=== PATIENT | male | born 1960 | race Caucasian/White ===

== ENCOUNTER 2024-04-05 11:51 | Outpatient (REF) | payer MEDICAID, SELFPAY ==
--- NOTE | ~2024-04-05 | XR_ITS ---
EXAMINATION: XR CHEST CLINICAL INFORMATION: COPD with chronic hypoxemia COMPARISON: 2 view chest 12/19/2018 TECHNIQUE: 2 views of the chest were obtained. FINDINGS: No significant abnormality is noted involving the heart, lungs, mediastinum, bony thorax or soft tissues. XR/XR chest 2V IMPRESSION: Unremarkable examination.
== END 2024-04-05 11:52 | disposition home or self-care (01) ==
LOC: HO.HHCX 11:51
PROVIDERS: Visit Provider Internal Medicine Geriatric Medicine
DX: J96.11 Chronic respiratory failure with hypoxia (principal)
CPT/HCPCS: 36415; 71046; 80053; 81596; 85025; 85610; 85730; 86706; 86708; 86803; 87340; 87522

== ENCOUNTER 2024-04-05 12:15 | Outpatient (REF) | payer MEDICAID, SELFPAY ==
[2024-04-05 13:18] LABS: MANUAL DIFF FLAG NO
[2024-04-05 13:26] LABS: Basophils Absolute Auto 0.1 X10*3/uL (0.0-0.2); Basophils Percent Auto 0.8 % (0-2); Eosinophils Absolute Auto 0.1 X10*3/uL (0.0-0.4); Eosinophils Percent Auto 1.5 % (0-4); Hematocrit 41.7 % (42.0-52.0); Hemoglobin 13.3 g/dl (14.0-18.0); Imm Gran Abs Auto 0.03 X10*3/uL (0.00-0.03); Imm Gran Pct Auto 0.4 % (0.0-0.4); Lymphocytes Absolute Auto 2.7 X10*3/uL (1.2-4.9); Lymphocytes Percent Auto 37.3 % (20-40); Mean Corpuscular HGB Conc 31.9 g/dl (31.0-36.0); Mean Corpuscular Hemoglobin 30.4 pg (27.0-33.0); Mean Corpuscular Volume 95.2 fL (80.0-98.0); Mean Platelet Volume 10.8 fL (9.4-12.4); Monocytes Absolute Auto 0.7 X10*3/uL (0.1-1.2); Monocytes Percent Auto 9.2 % (2-11); Neutrophils Absolute Auto 3.7 x10*3/uL (2.0-8.3); Neutrophils Percent Auto 50.8 % (45-73); Platelet Count 206 X10*3/uL (160-400); Red Blood Count 4.38 X10*6/uL (4.60-5.80); Red Cell Distribution Width 18.3 % (11.0-16.0); White Blood Count 7.3 X10*3/uL (4.8-10.8)
[2024-04-05 13:39] LABS: Prothrombin Time 11.9 SEC (11.1-13.3)
[2024-04-05 13:41] LABS: Partial Thromboplastin Time 38.4 SEC (26.0-36.8)
[2024-04-05 13:50] LABS: Alanine Aminotransferase 13 U/L (0-40); Albumin Level 4.2 g/dL (3.5-5.0); Alkaline Phosphatase 98 U/L (39-117); Anion Gap 14 (12-20); Aspartate Amino Transferase 12 U/L (5-37); Bilirubin Total 0.5 mg/dL (0.0-1.0); Blood Urea Nitrogen 14 mg/dL (9-16); Calcium 9.3 mg/dL (8.4-10.2); Carbon Dioxide 24 mmol/L (22-29); Chloride 108 mmol/L (96-108); Estimated Glomerular Filt Rate > 60; Glucose Random 88 mg/dL (60-115); Potassium 4.5 mmol/L (3.3-5.1); Sodium 141 mmol/L (135-145)
[2024-04-06 08:57] LABS: Hepatitis A Antibody IgG Nonreactive (Nonreactive); ~Hepatitis A Antibody IgG 0.51 S/CO (0.00-0.99)
[2024-04-06 09:01] LABS: HBS Num1 0.71 mIU/mL (0-7.99); HBsAGNum1 0.31 S/CO (0.00-0.99); Hepatitis B Surface Antigen Negative (Negative); ~HepC Num1 14.01 S/CO (0.00-0.79); ~Hepatitis B Surface Antibody NONREACTIVE (Nonreactive); ~Hepatitis C Antibody Reactive (Nonreactive)
[2024-04-11 07:22] LABS: HCV Log PCR <1.18 NOT DETECTED Log IU/mL (NOT DETECTED); HepC Viral Load <15 NOT DETECTED IU/mL (NOT DETECTED)
[2024-04-14 17:38] LABS: FIB-ALT 12 U/L (9-46); FIB-Alpha-2-Macroglobulin 323 mg/dL (106-279); FIB-Apolipoprotein A1 129 mg/dL (94-176); FIB-GGT 11 U/L (3-70); FIB-Haptoglobin 241 mg/dL (43-212); FIB-Total Bilirubin 0.3 mg/dL (0.2-1.2); Liver Fibrosis Score 0.27; Liver Fibrosis Stage F1; Nec Inflam Act Grade A0; Nec Inflam Act Score 0.03
== END 2024-04-05 12:16 | disposition home or self-care (01) ==
LOC: HO.HHCL 12:15
PROVIDERS: Visit Provider Internal Medicine Geriatric Medicine
DX: Z86.19 Personal history of other infectious and parasitic diseases (principal)
CPT/HCPCS: 36415; 80053; 81596; 85025; 85610; 85730; 86706; 86708; 86803; 87340; 87522

== ENCOUNTER 2024-12-26 12:49 | Inpatient (IN) | payer MEDICAID, SELFPAY ==
[2024-12-26] VITALS (12 sets, daily range): BP systolic 80–142; BP diastolic 40–74; PULSE 58–96; RESP 16–26; TEMP 36.3–36.9; O2SAT 93–100; BMI 33.7
--- NOTE | ~2024-12-26 | XR_ITS ---
EXAMINATION: XR BILATERAL HIPS WITH AP PELVIS CLINICAL INFORMATION: pain s/p fall COMPARISON: Right hip radiographs 09/29/2017. TECHNIQUE: AP view of the pelvis and 2 views of each hip were obtained. FINDINGS: Severe, end-stage arthrosis bilateral hip joints, with severe joint space loss bilaterally, [id number] appearance, subchondral sclerosis and cystic changes, and flattening of the right greater than left femoral heads. No definite fracture seen although given the degree of arthritic change, subtle fracture could be easily be obscured. The pelvis appears grossly intact. The sacrum appears grossly intact. The SI joints demonstrate arthritic changes but are otherwise intact. No discrete soft tissue abnormalities. XR/XR hip BI w [id number] IMPRESSION: 1. End-stage arthrosis right greater than left hip joints with [id number] appearance, extensive subchondral cystic changes and sclerosis. Flattening/remodeling of the femoral heads right greater than left, with remodeling of the acetabula.. No definite fractures although given the degree of arthritic changes, a subtle fracture could easily be obscured. 2. The pelvis appears intact without definite fracture. Electronically signed by: George Parry MD 12/26/2024 02:03 PM EDT
--- NOTE | ~2024-12-26 | XR_ITS ---
EXAMINATION: XR CHEST CLINICAL INFORMATION: sob, wheezing COMPARISON: April 05, 2024. TECHNIQUE: Frontal view of the chest was obtained. FINDINGS: Mild prominence of the interstitial markings. No consolidation, pleural effusion or pneumothorax. Cardiomediastinal silhouette size is normal. The axial skeleton is not fully evaluated due to patient's body habitus. XR/XR chest 1V IMPRESSION: Mild interstitial lung edema in the correct clinical settings. Fat opacity at inferior right cardiomediastinal silhouette. Electronically signed by: Lamonte Lomax MD 12/26/2024 01:24 PM EDT
--- NOTE | ~2024-12-26 | CT_ITS ---
CLINICAL HISTORY: Abdominal pain CT abdomen and pelvis without contrast Comparison: None Findings: No consolidation or effusion. Cholelithiasis. Solid organs are within normal limits. No bowel obstruction, pneumoperitoneum, or pneumatosis. Small hiatal hernia. Pelvic contents unremarkable. Normal appendix. No acute fracture. Severe bilateral hip osteoarthritis with rtaxl-[id number]-[id number]-left femoral head deformity, possibly posttraumatic. IMPRESSION: 1. No acute process. 2. Cholelithiasis. 3. Hiatal hernia. 4. Bilateral hip osteoarthritis. This document has been electronically signed by: Juan Jose Cook MD on 12/30/2024 16:01:28
--- NOTE | 2024-12-26 12:53 | ED.SOB ---
HPI - SOB/Dyspnea General Chief Complaint: General Medical Stated Complaint: from for fall, no HS, no LOC, duo neb for SOB Time Seen by Provider: 12/26/24 12:51 Source: patient, EMS, RN notes reviewed and old records reviewed Mode of arrival: EMS Limitations: language barrier History of Present Illness ED Provider: Margarito Osorio PA-C HPI Narrative: 64 yo Gabonese speaking male with history of chronic hypoxic respiratory failure on 2L NC, COPD/asthma, morbid obesity, chronic right hip fracture x1 year, who presents to the ER from the walk in clinic for evaluation of SOB and a fall. He states he is usually on a motorized scooter and does not walk however since he scooter is broken he used a crutch to walk from the bus stop to the office. He did not bring his oxygen tank with him. He states he was going to the doctor because he ran out of [place] of his meds 1 month ago. He states he was recently admitted to [facility] for asthma exacerbation and was discharged with prednisone taper 3-4 days ago. When he was at the doctor today he was lightheaded, tripped on his crutch and fell onto his right side. It was witnessed by staff. He did not hit his head or lose consciousness. He injured his right lateral chest wall when his crutch jabbed into him as he fell over. He developed worsening SOB after walking without O2 and then falling. He was very wheezy and started on a duoneb. His SPo2 was 93% per EMS. He continued to be wheezy, was given another treatment and brought to the ER for evaluation. MD elicited complaint: shortness of breath Pertinent past history: COPD and asthma Onset (ago): hour(s) Context: occurred during exertion Timing: progressively worsening Exacerbating factors: exertion Relieving factors: oxygen, rest, bronchodilators and upright position Known history of: COPD and asthma Associated symptoms: cough, wheezing, chest congestion, dizziness and lightheadedness Treatment prior to arrival: oxygen and bronchodilator Related Data Home oxygen amount: 2 liters Allergies Allergy/AdvReac Type Severity Reaction Status Date / Time oxycodone [Percocet] Allergy Unknown Unknown Verified 12/26/24 13:07 acetaminophen AdvReac Mild LOWERS BP Verified 12/26/24 13:07 [From Tylenol-Codeine] From Tylenol-Codeine AdvReac Mild LOWERS BP Uncoded 12/26/24 13:07 Review of Systems Review of Systems: Yes all other systems are reviewed and are negative [facility] Social History Social History Use of substances other than those prescribed or required for medical reasons: No Advance Directives: No Advance Directives Information Provided: Yes Do you have a plan to hurt others: No Plan Physical Exam Vital Signs: Vital Signs: Last Vital Signs Temp 97.3 F 12/26/24 16:53 Pulse 69 12/26/24 16:53 Resp 17 12/26/24 16:53 BP 142/67 H 12/26/24 16:56 Pulse Ox 93 12/26/24 16:53 O2 Del Method BiPAP 12/26/24 16:53 O2 Flow Rate 22 12/26/24 16:53 Oxygen Flow Rate 2 12/26/24 13:02 BMI result Body Mass Index 33.7 Appearance: Alert. Oriented X3. acute distress with wheezing Head: normocephalic, atraumatic. Eyes: Pupils equal, round and reactive to light. Sclera injected bilaterally. cloudy cornea on the right with strabismus ENT: Pharynx normal. No tonsillar swelling or exudate. Neck: Normal inspection. Neck supple. CVS: Normal heart rate and rhythm. Pulses normal. Respiratory: Mild respiratory distress. RR low 20s Breath sounds with diffuse insp/expiratory wheezing in all lung esteban Abdomen: Rotund, softly distended and nontender. +BS x4 Skin: Skin warm and dry. Normal skin color. Normal skin turgor. No rashes. Extremities: right RLE externally rotated. 1+ pitting lower extremity edema to the lower legs. No joint swelling. Neuro/psych: Oriented X 3. unable to flex the bilateral hips or knees due to chronic pain. CN II-XII intact. Normal speech and cognition. Medications Administered Discontinued Medications Generic Name Dose Route Start Last Admin Trade Name Freq PRN Reason Stop Dose Admin Albuterol Sulfate 5 mg/ 0 mg 12/26/24 15:40 12/26/24 15:46 Albuterol/Ipratropium 3 ml INHALE 12/26/24 15:41 1 each ONCE ONE Administration Furosemide 20 mg 12/26/24 16:39 12/26/24 16:56 Furosemide 20 Mg/2 Ml Vial IVPUSH 12/26/24 16:40 20 mg ONCE ONE Administration Protocol Methylprednisolone Sodium Succinate 60 mg 12/26/24 15:32 12/26/24 16:23 Methylprednisolone Sod Succ 125 Mg/2 Ml Vial IVPUSH 12/26/24 15:33 60 mg ONCE ONE Administration Medical Decision Making Medical Decision Making [facility] Narrative: 64 yo male Gabonese speaking with history of COPD on 2L NC at baseline, recent admission to [facility] 12/17-12/19 for COPD exacerbation who presents to the ER for evaluation after a fall and SOB after walking into doctors office without O2. Usually nonambulatory due to severe hip pain, motorized scooter broken. Went without O2 tank today and was likely hypoxic prior to his fall. he did not hit his head, he is not on anticogaulation. he is awake and alert, c/o bilateral hip pain from the fall. left chest wall pain with associated tenderness on palpation of left lateral ribs. getting neb from EMS on arrival. CXR with increased vascular markings. BNP and trop negative. hemodynamically stable. presentation seems to be precipitated by him ambulating without O2. he states his breathing was not bothering him until he walked without O2 and then fell down. poor reserve. no infection suspected at this time. 15:30 - VBG with acute on chronic respiratory acidosis. plan to start rescue BiPAP. he denies being on NIV at home. [facility] and was never on NIV per documentation Dr. Gomez consulted - plan to repeat VBG in 1 hour and if no improvement will go to ICU 17:10 - VBG improved 7.34/58. remains awake and alert. tolerating bipap well. given rapid improvement in VBG will plan for admission to [facility]. would benefit from nocturnal NIV UOP 1500 cc after 20mg IV lasix. mentating well and breathing comfortably off of BIPAP Differential Diagnosis Differential Diagnoses: The differential diagnosis associated with the presentation includes COPD exacerbation, CHF exacerbation, asthma exacerbation, PTX, PNA, bronchitis, oxygen noncompliance Admission/Observation Consideration of admission/observation: Escalation of care including admission/observation considered Consult Healthcare Provider Management of the patient was discussed with: Hospitalist and Excavator Operator Dr. Gomez Lab Data MDM Lab Attestation statement: I reviewed the patient's lab results. anemia, acidosis w/ elevated bicarb 12/26/24 14:35 12/26/24 14:35 Labs: Lab Results 0412/26/24 12/26/24 Range/Units 14:35 14:40 16:53 WBC 8.1 (4.8-10.8) X10*3/uL RBC 4.04 L (4.60-5.80) X10*6/uL Hgb 12.7 L (14.0-18.0) g/dl Hct 41.2 L (42.0-52.0) % MCV 102.0 H (80.0-98.0) fL MCH 31.4 (27.0-33.0) pg MCHC 30.8 L (31.0-36.0) g/dl RDW 18.6 H (11.0-16.0) % Plt Count 189 (160-400) X10*3/uL MPV 10.5 (9.4-12.4) fL Immature Gran % (Auto) 1.1 H (0.0-0.4) % Neut % (Auto) 56.4 (45-73) % Lymph % (Auto) 29.4 (20-40) % [place] % (Auto) 12.0 H (2-11) % Eos % (Auto) 0.7 (0-4) % Baso % (Auto) 0.4 (0-2) % Lymph # (Auto) 2.4 (1.2-4.9) X10*3/uL [place] # (Auto) 1.0 (0.1-1.2) X10*3/uL Eos # (Auto) 0.1 (0.0-0.4) X10*3/uL Baso # (Auto) 0.0 (0.0-0.2) X10*3/uL Abs Immat Gran (auto) 0.09 H (0.00-0.03) X10*3/uL Absolute Neuts (auto) 4.5 (2.0-8.3) x10*3/uL Absolute Nucleated RBC 0.000 (0.0-0.012) X10*3/uL Nucleated RBC % (auto) 0.0 (0.0-0.2) /100WBC VBG pH 7.23 L 7.34 (7.32-7.43) VBG pCO2 80 58 mmHg VBG pO2 28 42 mmHg VBG HCO3 34 H 32 H (22-26) mmol/L VBG O2 Saturation < 30.0 65.0 % VBG Base Excess 4.3 4.9 mmol/L Sodium 145 (135-145) mmol/L Potassium 4.1 (3.3-5.1) mmol/L Chloride 106 (96-108) mmol/L Carbon Dioxide 31 H (22-29) mmol/L Anion Gap 12 (12-20) BUN 15 (9-16) mg/dL Creatinine 0.79 (0.5-1.4) mg/dL Estim Creat Clear Calc 125.6 Estimated GFR > 60 Random Glucose 96 (60-115) mg/dL Calcium 8.7 D (8.4-10.2) mg/dL Magnesium 2.3 (1.6-2.6) mg/dL Total Bilirubin 0.7 (0.0-1.0) mg/dL Direct Bilirubin 0.2 (0.0-0.5) mg/dL AST 16 (5-37) U/L ALT 24 (0-40) U/L Alkaline Phosphatase 76 (39-117) U/L Troponin I High Sens < 2.7 (<3.5-35.0) ng/L B-Natriuretic Peptide < 10 (<100) pg/mL Total Protein 6.6 (6.5-8.0) g/dL Albumin 4.1 (3.5-5.0) g/dL Procalcitonin 0.02 ng/mL Influenza Type A (PCR) NEGATIVE (Negative) Influenza Type B (PCR) NEGATIVE (Negative) RSV RNA Qual (PCR) NEGATIVE (Negative) SARS-CoV-2 RNA (RT-PCR) NEGATIVE (Negative) ABG Data ABG Results: Attestation ABG: I personally reviewed and interpreted this ABG as follows: Interpretation: acute on chronic respiratory acidosis Independent Interpretation I performed an independent interpretation of an: EKG and Plain X-Ray Interpretation: CXR with increased vascular markings EKG with normal sinus rhythm, HR 62 bpm, slightly peaked T waves in V2-V5, no significant change from prior 2009 Radiology Impression Discussion of test interpretation with radiology: I have reviewed the radiologist's reading. Independent Historian Clinical information obtained from an independent historian. History obtained from or confirmed by: EMS External Record Review External record reviewed: Inpatient record and Outpatient record Tests considered The following testing was considered but not selected: CT head and C-spine considered, no head strike, no headache or neck pain, <65 years old and not on anticoagulation - deferred Prescription Management I considered prescription management with: Pain Medication, Antibiotic and Other (steroids, bronchodilators) Chronic Conditions Patient?s care impacted by: Other (COPD, GELY) Social Determinants Patient?s care significantly limited by Social Determinants of Health including: Problems related to primary support group and Other Social Determinant of Health Critical Care Time Critical Care Time Critical Care Time: Yes Total Critical Care Time: 39 Attestation: I have personally provided critical care time exclusive of time spent on separately billable procedures. Time includes review of lab data, radiology results, discussion with consultants, and monitoring for potential decompensation. Intervention performed as documented. Discharge Plan Discharge Clinical Impression: Acute on chronic respiratory failure with hypoxia and hypercapnia, COPD exacerbation Patient Disposition: Admitted As Inpatient Print Language: Gabonese
--- NOTE | 2024-12-26 12:54 | ECG_ITS ---
Test Reason : SOB Blood Pressure : */* mmHG Vent. Rate : 62 BPM Atrial Rate : 62 BPM P-R Int : 150 ms QRS Dur : 88 ms QT Int : 396 ms P-R-T Axes : 64 53 55 degrees QTcB Int : 401 ms Normal sinus rhythm Increased R/S ratio in V1, consider early transition or posterior infarct Abnormal ECG When compared with ECG of 31-Jul-2010 06:23, MANUAL COMPARISON REQUIRED PREVIOUS ECG IS INCOMPATIBLE Referred By: Aminah Osorio Electronically Signed By: Ranjeet Gerardo
[2024-12-26 14:40] LABS: MANUAL DIFF FLAG NO
[2024-12-26 14:43] LABS: VBG Base Excess 4.3 mmol/L; VBG HCO3 34 mmol/L (22-26); VBG O2 % Saturation < 30.0 %; VBG pCO2 80 mmHg; VBG pH 7.23 (7.32-7.43); VBG pO2 28 mmHg
[2024-12-26 14:44] LABS: Venous Blood Gas Refer to POC result
[2024-12-26 14:49] LABS: Basophils Percent Auto 0.4 % (0-2); Eosinophils Absolute Auto 0.1 X10*3/uL (0.0-0.4); Eosinophils Percent Auto 0.7 % (0-4); Hematocrit 41.2 % (42.0-52.0); Hemoglobin 12.7 g/dl (14.0-18.0); Imm Gran Abs Auto 0.09 X10*3/uL (0.00-0.03); Imm Gran Pct Auto 1.1 % (0.0-0.4); Lymphocytes Absolute Auto 2.4 X10*3/uL (1.2-4.9); Lymphocytes Percent Auto 29.4 % (20-40); Mean Corpuscular HGB Conc 30.8 g/dl (31.0-36.0); Mean Corpuscular Hemoglobin 31.4 pg (27.0-33.0); Mean Platelet Volume 10.5 fL (9.4-12.4); Neutrophils Absolute Auto 4.5 x10*3/uL (2.0-8.3); Neutrophils Percent Auto 56.4 % (45-73); Platelet Count 189 X10*3/uL (160-400); Red Blood Count 4.04 X10*6/uL (4.60-5.80); Red Cell Distribution Width 18.6 % (11.0-16.0); White Blood Count 8.1 X10*3/uL (4.8-10.8)
[2024-12-26 15:01] LABS: Alanine Aminotransferase 24 U/L (0-40); Albumin Level 4.1 g/dL (3.5-5.0); Alkaline Phosphatase 76 U/L (39-117); Anion Gap 12 (12-20); Aspartate Amino Transferase 16 U/L (5-37); B Type Natriuretic Peptide < 10 pg/mL (<100); Bilirubin Direct 0.2 mg/dL (0.0-0.5); Bilirubin Total 0.7 mg/dL (0.0-1.0); Blood Urea Nitrogen 15 mg/dL (9-16); Calcium 8.7 mg/dL (8.4-10.2); Carbon Dioxide 31 mmol/L (22-29); Chloride 106 mmol/L (96-108); Creatinine Clr Calc Pharmacy 125.6; Estimated Glomerular Filt Rate > 60; Glucose Random 96 mg/dL (60-115); Magnesium 2.3 mg/dL (1.6-2.6); Potassium 4.1 mmol/L (3.3-5.1); Sodium 145 mmol/L (135-145); Total Protein 6.6 g/dL (6.5-8.0)
[2024-12-26 15:03] LABS: Troponin-I High Sensitivity < 2.7 ng/L (<3.5-35.0)
[2024-12-26 15:16] LABS: Procalcitonin 0.02 ng/mL
--- NOTE | 2024-12-26 15:30 | PC.NURSE ---
Report received from LYLE Storey. Taken over care at this time.
[2024-12-26 15:36] LABS: Influenza A PCR NEGATIVE (Negative); Influenza B PCR NEGATIVE (Negative); Resp Syncy Virus RNA Qual PCR NEGATIVE (Negative); SARS COV2 PCR INHOUSE NEGATIVE (Negative)
--- OUTSIDE RECORDS SUMMARY | 2024-12-26 15:41 | XMS_ITS | Encounter Summary ---
Author Organization [employer] Address [address] [place] [address] Care Team Providers Care Starch And Prosize Mixer Name Role Phone Name, Gomez HORN Primary Care Provider [phone] Reason for Visit * Reason Onset Date Comments Durable Medical Equipment 06/25/2024 Encounter Details Date Type Department Care Team ([facility] st Contact Info) Description 06/25/2024 Telephone [facility] [address], [place] [id number] Name, MD Gomez [address] [place] [address] Durable Medical Equipment Social History Tobacco Use Types Packs/Day Years Used Date Smoking Tobacco: Former Cigarettes Alcohol Use Standard Drinks/Week Comments Yes 0 (1 standard drink = 0.6 oz pur e alcohol) social Alcohol Answer Date Recorded Frequency of Alcohol Consumption Not on file 04/05/2024 Average Number of Drinks Not on file 024 Frequency of Binge Drinking Not on file 03/2024 Score 0 04/05/2024 Depression Answer Date Recorded Patient Health Questionnaire-9 Score 0 04/05/2024 Patient Health Questionnaire-9 Score 0 04/05/2024 Last PHQ-9: Questionnaire Data Not on file 0 04/05/2024 Housing Stability Answer Date Recorded What is your housing situation today? I have lian haynes 04/05/[address] you li ve. Do you have problems with any of the following? None of the above 04/05/2024 Food Insecurity Answer Date Recorded Within the past 12 months, y ou worried that your food would run out before you got money to buy more: Often true 04/05/2024 Within the past 12 months,th e food you bought just didn't last and you didn't have enough money to get more: Often true 03/2024 Transportation Answer Date Recorded In the past 12 months, has l ack of transportation kept you from medical appts, meetings, work or from getting things needed for daily living? No 04/05/2024 Utilities Answer Date Recorded In the past 12 months, has t he electric, gas, oil or water company threatened to shut off services in your home? No 04/05/2024 Depression Answer Date Recorded Patient Health Questionnaire-2 Score 0 04/05/2024 Internet Access Answer Date Recorded Internet Access Q1 No 04/27/2024 Internet Access Q2 I do not want or need it 03/31 Sex and Gender Information Value Date Recorded Sex Assigned at Male 06/28/2022 10:17 AM EDT Legal Sex Male 10:17 AM EDT Gender Identity Male 02/06/2024 1:51 PM EDT Sexual Orientation Straight 02/06/2024 1: 51 PM EDT documented as of this encounter Miscellaneous Notes * Telephone Encounter - Markos Zhou - 06/28/2024 10:10 AM EDT Tc from pt calling in regards to message prior. * Telephone Encounter - Renetta Sprague - 06/25/2024 2:59 PM EDT Tc from pt requesting a new electric wheel chair. Contact pt at [phone] (polish) documented in this encounter Plan of Treatment Not on file documented as of this encounter Visit Diagnoses Not on filedocumented in this encounter Additional Health Concerns Assessment Noted Time PHQ-9 Depression Total Score: 0 04/05/20 10:41 AM EDT documented as of this encounter Care Teams St[employer] And Pro[employer] Mixer Relationship Specialty Start Date End Date Name, MD Gomez [address] [place] [address] PCP - General Internal Medicine 04/05/24 documented as of this encounter
--- OUTSIDE RECORDS SUMMARY | 2024-12-26 15:41 | XMS_ITS | Clinical Summary ---
Author Organization [facility] Address [address] [place] [address] Care Team Providers Care Order Desk Caller Name Role Phone EliezerKanuKatrinkiran STANTON Primary Care Provider [phone] Source Comments PLEASE NOTE, if this patient is a minor, it may be UNLAWFUL to discuss sensitive information that is contained in these records (such as FAMILY PLANNING, MENTAL HEALTH or SUBSTANCE ABUSE) with the minor patient's parent or other person without the patient's specific authorization.[facility] Social History Tobacco Use Types Packs/Day Years Used Date Smoking Tobacco: Never Assessed Social Connections Answer Date Recorded Social Connections and Isolation 0 04/01/2020 Financial Resource Strain Answer Date R ecorded Financial Resource Strain 0 2019 Stress Answer Date Recorded Stress 0 04/01/2020 Physical Activity Answer Date Recorded Physical Activity 0 04/01/2020 Food Insecurity Answer Date Recorded Food 0 04/01/2020 Transportation Needs Answer Date Record ed Transportation 0 04/01/2020 Housing Stability Answer Date Recorded Housing 0 04/01/2020 Safety and Environment Answer Date Jaiden rded Safety 0 04/01/2020 Utilities Answer Date Recorded Utilities 0 04/01/2020 Employment Answer Date Recorded Employment 0 04/01/2020 Sex and Gender Information Value Date Recorded Sex Assigned at Not on file Legal Sex Male 12:14 PM PST Gender Identity Not on file Sexual Orientation Not on file Plan of Treatment Not on file Insurance [facility] Care Teams Order Desk Caller Relationship Specialty Start Date End Date Katrin Martins DMD [address] [place] [address] [facility] - General 11/07/20
--- OUTSIDE RECORDS SUMMARY | 2024-12-26 15:42 | XMS_ITS | Encounter Summary ---
Author Organization [employer] Address [address] [facility] 7[address] [place] [address] Care Team Providers Care Executive Personal Assistant Name Role Phone Name, Gomez HORN Primary Care Provider [phone] Reason for Visit * Reason Comments Med Change Request Encounter Details Date Type Department Care Team ([facility] st Contact Info) Description 11/16/2024 Refill [facility] [address] [place], [place] [phone] Name, MD Gomez [address] [place], [place] [phone] Severe persistent asthma, unspecified whether complicated Social History Tobacco Use Types Packs/Day Years [...] PM EDT documented as of this encounter Plan of Treatment Not on file documented as of this encounter Visit Diagnoses Diagnosis Severe persistent asthma, unspecified whether complicated documented in this encounter Additional Health Concerns Assessment Noted Time PHQ-9 Depression Total Score: 0 04/05/20 10:41 AM EDT documented as of this encounter Care Teams Executive Personal Assistant Relationship Specialty Start Date End Date Name, MD Gomez [address] [place] [address] PCP - General Internal Medicine 04/05/24 documented as of this encounter
--- OUTSIDE RECORDS SUMMARY | 2024-12-26 15:42 | XMS_ITS | Clinical Summary ---
Author Organization [employer] Address [address] [facility] 7t [place] [address] Care Team Providers Care Medical Billing Clerk Name Role Phone Name, Gomez HORN Primary Care Provider [phone] Allergies Active Allergy Reactions Criticality Noted Date Comments Acetaminophen 08/31/2010 Other Reaction(s): unspecified Codeine 04/08/2017 Other Reaction(s): Altered Heart Rate low blood pressure per patient. Oxycodone 08/31/2010 Other Reaction(s): unspecified Medications varenicline (Chantix) 1 MG tablet 024 Active tiotropium (Spiriva Respimat) 2.5 MCG/ACT inhalerIndicati ons:Chronic hypoxemic respiratory failure (CMS/HCC) Inhale 2 puffs Once per day. 60 Act 3 025 Active rosuvastatin (Crestor) 10 MG tablet Take 1 tablet (10 mg) by mouth Once per day. 30 tablet 1 025 Active pantoprazole (ProtoNix) 40 MG packet Take 1 packet (40 mg) by mouth Once per day. 30 each 1 025 Active albuterol (2.5 MG/3ML) 0.083% nebulizer solutionIndicat ions:Severe persistent asthma, unspecified whether complicated Take 3 mL (2.5 mg) by nebulization every 6 (six) hours if needed for wheezing or shortness of breath. 90 mL 2 025 Active albuterol (Ventolin HFA) 108 (90 Base) MCG/ACT inhalerIndicati ons:Chronic hypoxemic respiratory failure (CMS/HCC),COPD exacerbation (CMS/HCC) Inhale 2 puffs every 4 (four) hours if needed for wheezing. 18 g 2 025 2025 Active acetaminophen (Tylenol) 500 MG tablet Take 2 tablets (1,000 mg) by mouth every 6 (six) hours if needed for moderate pain or fever for up to 25 doses. 50 tablet Active gabapentin (Neurontin) 800 MG tablet Take 1 tablet (800 mg) by mouth if needed in the morning and at bedtime (hip pain). 60 tablet 2025 Active Spacer/Aero-Hol ding Chambers (OptiChamber Julianna) [facility] 1 each every 4 (four) hours if needed (asthma). 1 each Active rosuvastatin (Crestor) 10 MG tablet Take 10 mg by mouth Once per day. 023 2024 Discontinued(R eorder (will not trigger notification to Pharmacy)) pantoprazole (ProtoNix) 40 MG packet Take 1 tablet by mouth Once per day. 2024 Discontinued(R eorder (will not trigger notification to Pharmacy)) tiotropium (Spiriva Respimat) 2.5 MCG/ACT inhalerIndicati ons:Chronic hypoxemic respiratory failure (CMS/HCC) Inhale 2 puffs Once per day. 4 g 3 024 2024 Discontinued(R eorder (will not trigger notification to Pharmacy)) albuterol (Ventolin HFA) 108 (90 Base) MCG/ACT inhalerIndicati ons:COPD exacerbation (CMS/HCC),Chron ic hypoxemic respiratory failure (CMS/[facility]) Inhale 2 puffs every 4 (four) hours if needed for wheezing. 18 g 2 024 2024 Discontinued(R eorder (will not trigger notification to Pharmacy)) albuterol (2.5 MG/3ML) 0.083% nebulizer solutionIndicat ions:Severe persistent asthma, unspecified whether complicated Take 3 mL (2.5 mg) by nebulization every 6 (six) hours if needed for wheezing or shortness of breath. 90 mL 1 025 2024 Discontinued(R eorder (will not trigger notification to Pharmacy)) Hospital, Clinic, or Other Facility Administered Medication Ordered Dose Route Frequency Start Date End Date Status albuterol (2.5 MG/3ML) 0.083% nebulizer solution 2.5 mgIndications:Chroni c obstructive pulmonary disease, unspecified COPD type (CMS/HCC) 2.5 mg NEBULIZATION Once 12/26/2024 12/26/2024 Ended Active Problems Problem Noted Date Diagnosed Date Dry eye syndrome of right eye 06/05/2024 Vitamin D deficiency 06/05/2024 Visual impairment 06/05/2024 Skin irritation 06/05/2024 Absence of teeth, acquired 06/05/2024 Alcohol dependence in remission 06/05/2024 Arthritis of right wrist 06/05/2024 At risk for falls 06/05/2024 Atherosclerosis of aorta 06/05/2024 Backache 06/05/2024 Band-shaped keratopathy 06/05/2024 Cataract of right eye 06/05/2024 Chronic pain of right wrist 06/05/2024 Dyspnea 06/05/2024 Erectile disorder due to medical condition in ma le patient 06/05/2024 Asteatosis cutis 06/05/2024 History of hepatitis C 06/05/2024 History of seizure 06/05/2024 Hx of fracture of clavicle 06/05/2024 Impaired glucose tolerance 06/05/2024 Major depressive disorder, recurrent, in remissi on 06/05/2024 Marijuana dependence 06/05/2024 Mild tobacco abuse 06/05/2024 Misuse of drugs 06/05/2024 Multiple nodules of lung 06/05/2024 Noncompliance with medication regimen 06/05/2024 Osteoarthritis of knees, bilateral 06/05/2024 Right knee pain 06/05/2024 Severe persistent asthma 06/05/2024 Intravenous drug user 04/05/2024 Male hypogonadism 04/05/2024 Marijuana use 04/05/2024 Tobacco dependence syndrome 04/05/2024 Illiteracy 04/05/2024 Mixed hyperlipidemia 03/24/2023 Positive hepatitis C antibody test 03/24/2023 Peripheral vascular disease 07/20/2022 Impaired cognition 08/12/2021 Class 1 drug-induced obesity with serious comorbidity and body mass index (BMI) of 33.0 to 33.9 in adult 08/22/2019 Neoplasm of uncertain behavior 02/03/2018 Arthritis of hip 09/29/2016 Osteonecrosis of multiple sites 09/29/2016 Wheelchair dependent 09/29/2016 Chronic hepatitis C 01/08/2016 Chronic obstructive pulmonary disease 01/08/2016 Moderate heroin dependence in sustained remissio n 01/08/2016 Obstructive sleep apnea syndrome 01/08/2016 Osteoporosis 01/08/2016 Resolved Problems Problem Noted Date Diagnosed Date Resolved Date Acute asthma exacerbation 04/05/2024 Uncomplicated asthma 03/22/2023 024 Encounters Date Type Department Care Team Description 12/26/2024 10:20 AM EDT Office Visit [facility] [address] [place] [address] Duncan Chavez MD Chronic obstructive pulmonary disease, unspecified COPD type (CMS/HCC) (Primary Dx); Chronic right hip pain; Fall, initial encounter; Chronic hypoxemic respiratory failure (CMS/HCC); Severe persistent asthma, unspecified whether complicated; COPD exacerbation (CMS/HCC) 12/26/2024 Telephone [facility] [address] [place] [phone] Duncan Chavez MD 12/26/2024 Travel 12/24/2024 Population Health Risk Score [facility] () Department [address] [place] [phone] Provider, Population Health Generic 11/26/2024 Telephone [facility] [address] [place] [phone] Gomez Bean MD Appointment Request 11/23/2024 Telephone [facility] [address] [place] [phone] Gomez Bean MD No Show 11/19/2024 Telephone [facility] [address] [place] [phone] Nathaniel Canchola MA chartprep 11/16/2024 Refill [facility] [address] [place] [phone] Gomez Bean MD Severe persistent asthma, unspecified whether complicated 11/16/2024 Refill [facility] [address] [place] [phone] Gomez Bean MD Severe persistent asthma, unspecified whether complicated (Primary Dx) 11/16/2024 Patient Outreach [facility] [address] [place] [phone] Name, MD Gomez Transition Of Care (Tcm) (HDF scheduled) from Last 3 Months Immunizations Name Administration Dates Next Due INFLUENZA INJECTABLE QUADRIV ALANT CCIIV4 MDCK Multi-dose vial 07/25/2019 Influenza Injectable Quadriv alant Preservative Free IIV4 MDCK 10/03/2023 Influenza injectable quadriv alent IIV4 with preservative 10/05/2023,05/29/2021,07/13/2017,07/01 Influenza injectable quadriv alent preservative free 06/17/2022 Influenza, IIV3, injectable 06/03/2013, 6,09/13/2005 Influenza, seasonal, injecta ble, preservative free 06/15/2024 Novel [id number], all formulations 11/06/2009 Pfizer Covid-19 Vaccine 12+ 06/15/2024 Pneumococcal Conjugate PCV 20 10/03/2023 Pneumococcal Polysaccharide PPSV23 04/14,02/26/2011,05/15/2006,09/13 RSV Adjuvant 10/27/2023 Tdap 04/14/2018 Zoster, Recombinant 02/09/2021,12/08/2020 Social History Tobacco Use Types Packs/Day Years Used Date Smoking Tobacco: Former Cigarettes Tobacco Cessation:Counseling Given: Not Answered Alcohol Use Standard Drinks/Week Comments Yes 0 [...] is your housing situation today? I have lain haynes 04/05/[address] you [...] Orientation Straight 02/06/2024 1: 51 PM EDT Last Filed Vital Signs Vital Sign Reading Time Taken Comments Blood Pressure 144/84 12/26/2024 10:20 AM EDT Pulse 93 12/26/2024 10:20 AM EDT Temperature 36.7 ??C (98 ??F) 12/26/2024 10:20 AM EDT Respiratory Rate 20 12/26/2024 10:20 AM EDT Oxygen Saturation 97% 12/26/2024 10:20 AM EDT Inhaled Oxygen Concentration - - Weight - - Height - - Body Mass Index - - Plan of Treatment Health Maintenance Due Date Last Done Comments CT Colonography 1962 Colonoscopy 1962 Colorectal Cancer Screening 1962 FIT DNA/Cologuard 1962 FIT 1962 FOBT 1962 HIV Screening 1962 Lipid Panel 1962 Sigmoidoscopy 1962 Hepatitis A Vaccines (1 of 2 - Risk 2-dose series) 1981 Hepatitis B Vaccines (1 of 3 - Risk 3-dose series) 2022 Alcohol/Substance Use Screening 04/05/2025 04/05/2024 Depression Screening 04/05/2025 04/05/2024, 04/05/20 24 SDOH Screening 04/05/2025 04/05/2024 Tobacco Screening 12/26/2025 12/26/2024 DTaP/Tdap/Td Vaccines (3 - Td or Tdap) 05/29/2034 05/29/2024, 04/14/2018 Zoster Vaccines Completed 02/09/2021, 12/08/2020 Pneumococcal Vaccine: 50+ Years Completed 10/03/2023, 04/14/2018, 02/26/2011, Additional history exists RSV Patients and Patients Aged 60 years or older Completed 10/27/2023 COVID-19 Vaccine Completed 06/15/2024, 02/2024, 07/13/2022, Additional history exists Influenza Vaccine Completed 08/17/2024, , 10/05/2023, Additional history exists HIB Vaccines Aged Out No longer eligi ble based on patient's age to complete this topic HPV Vaccines Aged Out No longer eligi ble based on patient's age to complete this topic IPV Vaccines Aged Out No longer eligi ble based on patient's age to complete this topic Meningococcal Vaccine Aged Out No chiquita enoc eligible based on patient's age to complete this topic RSV under 20 months Aged Out No longe r eligible based on patient's age to complete this topic Rotavirus Vaccines Aged Out No longer eligible based on patient's age to complete this topic Procedures Procedure Name Priority Date/Time Associated Diagnosis Comments VENOUS BLOOD GAS Routine 12/26/2024 2:40 PM EDT PROCALCITONIN Routine 12/26/2024 2:35 PM EDT HIGH SENSITIVITY TROPONIN I Routine 12/26/2024 2:35 PM EDT MAGNESIUM Routine 12/26/2024 2:35 PM EDT BASIC METABOLIC PANEL Routine 12/26/2024 2:35 PM EDT HEPATIC FUNCTION PANEL Routine 2:35 PM EDT B TYPE NATRIURETIC PEPTIDE (BNP) Routine 12/26/2024 2:35 PM EDT CBC WITH AUTO DIFFERENTIAL Routine 12/26/2024 2:35 PM EDT SARS COV2/INFLUENZA A/B AND RSV RNA QL NAAT Routine 12/26/2024 2:35 PM EDT from Last 3 Months Results * (ABNORMAL) VENOUS BLOOD GAS (12/26/2024 2:40 PM EDT) [facility] VBG pH 7.23(L) 7.32 - 7.43 [facility] Comment:METER #: [id number] additional_comment: Cb diannadj VBG PCO2 80 mmHg [facility] Comment:METER #: [id number] additional_comment: Cb khalidagadj VBG PO2 28 mmHg [facility] Comment:METER #: [id number] additional_comment: Cb diannadj VBG Base Excess 4.3 mmol/L [facility] Comment:METER #: [id number] additional_comment: Cb diannadj VBG HCO3 34(H) 22 - 26 mmol/L [facility] Comment:METER #: [id number] additional_comment: Miguel hodges O2 Sat, Ed <30.0 % [facility] Comment:METER #: [id number] additional_comment: Miguel hodges 12/26/2024 2:40 PM EDT 12/26/2024 2:43 PM EDT us Generic External Data Provider LAB BLOOD ORDERAB LES Final Result [facility] [address] [place] [phone] * High Sensitivity Troponin I (12/26/2024 2:35 PM EDT) [facility] TROPONIN I HIGH SENSITIVITY <2.7 <3.5 - 35.0 ng/L [facility] Comment:The [employer] high sens itivity Troponin-I results should beused in conjunction with other diagnostic information suchas ECG, clinical observations and information, and patientsymptoms to aid in the diagnosis of LA. 12/26/2024 2:35 PM EDT 12/26/2024 2:38 PM EDT Generic External Data Provider LAB BLOOD ORDERAB LES Final Result Performing Organization Address [facility]/ZIP Co de Phone Number [facility] [address] [place] [phone] * SARS-CoV-2 RNA, Influenza A/B, and RSV RNA, Ql NAAT (12/26/2024 2:35 PM EDT) [facility] Influenza A PCR NEGATIVE Negative [facility] Influenza B PCR NEGATIVE Negative [facility] Resp Syncy Virus RNA Qual PCR NEGATIVE Negative [facility] SARS COV2 PCR NEGATIVE Negative [facility] Comment:All test results mus t be correlated with clinical findings.Negative results do not preclude SARS-CoV2, influenza Avirus, influenza B virus and/or RSV infectionand should not be used as the sole basis for treatment orother patient management decisions. Negative results must becombined with clinical observations, patient history, andepidemiological information.This test has not been evaluated for monitoring treatment ofinfection.This test has been authorized by the FDA under an EmergencyUse Authorization (EUA) for use by authorized laboratories.Testing performed on the [employer] GeneXpert utilizingreal-time RT-PCR.All SARS CoV2 and positive influenza A/B results arereported to [facility]. 12/26/2024 2:35 PM EDT 12/26/2024 2:38 PM EDT us Generic External Data Provider LAB MICROBIOLOGY - GENERAL ORDERABLES Final Result Performing Organization Address [facility]/ZIP Co de Phone Number [facility] [address] [place] [phone] * Procalcitonin (12/26/2024 2:35 PM EDT) Procalcitonin 0.02 ng/mL [facility] Comment: Procalcitonin (PCT) Reference Range:PCT greater than 2.0 ng/mL: ??A PCT level above 2.0 ng/mL onthe first day of ICU admission is associated with a highrisk for progression to severe sepsis and/or septic shock.PCT less than 0.5 ng/mL: ??A PCT level below 0.5 ng/mL on thefirst day of ICU admission is associated with a low risk forprogression to severe sepsis and/or septic shock.PCT levels below 0.5 ng/mL do not exclude an infection.Care must be taken in interpreting PCT results fromdifferent laboratories and methodologies.References:[employer]/Society of CriticalCare Medicine Consensus Conference Committee. ??Definitionsfor sepsis and organ failure and guidelines for the use ofinnovative therapies in sepsis. ??Crit Care Ppp4420;20(6):864-874.Hernan B, Dorian KL, Rhea H, et al. ??Calcitoninprecursors are reliable markers of sepsis in a medicalintensive care unit. ??Crit Care Med 2000;363:600-607.Devon S, Rizwana K, Kim C, et al. ??Diagnosticvalue of procalcitonin, interleukin-6 and interleukin-8 incritically ill patients admitted with suspected sepsis. ??AMJ Respir Crit Care Med 2001;164:396-402.US Food and Drug Administration. ??510(k) substantialequivalence determination decision summary for [facility] PCTLIA.http://[email or web address].fda.fov/[facility]_[email or web address]/[email or web address].pdf.Published August 2004. ??Accessed January 2017. 12/26/2024 2:35 PM EDT 12/26/2024 2:38 PM EDT us Generic External Data Provider LAB BLOOD ORDERAB LES Final Result [facility] [address] [place] [phone] * (ABNORMAL) CBC auto differential (12/26/2024 2:35 PM EDT) White Blood Count 8.1 4.8 - 10.8 X10*3/uL [facility] Red Blood Count 4.04(L) 4.60 - 5.80 X10*6/uL [facility] Hemoglobin 12.7(L) 14.0 - 18.0 g/dl [facility] Hematocrit 41.2(L) 42.0 - 52.0 % [facility] Mean Corpuscular Volume 102.0(H) 80.0 - 98.0 fL [facility] Mean Corpuscular Hemoglobin 31.4 27.0 - 33.0 pg [facility] Mean Corpuscular HGB Conc 30.8(L) 31.0 - 36.0 g/dl [facility] Red Cell Distribution Width 18.6(H) 11.0 - 16.0 % [facility] Platelet Count 189 160 - 400 X10*3/uL [facility] Mean Platelet Volume 10.5 9.4 - 12.4 fL [facility] Neutrophils Percent Auto 56.4 45 - 73 % [facility] Imm Gran Pct Auto 1.1(H) 0.0 - 0.4 % [facility] Lymphocytes Percent Auto 29.4 20 - 40 % [facility] Monocytes Percent Auto 12.0(H) 2 - 11 % [facility] Eosinophils Percent Auto 0.7 0 - 4 % [facility] Basophils Percent Auto 0.4 0 - 2 % [facility] NRBC Pct Auto 0.0 0.0 - 0.2 /100WBC [facility] Neutrophils Absolute Auto 4.5 2.0 - 8.3 x10*3/uL [facility] Imm Gran Abs Auto 0.09(H) 0.00 - 0.03 X10*3/uL [facility] Lymphocytes Absolute Auto 2.4 1.2 - 4.9 X10*3/uL [facility] Monocytes Absolute Auto 1.0 0.1 - 1.2 X10*3/uL [facility] Eosinophils Absolute Auto 0.1 0.0 - 0.4 X10*3/uL [facility] Basophils Absolute Auto 0.0 0.0 - 0.2 X10*3/uL [facility] NRBC Abs Auto 0.000 0.0 - 0.012 X10*3/uL [facility] 12/26/2024 2:35 PM EDT 12/26/2024 2:38 PM EDT us Generic External Data Provider LAB BLOOD ORDERAB LES Final Result Performing Organization Address [facility]/ZIP Co de Phone Number [facility] [address] [place] [phone] * B Type Natriuretic Peptide (BNP) (12/26/2024 2:35 PM EDT) B Type Natriuretic Peptide <10 <100 pg/mL [facility] 12/26/2024 2:35 PM EDT 12/26/2024 2:38 PM EDT Generic External Data Provider LAB BLOOD ORDERAB LES Final Result Performing Organization Address [facility] Co de Phone Number [facility] [address] [place] [address] [phone] * Magnesium (12/26/2024 2:35 PM EDT) Magnesium 2.3 1.6 - 2.6 mg/dL [facility] 12/26/2024 2:35 PM EDT 12/26/2024 2:38 PM EDT Generic External Data Provider LAB BLOOD ORDERAB LES Final Result Performing Organization Address [facility] Co de Phone Number [facility] [address] [place] [address] [phone] * Hepatic Function Panel (12/26/2024 2:35 PM EDT) Bilirubin, Total 0.7 0.0 - 1.0 mg/dL [facility] Bilirubin, Direct 0.2 0.0 - 0.5 mg/dL [facility] Aspartate Amino Transferase 16 5 - 37 U/L [facility] Alanine Aminotransferase 24 0 - 40 U/L [facility] Total Protein 6.6 6.5 - 8.0 g/dL [facility] Albumin Level 4.1 3.5 - 5.0 g/dL [facility] Alkaline Phosphatase 76 39 - 117 U/L [facility] 12/26/2024 2:35 PM EDT 12/26/2024 2:38 PM EDT us Generic External Data Provider LAB BLOOD ORDERAB LES Final Result [facility] [address] [place] [phone] * (ABNORMAL) Basic Metabolic Panel (12/26/2024 2:35 PM EDT) Pathologist [facility] Sodium 145 135 - 145 mmol/L [facility] Potassium 4.1 3.3 - 5.1 mmol/L [facility] Chloride 106 96 - 108 mmol/L [facility] Carbon Dioxide 31(H) 22 - 29 mmol/L [facility] Anion Gap 12 12 - 20 [facility] Urea Nitrogen (BUN) 15 9 - 16 mg/dL [facility] Creatinine, Serum 0.79 0.5 - 1.4 mg/dL [facility] Creatinine Clr Calc Pharmacy 125.6 [facility] Comment:eGFR (calculated fro m the MDRD study equation) and eCrCl(calculated from the Cockcroft-Gault equation) are based ondifferent parameters and may not yield comparable results.If eCrCl result is absurd, please check patient'sheight/weight. Estimated Glomerular Filt Rate >60 [facility] Comment:Chronic Kidney Disea se: Estimated GFR < 60 mL/min/1.27l2[place] Kidney Disease: Estimated GFR < 15 mL/min/1.73m2 Glucose 96 60 - 115 mg/dL [facility] Calcium 8.7 8.4 - 10.2 mg/dL [facility] 12/26/2024 2:35 PM EDT 12/26/2024 2:38 PM EDT us Generic External Data Provider LAB BLOOD ORDERAB LES Final Result [facility] [address] [place] [phone] from Last [address] [place] [address] [place] [address] STANDARD Care Teams Medical Billing Clerk Relationship Specialty Start Date End Date Name, MD Gomez [address] [place] [phone] PCP - General Internal Medicine 04/05/24
--- OUTSIDE RECORDS SUMMARY | 2024-12-26 15:42 | XMS_ITS | Encounter Summary ---
Author Organization [employer] Address [address] [facility] [address] [place] [address] Care Team Providers Care Derrickman Helper Name Role Phone Name, Gomez HORN Primary Care Provider [phone] Encounter Details Date Type Department Care Team (Late st Contact Info) Description 12/24/2024 Population Health Risk Score [facility] ([facility] Department [address] [facility] [address] [place] [address] Provider, Population Health Generic Social History Tobacco Use Types Packs/Day Years [...] documented as of this encounter Care Teams Derrickman Helper Relationship Specialty Start Date End Date Name, MD Gomez [address] [place] [phone] PCP - General Internal Medicine 04/05/24 documented as of this encounter
--- OUTSIDE RECORDS SUMMARY | 2024-12-26 15:42 | XMS_ITS | Encounter Summary ---
Author Organization [employer] Address [address] [place] [address] Care Team Providers Care Fuel Assembler Name Role Phone Name, Gomez HORN Primary Care Provider [phone] Reason for Visit * Reason Comments Foot Pain Encounter Details Date Type Department Care Team (Late st Contact Info) Description 12/26/2024 10:20 AM EDT Office Visit [facility] [address] [place], [place] [phone] Duncan Chavez MD [address] [place], [place] [phone] Chronic obstructive pulmonary disease, unspecified COPD type (CMS/HCC) (Primary Dx); Chronic right hip pain; Fall, initial encounter; Chronic hypoxemic respiratory failure (CMS/HCC); Severe persistent asthma, unspecified whether complicated; COPD exacerbation (CMS/HCC) Social History Tobacco Use Types Packs/Day Years [...] the past 12 months, has t he [employer], gas, oil or water company threatened to [...] PM EDT documented as of this encounter Last Filed Vital Signs Vital Sign Reading Time Taken Comments Blood Pressure 144/84 12/26/2024 10:20 AM EDT Pulse 93 12/26/2024 10:20 AM EDT Temperature 36.7 ??C (98 ??F) 12/26/2024 10:20 AM EDT Respiratory Rate 20 12/26/2024 10:20 AM EDT Oxygen Saturation 97% 12/26/2024 10:20 AM EDT Inhaled Oxygen Concentration - - Weight - - Height - - Body Mass Index - - documented in this encounter Progress Notes * Duncan Chavez MD - 12/26/2024 10:20 AM EDT Subjective Patient ID: Lexx Dang is a 64 y.o. male. Registered Nurse Fetal: Tan ECHAVARRIA Lexx came to [facility] today because he ran out of all meds several months ago except for albuterol solution, has several vials left. Also, 6 months ago electric scooter broke and he is requesting a replacement. Has chronic right hip pain since it broke 20 years ago. Taking gabapentin for pain that he buys on the street. Was admitted to [facility] 12/17 for COPD exacerbation, had OT consult for right hip pain/difficulty ambulating. Lives alone. Not employed. Former smoker. No longer drinks alcohol. No longer uses cocaine and heroin, stopped 2013. 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 ([facility]/HCC) Intravenous drug user Male hypogonadism Marijuana use Mixed hyperlipidemia Neoplasm of uncertain behavior Obstructive sleep apnea syndrome Osteoporosis Positive hepatitis C antibody test Tobacco dependence syndrome Wheelchair dependent Illiteracy Dry eye syndrome of right eye Vitamin D deficiency Visual impairment Skin irritation Absence of teeth, acquired Alcohol dependence in remission ([facility]/HCC) Arthritis of right wrist At risk for falls Atherosclerosis of aorta ([facility]/HCC) Backache Band-shaped keratopathy Cataract of right eye Chronic pain of right wrist Dyspnea 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 Asteatosis cutis History of hepatitis C History of seizure Hx of fracture of clavicle Impaired cognition Impaired glucose tolerance Major depressive disorder, recurrent, in remission ([facility]/HCC) Marijuana dependence ([facility]) Mild tobacco abuse Misuse of drugs Multiple nodules of lung Noncompliance with medication regimen Osteoarthritis of knees, bilateral Peripheral vascular disease ([facility]) Right knee pain Severe persistent asthma The following portions of the chart were reviewed this encounter and updated as appropriate: Tobacco Allergies Meds Problems Med Hx Surg Hx Fam Hx Review of Systems Constitutional: Negative for fever. Respiratory: Negative for shortness of breath. Cardiovascular: Negative for chest pain. Gastrointestinal: Negative for abdominal pain. Musculoskeletal: Positive for arthralgias. Skin: Negative for rash. Neurological: Negative for headaches. Objective Physical Exam Constitutional: Appearance: Normal appearance. HENT: Nose: Nose normal. Eyes: Conjunctiva/sclera: Conjunctivae normal. Pupils: Pupils are equal, round, and reactive to light. Comments: right pterygium. Right exotropia Cardiovascular: Rate and Rhythm: Normal rate and regular rhythm. Heart sounds: No murmur heard. Pulmonary: Effort: Pulmonary effort is normal. Breath sounds: Wheezing (mild bilat diffuse expiratory) present. Musculoskeletal: General: Normal range of motion. Cervical back: No tenderness. Comments: Pain in right hip with ROM. Antalgic gait, uses [place] crutch. Skin: Findings: No rash. Neurological: Mental Status: He is alert. Gait: Gait is intact. Psychiatric: Mood and Affect: Mood normal. Behavior: Behavior normal. Procedures Assessment/Plan Diagnoses and all orders for this visit: Chronic obstructive pulmonary disease, unspecified COPD type (CMS/HCC) Albuterol nebulizer treatment in walk-in clinic with some improvement on reexam. I refilled all his meds. We attempted to schedule a PCP visit, and he is on recall list. Return to clinic if not improving - albuterol (2.5 MG/3ML) 0.083% nebulizer solution 2.5 mg Chronic right hip pain I prescribed acetaminophen and gabapentin. He was advised never to buy street medication because of possible contamination with fentanyl etc. He has his nonfunctioning electric scooter at home. We were unable to determine where he purchased it in order to have it repaired, and will reach out to the blue team nurses for more information. Referred to orthopedic surgery. Fall, initial encounter In the exam room he was having difficulty sitting because of hip pain and was standing using his [place] crutch when he fell onto the floor. He was helped back up and states he initially had left shoulder pain from the fall but he feels back to baseline at this time. He is now extremely unsteady using his crutch and is not able to go from a sitting to a standing position and is having extreme difficulty ambulating. He is being transported to the ED via EMS. - tiotropium (Spiriva Respimat) 2.5 MCG/ACT inhaler; Inhale 2 puffs Once per day. - albuterol (Ventolin HFA) 108 (90 Base) MCG/ACT inhaler; Inhale 2 puffs every 4 (four) hours if needed for wheezing. - albuterol (2.5 MG/3ML) 0.083% nebulizer solution; Take 3 mL (2.5 mg) by nebulization every 6 (six) hours if needed for wheezing or shortness of breath. Comments: I refilled his albuterol. Short course of prednisone. Continue using his inhalers. Orders: - albuterol (Ventolin HFA) 108 (90 Base) MCG/ACT inhaler; Inhale 2 puffs every 4 (four) hours if needed for wheezing. Other orders - rosuvastatin (Crestor) 10 MG tablet; Take 1 tablet (10 mg) by mouth Once per day. - pantoprazole (ProtoNix) 40 MG packet; Take 1 packet (40 mg) by mouth Once per day. - acetaminophen (Tylenol) 500 MG tablet; Take 2 tablets (1,000 mg) by mouth every 6 (six) hours ifneeded for moderate pain or fever for up to 25 doses. - gabapentin (Neurontin) 800 MG tablet; Take 1 tablet (800 mg) by mouth if needed in the morning and at bedtime (hip pain). - Spacer/Aero-Holding Chambers (OptiChamber Julianna) misc; 1 each every 4 (four) hours if needed (asthma). * Amy Schneider RN - 12/26/2024 10:20 AM EDT TC placed to [facility] at [phone] regarding electric scooter(DME rx sent to [facility] per chart.) RN infomred by staff, ordered was not fulfilled there as they do not provide that equipment. [facility] provided RN to try [employer] at [phone]. TC placed to [employer] and was informed not DME provided for this pt. Pt not aware of where electric scooter was fulfilled. RN verbally informed Dr. Chavez. RN will send message to [employer] Nurses to attempt to assist with this matter. * Amy Schneider RN - 12/26/2024 10:20 AM EDT [employer] requested for pt transportation. While staff attempting to get pt up, pt declined wheelchair and unable to safely stand with three person assistance. Assistance called to room to safely assist pt back to seating position on examination table. Pt previously declined EMS services due to fall in e xamination room but now in agreement to go to hospital as unable to safely transition home. Pt reports he is also on oxygen at baseline but did not bring oxygen to visit as he could not carry equipment. Pt sating 94% RA. EMS called with pt in agreement. EMS arrived and given verbal report. [facility] Pt to F/U as needed. RN will forward to PCP as FYI. documented in this encounter Plan of Treatment Not on file documented as of this encounter Visit Diagnoses Diagnosis Chronic obstructive pulmonary disease, unspecified COPD type ([facility]/HCC)- Primary Chronic right hip pain Fall, initial encounter Chronic hypoxemic respiratory failure ([facility]) Chronic respiratory failure Severe persistent asthma, unspecified whether complicated COPD exacerbation ([facility]) Obstructive chronic bronchitis with exacerbation documented in this encounter Administered Medications Inactive Administered Medications - up to 3 most recent administrations Medication Order MAR Action Action Date Dose Rate Site albuterol (2.5 MG/3ML) 0.083% nebulizer solution 2.5 mg 2.5 mg, Nebulization, Once, On Tue12/26/24 at 1200, For 1 doseIndications:Chronic obstructive pulmonary disease, unspecified COPD type ([facility]/HCC) Given 12/26/2024 12:00 PM EDT 2.5 mg documented in this encounter Additional Health Concerns Assessment Noted Time PHQ-9 Depression Total Score: 0 04/05/20 24 10:41 AM EDT documented as of this encounter Care Teams Fuel Assembler Relationship Specialty Start Date End Date Name, MD Gomez [address] [place] [address] PCP - General Internal Medicine 04/05/24 documented as of this encounter
--- OUTSIDE RECORDS SUMMARY | 2024-12-26 15:42 | XMS_ITS | Encounter Summary ---
Author Organization [employer] Address [address] [place] [address] Care Team Providers Care Roller Coaster Designer Name Role Phone Name, Gomez HORN Primary Care Provider Encounter Details Date Type Department Care Team (Latest Contact Info) Description 12/26/2024 Travel Social History Tobacco Use Types Packs/Day Years [...] documented as of this encounter Care Teams Roller Coaster Designer Relationship Specialty Start Date End Date Name, MD Gomez [address] [place] [address] PCP - General Internal Medicine 04/05/24 documented as of this encounter
--- OUTSIDE RECORDS SUMMARY | 2024-12-26 15:42 | XMS_ITS | Encounter Summary ---
Author Organization [employer] Address [address] [place] [address] Care Team Providers Care Corduroy Cutting Supervisor Name Role Phone Name, Gomez HORN Primary Care Provider [phone] Encounter Details Date Type Department Care Team (Late st Contact Info) Description 12/26/2024 Telephone [facility] [address] [place], [place] [phone] Duncan Chavez MD [address] [place], [place] [phone] Social History Tobacco Use Types Packs/Day Years [...] encounter Miscellaneous Notes * Telephone Encounter - Amy Schneider RN - 12/26/2024 12:47 PM EDT TC placed to [facility] at [phone] regarding electric scooter(DME rx sent to [facility] per chart.) RN infomred by staff, ordered was not fulfilled there as they do not provide that equipment. [facility] provided RN to try [employer] at [phone]. TC placed to [employer] and was informed not DME provided for this pt. Pt not aware of where electric scooter was fulfilled. RN verbally informed Dr. Chavez. RN will send message to [place] Team Nurses to attempt to assist with this matter. * Telephone Encounter - Amy Schneider RN - 12/26/2024 12:46 PM EDT Duplicate to route to provider. [employer] requested for pt transportation. While staff [...] and given verbal report. [facility] Pt to F/U as needed. RN will forward to PCP as FYI. documented in this encounter Plan of Treatment Not on file documented as of this encounter Visit Diagnoses Not on filedocumented in this encounter Additional Health Concerns Assessment Noted Time PHQ-9 Depression Total Score: 0 04/05/20 10:41 AM EDT documented as of this encounter Care Teams Corduroy Cutting Supervisor Relationship Specialty Start Date End Date Name, MD Gomez [address] [place] [address] PCP - General Internal Medicine 04/05/24 documented as of this encounter
--- OUTSIDE RECORDS SUMMARY | 2024-12-26 15:42 | XMS_ITS | Clinical Summary ---
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 04/28/20 23 Active montelukast (SINGULAIR) 10 mg tablet Take 1 tablet (10 mg total) by mouth at bedtime. Active fluticasone-umec lidinium-vilante rol (Trelegy Ellipta) 200-62.5-25 mcg inhaler Inhale 1 puff (200 mcg total) by mouth 1 (one) time each day. Rinse mouth with water after use to reduce aftertaste and incidence of candidiasis. Do not swallow. Active fluticasone HFA (Flovent HFA) 110 mcg/actuation inhaler Inhale 2 puffs by mouth 2 (two) times a day. 12 g 3 07/31/20 24 Active albuterol HFA (PROAIR HFA ; PROVENTIL HFA ; VENTOLIN HFA) 90 mcg/actuation inhaler Inhale 2 puffs by mouth every 6 (six) hours if needed for wheezing or shortness of breath. 18 g 1 11/20/19 25 Active senna-docusate (PERICOLACE) 8.6-50 mg per tabletIndication s:Constipation, unspecified constipation type Take 2 tablets by mouth at bedtime as needed for constipation. 60 each 2 11/20/19 25 025 Active albuterol 2.5 mg /3 mL (0.083 %) nebulizer solutionIndicati ons:COPD with acute exacerbation [place] [place] [facility] V28) Take 3 mL by nebulization every 6 (six) hours if needed for wheezing or shortness of breath. 3 mL inhaled 3 to 4 times per day prn shortness of breath or wheezing 360 mL 1 11/20/19 25 Active predniSONE (DELTASONE) 10 mg tablet Take 5 tablets (50 mg total) by mouth 1 (one) time each day for 2 days, THEN 4 tablets (40 mg total) 1 (one) time each day for 2 days, THEN 3 tablets (30 mg total) 1 (one) time each day for 2 days, THEN 2 tablets (20 mg total) 1 (one) time each day for 2 days, THEN 1 tablet (10 mg total) 1 (one) time each day for 2 days. 30 tablet 12/20/19 25 025 Active predniSONE (DELTASONE) 20 mg tabletIndication s:COPD with acute exacerbation ([facility] V24, [facility] V28) Take 2 tablets (40 mg total) by mouth 1 (one) time each day for 6 doses. 12 each 11/21/19 25 025 guaiFENesin (ROBITUSSIN) 100 mg/5 mL liquidIndication s:COPD with acute exacerbation ([facility] V24, [facility] V28) Take 20 mL (400 mg total) by mouth every 6 (six) hours if needed for cough for up to 10 days. 120 mL 11/20/19 25 025 guaiFENesin (MUCINEX) 600 mg 12 hr tablet Take 1 tablet (600 mg total) by mouth every 12 (twelve) hours for 5 days. Do not crush, chew, or split. 10 each 12/20/19 25 025 Active Problems Problem Noted Date Diagnosed Date Moderate asthma with exacerb ation, unspecified whether persistent 12/17/2024 Bronchitis, acute 09/17/2024 Cannabis dependence [place] [place] [facility] V28) 0 09/17/2024 Chronic pain 09/17/2024 Overview (09/17/2024): chronic NSAID use Alcoholic cirrhosis ([facility] V24, [facility] V28) 0 09/17/2024 Overview (09/17/2024): Cirrhosis, Liver due to EtOH Cognitive impairment 09/17/2024 Illiteracy 09/17/2024 Asthma 09/17/2024 Oxygen dependent 09/17/2024 Chronic respiratory failure with hypoxia ([facility] V24, [facility] V28) 09/17/2024 Assessment & Plan (11/22/2024 1:22 PM EDT): O2 dependent; continues to use O2 supplementation 2 L/min. Vitamin D deficiency 09/17/2024 Edentulous 09/17/2024 Depression, unspecified 09/17/2024 Epilepsy ([facility] V24, [facility] V28) 09/17/2024 GERD (gastroesophageal reflux disease) Hypertension 09/17/2024 Avascular necrosis of bones of both hips ([facility] V24, [facility] V28) 09/17/2024 Overview (09/17/2024): Necrosis, Avascular, Hip Bilaterally Osteoarthritis of hips, bilateral 09/17/2024 Heroin use 09/17/2024 Cocaine use disorder in remission 09/17/2024 Blind right eye 09/17/2024 Cataract of left eye 09/17/2024 SOB (shortness of breath) 09/11/2024 COPD exacerbation ([facility] V24, [facility] V28) 12/2023 Overview (09/17/2024): COPD Assessment & Plan (11/22/2024 1:24 PM EDT): Recent exacerbation. Needs to complete medication. Did not answer me if he is taking medication as prescribed. Follow up with new PCP. Mixed hyperlipidemia 03/24/2023 Positive hepatitis C antibody test 03/24/2023 Osteoporosis 03/22/2023 Uncomplicated asthma 03/22/2023 Resolved Problems Problem Noted Date Diagnosed Date Resolved Date Shortness of breath 11/14/2024 11/16/19 25 Encounters Date Type Department Care Team Description 12/17/2024 8:09 PM EDT - 12/19/2024 6:00 PM EDT Hospital Encounter [facility] [address] [place] [phone] Tom Coker, Sandro Elliott MD Mohani, Priya, MD Surendran, Anupama, MD Moderate asthma with exacerbation, unspecified whether persistent (Primary Dx); Lower extremity edema Discharge Disposition: Home or Self Care 11/22/2024 1:00 PM EDT Office Visit [address] [phone] Veda Pham NP Chronic respiratory failure with hypoxia ([facility] V24, [facility] V28) (Primary Dx); COPD exacerbation ([facility] V24, [facility] V28) 11/21/2024 12:00 PM EDT Clinical Support [address] [phone] Amy Mac LPN 11/18/2024 2:06 AM EDT - 11/19/2024 3:00 PM EDT Hospital Encounter [facility] [address] [place] [phone] Maurilio Mosqueda MD COPD exacerbation ([facility] V24, [facility] V28) (Primary Dx); Pneumonia due to infectious organism, unspecified laterality, unspecified part of lung Discharge Disposition: [place] [facility] [place]18[place]24 [facility] Admissions [address] [phone] 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 RN Obstructive chronic bronchitis with exacerbation ([facility] V24, [facility] V28) (Primary Dx) 11/14/2024 P[facility] Admissions [address] [phone] 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 RN Chronic obstructive pulmonary disease with acute exacerbation ([facility] V24, [facility] V28) (Primary Dx); SOB (shortness of breath) 11/13/2024 7:23 PM EDT - 11/15/2024 3:50 PM EDT Hospital Encounter [facility] [address] [place] [phone] Lincoln Sampson MD Mohani, Priya, MD Kokosadze, Estate, MD Shortness of breath (Primary Dx); COPD exacerbation ([facility] V24, [facility] V28); SOB (shortness of breath) Discharge Disposition: [place] [facility] [place]03/2024 11:06 AM EST - 11/03/2024 9:13 PM EST Emergency [facility] [address] [place] [phone] COPD exacerbation ([facility] V24, [facility] V28) (Primary Dx) Discharge Disposition: Home or Self Care 11/03/2024 [facility] Admissions [facility] [address] [place] [phone] 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 obstructive pulmonary disease, unspecified COPD type ([facility] [place] [facility] V28) (Primary Dx) from Last 3 Months Immunizations Name Administration Dates Next Due Influenza, Unspecified 08/17/2024 Surgical History Surgery Date Site/Laterality Comments SHOULDER SURGERY Left PROCEDURE: HISTORICAL SHOULDER SURGERY Medical History Medical History Date Comments Osteoporosis 03/22/2023 DX:Osteoporosis Uncomplicated asthma 03/22/2023 DX:Uncompli cated asthma COPD (chronic obstructive pu lmonary disease) ([facility] V24, [facility] [place] DX:COPD (chronic o bstructive pulmonary disease) ([facility]) Illiteracy and low-level literacy History of fracture of clavicle H/O Displaced Fracture, Left Clavicle, Lateral Aspect with Nonunion Hypercholesteremia Hypertension Hepatitis C Liver cirrhosis ([facility] V24 , [facility] V28) Avascular necrosis of hip ([facility] V24, [facility] V28) Polysubstance abuse ([facility] V24, [facility] V28) Cocaine abuse ([facility] V24, [facility] V28) Anxiety and depression Seizure ([facility] [place] [facility] [place] Social History Tobacco Use Types Packs/Day Years Used Date Smoking Tobacco: Former Cigarettes S tarted: 08/29/1979 Smokeless Tobacco: Never Tobacco Cessation:Counseling Given: Not Answered Alcohol Use Standard Drinks/Week Comments Not Currently 0 (1 standard drink = 0.6 oz pur e alcohol) Housing Instability Answer Date Recorde d Are you worried that in the next 2 months you may not have stable housing? No 12/18/2024 Food Access & Nutrition Answer Date Rec orded Do you have access to a vari ety of food including fruits and vegetables? No 12/18/2024 Access to Healthcare Answer Date Record ed Within the last 3 months, ho w many times did you visit the emergency department for your medical care? 4 12/18/2024 Health Literacy Answer Date Recorded How often do you need to hav e someone help you when you read instructions, pamphlets, or other written material from your doctor or pharmacy? Often 12/18/2024 Caregiver: How often do you need to have someone help you when you read instructions, pamphlets, or other written material from your doctor or pharmacy? Not on file 12/18/2024 Financial Risk Answer Date Recorded How hard is it for you to pa y for the very basics like food, housing, medical care, and air conditioning / heating? Somewhat hard 12/18/2024 Transportation Answer Date Recorded Has the lack of transportati on kept you from meetings, work, or from getting things needed for daily living? No Has the lack of transportati on kept you from medical appointments or from getting medications? Yes 12/18/2024 Social Isolation Answer Date Recorded How often do you feel lonely or isolated from those around you? Sometimes 12/18/2024 Food Risk Answer Date Recorded Within the past 12 months we worried whether our food would run out before we got money to buy more. Sometimes true 025 Within the past 12 months th e food we bought just didn't last and we didn't have money to get more. Sometimes true 12/18/2024 Dependent Care Answer Date Recorded Do you need help finding or paying for care for your loved ones. For example, early childhood coordinator or elderly care for an older adult? No 12/18/2024 Education Answer Date Recorded Do you think completing more education or training, like finishing a GED, going to college, or learning a trade, would be helpful for you? No 12/18/2024 Employment and Income Answer Date Recor ded During the last four weeks, have you been actively looking for work? No 12/18/2024 Living Situation Answer Date Recorded What is your living situation? 0 12/18/2024 Interpersonal Safety Answer Date Record ed Physical Abuse 12/18/2024 Verbal Abuse 12/18/2024 Sex and Gender Information Value Date Recorded Sex Assigned at Male 09/10/2024 6:11 PM EST Legal Sex Male 1:54 PM EST Gender Identity Male 09/10/2024 6:11 PM EST Sexual Orientation Choose not to disclose 2024 6:11 PM EST Obstetrics History Last Filed Vital Signs Vital Sign Reading Time Taken Comments Blood Pressure 111/68 12/19/2024 2:41 PM EDT Pulse 104 12/19/2024 10:35 AM EDT Temperature 37 ??C (98.6 ??F) 12/19/2024 2:41 PM EDT Respiratory Rate 18 12/19/2024 7:59 AM EDT Oxygen Saturation 99% 12/19/2024 2:41 PM EDT Inhaled Oxygen Concentration - - Weight 117 kg (259 lb) 12/17/2024 8:15 PM EDT Height 175.3 cm (5' 9 ) 12/17/2024 8:15 PM EDT Body Mass Index 38.25 12/17/2024 8:15 PM EDT Plan of Treatment Upcoming Encounters Date Type Department Care Team (Late st Contact Info) Description 12/28/2024 9:00 AM EDT [facility] Attend[facility] [address] [place] [phone] 01/04/2025 9:00 AM EDT [facility] [address] [place] [phone] 01/11/2025 9:00 AM EDT [facility] [facility] [address] [phone] 01/18/2025 9:00 AM EDT [facility] Attendance[facility] [address] [place] [phone] 01/25/2025 9:00 AM EDT [facility] [place] [facility] [address] [place] [phone] 02/01/2025 9:00 AM EDT [facility] [place] [facility] [address] [place] [phone] 02/08/2025 9:00 AM EDT [facility] [place] [facility] [address] [place] [phone] 02/15/2025 9:00 AM EDT [facility] [place] [facility] [address] [place] [phone] 02/22/2025 9:00 AM EDT [facility] [place] [facility] [address] [place] [phone] 03/01/2025 9:00 AM EDT [facility] [place] [facility] [address] [place] [phone] 03/08/2025 9:00 AM EDT [facility] [place] [facility] [address] [place] [phone] 03/15/2025 9:00 AM EDT [facility] [place] [facility] [address] [place] [phone] 03/22/2025 9:00 AM EDT [facility] [place] [facility] [address] [place] [phone] 03/29/2025 9:00 AM EDT [facility] [place] [facility] [address] [place] [phone] 04/05/2025 9:00 AM EDT [facility] [place] [facility] [address] [place] [phone] 04/12/2025 9:00 AM EDT [facility] [place] [facility] [address] [place] [phone] 04/19/2025 9:00 AM EDT [facility] [place] [facility] [address] [place] [phone] 04/26/2025 9:00 AM EDT [facility] [place] [facility] [address] [place] [phone] 05/03/2025 9:00 AM EDT [facility] [place] [facility] [address] [place] [phone] 05/10/2025 9:00 AM EDT [facility] [place] [facility] [address] [place] [phone] 05/17/2025 9:00 AM EDT [facility] [place] [facility] [address] [place] [phone] 05/24/2025 9:00 AM EDT [facility] [place] [facility] [address] [place] [phone] 05/31/2025 9:00 AM EDT [facility] [place] [facility] [address] [place] [phone] 06/07/2025 9:00 AM EDT [facility] [place] [facility] [address] [place] [phone] 06/14/2025 9:00 AM EDT [facility] [place] [facility] [address] [place] [phone] 06/21/2025 9:00 AM EDT [facility] [place] [facility] [address] [place] [phone] 06/28/2025 9:00 AM EDT [facility] [place] [facility] [address] [place] [phone] 07/05/2025 9:00 AM EST [facility] [place] [facility] [address] [place] [phone] 07/12/2025 9:00 AM EST [facility] [place] [facility] [address] [place] [phone] 07/19/2025 9:00 AM EST [facility] [place] [facility] [address] [place] [phone] 07/26/2025 9:00 AM EST [facility] [place] [facility] [address] [place] [phone] 08/02/2025 9:00 AM EST [facility] [place] [facility] [address] [place] [phone] 08/09/2025 9:00 AM EST [facility] [place] [facility] [address] [place] [phone] 08/16/2025 9:00 AM EST [facility] [place] [facility] [address] [place] [phone] 08/23/2025 9:00 AM EST [facility] [place] [facility] [address] [place] [phone] 08/30/2025 9:00 AM EST [facility] [place] [facility] [address] [place] [phone] 09/06/2025 9:00 AM EST [facility] [place] [facility] [address] [place] [phone] 09/13/2025 9:00 AM EST [facility] [place] [facility] [address] [place] [phone] 09/20/2025 9:00 AM EST [facility] [place] [facility] [address] [place] [phone] 09/27/2025 9:00 AM EST [facility] [place] [facility] [address] [place] [phone] 10/04/2025 9:00 AM EST [facility] [place] [facility] [address] [place] [phone] 10/11/2025 9:00 AM EST [facility] [address] [place] [phone] 10/18/2025 9:00 AM EST [facility] [address] [place] [phone] 10/25/2025 9:00 AM EST [facility] [place] [facility] [address] [place] [phone] 11/01/2025 9:00 AM EST [facility] [address] [place] [phone] 11/08/2025 9:00 AM EDT [facility] [place] [facility] [address] [place] [phone] 11/15/2025 9:00 AM EDT [facility] [place] [facility] [address] [place] [phone] 11/22/2025 9:00 AM EDT [facility] [place] [facility] [address] [place] [phone] Health Maintenance Due Date Last Done Comments Hepatitis A Vaccines (1 of 2 - Risk 2-dose series) 1981 Hepatitis B Vaccines (1 of 3 - Risk 3-dose series) 2022 Colorectal Cancer Screening: Colonoscopy 09/27/2023 HIV Screening 09/27/2023 Hepatitis C Screening 09/27/2023 Medicare Annual Wellness Visit 09/27/2023 Depression Screening 04/05/2025 04/05/2024 Social Influencers of Health Screening 12/18/2025 12/18/2024 Hypertension/CHF/CAD Annual BMP Blood Test 12/19/2025 12/19/2024, 12/18/2024, 12/17/2024, Additional history exists Cholesterol Screening (Lipid Panel) 08/07/2029 08/07/2024, 10/03/2023 DTaP,Tdap,and Td Vaccines (3 - Td or Tdap) 05/29/2034 05/29/2024, 04/14/2018 Zoster Vaccines Completed 02/09/2021, 12/08/2020 Pneumococcal Vaccine: 50+ Years Completed 10/03/2023, 04/14/2018, 02/26/2011, Additional history exists Pneumococcal Vaccine: Pediatrics (0 to 5 Years) and At-Risk Patients (6 to 64 Years) Completed 10/03/2023, 04/14/2018, 02/26/2011, Additional history exists RSV Immunization Adult Patients Completed 10/27/2023 COVID-19 Vaccine Completed 06/15/2024, 02/2024, [...] on patient's age to complete this topic MMR Vaccines Aged Out No longer eligi ble based on patient's age to complete this topic Meningococcal ACWY Vaccine Aged Out N o longer eligible based on patient's age to complete this topic Meningococcal B Vaccine Aged Out No l onger eligible based on patient's age to complete this topic RSV Immunization Patients Under 20 months Aged Out No longer eligible based on patient's age to complete this topic Varicella Vaccines Aged Out No longer eligible based on patient's age to complete this topic Procedures Procedure Name Priority Date/Time Associated Diagnosis Comments ECG OUTSIDE 12/20/2024 ECG ANNOTATED 12/20/2024 CBC WITH AUTO DIFFERENTIAL Routine 12/19/2024 6:26 AM EDT MAGNESIUM Routine 12/19/2024 6:26 AM EDT CBC AND DIFFERENTIAL Routine 12/19/2024 6:26 AM EDT BASIC METABOLIC PANEL Routine 12/19/2024 6:[address] CHEST WO CONTRAST STAT 12/18/2024 10:56 AM EDT VAS US DUPLEX LOWER EXT VENOUS BILAT Routine 12/18/2024 7:28 AM EDT Lower extremity edema TROPONIN I HIGH SENSITIVITY Routine 12/18/2024 3:38 AM EDT MAGNESIUM Routine 12/18/2024 3:38 AM EDT BASIC METABOLIC PANEL Routine 12/18/2024 3:38 AM EDT COMPLETE BLOOD COUNT Routine 12/18/2024 3:38 AM EDT ECG 12-LEAD Routine 12/18/2024 2:45 AM EDT TROPONIN I HIGH SENSITIVITY STAT 12/17/2024 9:34 PM EDT RESPIRATORY VIRUS PANEL MOLECULAR STUDY STAT 12/17/2024 8:53 PM EDT XR CHEST 2 VIEWS STAT 12/17/2024 8:48 PM EDT B-TYPE NATRIURETIC PEPTIDE STAT 12/17/2024 8:31 PM EDT CBC WITH AUTO DIFFERENTIAL STAT 12/17/2024 8:31 PM EDT TROPONIN I HIGH SENSITIVITY STAT 12/17/2024 8:31 PM EDT COMPREHENSIVE METABOLIC PANEL STAT 12/17/2024 8:31 PM EDT CBC AND DIFFERENTIAL STAT 12/17/2024 8:31 PM EDT ECG 12-LEAD STAT 12/17/2024 8:19 PM EDT ECG ANNOTATED 11/20/2024 BASIC METABOLIC PANEL Routine 11/19/2024 5:24 AM EDT COMPLETE BLOOD COUNT Routine 11/19/2024 5:24 AM EDT ECG 12-LEAD STAT 11/18/2024 5:33 PM EDT OXYGEN THERAPY, ADULT Routine 11/18/2024 3:21 PM EDT OXYGEN THERAPY, ADULT Routine 11/18/2024 3:21 PM EDT OXYGEN THERAPY, ADULT Routine 11/18/2024 3:21 PM EDT RESPIRATORY VIRUS PANEL MOLECULAR STUDY STAT 11/18/2024 7:19 AM EDT GENERAL Routine 11/18/2024 4:55 AM EDT VENOUS BLOOD GAS STAT 11/18/2024 4:25 AM EDT TROPONIN I HIGH SENSITIVITY STAT 11/18/2024 3:33 AM EDT XR CHEST 2 VIEWS STAT 11/18/2024 2:41 AM EDT ECG 12-LEAD STAT 11/18/2024 2:24 AM EDT CBC WITH AUTO DIFFERENTIAL STAT 11/18/2024 1:47 AM EDT B-TYPE NATRIURETIC PEPTIDE STAT 11/18/2024 1:47 AM EDT MAGNESIUM STAT 11/18/2024 1:47 AM EDT LIPASE STAT 11/18/2024 1:47 AM EDT COMPREHENSIVE METABOLIC PANEL STAT 11/18/2024 1:47 AM EDT CBC AND DIFFERENTIAL STAT 11/18/2024 1:47 AM EDT TROPONIN I HIGH SENSITIVITY STAT 11/18/2024 1:47 AM EDT ECG ANNOTATED 11/16/2024 CBC WITH AUTO DIFFERENTIAL Routine 11/15/2024 7:32 AM EDT LACTATE Routine 11/15/2024 7:32 AM EDT CBC AND DIFFERENTIAL Routine 11/15/2024 7:32 AM EDT BASIC METABOLIC PANEL Routine 11/15/2024 7:32 AM EDT OXYGEN THERAPY, ADULT Routine 11/14/2024 8:02 AM EDT DRUG ABUSE SCREEN 8A PANEL, URINE Routine 11/14/2024 7:58 AM EDT OXYGEN THERAPY, ADULT Routine 11/14/2024 7:33 AM EDT OXYGEN THERAPY, ADULT Routine 11/14/2024 7:33 AM EDT OXYGEN THERAPY, ADULT Routine 11/14/2024 7:33 AM EDT PROCALCITONIN STAT Add-on 11/14/2024 5:19 AM EDT LAVENDER - EDTA Routine 11/14/2024 5:19 AM EDT EXTRA TUBES Routine 11/14/2024 5:19 AM EDT BASIC METABOLIC PANEL Routine 11/14/2024 5:19 AM EDT MAGNESIUM Routine 11/14/2024 5:19 AM EDT LACTATE Routine 11/14/2024 5:19 AM EDT LACTATE, WITH REFLEX STAT 11/14/2024 12:42 AM EDT CULTURE BLOOD STAT 11/14/2024 12:42 AM EDT CULTURE BLOOD STAT 11/14/2024 12:38 AM EDT VAS US DUPLEX LOWER EXT VENOUS LEFT STAT 11/13/2024 11:41 PM EDT Shortness of breath CBC WITH AUTO DIFFERENTIAL STAT 11/13/2024 9:09 PM EDT TROPONIN I HIGH SENSITIVITY STAT 11/13/2024 9:09 PM EDT BASIC METABOLIC PANEL STAT 11/13/2024 9:09 PM EDT CBC AND DIFFERENTIAL STAT 11/13/2024 9:09 PM EDT XR CHEST 2 VIEWS STAT 11/13/2024 8:11 PM EDT RESPIRATORY VIRUS PANEL MOLECULAR STUDY STAT 11/13/2024 7:55 PM EDT TROPONIN I HIGH SENSITIVITY STAT 11/13/2024 7:54 PM EDT B-TYPE NATRIURETIC PEPTIDE STAT 11/13/2024 7:54 PM EDT ECG 12-LEAD STAT 11/13/2024 7:50 PM EDT ECG ANNOTATED 11/05/2024 TROPONIN I HIGH SENSITIVITY STAT 11/03/2024 1:37 PM EST XR CHEST 2 VIEWS STAT 11/03/2024 12:1 6 PM EST [id number], RSV, FLU A AND B QUALITATIVE RT-PCR, INTERNAL LAB STAT 11/03/2024 11:33 AM EST ECG 12-LEAD STAT 11/03/2024 11:28 AM EST TROPONIN I HIGH SENSITIVITY STAT 11/03/2024 11:21 AM EST COMPREHENSIVE METABOLIC PANEL STAT 11/03/2024 11:21 AM EST CBC WITH AUTO DIFFERENTIAL STAT 11/03/2024 11:21 AM EST B-TYPE NATRIURETIC PEPTIDE STAT 11/03/2024 11:21 AM EST CBC AND DIFFERENTIAL STAT 11/03/2024 11:21 AM EST LIPID PANEL Routine 08/07/2024 from Last 3 Months or Most Recently Relevant to Health Maintenance Results * ECG-Outside (12/20/2024) Provider Onbase MD ECG ORDERABLES Final Result * ECG-Annotated (12/20/2024) Only the most recent of4 resultswithin the time period is included. us Provider Onbase MD ECG ORDERABLES Final Result * (ABNORMAL) CBC auto differential (12/19/2024 6:26 AM EDT) Only the most recent of6 resultswithin the time period is included. WBC 9.4 4.8 - 10.8 K/mcL LAB HEMETOLOGY METHOD 12/19/2024 7:20 AM EDT [facility] RBC 3.90(L) 4.50 - 5.50 M/mcL LAB HEMETOLOGY METHOD 12/19/2024 7:20 AM EDT [facility] Hemoglobin 12.2(L) 13.5 - 17.5 g/dL LAB HEMETOLOGY METHOD 12/19/2024 7:20 AM [facility] Hematocrit 39.1(L) 42.0 - 54.0 % LAB HEMETOLOGY METHOD 12/19/2024 7:20 AM [facility] MCV 101.3(H) 79.0 - 98.0 FL LAB HEMETOLOGY METHOD 12/19/2024 7:20 AM [facility] MCH 31.6 27.0 - 32.0 pcg LAB HEMETOLOGY METHOD 12/19/2024 7:20 AM [facility] MCHC 31.2(L) 32.0 - 37.0 g/dL LAB HEMETOLOGY METHOD 12/19/2024 7:20 AM [facility] RDW 19.3(H) 11.0 - 15.0 % LAB HEMETOLOGY METHOD 12/19/2024 7:20 AM [facility] Platelets 199 130 - 400 K/mcL LAB HEMETOLOGY METHOD 12/19/2024 7:20 AM [facility] MPV 10.6 7.0 - 11.0 FL LAB HEMETOLOGY METHOD 12/19/2024 7:20 AM [facility] NRBC 0.0 <1.0 % LAB HEMETOLOGY METHOD 12/19/2024 7:20 AM [facility] NRBC Absolute 0.00 <0.10 K/mcL LAB HEMETOLOGY METHOD 12/19/2024 7:20 AM [facility] Neutrophils Relative 61.4 % LAB HEMETOLOGY METHOD 12/19/2024 7:20 AM [facility] Lymphocytes Relative 28.7 % LAB HEMETOLOGY METHOD 12/19/2024 7:20 AM [facility] Monocytes Relative 8.6 % LAB HEMETOLOGY METHOD 12/19/2024 7:20 AM [facility] Eosinophils Relative 0.2 % LAB HEMETOLOGY METHOD 12/19/2024 7:20 AM [facility] Basophils Relative 0.3 % LAB HEMETOLOGY METHOD 12/19/2024 7:20 AM EDT [facility] Immature Granulocytes Relative 0.8 % LAB HEMETOLOGY METHOD 12/19/2024 7:20 AM EDT [facility] Neutrophils Absolute 5.78 1.50 - 7.00 K/mcL LAB HEMETOLOGY METHOD 12/19/2024 7:20 AM EDT [facility] Lymphocytes Absolute 2.70 1.00 - 5.00 K/mcL LAB HEMETOLOGY METHOD 12/19/2024 7:20 AM EDT [facility] Monocytes Absolute 0.81 0.20 - 1.00 K/mcL LAB HEMETOLOGY METHOD 12/19/2024 7:20 AM EDT [facility] Eosinophils Absolute 0.02 0.00 - 0.50 K/mcL LAB HEMETOLOGY METHOD 12/19/2024 7:20 AM EDT [facility] Basophils Absolute 0.03 0.00 - 0.20 K/mcL LAB HEMETOLOGY METHOD 12/19/2024 7:20 AM EDT [facility] Immature Granulocytes Absolute 0.08(H) 0.00 - 0.03 K/mcL LAB HEMETOLOGY METHOD 12/19/2024 7:20 AM EDT [facility] Blood Venous blood specimen / Unknown Venipuncture / Unknown 12/19/2024 6:26 AM EDT 12/19/2024 6:47 AM EDT us Althea Martinez MD LAB BLOOD ORDERABLES Final Resul t [facility] [address] [place] [address], * Magnesium (12/19/2024 6:26 AM EDT) Only the most recent of4 resultswithin the time period is included. Magnesium 2.6 1.9 - 2.6 mg/dL LAB CHEMISTRY METHOD 12/19/2024 7:40 AM [facility] Blood Venous blood specimen / Unknown Venipuncture / Unknown 12/19/2024 6:26 AM EDT 12/19/2024 6:46 AM EDT us Althea Martinez MD LAB BLOOD ORDERABLES Final Resul t [facility] [address] [place] [address], [place] [phone] * (ABNORMAL) Basic metabolic panel (12/19/2024 6:26 AM EDT) Only the most recent of6 resultswithin the time period is included. Sodium 142 133 - 145 mmol/L LAB CHEMISTRY METHOD 12/19/2024 7:40 AM [facility] Potassium 3.8 3.5 - 5.5 mmol/L LAB CHEMISTRY METHOD 12/19/2024 7:40 AM [facility] Chloride 109 96 - 110 mmol/L LAB CHEMISTRY METHOD 12/19/2024 7:40 AM [facility] CO2 29 21 - 32 mmol/L LAB CHEMISTRY METHOD 12/19/2024 7:40 AM [facility] Anion Gap 4 3 - 11 LAB CHEMISTRY METHOD 12/19/2024 7:40 AM [facility] Glucose 94 70 - 100 mg/dL LAB CHEMISTRY METHOD 12/19/2024 7:40 AM [facility] BUN 21 5 - 25 mg/dL LAB CHEMISTRY METHOD 12/19/2024 7:40 AM [facility] Creatinine 0.81 0.70 - 1.30 mg/dL LAB CHEMISTRY METHOD 12/19/2024 7:40 AM [facility] eGFR 100 >=60 mL/min/1. 73m2 LAB CHEMISTRY METHOD 12/19/2024 7:40 AM EDT [facility] Comment:Calculation based on the??Chronic Kidney Disease Epidemiology Collaboration (CKD-EPI) equation refit??without adjustment for race. BUN/Creatinine Ratio 25.9 LAB CHEMISTRY METHOD 12/19/2024 7:40 AM EDT [facility] Calcium 8.3(L) 8.5 - 10.5 mg/dL LAB CHEMISTRY METHOD 12/19/2024 7:40 AM EDT [facility] Blood Venous blood specimen / Unknown Venipuncture / Unknown 12/19/2024 6:26 AM EDT 12/19/2024 6:46 AM EDT us Althea Martinez MD LAB BLOOD ORDERABLES Final Resul t [facility] [address] [place] [address], [place] [phone] * CT Chest wo Contrast (12/18/2024 10:56 AM EDT) Anatomical Region Laterality Modality Body Computed Tomogra phy 12/18/2024 11:0 2 AM EDT Impressions 12/18/2024 11:13 AM EDT 1. ??Small airways bronchial wall thickening and diffuse air trapping demonstrated on the previous study has significantly improved in the interval. 2. ??There are a few new linear bands of scarring or atelectasis in both lungs. ??No evidence of pneumonia. -------- FINAL REPORT -------- Dictated By: Christiano Acevedo Dictated Date: 12/18/2024 11:02 ET Assigned Physician: Christiano Acevedo Reviewed and Electronically Signed By: Christiano Acevedo Signed Date: 12/18/2024 11:13 ET Workstation ID: [id number] Transcribed By: Self Edit Transcribed Date: 12/18/2024 11:02 ET Narrative 12/18/2024 11:13 AM EDT PROCEDURE: CT of the chest without intravenous contrast. TECHNIQUE: CT of the chest without intravenous contrast administration. ??Coronal and sagittal reformats and MIP reconstructions were created. Dose length product: ??1359 mGy-cm. HISTORY: Interstitial lung disease COPD exacerbation COMPARISON: 09/11/2024. ??CT abdomen and pelvis 09/10/2024. FINDINGS: LUNGS/PLEURA: Small right posterolateral tracheal diverticulum just below the level of the thoracic inlet. ??Normal caliber airways. ??The previous study demonstrated diffuse mosaic attenuation suggesting air trapping and small airways bronchial wall thickening; these findings are much less prominent today. ??There is a small focus of mucus plugging in one of the segmental bronchi in the right lower lobe. There are a few new linear markings in the inferior left lower lobe suggesting scarring and/or atelectasis. ??Stable bandlike opacity in the posteromedial left upper lobe. ??Bandlike opacities in the anteromedial left upper lobe have resolved and were presumably atelectasis. New bandlike opacities in the posterior inferior right lower lobe suggesting scarring and/or atelectasis. MEDIASTINUM/EUGENE: Small sliding hiatal hernia. ??Prominent adjacent fat in the lower mediastinum. ??Calcified node in the right anterior superior mediastinum. ??No mediastinal mass or lymphadenopathy. ??No appreciable hilar lymphadenopathy on limited noncontrast evaluation. VASCULATURE: Normal caliber pulmonary arteries. ??Mild atherosclerotic calcifications of the aorta and great vessels. 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 CARDIAC: Normal heart size. ??Mild coronary artery calcification. CHEST WALL: No axillary or supraclavicular lymphadenopathy. LIMITED ABDOMEN: Stable small low-attenuation lesion in the anterior left hepatic lobe, probably a cyst but too small for definitive characterization. ??Rim calcified gallstone. ??Atherosclerotic calcifications. BONES: Mild degenerative changes of the spine. ??Stable superior endplate deformity at L2. Procedure Note Christiano Acevedo MD - 12/18/2024 PROCEDURE: CT of the chest without intravenous contrast. TECHNIQUE: CT of the chest without intravenous contrast administration.Coronal and sagittal reformats and MIP reconstructions were created. Dose length product: 1359 mGy-cm. HISTORY: Interstitial lung disease COPD exacerbation COMPARISON: 09/11/2024. CT abdomen and pelvis 09/10/2024. FINDINGS: LUNGS/PLEURA: Small right posterolateral tracheal diverticulum just belowthe level of the thoracic inlet. Normal caliber airways. The previousstudy demonstrated diffuse mosaic attenuation suggesting air trapping andsmall airways bronchial wall thickening; these findings are much lessprominent today. There is a small focus of mucus plugging in one of thesegmental bronchi in the right lower lobe. There are a few new linear markings in the inferior left lower lobesuggesting scarring and/or atelectasis. Stable bandlike opacity in theposteromedial left upper lobe. Bandlike opacities in the anteromedialleft upper lobe have resolved and were presumably atelectasis. New bandlike opacities in the posterior inferior right lower lobesuggesting scarring and/or atelectasis. MEDIASTINUM/EUGENE: Small sliding hiatal hernia. Prominent adjacent fat inthe lower mediastinum. Calcified node in the right anterior superiormediastinum. No mediastinal mass or lymphadenopathy. No appreciablehilar lymphadenopathy on limited noncontrast evaluation. VASCULATURE: Normal caliber pulmonary arteries. Mild atheroscleroticcalcifications of the aorta and great vessels. 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 CARDIAC: Normal heart size. Mild coronary artery calcification. CHEST WALL: No axillary or supraclavicular lymphadenopathy. LIMITED ABDOMEN: Stable small low-attenuation lesion in the anterior lefthepatic lobe, probably a cyst but too small for definitivecharacterization. Rim calcified gallstone. Atheroscleroticcalcifications. BONES: Mild degenerative changes of the spine. Stable superior endplatedeformity at L2. IMPRESSION: 1. Small airways bronchial wall thickening and diffuse air trappingdemonstrated on the previous study has significantly improved in theinterval. 2. There are a few new linear bands of scarring or atelectasis in bothlungs. No evidence of pneumonia. -------- FINAL REPORT -------- Dictated By: Christiano Acevedo Dictated Date: 12/18/2024 11:02 ET Assigned Physician: Christiano Acevedo Reviewed and Electronically Signed By: Christiano Acevedo Signed Date: 12/18/2024 11:13 ET Workstation ID: [id number] Transcribed By: Self Edit Transcribed Date: 12/18/2024 11:02 ET us Althea Martinez MD IMG CT PROCEDURES Final Result * Vascular US duplex lower extremity venous bilateral (12/18/2024 7:28 AM EDT) Anatomical Region Laterality Modality Vascular, Abdomen Ultrasound 12/18/2024 8:15 AM EDT Impressions 12/18/2024 8:15 AM EDT No deep venous thrombosis of either lower extremity. -------- FINAL REPORT -------- Dictated By: Christiano Acevedo Dictated Date: 12/18/2024 08:15 ET Assigned Physician: Christiano Acevedo Reviewed and Electronically Signed By: Christiano Acevedo Signed Date: 12/18/2024 08:15 ET Workstation ID: [id number] Transcribed By: Self Edit Transcribed Date: 12/18/2024 08:15 ET Narrative 12/18/2024 8:15 AM EDT PROCEDURE: Bilateral lower extremity venous duplex ultrasound. HISTORY: edema. COMPARISON: None. TECHNIQUE: Grayscale, color Doppler, and spectral Doppler ultrasound evaluation of the deep venous structures of the lower extremities. ??Augmentation and compression maneuvers were performed. FINDINGS: The deep venous structures of the lower extremities demonstrate normal compressibility with normal color and spectral Doppler flow and a normal response to augmentation maneuvers. Procedure Note Christiano Acevedo MD - 12/18/2024 PROCEDURE: Bilateral lower extremity venous duplex ultrasound. HISTORY: edema. COMPARISON: None. TECHNIQUE: Grayscale, color Doppler, and spectral Doppler ultrasoundevaluation of the deep venous structures of the lower extremities.Augmentation and compression maneuvers were performed. FINDINGS: The deep venous structures of the lower extremities demonstrate normalcompressibility with normal color and spectral Doppler flow and a normalresponse to augmentation maneuvers. IMPRESSION: No deep venous thrombosis of either lower extremity. -------- FINAL REPORT -------- Dictated By: Christiano Acevedo Dictated Date: 12/18/2024 08:15 ET Assigned Physician: Christiano Acevedo Reviewed and Electronically Signed By: Christiano Acevedo Signed Date: 12/18/2024 08:15 ET Workstation ID: [id number] Transcribed By: Self Edit Transcribed Date: 12/18/2024 08:15 ET us Socorro EVANS CV VASCULAR PROCEDURES Final Result * Troponin I high sensitivity (12/18/2024 3:38 AM EDT) Only the most recent of9 resultswithin the time period is included. [facility] High Sensitivity Troponin I 6 <=79 ng/L LAB CHEMISTRY METHOD 12/18/2024 4:19 AM EDT [facility] Blood Venous blood specimen / Unknown Venipuncture / Unknown 12/18/2024 3:38 AM EDT 12/18/2024 3:54 AM EDT Narrative [facility] - 12/18/2024 4:19 AM EDT High levels of biotin in samples may falsely decrease hsTroponin values. ??Use caution when interpreting hsTroponin results in patients taking biotin who exhibit renal impairment (eGFR <60) or in patients taking more than 20 mg/day of biotin. us Socorro EVANS LAB BLOOD ORDERABLES Final R esult [facility] [address] [place] [address], [place] [phone] * (ABNORMAL) Complete blood count (12/18/2024 3:38 AM EDT) Only the most recent of2 resultswithin the time period is included. [facility] WBC 8.9 4.8 - 10.8 K/mcL LAB HEMETOLOGY METHOD 12/18/2024 4:11 AM EDT [facility] RBC 3.80(L) 4.50 - 5.50 M/mcL LAB HEMETOLOGY METHOD 12/18/2024 4:11 AM EDT [facility] Hemoglobin 12.2(L) 13.5 - 17.5 g/dL LAB HEMETOLOGY METHOD 12/18/2024 4:11 AM EDT [facility] Hematocrit 39.5(L) 42.0 - 54.0 % LAB HEMETOLOGY METHOD 12/18/2024 4:11 AM [facility] MCV 102.9(H) 79.0 - 98.0 FL LAB HEMETOLOGY METHOD 12/18/2024 4:11 AM EDT [facility] MCH 31.8 27.0 - 32.0 pcg LAB HEMETOLOGY METHOD 12/18/2024 4:11 AM EDT [facility] MCHC 30.9(L) 32.0 - 37.0 g/dL LAB HEMETOLOGY METHOD 12/18/2024 4:11 AM [facility] RDW 19.2(H) 11.0 - 15.0 % LAB HEMETOLOGY METHOD 12/18/2024 4:11 AM [facility] Platelets 113(L) 130 - 400 K/mcL LAB HEMETOLOGY METHOD 12/18/2024 4:11 AM EDT [facility] MPV 11.9(H) 7.0 - 11.0 FL LAB [facility]EMETOLOGY [facility] NRBC 0.0 <1.0 % LAB HEMETOLOGY METHOD 12/18/2024 4:11 AM EDT [facility] NRBC Absolute 0.00 <0.10 K/mcL LAB HEMETOLOGY METHOD 12/18/2024 4:11 AM [facility] Blood Venous blood specimen / Unknown Venipuncture / Unknown 12/18/2024 3:38 AM EDT 12/18/2024 3:54 AM EDT us Socorro EVANS LAB BLOOD ORDERABLES Final R esult [facility] [address] [place] [address], * ECG 12 lead (12/18/2024 2:45 AM EDT) Only the most recent of6 resultswithin the time period is included. Pathologist [facility] Ventricular Rate ECG 103 BPM GEMUSE Atrial Rate 103 BPM GEMUSE P-R Interval 150 ms GEMUSE QRS Duration 94 ms GEMUSE Q-T Interval 354 ms GEMUSE QTc 463 ms GEMUSE P Wave [place] 74 degrees GEMUSE R [place] 68 degrees GEMUSE T [place] 57 degrees GEMUSE ECG Interpretation Sinus tachycardia Otherwise normal ECG When compared with ECG of 17-DEC-2024 20:19, (unconfirmed) No significant change was found Confirmed by Rich OLIVAS YUFENG ([id number]) on 12/18/2024 7:57:32 AM GEMUSE 12/18/2024 2:45 AM EDT 12/18/2024 7:57 AM EDT us Althea Martinez MD ECG ORDERABLES Final Result GEMUSE * Respiratory virus panel molecular study (12/17/2024 8:53 PM EDT) Only the most recent of3 resultswithin the time period is included. [facility] Adenovirus Detection by PCR Not Detected Not Detected LAB MICROBIOLOGY METHOD 12/17/2024 10:12 PM EDT [facility] Influenza A PCR Not Detected Not Detected LAB MICROBIOLOGY METHOD 12/17/2024 10:12 PM EDT [facility] Influenza B PCR Not Detected Not Detected LAB MICROBIOLOGY METHOD 12/17/2024 10:12 PM EDT [facility] Coronavirus 229E Not Detected Not Detected LAB MICROBIOLOGY METHOD 12/17/2024 10:12 PM EDT [facility] Coronavirus HKU1 Not Detected Not Detected LAB MICROBIOLOGY METHOD 12/17/2024 10:12 PM EDT [facility] Coronavirus OC43 Not Detected Not Detected LAB MICROBIOLOGY METHOD 12/17/2024 10:12 PM EDT [facility] Coronavirus NL63 Not Detected Not Detected LAB MICROBIOLOGY METHOD 12/17/2024 10:12 PM EDT [facility] Parainfluenza Virus 1 Not Detected Not Detected LAB MICROBIOLOGY METHOD 12/17/2024 10:12 PM EDT [facility] Parainfluenza Virus 2 Not Detected Not Detected LAB MICROBIOLOGY METHOD 12/17/2024 10:12 PM EDT [facility] Parainfluenza Virus 3 Not Detected Not Detected LAB MICROBIOLOGY METHOD 12/17/2024 10:12 PM EDT [facility] Parainfluenza Virus 4 Not Detected Not Detected LAB MICROBIOLOGY METHOD 12/17/2024 10:12 PM EDT [facility] RSV PCR Not Detected Not Detected LAB MICROBIOLOGY METHOD 12/17/2024 10:12 PM EDT [facility] Human Metapneumovirus A and B Not Detected Not Detected LAB MICROBIOLOGY METHOD 12/17/2024 10:12 PM EDT [facility] Rhinovirus/Entero virus Not Detected Not Detected LAB MICROBIOLOGY METHOD 12/17/2024 10:12 PM EDT [facility] Bordetella pertussis Not Detected Not Detected LAB MICROBIOLOGY METHOD 12/17/2024 10:12 PM EDT [facility] Bordetella parapertussis Not Detected Not Detected LAB MICROBIOLOGY METHOD 12/17/2024 10:12 PM EDT [facility] Mycoplasma pneumo by PCR Not Detected Not Detected LAB MICROBIOLOGY METHOD 12/17/2024 10:12 PM EDT [facility] Chlamydia pneumoniae Not Detected Not Detected LAB MICROBIOLOGY METHOD 12/17/2024 10:12 PM EDT [facility] SARS COV-2 Not Detected Not Detected LAB MICROBIOLOGY METHOD 12/17/2024 10:12 PM EDT [facility] Swab Both anterior nares / Unknown Non-blood Collection / Unknown 12/17/2024 8:53 PM EDT 12/17/2024 9:13 PM EDT Narrative [facility] ([facility]) [facility] - 12/17/2024 10:12 PM EDT Testing was performed using the BIO[employer] Respiratory Pathogen PCR Assay. All results must be correlated with the clinical findings. Results should not be used as the sole basis for diagnosis. False Negative results may occur from the presence of sequence variants in the region targeted by the assay or the presence of inhibitors. Results may be affected by concurrent antiviral/antimicrobial therapy or levels of organisms that are below the limit of detection. us Tom Coker DO LAB MICROBIOLOGY - GENERAL ORD ERABLES Final Result [facility] ([facility]) [facility] [address] [place] [address], [place] [phone] * XR Chest 2 Views (12/17/2024 8:48 PM EDT) Only the most recent of4 resultswithin the time period is included. Anatomical Region Laterality Modality Body Radiographic Marylin ging 12/18/2024 8:43 AM EDT Impressions 12/18/2024 8:44 AM EDT Question mild pulmonary vascular congestion. -------- FINAL REPORT -------- Dictated By: Christiano Acevedo Dictated Date: 12/18/2024 08:43 ET Assigned Physician: Christiano Acevedo Reviewed and Electronically Signed By: Christiano Acevedo Signed Date: 12/18/2024 08:44 ET Workstation ID: [id number] Transcribed By: Self Edit Transcribed Date: 12/18/2024 08:43 ET Narrative 12/18/2024 8:44 AM EDT PROCEDURE: PA and lateral radiographs of the chest. HISTORY: dyspnea. COMPARISON: 11/18/2024. FINDINGS: Mildly hypoventilatory exam. ??Question mild pulmonary vascular congestion. ??Lungs and pleural spaces otherwise unremarkable. ??Atherosclerotic calcifications of the aorta. ??Normal heart size. Procedure Note Christiano Acevedo MD - 12/18/2024 PROCEDURE: PA and lateral radiographs of the chest. HISTORY: dyspnea. COMPARISON: 11/18/2024. FINDINGS: Mildly hypoventilatory exam. Question mild pulmonary vascular congestion.Lungs and pleural spaces otherwise unremarkable. Atheroscleroticcalcifications of the aorta. Normal heart size. IMPRESSION: Question mild pulmonary vascular congestion. -------- FINAL REPORT -------- Dictated By: Christiano Acevedo Dictated Date: 12/18/2024 08:43 ET Assigned Physician: Christiano Acevedo Reviewed and Electronically Signed By: Christiano Acevedo Signed Date: 12/18/2024 08:44 ET Workstation ID: [id number] Transcribed By: Self Edit Transcribed Date: 12/18/2024 08:43 ET us Tom Coker DO IMG XR PROCEDURES Final Result * B-type natriuretic peptide (12/17/2024 8:31 PM EDT) Only the most recent of4 resultswithin the time period is included. [facility] BNP 10 <=100 pcg/mL LAB CHEMISTRY METHOD 12/17/2024 9:50 PM EDT [facility] Blood Venous blood specimen / Unknown Venipuncture / Unknown 12/17/2024 8:31 PM EDT 12/17/2024 9:12 PM EDT us Tom Coker DO LAB BLOOD ORDERABLES Final Res ult [facility] [address] [place] [address], [place] [phone] * (ABNORMAL) Comprehensive metabolic panel (12/17/2024 8:31 PM EDT) Only the most recent of3 resultswithin the time period is included. [facility] Sodium 141 133 - 145 mmol/L LAB CHEMISTRY METHOD 12/17/2024 9:54 PM EDT [facility] Potassium 4.4 3.5 - 5.5 mmol/L LAB CHEMISTRY METHOD 12/17/2024 9:54 PM [facility] Comment:Hemolysis present Chloride 109 96 - 110 mmol/L LAB CHEMISTRY METHOD 12/17/2024 9:54 PM [facility] CO2 28 21 - 32 mmol/L LAB CHEMISTRY METHOD 12/17/2024 9:54 PM [facility] Anion Gap 4 3 - 11 LAB CHEMISTRY METHOD 12/17/2024 9:54 PM [facility] Glucose 75 70 - 100 mg/dL LAB CHEMISTRY METHOD 12/17/2024 9:54 PM [facility] BUN 18 5 - 25 mg/dL LAB CHEMISTRY METHOD 12/17/2024 9:54 PM [facility] Creatinine 0.86 0.70 - 1.30 mg/dL LAB CHEMISTRY METHOD 12/17/2024 9:54 PM [facility] eGFR 98 >=60 mL/min/1. 73m2 LAB CHEMISTRY METHOD 12/17/2024 9:54 PM [facility] Comment:Calculation based on the??Chronic Kidney Disease Epidemiology Collaboration (CKD-EPI) equation refit??without adjustment for race. BUN/Creatinine Ratio 20.9 LAB CHEMISTRY METHOD 12/17/2024 9:54 PM [facility] Calcium 8.3(L) 8.5 - 10.5 mg/dL LAB CHEMISTRY METHOD 12/17/2024 9:54 PM [facility] AST (SGOT) 27 10 - 42 unit/L LAB CHEMISTRY METHOD 12/17/2024 9:54 PM [facility] Comment:Hemolysis present ALT (SGPT) 31 10 - 60 unit/L LAB CHEMISTRY METHOD 12/17/2024 9:54 PM [facility] Alkaline Phosphatase 86 42 - 121 unit/L LAB CHEMISTRY METHOD 12/17/2024 9:54 PM [facility] Total Protein 6.7 6.0 - 8.0 g/dL LAB CHEMISTRY METHOD 12/17/2024 9:54 PM EDT [facility] Albumin 3.4 3.2 - 5.0 g/dL LAB CHEMISTRY METHOD 12/17/2024 9:54 PM EDT [facility] Total Bilirubin 0.5 0.0 - 1.4 mg/dL LAB CHEMISTRY METHOD 12/17/2024 9:54 PM EDT [facility] Blood Venous blood specimen / Unknown Venipuncture / Unknown 12/17/2024 8:31 PM EDT 12/17/2024 9:12 PM EDT us Tom Coker DO LAB BLOOD ORDERABLES Final Res ult [facility] [address] [place] [address], [place] [phone] * General (11/18/2024 4:55 AM EDT) Narrative Rosamaria Henderson MD - 11/18/2024 4:55 AM EDT CRISTINA Rojas ? 11/18/2024 ??7:30 AM General Date/Time: 11/18/2024 4:55 AM Performed by: CRISTINA Rojas Authorized by: Rosamaria Henderson MD ?? Procedure specific details: ?? Emergency Ultrasound Guidance for Peripheral IV All images have been recorded and permanently stored. Encounter: 64-year-old male with hypoxic respiratory distress, COPD requiring IV access, unsuccessful prior attempts. Pre-Procedure Check Performed on Patient, Procedure, Side, Site: Yes Indication: IV Fluids / IV antibiotics / RN unable to obtain Catheter length:2.5in Catheter gauge: 20 gauge Location: L Antecubital Fossa / Upper Arm Results / Confirmation: Adequate blood return / Flushes well / Secured us Rosamaria Henderson MD IN CLINIC/BEDSIDE ORDERA BLES Final Result * (ABNORMAL) Venous blood gas (11/18/2024 4:25 AM EDT) pH, Ed 7.32 7.32 - 7.42 pH 11/18/2024 4:35 AM EDT [facility] pCO2, Ed 58(H) 41 - 51 mmHg 11/18/2024 4:35 AM EDT [facility] pO2, Ed 42(H) 25 - 40 mmHg 11/18/2024 4:35 AM EDT [facility] HCO3, Venous 26.4(H) 22.0 - 26.0 mmol/L 11/18/2024 4:35 AM EDT [facility] O2 Sat, Ed 78.3 % 11/18/2024 4:35 AM EDT [facility] Base Excess, Ed 2.6(H) -2.0 - 2.0 mmol/L 11/18/2024 4:35 AM EDT [facility] Blood Venous blood specimen / Unknown Venipuncture / Unknown 11/18/2024 4:25 AM EDT 11/18/2024 4:31 AM EDT Chanell EVANS LAB BLOOD ORDERABLES Final Resul t Performing Organization Address [facility] Co de Phone Number [facility] [address] [place] [address], * Lipase (11/18/2024 1:47 AM EDT) Pathologist [facility] Lipase 17 13 - 75 unit/L LAB CHEMISTRY METHOD 11/18/2024 3:08 AM EDT [facility] Blood Venous blood specimen / Unknown Venipuncture / Unknown 11/18/2024 1:47 AM EDT 11/18/2024 2:24 AM EDT Maurilio Mosqueda MD LAB BLOOD ORDERABLES F inal Result [facility] [address] [place] [address], [place] [phone] * Lactate (11/15/2024 7:32 AM EDT) Only the most recent of2 resultswithin the time period is included. Pathologist [facility] Lactate 1.7 0.4 - 2.0 mmol/L LAB CHEMISTRY METHOD 11/15/2024 8:26 AM EDT [facility] Blood Venous blood specimen / Unknown Venipuncture / Unknown 11/15/2024 7:32 AM EDT 11/15/2024 7:39 AM EDT Althea Martinez MD LAB BLOOD ORDERABLES Final Resul t [facility] [address] [place] [address], [place] [phone] * (ABNORMAL) Drug abuse screen 8a panel, urine (11/14/2024 7:58 AM EDT) [facility] Amphetamine Screen, Ur Negative Negative LAB CHEMISTRY METHOD 5 8:47 AM EDT [facility] Comment:Certain OTC medicati ons containing ephedrine, phenylephrine, pseudoephedrine and phenylpropanolamine can cause false positive results. Barbiturate Screen, Ur Negative Negative LAB CHEMISTRY METHOD 5 8:47 AM EDT [facility] Benzodiazepine Screen, Ur Negative Negative LAB CHEMISTRY METHOD 5 8:47 AM EDT [facility] Cocaine Screen, Ur Negative Negative LAB CHEMISTRY METHOD 5 8:47 AM EDT [facility] Opiate Screen, Ur Negative Negative LAB CHEMISTRY METHOD 5 8:47 AM EDT [facility] Cannabinoid (THC) Screen, Ur Positive(A ) Negative LAB CHEMISTRY METHOD 5 8:47 AM EDT [facility] Comment:Specimens from patie nts taking pantoprazole sodium (Protonix) have been shown to produce false positive results. Oxycodone Screen, Ur Negative Negative LAB CHEMISTRY METHOD 8:47 AM EDT [facility] Fentanyl, Ur Negative Negative LAB CHEMISTRY METHOD 8:47 AM EDT [facility] Urine Urine specimen obtained by clean catch procedure / Unknown Non-blood Collection / Unknown 11/14/2024 7:58 AM EDT 11/14/2024 8:15 AM EDT Narrative [facility] - 11/14/2024 8:47 AM EDT Assay cutoffs: Amphetamines ? 1000 ng/mL Barbiturates ?200 ng/mL Benzodiazepines ?? 200 ng/mL Cocaine ? 300 ng/mL Fentanyl ?1 ng/mL Opiates ? 300 ng/mL Oxycodone ? 100 ng/mL THC ?50 ng/mL Semi-quantitative assay for screening purposes only. Unconfirmed screening result should not be used for non-medical purposes. *ALTERNATE METHOD CONFIRMATION DONE UPON REQUEST ONLY* Lincoln Sampson MD LAB URINE ORDERABLES Final Res ult [facility] [address] [place] [address], * Procalcitonin (11/14/2024 5:19 AM EDT) Procalcitonin <0.02 <=0.16 ng/mL LAB CHEMISTRY METHOD 11/14/2024 10:48 AM EDT [facility] Blood Venous blood specimen / Unknown Venipuncture / Unknown 11/14/2024 5:19 AM EDT 11/14/2024 5:50 AM EDT Narrative [facility] - 11/14/2024 10:48 AM EDT Procalcitonin > 2.00 ng/ml: Procalcitonin Levels above 2.00 ng/ml, on the first day of ICU admission represent a high risk for progression to severe sepsis and/or septic shock. Procalcitonin < 0.50 ng/ml: Procalcitonin levels below 0.50 ng/ml on the first day of ICU admission represent a low risk for progression to severe sepsis and/or septic shock. Concentrations <0.5 ng/mL do not exclude an infection, on account of local ized infections (without systemic signs) which can be associated with such low concentrations, or a systemic infection in its initial stages (<6 hours). Furthermore, increased procalcitonin can occur without infection. PCT concentrations between 0.5 and 2.0 ng/mL should be interpreted taking into account the patient's history. It is recommended to retest PCT within 6-24 hours if any concentrations <2.0 ng/mL are obtained. us Althea Martinez MD LAB BLOOD ORDERABLES Final Resul t Performing Organization Address City/[facility]/ZIP Co de Phone Number [facility] [address] [place] [address], [place] [phone] * Lavender tube (11/14/2024 5:19 AM EDT) Extra Tube Hold for add-ons. 11/14/2024 7:01 AM EDT [facility] Comment:Auto resulted. Blood Venous blood specimen / Unknown Venipuncture / Unknown 11/14/2024 5:19 AM EDT 11/14/2024 5:53 AM EDT us Althea Martinez MD LAB BLOOD ORDERABLES Final Resul t Performing Organization Address City/[facility]/ZIP Co de Phone Number [facility] [address] [place] [address], [place] [phone] * (ABNORMAL) Lactate, with reflex (11/14/2024 12:42 AM EDT) LACTIC ACID 3.9(HH) 0.4 - 2.0 mmol/L LAB CHEMISTRY METHOD 11/14/2024 1:21 AM EDT [facility] Blood Venous blood specimen / Unknown Venipuncture / Unknown 11/14/2024 12:42 AM EDT 11/14/2024 12:52 AM EDT Chato EVANS LAB BLOOD ORDERABLES Rena l Result Performing Organization Address [facility] Co de Phone Number [facility] [address] [place] [address], [place] [phone] * Blood Culture, Peripheral Draw #1 (11/14/2024 12:42 AM EDT) Only the most recent of2 resultswithin the time period is included. Pathologist [facility] Culture, Blood No growth at 5 days 11/19/2024 6:01 AM EDT [facility] Blood Venous blood specimen / Unknown Venipuncture / Unknown 11/14/2024 12:42 AM EDT 11/14/2024 12:57 AM EDT Chato EVANS LAB MICROBIOLOGY - GENERA L ORDERABLES Final Result Performing Organization Address [facility] Co de Phone Number [facility] [address] [place] [address], [place] [phone] * Vascular US Duplex Lower Extremity Venous Left (11/13/2024 11:41 PM EDT) Anatomical Region Laterality Modality Vascular, Abdomen Ultrasound 11/14/2024 6:48 AM EDT Impressions 11/14/2024 6:49 AM EDT The peroneal veins in the left calf were not visualized and are therefore evaluable. No deep venous thrombosis demonstrated. -------- FINAL REPORT -------- Dictated By: Darrian Cloud Dictated Date: 11/14/2024 06:48 ET Assigned Physician: Darrian Cloud Reviewed and Electronically Signed By: Darrian Cloud Signed Date: 11/14/2024 06:49 ET Workstation ID: [id number] Transcribed By: Self Edit Transcribed Date: 11/14/2024 06:48 ET Narrative 11/14/2024 6:49 AM EDT EXAM: DUPLEX ULTRASOUND LOWER, UNILATERAL LEFT HISTORY: ??Calf tenderness. Left lower extremity pain. Clinical concern for deep venous thrombosis. TECHNIQUE: ??Real-time ultrasonography of the venous system from the groin to the proximal calf is performed. ??Compression and augmentation were used as needed. Color mapping was performed. Doppler spectral analysis was performed. FINDINGS: The region of the peroneal veins in the left calf were unable to be visualized. The remainder of the venous system from the groin into the proximal calf was visualized and compressible. The caliber appears within normal limits. The visualized venous system is compressible. There is appropriate color saturation of the lumen. Appropriate spectral waveforms were obtained during augmentation and compression. No other significant findings. Procedure Note Darrian Cloud MD - 11/14/2024 EXAM: DUPLEX ULTRASOUND LOWER, UNILATERAL LEFT HISTORY: Calf tenderness. Left lower extremity pain. Clinical concern fordeep venous thrombosis. TECHNIQUE: Real-time ultrasonography of the venous system from the grointo the proximal calf is performed. Compression and augmentation were usedas needed. Color mapping was performed. Doppler spectral analysis wasperformed. FINDINGS: The region of the peroneal veins in the left calf were unable uri visualized. The remainder of the venous system from the groin into the proximal calfwas visualized and compressible. The caliber appears within normallimits. The visualized venous system is compressible. There is appropriate colorsaturation of the lumen. Appropriate spectral waveforms were obtained during augmentation andcompression. No other significant findings. IMPRESSION: The peroneal veins in the left calf were not visualized and are thereforeevaluable. No deep venous thrombosis demonstrated. -------- FINAL REPORT -------- Dictated By: Darrian Cloud Dictated Date: 11/14/2024 06:48 ET Assigned Physician: Darrian Cloud Reviewed and Electronically Signed By: Darrian Cloud Signed Date: 11/14/2024 06:49 ET Workstation ID: [id number] Transcribed By: Self Edit Transcribed Date: 11/14/2024 06:48 ET Chato EVANS CV VASCULAR PROCEDURES Fi nal Result * [id number], RSV, Influenza A and B qualitative RT-PCR (11/03/2024 11:33 AM EST) Influenza A PCR Not Detected Not Detected LAB MICROBIOLOGY METHOD 11/03/2024 12:22 PM EST [facility] Influenza B PCR Not Detected Not Detected LAB MICROBIOLOGY METHOD 11/03/2024 12:22 PM EST [facility] RSV PCR Not Detected Not Detected LAB MICROBIOLOGY METHOD 11/03/2024 12:22 PM [facility] SARS COV-2 Not Detected Not Detected LAB MICROBIOLOGY METHOD 11/03/2024 12:22 PM [facility] Swab Both anterior nares / Unknown Non-blood Collection / Unknown 11/03/2024 11:33 AM EST 11/03/2024 11:41 AM EST [facility] - 11/03/2024 12:22 PM EST Disclaimer: ??Testing was performed using the [employer] GeneXpert Xpress SARS-CoV-2 _Flu_RSV PLUS PCR assay. ??The manner in which this information is used to guide patient care is the responsibility of the healthcare provider. ??Results should be correlated with the clinical history, epidemiological data, and other data available to the clinician evaluating the patient. ??Negative results do not preclude infection. ??This test has been authorized by the FDA under an Emergency Use Authorization (EUA). ??This test is only authorized for the duration of time the declaration that circumstances exist justifying the authorization of the emergency use of in vitro diagnostic tests for detection of SARS-CoV-2 virus and/or diagnosis of COVID-19 infection under section 564 (b) (1) of the Act, 21 U.S.C 360bbb-3 (b) (1), unless the authorization is terminated or revoked sooner. ?? Reference Range: Not Detected Fact sheet for Healthcare providers can be found at https://www.fda.gov/media/259277/download. ?? Fact sheet for Healthcare patients can be found at https://www.fda.gov/media/495911/download. Gudelia EVANS LAB MICROBIOLOGY - GENERAL ORD ERABLES Final Result [facility] ([facility]) [facility] [address] [place] [address], * (ABNORMAL) Lipid panel (08/07/2024) LDL/HDL Ratio 4 <=5 Triglycerides 238(A) <=150 mg/dL Cholesterol 181 <=200 mg/dL HDL 42 >=40 mg/dL LDL Cholesterol 103(A) <=100 mg/dL Blood Venous blood specimen / Unknown Historical Provider LAB BLOOD ORDERABLES Rena l Result from Last 3 Months or Most Recently Relevant to Health Maintenance Insurance MEDICA[place] - [place] * Guarantor: YAJAIRA Account Type Relation to Patient Date of Phone Billing Address YAJAIRA [place] [address] [place] [address] [employer] Advance Directives Documents on File Type Date Recorded 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 Advance Directives and Living Will 09/17/2024 9:37 AM ADV DIR-MOLST 11. Health Care Decision (hx) 06/11/2018 ADVANCE DIRECTIVE Health Care Decision (hx) 06/11/2018 ADVANCE DIRECTIVE Health Care Decision (hx) 06/11/2018 ADVANCE DIRECTIVE Health Care Decision (hx) 06/11/2018 ADVANCE DIRECTIVE Health Care Decision (hx) 06/11/2018 ADVANCE DIRECTIVE Health Care Decision (hx) 06/11/2018 ADVANCE DIRECTIVE Health Care Decision (hx) 10/07/2015 ADVANCE DIRECTIVE Health Care Decision (hx) 10/07/2015 ADVANCE DIRECTIVE Health Care Decision (hx) 10/07/2015 ADVANCE DIRECTIVE Health Care Decision (hx) 10/07/2015 ADVANCE DIRECTIVE Health Care Decision (hx) 10/07/2015 ADVANCE DIRECTIVE Health Care Decision (hx) 10/07/2015 ADVANCE DIRECTIVE Health Care Decision (hx) 10/07/2015 ADVANCE DIRECTIVE Health Care Decision (hx) 10/07/2015 ADVANCE DIRECTIVE Health Care Decision (hx) 10/07/2015 ADVANCE DIRECTIVE Health Care Decision (hx) 10/02/2015 ADVANCE DIRECTIVE Health Care Decision (hx) 10/02/2015 ADVANCE DIRECTIVE Health Care Decision (hx) 10/02/2015 ADVANCE DIRECTIVE Health Care Decision (hx) 10/02/2015 ADVANCE DIRECTIVE Health Care Decision (hx) 10/02/2015 ADVANCE DIRECTIVE Health Care Decision (hx) 10/02/2015 ADVANCE DIRECTIVE Health Care Decision (hx) 10/02/2015 ADVANCE DIRECTIVE Health Care Decision (hx) 10/02/2015 ADVANCE DIRECTIVE Health Care Decision (hx) 10/02/2015 ADVANCE DIRECTIVE * Full Code - Confirmed (Latest Code Status on File) Date Activated Date Inactivated Comments 12/18/2024 2:32 AM 12/19/2024 8:[address] atus was ascertained in the following way: Code status discussion: discussion with patient To update the patient's code status, place a code status order. Do not modify or discontinue any currently active code status orders. * Full Code - Default Date Activated Date Inactivated Comments 12/17/2024 11:13 PM 12/18/2024 2:32 AM This is ord er is used when code status has not been discussed with the patient, or code status is otherwise unknown/unconfirmed To update the patient's code status, place a code status order. Do not modify or discontinue any currently active code status orders. * Full Code - Confirmed Date Activated Date Inactivated Comments 11/18/2024 3:21 PM 11/19/2024 5:[address] atus was ascertained in the following way: Code status discussion: discussion with patient To update the patient's code status, place a code status order. Do not modify or discontinue any currently active code status orders. * Full Code - Default Date Activated Date Inactivated Comments 11/18/2024 9:17 AM 11/18/2024 3:21 PM This is orde r is used when code status has not been discussed with the patient, or code status is otherwise unknown/unconfirmed To update the patient's code status, place a code status order. Do not modify or discontinue any currently active code status orders. * Full Code - Confirmed Date Activated Date Inactivated Comments 11/03/2024 3:11 PM 11/03/2024 11:18 PM This code sta tus was ascertained in the following way: Code status discussion: discussion with patient To update the patient's code status, place a code status order. Do not modify or discontinue any currently active code status orders.
--- OUTSIDE RECORDS SUMMARY | 2024-12-26 15:43 | XMS_ITS | Continuity of Care Document ---
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 in [facility], lying in clinic stretcher, pupils not fixed [...] a repair clinic appt at and then technician telecommunication systems has been sent out to his home, but did not answer the door. Rehab will continue to work on this with Mr. Dang. Office Visit Mr. Dang report s for sick visit today. VIOLET Glover serving as olive picker. He is a fair to poor historian [...] this when discussed during the visit. 10/09/2019 [facility] ED - ER notes were also recently [...] days. First dose of prednisone given at today. -START zpak. 500 mg azithromycin given at today. Remaining doses of 250 mg to [...] ED visit today. VIOLET Glover present for Ecuadorean interpretation. Last seen in the clinic on 09/21/19. Newly enrolled at on 08/29/2019. He is a fair historian, low educational level.He did not present for his usual SE days earlier this week and reported that he was in the ED. [facility] had told EMS that he wanted to go to [facility], but they brought him to [facility]. was not notified of his ED visit by [facility]. Mr. Dang does not have paperwork from [...] he give the clinic the information for SE so that we can coordinate care as needed. PLAN:- will be seen by home care next week for change of environment - Lexx will let care team know if he is able to get into the vivitrol clinic- ED visit notes to be requested from [facility]- Reminded to purchase marijuana from dispensary, not from the street due to potential additives. f/u upper respirator y symptoms Mr. Dang is here today for f/u on his cough/respiratory issues. Was seen in the clinic on 09/19/2019. VIOLET Glover present for Ecuadorean interpretation. He is a fair historian and offers vague responses to ROS. Wellness call placed yesterday and he was feeling better. He was ordered to have a CXR, which he had completed this morning at [facility]. CXR was negative for acute issues. States [...] Exam:Sitting up in his power wheelchair in NAD, does not appear acutely ill, watching TV and playing games on his phone RRR, LS - better air movement today but still diminished. not SOBCardiac- HR regular, no murmurs VSS, afebrile PLAN:- continue with his nebulizer and inhalers at home; can get PRN duoneb at [facility]- Reports small tires in the back of his power chair are making a noise - will notify PT to look at his chair when he is in next; may be due to salt buildup? - Again reinforced cutting back on smoking marijuana due to his recent respiratory issues - will continue to be followed by [facility] care team and will be notified of concerns FUV Mr. Dang is agueda riddle seen today for sick visit - respiratory symptoms and follow up for review of labs. He is a new enrollee to the program and was last seen in the clinic on 09/05/2019. He is Ecuadorean speaking only, VIOLET Glover present for interpretation. He cancelled his SE day on 09/17/2019 stating asthma symptoms and that he would be in on 09/18/2019. Was encouraged to come in to be evaluated but declined to do so. He then cancelled his SE day on 09/18/2019. Wellness call was placed and he reported that he continued to have respiratory symptoms. hollow ware maker notified this clinician of symptoms and ppt [...] Exam:Sitting up in his power wheelchair in NAD, does not appear acutely ill, watching TV and playing games on his phone RRR, LS - tight wheezing throughout, nebulizer given in clinic with mild effect. Does not appear SOBCardiac- HR regular, no murmurs VSS, afebrile PLAN:- Mucinex and tessalon ordered for symptom management, encouraged to cut down on smoking- CXR ordered - will have done at [facility] - Will follow up in clinic again during the week -Due for PPD #2 today- Hepatitis B immunization series to be ordered- Records to be requested from [facility] for potential Hepatitis C treatment verification- Reminded [...] sustained after having a seizure at homeless [facility] and falling onto hot water spigot in a sink); thickly callused bilateral feet, areas of healed skin on front of RLE - able to stand on his feet and ambulate slowly to exam stretcher, antalgic gait PEE Patient is a 59- year-old Ecuadorean speaking male who presents with olive picker for Post Enrollment Exam. He is a fair historian and appears to have some degree of cognitive impairment. He can be somewhat distractible at times. Medications attempted to be reviewed. Home care nurse to visit home later this week for medication reconciliation. Reports that gets his medications from from [facility] pharmacy in medication cards/bubble packs (start on ). Reports he is able to manage his medications. Medication list reviewed and he indicates has not taken Fosamax in years" since he had to stay sitting up after taking the medication, which was difficult for him. He reports that his prescriber is no longer prescribing nerve pills. States needs sertraline refill, which was done by [...] his food even though he is edentulous Behavioral Health - [facility], goes Q3 weeks, next appt 09/06/19 [...] PPD planted today Tobacco use - currently ? PPD, started at age 16 Sleep - [...] To be added to podiatry list at [facility] - Dr. Muhammad- Attempt to obtain previous records regarding sleep study, did he qualify for device?- Orthopedics referral - [facility] - and psychiatry referral for [facility]; SW to investigate further for continuity of care for Mr. Dang since he states that his psychiatrist was going to discharge him from the practice due to change in insurance. - 30 day supply sertraline ordered to bridge until clarified with psychiatry - Step 1 PPD placed today- lungs wheezy today - will have PRN nebulizer at [facility] and will follow up on next day. Reports this is usual for him. Reminded of importance of smoking cessation.- not able to have discussion regarding advanced directives/MOLST, will review in follow up Chronic Conditions *See Chronic Conditions HPI intake Patient is a 59- year-old Ecuadorean speaking male who presents with olive picker for intake. 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 PPD since age 16), hx ETOH use (stopped age 32, started age 16, reports ETOH was a problem for him), edentulous, hx eye injury (?legally blind R eye), reports hx seizures from drug use; cannot read/writeSOCIAL - He currently lives in an elevator-accessed apartment (but not fully handicapped modified) in [place] with his small dog. He uses a power chair to get around. He formerly was living in the homeless intermediate and has been in his current apartment for about the last 4 years. He would like to get out of his current living situation and move to an apartment where there is a better neighborhood. Went to school up to the 2nd grade. States has not seen his family in [place] in about 20 years but talks to them on the phone.HCP - friend Paras; HCP filled out todayHe reports that he last went to the hospital/ED about 3 months ago for hip pain and foot pain. Medications - obtains from [facility] pharmacy in medication cards/bubble packs; reports he is able to manage his medicationsPC[facility], goes Q3 weeks, next appt 09/06/19 at [...] PPD due to previous residence in homeless intermediate; reports no knowledge of hx positive PPDDiet [...] a good supplier )Tobacco use - currently ? PPD, [place] at age 16 [place] - [...] have shower assistance while he is at [facility]. Lexx would benefit from coordinated services, medication management and maintenance of functional abilities, socialization. Will be brought to IDT in the morning for acceptance into the PACE program. Instructions Date Instruction Additional Infor emi Pulmonary notes past pulmonary nodules and recommended CT chest with IV contrast. This was ordered in July however patient updated. Seed Buyer who saw him in November again reiterated [...] to execute it. He got himself to [place], got a dog and return despite his [...] t reated, unclear precisely when, seemingly at [facility]. Ultrasound of the liver in March 2022 [...] has obesity. Food accesshistorically been problematic.-Repeat hemoglobin D0m-Prvlwtjwpjl of him checking sugars and/or taking any [...] left lesser toe The patient is edent ulous. Previously seen by dental and referred to [...] immunizations appear adequate-He has not engaged in Melfa guard. We can certainly reordered although I [...] recent years. It was not done at [facility] and must of been done prior to [...] medicine, pulmonary and perhaps other specialties at [facility]-He uses NSAIDS,Which is not particularly advantageous but [...] care. He apparently never followed through with xpci-Fxhmszjbkxp-D am not clear that there is significant [...] to Alcohol dependence, in remission Patient smokes georgina tran daily. I have been very clear with [...] back pain as well. Also reports saw technical inspector today and they prescribed a med and [...] worsening disease-Will see if I can get technical inspector records to see what they prescribed and [...] lumbar spine while he is over at [facility] having his CT chest Related to Lumbar pain on palpation Patient has a multip licity of challenges including a low literacy, lack of social network, cognitive impairment and limited ability to manage his funds. 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 All that being said, he did manage to fly to [place] recently and make some poor financial choices [...] that he come back in Tuesday for cqdiqo-ym-Gc knows that should he worsen in the [...] to wear socks but this seems unlikely. Retail Sales Associate tells me that she believes she has [...] hand be involved-he will be leaving to [place] for several weeks, this will be illustrative [...] (based on review of old notes at [facility]).-Supportive care-Lack of social support/network is definitely problematic [...] excited about the prospect of going to [place] for dog. Unless he is receiving medications [...] excited about the prospect of going to [place] for dog. 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 He endorses treatment at [facility]. There is ambiguity as to whether there was cirrhosis in the past.-Repeat hep C viral load-Right upper quadrant ultrasound to screen for hepatoma, secondarily will look for ascites Related to History of hepatitis C Long overdue for oph thalmology follow-up.-We will try to book for him upon his return from [place] however, should he know show it will [...] adult, unspecified obesity type Lipid panel on 01/29 s hows LDL of 111, HDL of [...] histo ry of carpal SNAC. Seen by [facility] in the past. Is a bit [...] his health Related to Other chronic pain Patient with a histo ry of carpal SNAC. Seen by [facility] in the past. Is a bit [...] Related to Chronic pain of right wrist Blood pressure is ch ronically somewhat low. [...] (genotype 1A). He apparently endorsed treatment at [facility] years ago. I suspect this is correct. It is somewhat unclear to me if he ever had cirrhosis. There appears to be ambiguity as to why he is on Aldactone/Lasix. His last echocardiogram in the base consistent with in 2005. EF at the time was preserved. I am not certain if there were interval studies at [facility].-Given his blood pressure/absence of a clear history of ascites/edema/clear history of volume overload I am inclined to try him off the Lasix and Aldactone. The major challenge as he is planning to go to [place] in about 3 weeks and I am not anxious to change medications prior to his going. 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 [...] seems far less likely.-Hand surgery consult at [facility] Related to Unspecified fracture of navicular [...] common arthropod borne illness such as Lyme-Complete ijfdjjixuqk-Rsdsgx-gb next week Related to Insect bite of [...] - unspecified, has t herapist appt with [facility] Q3-4 weeks, mostly on the phone- psychiatry prescribing and adjusting his psychiatric medications- he enjoys spending time with his dog, has new girlfriend and they have been going [place] a [place] to [place] over the summer, happy that [...] for Hepatitis C in the past at [facility] - states took all the pills - [...] above 30 Related to Vitamin D deficiency Dec-20-2021 - seen by optho 03/17 21 for [...] medical treatment - see also SOB ; [facility] at this time if SOB is COPD exacerbation, allergies, or COVID19. 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 Related to COPD with asthma MoCA completed 08/07 with score of 11/30 with deficits in visuospatial and executive functioning, identification, attention, language, abstraction, delayed recall. Less deficit in orientation. Related to Impaired cognition - unclear on his rep orts of [...] for Narcan Related to History of seizure 05/12/21 Spine xrays (T&L): no acute abnormalities. [...] distal clavicle- MRI L shoulder without contrast 1/23/19 - partial tear supraspinatus tendinosis, small insertional [...] unspecified part of left clavicle, sequela - [facility] note from 01/28 indicating that [...] to Osteonecrosis of multiple sites - per ortho note 01/28 - xray [...] of both knees, unspecified osteoarthritis type - uses marijuana paris ly - smoking; stating using 7-8x/day - discussed that this is making his respiratory status worse but he does not want to stop-encouraged use of cannabis edibles vs. inhalation from dispensary. Related to Marijuana dependence - see also SOB ; [facility] at this time if SOB is COPD exacerbation, allergies, or COVID19. 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, chronic tobacco and smoked marijuana use, although [...] spine xray-CBC, BMP r/o dehydration or electrolyte mclbzbfw-Nyzfkr-Qvtzi drug screen as he had seizure like [...] spine xray-CBC, BMP r/o dehydration or electrolyte euhdgedy-Oezouc-Oeqgz drug screen as he had seizure like activity when using cocaine in the past (EEG was negative in 2011)-ibuprofen for pain-Education on safety using the wheelchair rather than ambulating Related to Risk for falls - see also SOB ; [facility] at this time if SOB is COPD exacerbation, allergies, or COVID19 with results pending 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 [...] pathological fracture presence - per ortho note 6/2 020 - xray bilateral knees showing moderate [...] - unspecified, has t herapist appt with [facility] Q3-4 weeks, mostly on the phone- reports [...] for Hepatitis C in the past at [facility] - states took all the pills - [...] will monitor over weekend. Told to call rewards consultant over weekend if turns into full body rash, itching, pain. He will call next week to let us know how he feels and we will follow up as necessary Related to [place] - power chair depend ent for distances [...] Nicotine dependence, cigarettes, with other nicotine-induced disorders non compliant with b reathing treatments, inhalers. [...] other nicotine-induced disorders advised to go to [facility], status worse today. provided with all of [...] adventitious lung sounds Related to Marijuana dependence reporting pain of 10 /10 of right knee. Will refer to therapy for management of potential contracture. Tramadol 50mg BID provided short term. Related to Other chronic pain - power chair depend ent for distances - able to stand and pivot and can ambulate short distances in his [place]fall 11/17, no injury Related to Risk for falls reporting pain of 10 /10 of right knee. Will refer to therapy for management of potential contracture. Tramadol 50mg BID provided short term. Related to Chronic pain of right knee PPT continues to smo ke marijuana daily. [...] of drugs - unspecified, sees therapist at [facility] Q3-4 weeks; reports it has been on the phone due to COVID- PHQ-9 today 14 - moderate depression, thinks about being but no plan for suicide, SW also into see him- while he was here at [facility], he received phone call from his [...] for Hepatitis C in the past at [facility] - states took all the pills - [...] removal before dentures. Was referred to [facility]. Would need general anesthesia. - He would like to hold off on consultation for tooth extraction at this time since would prefer to get his hip surgery first. Reports is able to eat well currently in his state of edentulousness. Related to Absence of teeth, acquired - Vitamin D level 24 in 08/2019- was started on Vitamin D supplementation- 06/2020 - 30 - does not weight bear often - [...] back. Now reportedly his recent testing at [facility] indicated fentanyl presence. 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; chronic tobacco and marijuana use- PFTs 12/27/18 - mod degree restrictive pulm disorder, severe obstructive airway disorder, significant improvement after bronchodilator therapy consistent with bronchial asthma; FEV1, vital capacity, MVV, [id number] all markedly decreased, total lung capacity moderately reduced, diffusion capacity normal- pulm also obtained updated labs, noted that recent CBC did not show eosinophilia, added on IgE level and RAST panel to phenotype his asthma- he will f/u with pulmoedit Related to Persistent asthma without complication, unspecified asthma severity - unclear on his rep orts of [...] regulated dispensary- reports received injections at [facility] last week, do not yet have note [...] 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; chronic tobacco and marijuana use- not on O2- PFTs 12/27/18 - mod degree restrictive pulm disorder, severe obstructive airway disorder, significant improvement after bronchodilator therapy consistent with bronchial asthma; FEV1, vital capacity, MVV, [id number] all markedly decreased, total lung capacity moderately [...] note from PCP office:10/28/15 CRISTINA Lewis at [facility] - bilateral hip pain, difficulty with all weightbearing activities - xray views of bilateral hips from 09/13/15 showing advanced arthritis R hip with femoral head collapse, OA, subchondral sclerosis and cyst formation, degen changes L hip, more findings consistent with possible AVN; impression - arthritis bilateral hips, postraumatic vs AVN; Plan - recommended hip replacement, follow up with Dr. Chinchilla for surgical [id number] - CT abd pelvis with contrast - [...] to Osteonecrosis of multiple sites - reports runs in hi s family- [...] Related to Cocaine dependence, in remission - unspecified, sees therapist at [facility] Q3 weeks but unclear what the recent schedule has been due to COVID19 pandemic; reports he has not spoken with behavioral health recently- psychiatry was prescribing sertraline - have been unable to complete PHQ9 during visits due to his easy distractiblity, difficulty with comprehension of language even with Ecuadorean speaker- he enjoys spending time with his dog, has new girlfriend, happy that his wheelchair will be repaired shortly since feels like that limits him from being out in the community Related to Recurrent major depressive disorder, remission status unspecified - hx IVDU including heroin, not currently using- was going to see suboxone clinic but did not follow through- HIV negative, Hepatitis B negative, Hepatitis C positive - hx exposure; reports 'took all the pills' that he was prescribed Related to 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 Rehab to continue to work on [employer]. 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- chronic tobacco use- not on O2- has nebulizer, breo, proair, singulair, spiriva- per PCP notes, COPD exacerbation in 06/2019 - treated with prednisone taper and epiric azithromycin x 5 days- PFTs 12/27/18 - mod degree restrictive pulm disorder, severe obstructive airway disorder, significant improvement after bronchodilator therapy consistent with bronchial asthma; FEV1, vital capacity, MVV, [id number] all markedly decreased, total lung capacity moderately [...] deficiency - since age 16, curr ently 1/ PPD- will consider cutting back further, can continue to address in follow up Related to Cigarette nicotine dependence without complication - unspecified type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 refused to do, language, # words, not [...] to propel manual wheelchair due to R ham passer pain and poor R wrist flex/extension PROM [...] intervention Related to Other chronic pain - CXRs show chronic displaced obliquely oriented [...] Related to Cocaine dependence, in remission - has PRN viagra but reports has [...] note from PCP office:10/28/15 CRISTINA Lewis at [facility] - bilateral hip pain, difficulty with all weightbearing activities - xray views of bilateral hips from 1/16/16 showing advanced arthritis R hip with femoral head collapse, OA, subchondral sclerosis and cyst formation, degen changes L hip, more findings consistent with possible AVN; impression - arthritis bilateral hips, postraumatic vs AVN; Plan - recommended hip replacement, follow up with Dr. 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.]
[2024-12-26] MEDS: Albuterol Sulfate 5 MG, Albuterol/Iprat 2.5/0.5MG 3 ML 3 ML INHALE (15:46)
[2024-12-26] MEDS: methylPREDNISolone Sod Succ 125 MG/2 ML VIAL 60 MG IVPUSH ×2 (16:23→23:33)
[2024-12-26 16:56] LABS: VBG Base Excess 4.9 mmol/L; VBG HCO3 32 mmol/L (22-26); VBG pCO2 58 mmHg; VBG pH 7.34 (7.32-7.43); VBG pO2 42 mmHg
[2024-12-26 16:56] LABS: Venous Blood Gas Refer to POC result
[2024-12-26] MEDS: Furosemide 20 MG/2 ML VIAL IVPUSH (16:56)
[2024-12-26 17:56] LABS: Appearance Urine Clear; Color Urine Yellow; Glucose Urine UA Negative (Negative); Leukocyte Esterase Urine Negative (Negative); Nitrite Urine Negative (Negative); Urine Blood Negative (Negative); Urine Ketones Negative (Negative); Urine Protein Negative (Neg-Trace)
--- NOTE | 2024-12-26 18:24 | P.HPHOSP_ITS ---
History of Present Illness Date of Service: 12/26/24 Chief Complaint: Shortness of breath 64 yo Anguillan speaking male with history of chronic hypoxic respiratory failure on 2L NC, COPD/asthma, morbid obesity, chronic right hip fracture x1 year, who presents to the ER from the walk in clinic for evaluation of SOB and a fall. He states he is usually on a motorized scooter and does not walk however since he scooter is broken he used a crutch to walk from the bus stop to the office. He did not bring his oxygen tank with him. He states he was going to the doctor because he ran out of [place] of his meds 1 month ago. He states he was recently admitted to [facility] for asthma exacerbation and was discharged with prednisone taper 3-4 days ago. When he was at the doctor today he was lightheaded, tripped on his crutch and fell onto his right side. It was witnessed by staff. He did not hit his head or lose consciousness. He injured his right lateral chest wall when his crutch jabbed into him as he fell over. He developed worsening SOB after walking without O2 and then falling. He was very wheezy and started on a duoneb. His SPo2 was 93% per EMS. He continued to be wheezy, was given another treatment and brought to the ER for evaluation. VBG done in ER demonstrated hypercapnic respiratory failure for which BiPAP was initiated. Repeat VBG is markedly improved. Patient was able to be titrated off BiPAP to nasal cannula. Admission requested Review of Systems 2 Review of Systems: Denies chest pain Admits to shortness of breath that was worse today with sputum production Denies nausea vomiting diarrhea Denies fever chills PMFSH Social History Use of substances other than those prescribed or required for medical reasons: No Advance Directives: No Advance Directives Information Provided: Yes Do you have a plan to hurt others: No Plan Meds Allergies Allergy/AdvReac Type Severity Reaction Status Date / Time oxycodone [Percocet] Allergy Unknown Unknown Verified 12/26/24 13:07 acetaminophen AdvReac Mild LOWERS BP Verified 12/26/24 13:07 [From Tylenol-Codeine] From Tylenol-Codeine AdvReac Mild LOWERS BP Uncoded 12/26/24 13:07 Active Medications: Current Medications Acetaminophen (Acetaminophen 325 Mg Tablet) 650 mg PO Q6H PRN PRN Reason: Pain, Mild 1-3,fever,headache Calcium Carbonate (Calcium Carbonate 750 Mg Tab.Chew) 750 mg PO Q4H PRN PRN Reason: Heartburn Enoxaparin Sodium (Enoxaparin Sodium 40 Mg/0.4 Ml Syringe) 40 mg SUBCUT Q24H [facility] Magnesium Hydroxide (Milk Of Magnesia 30 Ml Oral.Susp) 30 ml PO DAILY PRN PRN Reason: Constipation Melatonin (Melatonin 3 Mg Tablet) 6 mg PO BEDTIME PRN PRN Reason: Insomnia Ondansetron HCl (Ondansetron Hcl 4 Mg/2 Ml Vial) 4 mg IVPUSH Q8H PRN PRN Reason: Nausea and Vomiting Oxycodone HCl (Oxycodone Hcl Immed Release 5 Mg Tablet) 5 mg PO Q6H PRN PRN Reason: Pain, Severe (Pain Scale 7-10) Sodium Chloride (0.9 % Sodium Chloride Flush 3 Ml Syringe) 3 ml IVFLUSH QSHIFT [facility] Home Medications ?Medication ?Instructions ?Recorded ?Confirmed ?Last Taken ?Type albuterol sulfate 2.5 mg/3 mL 2.5 mg inhalation Q6H PRN 12/26/24 12/26/24 1 Month Ago History (0.083 %) solution for nebulization Shortness Of Breath Or Wheezing ~11/25/24 albuterol sulfate 90 mcg/actuation 2 puff inhalation Q6H PRN 12/26/24 12/26/24 1 Month Ago History aerosol inhaler Shortness Of Breath Or Wheezing ~11/25/24 fluticasone fur. 200 mcg-umeclid 1 inh inhalation DAILY 12/26/24 12/26/24 1 Month Ago History 62.5 mcg-vilant 25 mcg ~11/25/24 inhalat.powder (Trelegy Ellipta) fluticasone propionate 110 2 puff inhalation BID 12/26/24 12/26/24 1 Month Ago History mcg/actuation HFA aerosol inhaler ~11/25/24 guaifenesin 600 mg tablet, 600 mg PO Q12H 12/26/24 12/26/24 1 Month Ago History extended release 12 hr ~11/25/24 montelukast 10 mg tablet 10 mg PO BEDTIME 12/26/24 12/26/24 1 Month Ago History ~11/25/24 nicotine 21 mg/24 hr daily 1 patch transdermal DAILY 12/26/24 12/26/24 1 Month Ago History transdermal patch ~11/25/24 prednisone 10 mg tablet See Taper PO DIRECTED 12/26/24 12/26/24 12/25/24 History sennosides 8.6 mg-docusate sodium 2 tab-cap PO BEDTIME PRN 12/26/24 12/26/24 1 Month Ago History 50 mg tablet (Senna with Docusate Constipation ~11/25/24 Sodium) Physical Exam 2 Vital Signs and Narrative: Vital Signs: Last Vital Signs Temp 97.3 F 12/26/24 16:53 Pulse 69 12/26/24 16:53 Resp 17 12/26/24 16:53 BP 142/67 H 12/26/24 16:56 Pulse Ox 93 12/26/24 16:53 O2 Del Method BiPAP 12/26/24 16:53 O2 Flow Rate 22 12/26/24 16:53 Oxygen Flow Rate 2 12/26/24 13:02 BMI result Body Mass Index 33.7 Const: Other: All information gleaned via production control manager Awake alert responding appropriately. Able to speak in short sentences Resp: Other: Diminished at bases with diffuse expiratory wheezes all esteban. Coarse rhonchi that clear with cough Cardio: Other: No S4; positive S1-S2; no S3 murmurs rubs or gallops GI: Other: Obese soft nontender normoactive bowel sounds Extrem: Other: No edema bilaterally Results Labs 12/26/24 14:35 12/26/24 14:35 Labs: Laboratory Results - last 24 hr 12/26/24 12/26/24 12/26/24 14:35 14:40 16:53 MCV 102.0 H MCH 31.4 MCHC 30.8 L RDW 18.6 H Plt Count 189 MPV 10.5 Immature Gran % (Auto) 1.1 H Neut % (Auto) 56.4 Lymph % (Auto) 29.4 [place] % (Auto) 12.0 H Eos % (Auto) 0.7 Baso % (Auto) 0.4 Lymph # (Auto) 2.4 [place] # (Auto) 1.0 Eos # (Auto) 0.1 Baso # (Auto) 0.0 Abs Immat Gran (auto) 0.09 H Absolute Neuts (auto) 4.5 Absolute Nucleated RBC 0.000 Nucleated RBC % (auto) 0.0 VBG pH 7.23 L 7.34 VBG pCO2 80 58 VBG pO2 28 42 VBG HCO3 34 H 32 H VBG O2 Saturation < 30.0 65.0 VBG Base Excess 4.3 4.9 Anion Gap 12 Estim Creat Clear Calc 125.6 Estimated GFR > 60 Random Glucose 96 Calcium 8.7 D Magnesium 2.3 Total Bilirubin 0.7 Direct Bilirubin 0.2 AST 16 ALT 24 Alkaline Phosphatase 76 B-Natriuretic Peptide < 10 Total Protein 6.6 Albumin 4.1 Procalcitonin 0.02 Urine Color Urine Appearance Urine pH Ur Specific [place] Urine Protein Urine Glucose (UA) Urine Ketones Urine Blood Urine Nitrite Ur Leukocyte Esterase Influenza Type A (PCR) NEGATIVE Influenza Type B (PCR) NEGATIVE RSV RNA Qual (PCR) NEGATIVE SARS-CoV-2 RNA (RT-PCR) NEGATIVE 12/26/24 17:43 MCV MCH MCHC RDW Plt Count MPV Immature Gran % (Auto) Neut % (Auto) Lymph % (Auto) [place] % (Auto) Eos % (Auto) Baso % (Auto) Lymph # (Auto) [place] # (Auto) Eos # (Auto) Baso # (Auto) Abs Immat Gran (auto) Absolute Neuts (auto) Absolute Nucleated RBC Nucleated RBC % (auto) VBG pH VBG pCO2 VBG pO2 VBG HCO3 VBG O2 Saturation VBG Base Excess Anion Gap Estim Creat Clear Calc Estimated GFR Random Glucose Calcium Magnesium Total Bilirubin Direct Bilirubin AST ALT Alkaline Phosphatase B-Natriuretic Peptide Total Protein Albumin Procalcitonin Urine Color Yellow Urine Appearance Clear Urine pH 6.0 Ur Specific [place] 1.010 Urine Protein Negative Urine Glucose (UA) Negative Urine Ketones Negative Urine Blood Negative Urine Nitrite Negative Ur Leukocyte Esterase Negative Influenza Type A (PCR) Influenza Type B (PCR) RSV RNA Qual (PCR) SARS-CoV-2 RNA (RT-PCR) Imaging Radiologist's Impressions: Impressions Chest X-Ray 12/26/24 12:54 IMPRESSION: Mild interstitial lung edema in the correct clinical settings. Fat opacity at inferior right cardiomediastinal silhouette. Electronically signed by: Lamonte Lomax MD 12/26/2024 01:24 PM EDT Hip/Pelvis X-Ray 12/26/24 13:52 IMPRESSION: 1. End-stage arthrosis right greater than left hip joints with [id number] appearance, extensive subchondral cystic changes and sclerosis. Flattening/remodeling of the femoral heads right greater than left, with remodeling of the acetabula.. No definite fractures although given the degree of arthritic changes, a subtle fracture could easily be obscured. 2. The pelvis appears intact without definite fracture. Electronically signed by: George Parry MD 12/26/2024 02:03 PM EDT Assessment and Plan (1) COPD exacerbation: Status: Acute (2) Acute on chronic respiratory failure with hypoxia and hypercapnia: Status: Acute Plan 64-year-old Anguillan-speaking male with a history of chronic hypoxic respiratory failure on 2 L of oxygen at home in the backdrop of COPD and asthma presented from the walk-in clinic for evaluation of shortness of breath and fall. He states he has a motor scooter but it is currently not functioning. He took the bus and tried to use a cane but when he got to the office he fell and he tripped over his cane. He was noted to be extremely short of breath and wheezy and transported to the ER by EMS. 1. COPD exacerbation -ceftriaxone/azithromycin (1). . . Given sputum production -titrate O2 to home levels of 2 L/min -Solu-Medrol 60 mg IV q.6 -DuoNebs q.4 hours while awake -BiPAP at HS 2. Bilateral chronic hip pain (question after fall) -we will ask ortho to comment in a.m. Lovenox Full Code Patient will require 2 midnights going forward of inpatient stay to treat COPD exacerbation with IV antibiotics and IV steroids. This can not be achieved a lesser acute setting Quality Stroke Does the patient have a stroke diagnosis?: No VTE Prior VTE?: No VTE Risk Level:: Medical - moderate - high VTE Device Contraindication: Treatment Not Indicated VTE Drug Contraindication: N/A - Med Ordered
--- NOTE | 2024-12-26 18:28 | PHA.MEDREC ---
Addendum entered by Flakito Barakat [facility] 12/26/24 18:51: med rec checked by [facility] Original Note: Pharmacy Consult ? Medication Reconciliation Pharmacy has completed the medication reconciliation. Spoke with patient utilizing smalltalk developer (Justin). Patient confirmed he started taking the Prednisone 10mg taper regimen 2 days ago confirming he took 5 tabs (50mg) those 2 days and was suppose to start taking the 4 tabs (40mg) for 2 days today but never got to take them. He stated he ran out of all his other medications about 1 month ago and has been trying to find a new doctor to refill them but has not been able to.
[2024-12-26] MEDS: Enoxaparin Sodium 40 MG/0.4 ML SYRINGE SUBCUT (18:56)
[2024-12-26] MEDS: cefTRIAXone sodium 1 GM VIAL IVPUSH (18:56)
[2024-12-26] MEDS: Azithromycin 500 MG in 0.9 % Sodium Chloride 250 ML 125 MG IV (19:01)
--- NOTE | 2024-12-26 20:00 | PC.NURSE ---
Pt. given snacks, sandwich, cheese sticks, and gingerale.
--- NOTE | 2024-12-26 21:00 | PC.NURSE ---
Home medication taken to pharmacy, informed pharmacist that pt. has 3 unknown medications in 3 bottles under a different name. Pt states medication bottles were given to me by a friend, but the pills are mine.
--- NOTE | 2024-12-26 22:45 | PC.NURSE ---
Pt. continuing to get out of bed and taking off all monitor leads. Pt. educated and informed by staff and by medical staffing recruiter that he should not be getting up without assistance d/t being a fall risk, having unsteady gait, and being on oxygen. Pt. not listening and redirected back to bed. Pt. continuing to stand up. Pt. previously fed from 3 different staff members.
[2024-12-26] MEDS: 0.9 % Sodium Chloride Flush 3 ML SYRINGE IVFLUSH (23:26)
--- NOTE | 2024-12-26 23:37 | PC.NURSE ---
This radio news writer assumed care of this Pt at 2300. Pt A&Ox3, reports bilateral leg cramping, provider Jignesh made aware. SpO2 94% on 2L via NC. Lung sounds wheezy.
[2024-12-27] VITALS (8 sets, daily range): BP systolic 95–123; BP diastolic 48–78; PULSE 81–102; RESP 16–22; TEMP 36.2–36.9; O2SAT 92–97; BMI 32.4
[2024-12-27] MEDS: Albuterol/Iprat 2.5/0.5MG 3 ML AMPUL.NEB INHALE ×2 (00:06→14:21)
--- NOTE | 2024-12-27 00:13 | PC.NURSE ---
RT at bedside given breathing treatment.
[2024-12-27] MEDS: Cyclobenzaprine HCl 10 MG TABLET PO (00:22)
[2024-12-27 05:18] LABS: Alanine Aminotransferase 22 U/L (0-40); Alkaline Phosphatase 73 U/L (39-117); Anion Gap 16 (12-20); Aspartate Amino Transferase 14 U/L (5-37); Bilirubin Total 0.4 mg/dL (0.0-1.0); Blood Urea Nitrogen 16 mg/dL (9-16); Calcium 8.9 mg/dL (8.4-10.2); Carbon Dioxide 26 mmol/L (22-29); Chloride 106 mmol/L (96-108); Creatinine Clr Calc Pharmacy 137.8; Estimated Glomerular Filt Rate > 60; Glucose Random 188 mg/dL (60-115); Potassium 4.1 mmol/L (3.3-5.1); Sodium 144 mmol/L (135-145); Total Protein 6.7 g/dL (6.5-8.0)
[2024-12-27] MEDS: methylPREDNISolone Sod Succ 125 MG/2 ML VIAL 60 MG IVPUSH ×4 (06:43→23:51)
--- NOTE | 2024-12-27 08:21 | PC.NURSE ---
Assumed care of pt at 0700. Pt resting in bed quietly, a/ox3, respirations even and unlabored, no increased wob/sob noted, appears in no distress, maintaining O2 sat >92% on 2L NC. Denies CP/SOB at this time, NSR on shelter monitor. Vitals updated in worklist. Pt repositioned to upright in bed, eating breakfast independently. Call lewis within reach, all needs met at this time.
[2024-12-27] MEDS: 0.9 % Sodium Chloride Flush 3 ML SYRINGE IVFLUSH ×3 (08:38→20:41)
--- NOTE | 2024-12-27 12:17 | MHC.CM.PN ---
CM met with Patient at bedside, with the assist of a [facility] [employer] Operator. Patient lives alone in an apartment and has no family in the area (just a Friend/Paras @ [phone]).Patient's primary mode of transportation, his motorized scooter, is broken, as are the crutches he was using in replacement for the scooter. Patient is s/p fall and may benefit from a PT Eval to assist with disposition. CM has initiated and will follow for dc planning. Patient just saw his PCP @ [facility] yesterday, for the first time and he cannot recall the name of the Provider. Patient will need assist with transport, at time of dc.
--- NOTE | 2024-12-27 12:39 | MHC.CM.PN ---
CM has asked [facility] to meet with Patient and Father to address financial type questions that Father has. CM will follow.
--- NOTE | 2024-12-27 14:57 | P.PNIM_ITS ---
Subjective Subjective Date of Service: 12/27/24 Interval History: Little change overnight. No acute issues Review of Systems Denies chest pain Admits to shortness of breath that was worse today with sputum production Denies nausea vomiting diarrhea Denies fever chills Physical Exam 2 Vital Signs: Vital Signs: Last Vital Signs Temp 97.7 F 12/27/24 11:17 Pulse 88 12/27/24 14:25 Resp 18 12/27/24 14:25 BP 118/75 12/27/24 11:17 Pulse Ox 97 12/27/24 11:17 O2 Del Method Nasal Cannula 12/27/24 11:17 O2 Flow Rate 1.5 12/27/24 11:17 Oxygen Flow Rate 2 12/26/24 13:02 BMI result Body Mass Index 32.4 Const: Other: All information gleaned via wrapper rewinder Awake alert responding appropriately. Able to speak in short sentences Resp: Other: Diminished at bases with diffuse expiratory wheezes all esteban. Coarse rhonchi that clear with cough Cardio: Other: No S4; positive S1-S2; no S3 murmurs rubs or gallops GI: Other: Obese soft nontender normoactive bowel sounds Extrem: Other: No edema bilaterally Objective Data Active Medications Acetaminophen (Acetaminophen 325 Mg Tablet) 650 mg PO Q6H PRN PRN Reason: Pain, Mild 1-3,fever,headache Albuterol/Ipratropium (Albuterol/Iprat 2.5/0.5mg 3 Ml Ampul.Neb) 3 ml INHALE Q4H PRN PRN Reason: Wheezing Last Admin: 12/27/24 14:21 Dose: 3 ml Documented By: TRISH Calcium Carbonate (Calcium Carbonate 750 Mg Tab.Chew) 750 mg PO Q4H PRN PRN Reason: Heartburn Ceftriaxone Sodium (Ceftriaxone Sodium 1 Gm Vial) 1 gm IVPUSH Q24H [facility] Last Admin: 12/26/24 18:56 Dose: 1 gm Documented By: ELENA Enoxaparin Sodium (Enoxaparin Sodium 40 Mg/0.4 Ml Syringe) 40 mg SUBCUT Q24H [facility] Last Admin: 12/26/24 18:56 Dose: 40 mg Documented By: ELENA Azithromycin 500 mg/ Sodium (Chloride) 250 mls @ 125 mls/hr IV Q24H [facility] Last Infusion: 12/26/24 21:01 Dose: Infused Documented By: ELENA Magnesium Hydroxide (Milk Of Magnesia 30 Ml Oral.Susp) 30 ml PO DAILY PRN PRN Reason: Constipation Melatonin (Melatonin 3 Mg Tablet) 6 mg PO BEDTIME PRN PRN Reason: Insomnia Methylprednisolone Sodium Succinate (Methylprednisolone Sod Succ 125 Mg/2 Ml Vial) 60 mg IVPUSH Q6H [facility] Last Admin: 12/27/24 06:43 Dose: 60 mg Documented By: KAREN Ondansetron HCl (Ondansetron Hcl 4 Mg/2 Ml Vial) 4 mg IVPUSH Q8H PRN PRN Reason: Nausea and Vomiting Oxycodone HCl (Oxycodone Hcl Immed Release 5 Mg Tablet) 5 mg PO Q6H PRN PRN Reason: Pain, Severe (Pain Scale 7-10) Sodium Chloride (0.9 % Sodium Chloride Flush 3 Ml Syringe) 3 ml IVFLUSH QSHIFT [facility] Last Admin: 12/27/24 08:38 Dose: 3 ml Documented By: HIREN Labs 12/26/24 14:35 12/27/24 04:44 Labs: Laboratory Results - last 24 hr 12/26/24 12/26/24 12/26/24 14:35 16:53 17:43 VBG pH 7.34 VBG pCO2 58 VBG pO2 42 VBG HCO3 32 H VBG O2 Saturation 65.0 VBG Base Excess 4.9 Anion Gap 12 Estim Creat Clear Calc 125.6 Estimated GFR > 60 Random Glucose 96 Calcium 8.7 D Magnesium 2.3 Total Bilirubin 0.7 Direct Bilirubin 0.2 AST 16 ALT 24 Alkaline Phosphatase 76 B-Natriuretic Peptide < 10 Total Protein 6.6 Albumin 4.1 Procalcitonin 0.02 Urine Color Yellow Urine Appearance Clear Urine pH 6.0 Ur Specific [place] 1.010 Urine Protein Negative Urine Glucose (UA) Negative Urine Ketones Negative Urine Blood Negative Urine Nitrite Negative Ur Leukocyte Esterase Negative Influenza Type A (PCR) NEGATIVE Influenza Type B (PCR) NEGATIVE RSV RNA Qual (PCR) NEGATIVE SARS-CoV-2 RNA (RT-PCR) NEGATIVE 12/27/24 04:44 VBG pH VBG pCO2 VBG pO2 VBG HCO3 VBG O2 Saturation VBG Base Excess Anion Gap 16 Estim Creat Clear Calc 137.8 Estimated GFR > 60 Random Glucose 188 H Calcium 8.9 Magnesium Total Bilirubin 0.4 Direct Bilirubin AST 14 ALT 22 Alkaline Phosphatase 73 B-Natriuretic Peptide Total Protein 6.7 Albumin 4.0 Procalcitonin Urine Color Urine Appearance Urine pH Ur Specific [place] Urine Protein Urine Glucose (UA) Urine Ketones Urine Blood Urine Nitrite Ur Leukocyte Esterase Influenza Type A (PCR) Influenza Type B (PCR) RSV RNA Qual (PCR) SARS-CoV-2 RNA (RT-PCR) Assessment and Plan (1) COPD exacerbation: Status: Acute (2) Acute on chronic respiratory failure with hypoxia and hypercapnia: Status: Acute Plan 64-year-old Chadian-speaking male with a history of chronic hypoxic respiratory failure on 2 L of oxygen at home in the backdrop of COPD and asthma presented from the walk-in clinic for evaluation of shortness of breath and fall. He states he has a motor scooter but it is currently not functioning. He took the bus and tried to use a cane but when he got to the office he fell and he tripped over his cane. He was noted to be extremely short of breath and wheezy and transported to the ER by EMS. 1. COPD exacerbation -ceftriaxone/azithromycin (2). . . Given sputum production -titrate O2 to home levels of 2 L/min -Solu-Medrol 60 mg IV q.6 -DuoNebs q.4 hours while awake -BiPAP at HS 2. Bilateral chronic hip pain (question after fall) -discussed with ortho -wheelchair-bound times 20 years -nothing to offer Lovenox Full Code Require ongoing hospitalization for IV antibiotics to treat COPD exacerbation Quality Stroke Does the patient have a stroke diagnosis?: No VTE Prior VTE?: No VTE Risk Level:: Medical - moderate - high VTE Device Contraindication: Treatment Not Indicated VTE Drug Contraindication: N/A - Med Ordered
[2024-12-27] MEDS: Calcium Carbonate 750 MG TAB.CHEW PO (20:32)
[2024-12-27] MEDS: Enoxaparin Sodium 40 MG/0.4 ML SYRINGE SUBCUT (20:33)
[2024-12-27] MEDS: cefTRIAXone sodium 1 GM VIAL IVPUSH (20:34)
[2024-12-27] MEDS: Azithromycin 500 MG in 0.9 % Sodium Chloride 250 ML 125 MG IV (20:34)
[2024-12-28] VITALS (7 sets, daily range): BP systolic 103–118; BP diastolic 63–71; PULSE 77–101; RESP 16–20; TEMP 36.4–37.5; O2SAT 92–96
[2024-12-28] MEDS: Acetaminophen 325 MG TABLET 650 MG PO (01:22)
[2024-12-28] MEDS: methylPREDNISolone Sod Succ 125 MG/2 ML VIAL 60 MG IVPUSH ×3 (06:24→20:00)
[2024-12-28] MEDS: Albuterol/Iprat 2.5/0.5MG 3 ML AMPUL.NEB INHALE (11:26)
[2024-12-28] MEDS: 0.9 % Sodium Chloride Flush 3 ML SYRINGE IVFLUSH ×3 (13:21→23:26)
--- NOTE | 2024-12-28 14:50 | HO.PM.IMPN ---
Subjective Subjective Date of Service: 12/28/24 Interval History: Minimal improvement overnight. No acute events Review of Systems Denies chest pain Admits to shortness of breath that was worse today with sputum production Denies nausea vomiting diarrhea Denies fever chills Physical Exam Vital Signs: Vital Signs: Last Vital Signs Temp 99.5 F 12/28/24 11:18 Pulse 96 12/28/24 11:29 Resp 18 12/28/24 11:29 BP 111/71 12/28/24 11:18 Pulse Ox 93 12/28/24 11:18 O2 Del Method Nasal Cannula 12/28/24 11:18 O2 Flow Rate 2 12/28/24 11:18 Oxygen Flow Rate 2 12/26/24 13:02 BMI result Body Mass Index 32.4 Const: Other: All information gleaned via american sign language interpreter Awake alert responding appropriately. Able to speak in short sentences Resp: Other: Diminished at bases with diffuse expiratory wheezes all esteban. Coarse rhonchi that clear with cough Cardio: Other: No S4; positive S1-S2; no S3 murmurs rubs or gallops GI: Other: Obese soft nontender normoactive bowel sounds Extrem: Other: No edema bilaterally Objective Data Active Medications Acetaminophen (Acetaminophen 325 Mg Tablet) 650 mg PO Q6H PRN PRN Reason: Pain, Mild 1-3,fever,headache Last Admin: 12/28/24 01:22 Dose: 650 mg Documented By: DORCAS Albuterol/Ipratropium (Albuterol/Iprat 2.5/0.5mg 3 Ml Ampul.Neb) 3 ml INHALE Q4H PRN PRN Reason: Wheezing Last Admin: 12/28/24 11:26 Dose: 3 ml Documented By: TRISH Calcium Carbonate (Calcium Carbonate 750 Mg Tab.Chew) 750 mg PO Q4H PRN PRN Reason: Heartburn Last Admin: 12/27/24 20:32 Dose: 750 mg Documented By: DORCAS Ceftriaxone Sodium (Ceftriaxone Sodium 1 Gm Vial) 1 gm IVPUSH Q24H [facility] Last Admin: 12/27/24 20:34 Dose: 1 gm Documented By: DORCAS Enoxaparin Sodium (Enoxaparin Sodium 40 Mg/0.4 Ml Syringe) 40 mg SUBCUT Q24H [facility] Last Admin: 12/27/24 20:33 Dose: 40 mg Documented By: DORCAS Azithromycin 500 mg/ Sodium (Chloride) 250 mls @ 125 mls/hr IV Q24H [facility] Last Infusion: 12/27/24 22:36 Dose: Infused Documented By: DORCAS Magnesium Hydroxide (Milk Of Magnesia 30 Ml Oral.Susp) 30 ml PO DAILY PRN PRN Reason: Constipation Melatonin (Melatonin 3 Mg Tablet) 6 mg PO BEDTIME PRN PRN Reason: Insomnia Methylprednisolone Sodium Succinate (Methylprednisolone Sod Succ 125 Mg/2 Ml Vial) 60 mg IVPUSH Q6H [facility] Last Admin: 12/28/24 13:21 Dose: 60 mg Documented By: LIANA Ondansetron HCl (Ondansetron Hcl 4 Mg/2 Ml Vial) 4 mg IVPUSH Q8H PRN PRN Reason: Nausea and Vomiting Oxycodone HCl (Oxycodone Hcl Immed Release 5 Mg Tablet) 5 mg PO Q6H PRN PRN Reason: Pain, Severe (Pain Scale 7-10) Sodium Chloride (0.9 % Sodium Chloride Flush 3 Ml Syringe) 3 ml IVFLUSH QSHIFT [facility] Last Admin: 12/28/24 13:21 Dose: 3 ml Documented By: LIANA Labs 12/26/24 14:35 12/27/24 04:44 Assessment and Plan (1) COPD exacerbation: Status: Acute (2) Acute on chronic respiratory failure with hypoxia and hypercapnia: Status: Acute Plan 64-year-old [place]ymra[place]-speaking male with a history of chronic hypoxic respiratory failure on 2 L of oxygen at home in the backdrop of COPD and asthma presented from the walk-in clinic for evaluation of shortness of breath and fall. He states he has a motor scooter but it is currently not functioning. He took the bus and tried to use a cane but when he got to the office he fell and he tripped over his cane. He was noted to be extremely short of breath and wheezy and transported to the ER by EMS. 1. COPD exacerbation -ceftriaxone/azithromycin (3). . . Given sputum production -titrate O2 to home levels of 2 L/min -Solu-Medrol 60 mg IV q.6 -DuoNebs q.4 hours while awake -BiPAP at 2. Bilateral chronic hip pain (question after fall) -discussed with ortho -wheelchair-bound times 20 years -nothing to offer Lovenox Full Code Require ongoing hospitalization for IV antibiotics to treat COPD exacerbation Quality Stroke Does the patient have a stroke diagnosis?: No VTE Prior VTE?: No VTE Risk Level:: Medical - moderate - high VTE Device Contraindication: Treatment Not Indicated VTE Drug Contraindication: N/A - Med Ordered
[2024-12-28] MEDS: Calcium Carbonate 750 MG TAB.CHEW PO (15:21)
--- NOTE | 2024-12-28 15:22 | MHC.CM.PN ---
EMR reviewed and per MD rounds, pt is not medically cleared for discharge due to management of COPD exacerbation.
[2024-12-28] MEDS: cefTRIAXone sodium 1 GM VIAL IVPUSH (19:55)
[2024-12-28] MEDS: Enoxaparin Sodium 40 MG/0.4 ML SYRINGE SUBCUT (19:58)
[2024-12-28] MEDS: Azithromycin 500 MG in 0.9 % Sodium Chloride 250 ML 125 MG IV (19:59)
[2024-12-28] MEDS: oxyCODONE HCl Immed Release 5 MG TABLET PO (22:19)
[2024-12-28] MEDS: Melatonin 3 MG TABLET 6 MG PO (22:21)
[2024-12-28] MEDS: bisacodyL 5 MG TABLET.DR PO (22:48)
[2024-12-28] MEDS: ondansetron HCL 4 MG/2 ML VIAL IVPUSH (23:26)
[2024-12-29] VITALS (9 sets, daily range): BP systolic 103–120; BP diastolic 49–76; PULSE 73–98; RESP 16–20; TEMP 36.2–36.9; O2SAT 92–95
[2024-12-29] MEDS: methylPREDNISolone Sod Succ 125 MG/2 ML VIAL 60 MG IVPUSH ×3 (02:43→14:19)
[2024-12-29] MEDS: 0.9 % Sodium Chloride Flush 3 ML SYRINGE IVFLUSH ×3 (09:15→21:33)
[2024-12-29] MEDS: Albuterol/Iprat 2.5/0.5MG 3 ML AMPUL.NEB INHALE ×2 (11:49→21:53)
--- NOTE | 2024-12-29 13:56 | HO.PM.IMPN ---
Subjective Subjective Date of Service: 12/29/24 Interval History: Notes breathing improved with therapies. Still short of breath with minimal exertion Review of Systems Denies chest pain Admits to shortness of breath that was worse today with sputum production Denies nausea vomiting diarrhea Denies fever chills Physical Exam Vital Signs: Vital Signs: Last Vital Signs Temp 98.2 F 12/29/24 11:22 Pulse 84 12/29/24 11:49 Resp 18 12/29/24 11:49 BP 116/76 12/29/24 11:22 Pulse Ox 92 12/29/24 11:22 O2 Del Method Nasal Cannula 12/29/24 11:22 O2 Flow Rate 1 12/29/24 11:22 Oxygen Flow Rate 2 12/26/24 13:02 BMI result Body Mass Index 32.4 Const: Other: All information gleaned via automotive parts interpreter Awake alert responding appropriately. Able to speak in short sentences Resp: Other: Diminished at bases with diffuse expiratory wheezes all esteban. Coarse rhonchi that clear with cough Cardio: Other: No S4; positive S1-S2; no S3 murmurs rubs or gallops GI: Other: Obese soft nontender normoactive bowel sounds Extrem: Other: No edema bilaterally Objective Data Active Medications Acetaminophen (Acetaminophen 325 Mg Tablet) 650 mg PO Q6H PRN PRN Reason: Pain, Mild 1-3,fever,headache Last Admin: 12/28/24 01:22 Dose: 650 mg Documented By: DORCAS Albuterol/Ipratropium (Albuterol/Iprat 2.5/0.5mg 3 Ml Ampul.Neb) 3 ml INHALE Q4H PRN PRN Reason: Wheezing Last Admin: 12/29/24 11:49 Dose: 3 ml Documented By: BRIONNA Calcium Carbonate (Calcium Carbonate 750 Mg Tab.Chew) 750 mg PO Q4H PRN PRN Reason: Heartburn Last Admin: 12/28/24 15:21 Dose: 750 mg Documented By: LIANA Ceftriaxone Sodium (Ceftriaxone Sodium 1 Gm Vial) 1 gm IVPUSH Q24H [facility] Last Admin: 12/28/24 19:55 Dose: 1 gm Documented By: RAZA Enoxaparin Sodium (Enoxaparin Sodium 40 Mg/0.4 Ml Syringe) 40 mg SUBCUT Q24H [facility] Last Admin: 12/28/24 19:58 Dose: 40 mg Documented By: RAZA Azithromycin 500 mg/ Sodium (Chloride) 250 mls @ 125 mls/hr IV Q24H [facility] Last Infusion: 12/28/24 22:10 Dose: Infused Documented By: RAZA Magnesium Hydroxide (Milk Of Magnesia 30 Ml Oral.Susp) 30 ml PO DAILY PRN PRN Reason: Constipation Melatonin (Melatonin 3 Mg Tablet) 6 mg PO BEDTIME PRN PRN Reason: Insomnia Last Admin: 12/28/24 22:21 Dose: 6 mg Documented By: RAZA Methylprednisolone Sodium Succinate (Methylprednisolone Sod Succ 125 Mg/2 Ml Vial) 60 mg IVPUSH Q6H [facility] Last Admin: 12/29/24 09:15 Dose: 60 mg Documented By: ITZ Ondansetron HCl (Ondansetron Hcl 4 Mg/2 Ml Vial) 4 mg IVPUSH Q8H PRN PRN Reason: Nausea and Vomiting Last Admin: 12/28/24 23:26 Dose: 4 mg Documented By: RAZA Oxycodone HCl (Oxycodone Hcl Immed Release 5 Mg Tablet) 5 mg PO Q6H PRN PRN Reason: Pain, Severe (Pain Scale 7-10) Last Admin: 12/28/24 22:19 Dose: 5 mg Documented By: RAZA Sodium Chloride (0.9 % Sodium Chloride Flush 3 Ml Syringe) 3 ml IVFLUSH QSHIFT [facility] Last Admin: 12/29/24 09:15 Dose: 3 ml Documented By: ITZ Labs 12/26/24 14:35 12/27/24 04:44 Assessment and Plan (1) COPD exacerbation: Status: Acute Plan 64-year-old [place]ese-speaking male with a history of chronic hypoxic respiratory failure on 2 L of oxygen at home in the backdrop of COPD and asthma presented from the walk-in clinic for evaluation of shortness of breath and fall. He states he has a motor scooter but it is currently not functioning. He took the bus and tried to use a cane but when he got to the office he fell and he tripped over his cane. He was noted to be extremely short of breath and wheezy and transported to the ER by EMS. 1. COPD exacerbation -ceftriaxone/azithromycin (4). . . Given sputum production -titrate O2 to home levels of 2 L/min -Solu-Medrol 60 mg IV q.6 -DuoNebs q.4 hours while awake -BiPAP at HS 2. Bilateral chronic hip pain (question after fall) -discussed with ortho -wheelchair-bound times 20 years -nothing to offer Lovenox Full Code Require ongoing hospitalization for IV antibiotics to treat COPD exacerbation Quality Stroke Does the patient have a stroke diagnosis?: No VTE Prior VTE?: No VTE Risk Level:: Medical - moderate - high VTE Device Contraindication: Treatment Not Indicated VTE Drug Contraindication: N/A - Med Ordered
[2024-12-29] MEDS: oxyCODONE HCl Immed Release 5 MG TABLET PO ×2 (14:18→21:32)
[2024-12-29] MEDS: Enoxaparin Sodium 40 MG/0.4 ML SYRINGE SUBCUT (18:12)
[2024-12-29] MEDS: Azithromycin 500 MG in 0.9 % Sodium Chloride 250 ML 125 MG IV (18:13)
[2024-12-29] MEDS: cefTRIAXone sodium 1 GM VIAL IVPUSH (18:13)
[2024-12-29] MEDS: methylPREDNISolone Sod Succ 40 MG/ML VIAL 60 MG IVPUSH (21:32)
[2024-12-29] MEDS: Milk of Magnesia 30 ML ORAL.SUSP PO (21:40)
[2024-12-30] VITALS (8 sets, daily range): BP systolic 113–137; BP diastolic 66–77; PULSE 62–96; RESP 14–20; TEMP 36.4–37; O2SAT 92–95
[2024-12-30] MEDS: methylPREDNISolone Sod Succ 40 MG/ML VIAL 60 MG IVPUSH ×4 (04:38→21:45)
[2024-12-30] MEDS: 0.9 % Sodium Chloride Flush 3 ML SYRINGE IVFLUSH ×3 (09:54→21:45)
[2024-12-30] MEDS: oxyCODONE HCl Immed Release 5 MG TABLET PO ×2 (09:56→17:09)
--- NOTE | 2024-12-30 12:08 | P.PNIM_ITS ---
Subjective Subjective Date of Service: 12/30/24 Interval History: Breathing is better c/o abd pain for 2 weeks Review of Systems Denies chest pain Admits to shortness of breath that was worse today with sputum production Denies nausea vomiting diarrhea Denies fever chills Physical Exam 2 Vital Signs: Vital Signs: Last Vital Signs Temp 98.1 F 12/30/24 07:23 Pulse 86 12/30/24 07:23 Resp 14 12/30/24 07:23 BP 119/75 12/30/24 07:23 Pulse Ox 93 12/30/24 07:23 O2 Del Method Nasal Cannula 12/30/24 07:23 O2 Flow Rate 3 12/30/24 07:23 Oxygen Flow Rate 2 12/26/24 13:02 BMI result Body Mass Index 32.4 Objective Data Active Medications Acetaminophen (Acetaminophen 325 Mg Tablet) 650 mg PO Q6H PRN PRN Reason: Pain, Mild 1-3,fever,headache Last Admin: 12/28/24 01:22 Dose: 650 mg Documented By: DORCAS Albuterol/Ipratropium (Albuterol/Iprat 2.5/0.5mg 3 Ml Ampul.Neb) 3 ml INHALE Q4H PRN PRN Reason: Wheezing Last Admin: 12/29/24 21:53 Dose: 3 ml Documented By: EVANGELINA Calcium Carbonate (Calcium Carbonate 750 Mg Tab.Chew) 750 mg PO Q4H PRN PRN Reason: Heartburn Last Admin: 12/28/24 15:21 Dose: 750 mg Documented By: LIANA Ceftriaxone Sodium (Ceftriaxone Sodium 1 Gm Vial) 1 gm IVPUSH Q24H [facility] Last Admin: 12/29/24 18:13 Dose: 1 gm Documented By: MIKI Enoxaparin Sodium (Enoxaparin Sodium 40 Mg/0.4 Ml Syringe) 40 mg SUBCUT Q24H [facility] Last Admin: 12/29/24 18:12 Dose: 40 mg Documented By: MIKI Azithromycin 500 mg/ Sodium (Chloride) 250 mls @ 125 mls/hr IV Q24H [facility] Last Infusion: 12/29/24 20:13 Dose: Infused Documented By: SKYLA Magnesium Hydroxide (Milk Of Magnesia 30 Ml Oral.Susp) 30 ml PO DAILY PRN PRN Reason: Constipation Last Admin: 12/29/24 21:40 Dose: 30 ml Documented By: SKYLA Melatonin (Melatonin 3 Mg Tablet) 6 mg PO BEDTIME PRN PRN Reason: Insomnia Last Admin: 12/28/24 22:21 Dose: 6 mg Documented By: RAZA Methylprednisolone Sodium Succinate (Methylprednisolone Sod Succ 40 Mg/Ml Vial) 60 mg IVPUSH Q6H [facility] Last Admin: 12/30/24 09:55 Dose: 60 mg Documented By: VARSHA Ondansetron HCl (Ondansetron Hcl 4 Mg/2 Ml Vial) 4 mg IVPUSH Q8H PRN PRN Reason: Nausea and Vomiting Last Admin: 12/28/24 23:26 Dose: 4 mg Documented By: RAZA Oxycodone HCl (Oxycodone Hcl Immed Release 5 Mg Tablet) 5 mg PO Q6H PRN PRN Reason: Pain, Severe (Pain Scale 7-10) Last Admin: 12/30/24 09:56 Dose: 5 mg Documented By: VARSHA Sodium Chloride (0.9 % Sodium Chloride Flush 3 Ml [facility]) [facility] Last Admin: 12/30/24 09:54 Dose: 3 ml Documented By: VARSHA Labs 12/26/24 14:35 12/27/24 04:44 Assessment and Plan (1) COPD exacerbation: Status: Acute Plan 64-year-old American-speaking male with a history of chronic hypoxic respiratory failure on 2 L of oxygen at home in the backdrop of COPD and asthma presented from the walk-in clinic for evaluation of shortness of breath and fall. He states he has a motor scooter but it is currently not functioning. He took the bus and tried to use a cane but when he got to the office he fell and he tripped over his cane. He was noted to be extremely short of breath and wheezy and transported to the ER by EMS. 1. COPD exacerbation -ceftriaxone/azithromycin (5). . . Given sputum production -titrate O2 to home levels of 2 L/min -Solu-Medrol to PO prednisone starting tomorrow -DuoNebs q.4 hours while awake -BiPAP at HS 2. Bilateral chronic hip pain (question after fall) -discussed with ortho -wheelchair-bound times 20 years -nothing to offer Lovenox 3 abdominal pain, ct Full Code Require ongoing hospitalization for IV antibiotics to treat COPD exacerbation Quality Stroke Does the patient have a stroke diagnosis?: No VTE Prior VTE?: No VTE Risk Level:: Medical - moderate - high VTE Device Contraindication: Treatment Not Indicated VTE Drug Contraindication: N/A - Med Ordered
[2024-12-30] MEDS: Enoxaparin Sodium 40 MG/0.4 ML SYRINGE SUBCUT (18:10)
[2024-12-30] MEDS: Azithromycin 500 MG in 0.9 % Sodium Chloride 250 ML 125 MG IV (18:11)
[2024-12-30] MEDS: cefTRIAXone sodium 1 GM VIAL IVPUSH (18:11)
[2024-12-30] MEDS: Calcium Carbonate 750 MG TAB.CHEW PO (18:12)
[2024-12-30] MEDS: ondansetron HCL 4 MG/2 ML VIAL IVPUSH (18:17)
[2024-12-31] MEDS: oxyCODONE HCl Immed Release 5 MG TABLET PO ×3 (01:15→16:13)
[2024-12-31 03:32] VITALS: BP 146/77; PULSE 91; RESP 18; TEMP 36.8; O2SAT 95
[2024-12-31] MEDS: methylPREDNISolone Sod Succ 40 MG/ML VIAL 60 MG IVPUSH ×2 (03:48→09:49)
[2024-12-31 07:41] VITALS: BP 125/78; PULSE 82; RESP 18; TEMP 36.7; O2SAT 94
[2024-12-31] MEDS: 0.9 % Sodium Chloride Flush 3 ML SYRINGE IVFLUSH (09:50)
--- NOTE | 2024-12-31 11:14 | PM.DS ---
DS: Providers Provider Date of Service: 12/31/24 Date of admission: 12/26/24 18:12 Date of discharge: 12/31/24 Primary care physician: Gomez Bean MD DS: Diagnosis Discharge Diagnosis (1) COPD exacerbation: Status: Acute DS: Summary Hospital Course Hospital Course: admission hpi Chief Complaint: Shortness of breath 64 yo Indonesian speaking male with history of chronic hypoxic respiratory failure on 2L NC, COPD/asthma, morbid obesity, chronic right hip fracture x1 year, who presents to the ER from the walk in clinic for evaluation of SOB and a fall. He states he is usually on a motorized scooter and does not walk however since he scooter is broken he used a crutch to walk from the bus stop to the office. He did not bring his oxygen tank with him. He states he was going to the doctor because he ran out of [place] of his meds 1 month ago. He states he was recently admitted to [facility] for asthma exacerbation and was discharged with prednisone taper 3-4 days ago. When he was at the doctor today he was lightheaded, tripped on his crutch and fell onto his right side. It was witnessed by staff. He did not hit his head or lose consciousness. He injured his right lateral chest wall when his crutch jabbed into him as he fell over. He developed worsening SOB after walking without O2 and then falling. He was very wheezy and started on a duoneb. His SPo2 was 93% per EMS. He continued to be wheezy, was given another treatment and brought to the ER for evaluation. VBG done in ER demonstrated hypercapnic respiratory failure for which BiPAP was initiated. Repeat VBG is markedly improved. Patient was able to be titrated off BiPAP to nasal cannula. Admission requested hospital course: Patient presented with sortness of breath and admitted for COPD exacerbation, treated with IV steroid, bronchodilators by Neb and Abx (Azithro and ceftriaxone) and had completed 5 days. Will discharge with steroid brandon. Though CXr mentioned ? edema in clinical setting, he has no features of chf and bnp is within normal Hip pain: 1. 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 Flattening/remodeling of the femoral heads right greater than left, with remodeling of the acetabula.. No definite fractures although given the degree of arthritic changes, a subtle fracture could easily be obscured. 2. The pelvis appears intact without definite fracture. Dr. plummer discussed with ashia villagran for 20 yrs, not candidate for surgery. Time Attestation Discharge Coordination Time (in mins): 45 Quality: Safe Use of Opioids Does Pt have an Active Cancer Diagnosis on the Problem List?: No Quality: Stroke Does the patient have a stroke diagnosis?: No Physical Exam Vital Signs: Vital Signs: Selected Entries 12/31/24 07:41 Pulse Rate 82 Respiratory Rate 18 Blood Pressure 125/78 Pulse Oximetry 94 Oxygen Delivery Me thod Nasal Cannula Oxygen Flow Rate 2 Discharge Plan Discharge Anticipated Discharge Date/Time: 12/31/24 11:12 Patient Disposition: Home Health Service Discharge Diagnosis: copd exacerbation Referrals: Name,MD Gomez [Primary Care Provider] - 1 Week Discharge Medications: New prednisone 10 mg tablet See Taper PO DAILY Qty: 20 0RF Taper: Prednisone 40 mg daily for 1 Day and 0 Hour 30 mg daily for 2 Days and 0 Hour 20 mg daily for 2 Days and 0 Hour 10 mg daily for 2 Days and 0 Hour Continued albuterol sulfate 2.5 mg /3 mL (0.083 %) Solution For Nebulization 2.5 mg INHALATION Q6H PRN (Reason: Shortness Of Breath Or Wheezing) sennosides-docusate sodium [Senna with Docusate Sodium] 8.6-50 mg Tablet 2 tab-cap PO BEDTIME PRN (Reason: Constipation) nicotine 21 mg/24 hr Patch 24 Hour 1 patch TRANSDERMAL DAILY montelukast 10 mg Tablet 10 mg PO BEDTIME albuterol sulfate 90 mcg/actuation Hfa Aerosol Inhaler 2 puff INHALATION Q6H PRN (Reason: Shortness Of Breath Or Wheezing) fluticasone propionate 110 mcg/actuation Hfa Aerosol Inhaler 2 puff INHALATION BID guaifenesin 600 mg Tablet Extended Release 12hr 600 mg PO Q12H Trelegy Ellipta 200-62.5-25 mcg Blister With Device 1 inh INHALATION DAILY Discontinued prednisone 10 mg tablet See Taper PO DIRECTED Taper: Prednisone 40 mg daily for 2 Days and 0 Hour 30 mg daily for 2 Days and 0 Hour 20 mg daily for 2 Days and 0 Hour 10 mg daily for 2 Days and 0 Hour Patient Comments: already took 2 doses of 50mg Discharge Orders: Discharge Order (Routine); Ordered 12/31/24 Ordered By: Jerry Machado Diet: Advance to usual diet Activity on Discharge: As tolerated Stand Alone Forms: Patient Portal Discharge page Print Language: Indonesian Care Plan Goals: recovery from copd exacerbation Health Concerns: copd exacerbation Plan of Treatment: take prednisone as recommended continue taking inhalers as before Use oxygen as directed call your doctor for follow up appointment gilmer a week to 10 days Assessment: see above
[2024-12-31 11:47] VITALS: BP 116/77; PULSE 87; RESP 16; TEMP 36.9; O2SAT 94
--- NOTE | 2024-12-31 14:17 | MHC.CM.PN ---
Pt is medically cleared for discharge home, he will transport via [facility].
[2024-12-31 15:32] VITALS: BP 133/77; PULSE 92; RESP 16; TEMP 36.9; O2SAT 93
--- NOTE | 2024-12-31 15:48 | MHC.CM.PN ---
Pt is medically cleared for discharge home with services, awaiting [facility] agency acceptance. Pt will transport home via [facility].
== END 2024-12-31 16:00 | disposition home health service (06) | DRG 140 ==
LOC: HO.ED 15:32 → HO.EDOVER 18:30 → HO.IMC 12-27 07:45
PROVIDERS: Physician Assistant; Admitting Provider Hospitalist; Emergency Provider Emergency Medicine; PCP Internal Medicine Geriatric Medicine; Visit Provider Internal Medicine
DX: J44.1 Chronic obstructive pulmonary disease with (acute) exacerbation (principal); J96.21 Acute and chronic respiratory failure with hypoxia; Z99.81 Dependence on supplemental oxygen; J96.22 Acute and chronic respiratory failure with hypercapnia; M16.0 Bilateral primary osteoarthritis of hip; G89.29 Other chronic pain; Z99.3 Dependence on wheelchair; Z20.822 Contact with and (suspected) exposure to COVID-19; Z79.899 Other long term (current) drug therapy
CPT/HCPCS: 0241U; 36415; 71045; 73521; 74176; 80048; 80053; 80076; 81003; 82803; 83735; 83880; 84145; 84484; 85025; 93005; 94640; 94660; 99285; J0456; J0696; J1650; J1938; J2405; J2919

== ENCOUNTER → 2024-12-26 12:54 | Outpatient (BNV) | payer MEDICAID, SELFPAY | PROVIDERS: Emergency Provider Emergency Medicine; Visit Provider Radiology Diagnostic Radiology | DX: M16.12 Unilateral primary osteoarthritis, left hip (principal); R91.8 Other nonspecific abnormal finding of lung field | CPT/HCPCS: 71045; 73521 ==

== ENCOUNTER → 2024-12-26 12:54 | Outpatient (BNV) | payer MEDICAID, SELFPAY | PROVIDERS: Admitting Provider Hospitalist; Emergency Provider Emergency Medicine; Visit Provider Internal Medicine Cardiovascular Disease | DX: R94.31 Abnormal electrocardiogram [ECG] [EKG] (principal); R06.02 Shortness of breath | CPT/HCPCS: 93010 ==

== ENCOUNTER 2024-12-26 18:12 | Outpatient (BNV) | payer MEDICAID, SELFPAY | END 2024-12-30 14:34 | PROVIDERS: Admitting Provider Hospitalist; Emergency Provider Emergency Medicine; PCP Internal Medicine Geriatric Medicine; Visit Provider Radiology Diagnostic Radiology | DX: K80.20 Calculus of gallbladder without cholecystitis without obstruction (principal); K44.9 Diaphragmatic hernia without obstruction or gangrene; M16.0 Bilateral primary osteoarthritis of hip | CPT/HCPCS: 74176 ==

== ENCOUNTER → 2024-12-26 18:12 | Outpatient (BNV) | payer MEDICAID, SELFPAY | PROVIDERS: Admitting Provider Hospitalist; Emergency Provider Emergency Medicine; Visit Provider Hospitalist | DX: J44.1 Chronic obstructive pulmonary disease with (acute) exacerbation (principal) | CPT/HCPCS: 99223; 99232; 99239 ==

== ENCOUNTER 2025-03-21 16:25 | Outpatient (REF) | payer MEDICAID, SELFPAY ==
--- OUTSIDE RECORDS SUMMARY | 2023-11-01 11:39 | XMS_ITS | Continuity of Care Document ---
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 historian [...] this when discussed during the visit. 10/09/2019 [facility] ED - ER notes were also recently [...] ED visit today. VIOLET Glover present for Kenyan interpretation. Last seen in the clinic on 09/21/19. Newly enrolled at on 08/29/2019. He is a fair historian, low educational level.He did not present for his usual SE days earlier this week and reported that he was in the ED. [facility] had told EMS that he wanted to go to [facility], but they brought him to [facility]. was not notified of his ED visit by [facility]. Mr. Dang does not have paperwork from his ED visit, but is still wearing his hospital ID bracelet. Reports went on 10/09/2019 for GI issues. States ate some leftovers and was having significant vomiting, so went to ED. Reported diarrhea also. States was given medication for diarrhea and vomiting. [...] ED visit notes to be requested from [facility]- Reminded to purchase marijuana from dispensary, not from the street due to potential additives. f/u upper respirator y symptoms Mr. Dang is here today for f/u on his cough/respiratory issues. Was seen in the clinic on 09/19/2019. VIOLET Glover present for Kenyan interpretation. He is a fair historian and offers vague responses to ROS. Wellness call placed yesterday and he was feeling better. He was ordered to have a CXR, which he had completed this morning at [facility]. CXR was negative for acute issues. States [...] Exam:Sitting up in his power wheelchair in [facility], does not appear acutely ill, watching TV and playing games on his phone RRR, LS - better air movement today but still diminished. not SOBCardiac- HR regular, no murmurs VSS, afebrile PLAN:- continue with his nebulizer and inhalers at home; can get PRN duoneb at [facility]- Reports small tires in the back of his power chair are making a noise - will notify PT to look at his chair when he is in next; may be due to salt buildup? - Again reinforced cutting back on smoking marijuana due to his recent respiratory issues - will continue to be followed by [facility] care team and will be notified of concerns FUV Mr. Dang is agueda riddle seen today for sick visit - respiratory symptoms and follow up for review of labs. He is a new enrollee to the program and was last seen in the clinic on 09/05/2019. He is Kenyan speaking only, VIOLET Glover present for interpretation. He cancelled his SE day on 09/17/2019 stating asthma symptoms and that he would be in on 09/18/2019. Was encouraged to come in to be evaluated but declined to do so. He then cancelled his SE day on 09/18/2019. Wellness call was placed and he reported that he continued to have respiratory symptoms. studio designer notified this clinician of symptoms and ppt [...] chronic pain in bilateral knees and hips. States has been taking a lot of ibuprofen [...] Exam:Sitting up in his power wheelchair in [facility], does not appear acutely ill, watching TV and playing games on his phone RRR, LS - tight wheezing throughout, nebulizer given in clinic with mild effect. Does not appear SOBCardiac- HR regular, no murmurs VSS, afebrile PLAN:- Mucinex and tessalon ordered for symptom management, encouraged to cut down on smoking- CXR ordered - will have done at [facility] - Will follow up in clinic again during the week -Due for PPD #2 today- Hepatitis B immunization series to be ordered- Records to be requested from [facility] for potential Hepatitis C treatment verification- Reminded [...] sustained after having a seizure at [facility] and falling onto hot water spigot in a sink); thickly callused bilateral feet, areas of healed skin on front of RLE - able to stand on his feet and ambulate slowly to exam stretcher, antalgic gait PEE Patient is a 59- year-old Kenyan speaking male who presents with aquatics director for Post Enrollment Exam. He is a fair historian and appears to have some degree of cognitive impairment. He can be somewhat distractible at times. Medications attempted to be reviewed. Home care nurse to visit home later this week for medication reconciliation. Reports that gets his medications from from [facility] in medication cards/bubble packs (start on [...] the recent change in insurance. DIET - states is able to cook his own food; often eats chicken/rice/beans; states doesn't use salt, uses adobo instead; drinks juice, Coca Cola; coffee; DENIES ETOH use; states weight about the same; good appetite; reports able to chew his food even though he is edentulous [facility], goes Q3 weeks, next appt 09/06/19 at [...] from a good supplier )MOCA - 09/03/2019 14/30 (points off for identification of animals, serial [...] To be added to podiatry list at [facility] - Dr. Muhammad- Attempt to obtain previous records regarding sleep study, did he qualify for device?- Orthopedics referral - [facility] - and psychiatry referral for [facility]; SW to investigate further for continuity of care for Mr. Dang since he states that his psychiatrist was going to discharge him from the practice due to change in insurance. - 30 day supply sertraline ordered to bridge until clarified with psychiatry - Step 1 PPD placed today- lungs wheezy today - will have PRN nebulizer at [facility] and will follow up on next day. Reports this is usual for him. Reminded of importance of smoking cessation.- not able to have discussion regarding advanced directives/MOLST, will review in follow up Chronic Conditions *See Chronic Conditions HPI intake Patient is a 59- year-old Kenyan speaking male who presents with aquatics director for intake. 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 He uses a power chair to get around. He formerly was living [facility] the homeless [facility] and has been in his current apartment for about the last 4 years. He would like to get out of his current living situation and move to an apartment where there is a better neighborhood. Went to school up to the 2nd grade. States has not seen his family in [place] in about 20 years but talks to them on the phone.HCP - friend Paras; HCP filled out todayHe reports that he last went to the hospital/ED about 3 months ago for hip pain and foot pain. Medications - obtains from [facility] pharmacy in medication cards/bubble packs; reports he is able to manage his medicationsPC[facility] next appt 09/06/19 at [...] PPD due to previous residence in homeless [facility]; reports no knowledge of hx positive PPDDiet [...] have shower assistance while he is at [facility]. Lexx would benefit from coordinated services, medication management and maintenance of functional abilities, socialization. Will be brought to IDT in the morning for acceptance into the P[facility] program. Instructions Date Instruction Ashleigh middleton Pulmonary notes past pulmonary nodules and recommended CT chest with IV contrast. This was ordered in July however patient updated. President And Chief Operating Officer who saw him in November again reiterated [...] to execute it. He got himself to [place], got a dog and return despite his [...] t reated, unclear precisely when, seemingly at [facility]. Ultrasound of the liver in March 2022 [...] has obesity. Food accesshistorically been problematic.-Repeat hemoglobin D7b-Qqehluemgya of him checking sugars and/or taking any [...] of left lesser toe The patient is neha dawn. Previously seen by dental and referred to [...] immunizations appear adequate-He has not engaged in [place] guard. We can certainly reordered although I [...] recent years. It was not done at [facility] and must of been done prior to [...] CPAP would be largely futile Related to GLEY (obstructive sleep apnea) As previously noted, his [...] medicine, pulmonary and perhaps other specialties at [facility]-He uses NSAIDS,Which is not particularly advantageous but [...] care. He apparently never followed through with jmfr-Fqksndobwcd-L am not clear that there is significant [...] back pain as well. Also reports saw carpenter and joiner today and they prescribed a med and [...] worsening disease-Will see if I can get carpenter and joiner records to see what they prescribed and [...] lumbar spine while he is over at [facility] having his CT chest Related to Lumbar pain on palpation Patient has a multip licity of challenges including a low literacy, lack of social network, cognitive impairment and limited ability to manage his funds. It is my understanding he has a capital campaign fundraiser. All that being said, he did manage to fly to [place] recently and make some poor financial choices [...] that he come back in Tuesday for lgpwni-dl-Uw knows that should he worsen in the [...] to wear socks but this seems unlikely. Automatic Lehr Operator tells me that she believes she has [...] hand be involved-he will be leaving to [place] for several weeks, this will be illustrative [...] (based on review of old notes at [facility]).-Supportive care-Lack of social support/network is definitely problematic [...] excited about the prospect of going to [place] for dog. Unless he is receiving medications [...] excited about the prospect of going to [place] for dog. Unless he is receiving medications [...] testing in 2019 showed no detectable hep CARDIAC RN. He endorses treatment at [facility]. There is ambiguity as to whether there was cirrhosis in the past.-Repeat hep C viral load-Right upper quadrant ultrasound to screen for hepatoma, secondarily will look for ascites Related to History of hepatitis C Long overdue for oph thalmology follow-up.-We will try to book for him upon his return from [place] however, should he know show it will [...] histo ry of carpal SNAC. Seen by [facility] in the past. Is a bit unclear to me whether his current presentation relates to it although I suspect it does. His overall poor adherence/inability consistently make appointments makes obtaining specialty care for him rather challenging-Referral back to hand surgery pending from late November, will await this. He finds the ibuprofen [...] histo ry of carpal SNAC. Seen by [facility] in the past. Is a bit [...] 2004 and 2010. More recent testing in 2020 shows no detectable hep C RNA (genotype 1A). He apparently endorsed treatment at [facility] years ago. I suspect this is correct. It is somewhat unclear to me if he ever had cirrhosis. There appears to be ambiguity as to why he is on Aldactone/Lasix. [place] echocardi[place] consistent with in 2005. EF at the time was preserved. I am not certain if there were interval studies at [facility].-Given his blood pressure/absence of a clear history of ascites/edema/clear history of volume overload I am inclined to try him off the Lasix and Aldactone. 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 Q3-4 weeks, mostly on the phone- psychiatry [...] for Hepatitis C in the past at [facility] - states took all the pills - [...] 15. Related to History of hepatitis C No anemia on today's labs. Relat ed to Anemia, unspecified type - will do Cologard s [place] has not had his colonoscopy yet. Issues with tenuous lung function and ability to undergo anesthesia.-Patient has not completed cologard at time of this appointment, encourage to do so. Related to Encounter for screening for malignant neoplasm of colon - Vitamin D level de ficient on today's labs at 24.- continues on Vitamin D supplementation- 06/2020 - 30, 01/2021 - 29- does not weight bear often - uses his power chair; risk for falls - continue on Vitamin D supplementation, goal level above 30 Related to Vitamin D deficiency - seen by optho 03/17 21 for [...] to Vision loss of right eye - elevated BMI, gain ed 3 lbs [...] ambulating Related to Risk for falls - is able to ambulat e short distances within a room; has baseline gait disturbance s/p injuries in the past and current orthopedic issues- cannot flex hips 90 degrees per previous PT note- has new power chair and is doing well and able to maintain level of independence in community Related to Wheelchair dependent - often does not adh ere to [...] Related to Non-adherence to medical treatment - see also SOB ; [facility] at this time if SOB is COPD exacerbation, allergies, or COVID19. 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, chronic tobacco and smoked marijuana use, although [...] spine xray-CBC, BMP r/o dehydration or electrolyte pvsrdluv-Njlwbw-Ktdmq drug screen as he had seizure like [...] spine xray-CBC, BMP r/o dehydration or electrolyte grarlqop-Odzxoj-Rhdih drug screen as he had seizure like [...] 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 [...] unspecified, has t herapist appt with [facility] Q3-4 weeks, mostly on the phone- reports [...] for Hepatitis C in the past at [facility] - states took all the pills - [...] Related to History of hepatitis C - Vitamin D level 24 in 08/2019- was started on Vitamin D supplementation- 06/2020 - 30, 01/2021 - 29- does not weight bear often - uses his power chair; risk for falls - continue on Vitamin D supplementation, goal level above 30 - has now been spending more time outside now that the weather is warmer Related to Vitamin D deficiency - decreased vision R eye from reported workplace injury (something in his eye)-optho appt was ordered but not yet completed; appts have been pushed back due to COVID pandemic- reports no new vision issues- will try to get him in with optho now that COVID restrictions are lifting Related to Vision loss of right eye - has been gaining w eight, BMI [...] will monitor over weekend. Told to call national recruiter over weekend if turns into full body [...] other nicotine-induced disorders advised to go to [facility], status worse today. provided with all of [...] adventitious lung sounds Related to Marijuana dependence - power chair depend ent for distances [...] this- reports received BLE injections at ortho appt that have helped; also received in R [...] osteoporosis type, unspecified pathological fracture presence - saw [facility] in 01/2020 xrays showing [...] of both knees, unspecified osteoarthritis type - sustained after a fall on 07/07/2020, [...] drugs - unspecified, sees therapist at [facility] Q3-4 weeks; reports it has been on the phone due to COVID- PHQ-9 today 14 - moderate depression, thinks about being but no plan for suicide, SW also into see him- while he was here at [facility], he received phone call from his psychiatrist [...] for Hepatitis C in the past at [facility] - states took all the pills - [...] removal before dentures. Was referred to Jermaine sappers. Would need general anesthesia. - He would like to hold off on consultation for tooth extraction at this time since would prefer to get his hip surgery first. Reports is able to eat well currently in his state of edentulousness. Related to Absence of teeth, acquired - Vitamin D level 24 in 08/2019- [...] back. Now reportedly his recent testing at [facility] indicated fentanyl presence. 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, chronic tobacco and smoked marijuana use- continue [...] agents ruled out - reports SOB at nig httime, has been a longtime smoker - said [...] for Hepatitis C in the past at [facility] - states took all the pills - [...] - he has been referr ed to [facility] since dental saw and indicated that he [...] multiple sites - per previous PCP r dorotheas, also dx hypogonadism- mainly wheelchair bound and [...] Other osteoporosis without current pathological fracture - states unable to r ead/write- R [...] to Unable to read or write - is able to ambulat e short [...] dependence, cigarettes, with other nicotine-induced disorders - unclear on his rep orts of [...] regulated dispensary- reports received injections at ortho appt last week, do not yet have note for review - states that the injetions helped - has used lidocaine patches in the past; unable to take some opiates - ? 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; chronic tobacco and marijuana use- PFTs 12/27/18 - mod degree restrictive pulm disorder, severe obstructive airway disorder, significant improvement after bronchodilator therapy consistent with bronchial asthma; FEV1, vital capacity, MVV, [id number] all markedly decreased, total lung capacity moderately reduced, diffusion capacity normal- pulm also obtained updated labs, noted that recent CBC did not show eosinophilia, added on IgE level and RAST panel to phenotype his asthma- he will f/u with pulmoedit Related to Persistent asthma without complication, unspecified asthma severity - unspecified type- per PCP notes, COPD exacerbation in 06/2019 - treated with prednisone taper and epiric azithromycin x 5 days; 09/2019 - treated again for presumed COPD exacerbation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; chronic tobacco and marijuana use- not on O2- PFTs 12/27/18 - mod degree restrictive pulm disorder, severe obstructive airway disorder, significant improvement after bronchodilator therapy consistent with bronchial asthma; FEV1, vital capacity, MVV, [id number] all markedly decreased, total lung capacity moderately [...] Related to Pulmonary emphysema, unspecified emphysema type per previous PCP not es- 2017 PT note from PCP office:10/28/15 CRISTINA Lewis at [facility] - bilateral hip pain, difficulty with all weightbearing activities - xray views of bilateral hips from 09/13/15 showing advanced arthritis R hip with femoral head collapse, OA, subchondral sclerosis and cyst formation, degen changes L hip, more findings consistent with possible AVN; impression - arthritis bilateral hips, postraumatic vs AVN; Plan - recommended hip replacement, follow up with Dr. Chinchilla for surgical [id number]/16 - CT abd pelvis with contrast - [...] to Bilateral hip joint arthritis - per PCP notes, has seen ortho but was lost to follow up, R hip worse than L and surgery was recommended previously- he was re-referred to [facility] and reports did go to the appt, note not yet received Related to Osteonecrosis of multiple sites - reports has not us ed recently [...] sequela - unspecified, sees therapist at 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 - decreased vision R eye from reported [...] consultations Related to Anemia, unspecified type - recent labs showin g previous exposure but no current infection- when reviewing labs in the clinic with him, he then indicated that he was treated for Hepatits C in the past at [facility] - states took all the pills - do not have copy of records to verify this Related to History of hepatitis C - elevated BMI; now at 34- mainly [...] 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- chronic tobacco use- not on O2- has nebulizer, breo, proair, singulair, spiriva- PFTs 12/27/18 - mod degree restrictive pulm disorder, severe obstructive airway disorder, significant improvement after bronchodilator therapy consistent with bronchial asthma; FEV1, vital capacity, MVV, [id number] all markedly decreased, total lung capacity moderately [...] 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- chronic tobacco use- not on O2- has nebulizer, breo, proair, singulair, spiriva- per PCP notes, COPD exacerbation in 06/2019 - treated with prednisone taper and epiric azithromycin x 5 days- PFTs 12/27/18 - mod degree restrictive pulm disorder, severe obstructive airway disorder, significant improvement after bronchodilator therapy consistent with bronchial asthma; FEV1, vital capacity, MVV, [id number] all markedly decreased, total lung capacity moderately [...] 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- chronic tobacco use- not on O2- has nebulizer, breo, proair, singulair, spiriva- per PCP notes, COPD exacerbation in 06/2019 - treated with prednisone taper and epiric azithromycin x 5 days- PFTs 12/27/18 - mod degree restrictive pulm disorder, severe obstructive airway disorder, significant improvement after bronchodilator therapy consistent with bronchial asthma; FEV1, vital capacity, MVV, [id number] all markedly decreased, total lung capacity moderately [...] to propel manual wheelchair due to R pipeliner pain and poor R wrist flex/extension PROM [...] his apartment Related to Risk for falls - has power chair, a ble to stand and pivot- per PT notes from PCP office cannot flex hips even close to 90 degrees- was given power chair by PCP office due to being unable to propel manual wheelchair due to R pipeliner pain and poor R wrist flex/extension PROM s/p fx, PT also indicated that with his extremely poor hip motion making him sit in a reclined postion would not be able to manually use the wheelchair effectively while reclined and would likely injure his shoulders Related to Dependence on wheelchair per PCP notes- 2016 PT note from PCP office:10/28/15 CRISTINA Lewis at [facility] - bilateral hip pain, difficulty with all weightbearing activities - xray views of bilateral hips from 09/13/15 showing advanced arthritis R hip with femoral head collapse, OA, subchondral sclerosis and cyst formation, degen changes L hip, more findings consistent with possible AVN; impression - arthritis bilateral hips, postraumatic vs AVN; Plan - recommended hip replacement, follow up with Dr. 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 Q3 weeks- also just saw new psychiatrist and will see regularly Related to Other specified depressive episodes - per PCP notes, has seen ortho, potential for surgery, R hip worse than L Related to Osteonecrosis, unspecified - reports runs in hi s family- ETOH use was a problem for him- started at age 16 and stopped at age 32, no further urge to drink Related to Alcohol dependence, in remission - per PCP records- m ainly wheelchair bound and unable to bear much weight; DEXA scan not available for review- on fosamax Related to Other osteoporosis without current pathological fracture Assessments Type Assessment Date No Information Goals [...]
--- OUTSIDE RECORDS SUMMARY | 2025-03-21 16:28 | XMS_ITS | Clinical Summary ---
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 04/28/20 23 Active montelukast (SINGULAIR) 10 mg tablet Take 1 tablet (10 mg total) by mouth at bedtime. Active fluticasone-umecli dinium-vilanterol (Trelegy Ellipta) 200-62.5-25 mcg inhaler Inhale 1 [...] breath. 18 g 1 11/20/19 25 Active albuterol 2.5 mg /3 mL (0.083 %) nebulizer solutionIndication s:COPD with acute exacerbation (CMS/[facility] V24, CMS/[facility] V28) Take 3 mL by nebulization every 6 (six) hours if needed for wheezing or shortness of breath. 3 mL inhaled 3 to 4 times per day prn shortness of breath or wheezing 360 mL 1 11/20/19 25 Active gabapentin (NEURONTIN) 800 mg tablet Take 1 tablet (800 mg total) by mouth 2 (two) times a day. 02/13/20 25 Active furosemide (LASIX) 40 mg tablet Take 1 tablet (40 mg total) by mouth 1 (one) time each day. 30 each 02/16/20 25 026 Active furosemide (LASIX) 40 mg tablet Take 1 tablet (40 mg total) by mouth 1 (one) time each day. 30 each 02/16/20 25 026 Active ondansetron ODT (ZOFRAN-ODT) 4 mg disintegrating tablet Dissolve 1 tablet (4 mg total) on top of the tongue every 8 (eight) hours if needed for nausea or vomiting. Let 1 tablet dissolve under the tongue three times daily as needed for nausea or vomiting. 10 tablet 03/13/20 25 Active omeprazole (PriLOSEC) [address] capsule Take 1 capsule (20 mg total) by mouth 1 (one) time each day for 14 days. Do not crush or chew. 14 each 02/16/20 25 025 predniSONE (DELTASONE) 10 mg tablet Take 6 tablets (60 mg total) by mouth 1 (one) time each day for 2 days, THEN 5 tablets (50 mg total) 1 (one) time each day [...] (one) time each day for 2 days. 42 tablet 06/21 025 Active Problems Problem Noted Date Diagnosed Date Dyspnea on exertion 02/12/2025 Assessment & Plan (02/13/2025 3:10 AM EDT): - New level of dyspnea compared to baseline due to COPD - Clinical exam supports COPD exacerbation for which this hospitalization is required and advised - Continue to discourage tobacco smoking Moderate asthma with exacerb ation, unspecified whether persistent 12/17/2024 Bronchitis, acute 09/17/2024 Cannabis dependence ([facility] V24, [facility] V28) 0 09/17/2024 Chronic pain 09/17/2024 Overview (09/17/2024): chronic NSAID use Alcoholic cirrhosis ([facility] V24, [facility] V28) 0 09/17/2024 Overview (09/17/2024): Cirrhosis, Liver due to EtOH Cognitive impairment 09/17/2024 Illiteracy 09/17/2024 Asthma 09/17/2024 Oxygen dependent 09/17/2024 Assessment & Plan (02/13/2025 3:08 AM EDT): - O2 dependent at baseline with clinical course significant for new COPD exacerbation - Continue supplemental oxygen based on renewed and updated O2 requirement and optimized functionality using best level of supplemental residual requirement Chronic respiratory failure with hypoxia ([facility] V24, [facility] V28) 09/17/2024 Assessment & Plan (02/13/2025 3:09 AM EDT): - Continue supplemental oxygen requirement optimized to accommodate current exacerbation of COPD - Optimized bronchodilator regimen for best benefit to patient - Involve pulmonology and respiratory therapist Assessment & Plan (11/22/2024 1:22 PM EDT): O2 dependent; continues to use O2 supplementation 2 L/min. Vitamin D deficiency 09/17/2024 Edentulous 09/17/2024 Depression, unspecified 09/17/2024 Epilepsy ([facility] V24, [facility] V28) 09/17/2024 GERD (gastroesophageal reflux disease) Assessment & Plan (02/13/2025 3:08 AM EDT): - Continue outpatient PPI unchanged Hypertension 09/17/2024 Avascular necrosis of bones of both hips ([facility] V24, [facility] V28) 09/17/2024 Overview (09/17/2024): Necrosis, Avascular, Hip Bilaterally Osteoarthritis of hips, bilateral 09/17/2024 Heroin use 09/17/2024 Cocaine use disorder in remission 09/17/2024 Blind right eye 09/17/2024 Cataract of left eye 09/17/2024 SOB (shortness of breath) 09/11/2024 COPD exacerbation ([facility] V24, [facility] V28) 12/2023 Overview (09/17/2024): COPD Assessment & Plan (02/13/2025 3:23 AM EDT): - Being hospitalized for renewed COPD exacerbation characterized by worsening shortness of breath, productive cough and leg edema - 64-year-old Slovak only speaking man with tobacco smoking significant for COPD complicated by chronic hypoxemic respiratory failure supported with supplemental oxygen at; hypertension; GERD; polysubstance abuse; cognitive impairment; alcohol cirrhosis; and cannabis dependence is being hospitalized - Brought to the ED with worsening shortness of breath, leg edema and some degree of productive cough particularly over the course of 3 days; was recently evaluated in the ED for similar symptoms about a week ago, but discharged to outpatient follow-up with Lasix prescription, which helped him, but had to return to the ED with symptoms returned after finishing the prescribed Lasix; has required BiPAP in the ED which improved symptoms but could not be safely discharged to outpatient follow-up due to continued work of breathing on the stressful side, albeit with O2 sat in the safe range; - In the ED, initial vital signs largely unremarkable; twelve-lead EKG showed normal sinus rhythm; screening blood test significant for hypercarbia to 62 on VBG; mild anemia to H/H 11.6 and 37.3 on CBC; mild hyperglycemia 208 and chemistry with BUN/creatinine 26/8.6; BNP is normal at 11 and high-sensitivity cardiac troponin is also normal at 7 Assessment & Plan (11/22/2024 1:24 PM EDT): Recent exacerbation. Needs to complete medication. Did not answer me if he is taking medication as prescribed. Follow up with new PCP. Mixed hyperlipidemia 03/24/2023 Positive hepatitis C antibody test 03/24/2023 Osteoporosis 03/22/2023 Uncomplicated asthma 03/22/2023 Resolved Problems Problem Noted Date Diagnosed Date Resolved Date Shortness of breath 11/14/2024 11/16/19 Encounters Date Type Department Care Team Description 03/18/2025 6:39 PM EDT - 03/19/2025 4:13 AM EDT Emergency [facility] Emergency [address] [place] [phone] Julianne Miguel MD Biliary colic (Primary Dx); Calculus of gallbladder without cholecystitis without obstruction Discharge Disposition: Home or Self Care 03/17/2025 9:42 AM EDT - 03/17/2025 3:45 PM EDT Emergency [facility] Emergency [address] [place] [phone] Dave Jaramillo MD Epigastric pain (Primary Dx) Discharge Disposition: Home or Self Care 03/13/2025 1:49 AM EDT - 03/13/2025 12:10 PM EDT Emergency [facility] Emergency [address] [place] [phone] Derek Carney MD Acute pancreatitis, unspecified complication status, unspecified pancreatitis type (Primary Dx) Discharge Disposition: Home or Self Care 02/12/2025 4:47 PM EDT - 02/15/2025 1:05 PM EDT Hospital Encounter [facility] [address] [place] [phone] Juan Conte MD Maduakor, Emmanuel C, MD Zipagan, James T, MD Kenton, Mark A, MD COPD exacerbation (CMS/HCC V24, CMS/HCC V28) (Primary Dx); Dyspnea on exertion Discharge Disposition: Home-Health Care Svc 02/01/2025 1:17 PM EDT - 02/01/2025 7:05 PM EDT [facility] Emergency [address] [place] [phone] Graciela Eduardo DO Chambers, Patrick, MD Generalized edema (Primary Dx) Discharge Disposition: Home or Self Care 01/23/2025 7:26 PM EDT - 01/24/2025 2:47 AM EDT [facility] Emergency [address] [place] [phone] Graciela Eduardo DO Garvin, Meredith Kate, MD Gastritis without bleeding, unspecified chronicity, unspecified gastritis type (Primary Dx); COPD exacerbation (CMS/HCC V24, CMS/HCC V28) Discharge Disposition: Home or Self Care 01/21/2025 11:02 PM EDT - 01/22/2025 4:37 AM EDT [facility] Emergency [address] [place] [phone] Rubens Short MD Contusion of left shoulder, initial encounter (Primary Dx); Contusion of left hip, initial encounter; Fall, initial encounter; Rib contusion, left, initial encounter Discharge Disposition: Home or Self Care 01/20/2025 9:35 PM EDT - 01/21/2025 7:34 AM EDT [facility] Emergency [address] [place] [phone] Rubens Short MD Generalized abdominal pain (Primary Dx) Discharge Disposition: Home or Self Care 01/14/2025 2:08 PM EDT - 01/14/2025 7:24 PM EDT [facility] Emergency [address] [place] [phone] COPD exacerbation (CMS/HCC V24, CMS/HCC V28) (Primary Dx) Discharge Disposition: Home or Self Care 01/08/2025 9:05 PM EDT - 01/09/2025 5:59 AM EDT [facility] Emergency [address] [place] [phone] Exacerbation of asthma, unspecified asthma severity, unspecified whether persistent (Primary Dx) Discharge Disposition: Home or Self Care from Last 3 Months Immunizations Name Administration Dates Next Due Influenza, Unspecified 08/17/2024 Surgical History Surgery Date Site/Laterality Comments SHOULDER SURGERY Left PROCEDURE: HISTORICAL SHOULDER SURGERY Medical History Medical History Date Comments Osteoporosis 03/22/2023 DX:Osteoporosis Uncomplicated asthma 03/22/2023 DX:Uncompli cated asthma COPD (chronic obstructive pu lmonary disease) ([facility] V24, [facility] V28) DX:COPD (chronic o bstructive pulmonary disease) ([facility]) Illiteracy and low-level literacy History of fracture of clavicle H/O Displaced Fracture, Left Clavicle, Lateral Aspect with Nonunion Hypercholesteremia Hypertension Hepatitis C Liver cirrhosis ([facility] V24 , [facility] V28) Avascular necrosis of hip ([facility]24, [facility] V28) Polysubstance abuse ([facility] V24, [facility] V28) Cocaine abuse ([facility] V24, [facility] V28) Anxiety and depression Seizure ([facility] V24, [facility] V28) Social History Tobacco Use Types Packs/Day [...] Record ed Within the last 3 months, luis finley many times did you visit the emergency [...] care for your loved ones. For example, children's tutor or elderly care for an older adult? [...] Safety Answer Date Record ed Physical Abuse 02/13/2025 Verbal Abuse 02/13/2025 Sex and Gender Information Value Date Recorded Sex Assigned at Male 09/10/2024 6:11 PM EST Legal Sex Male 1:54 PM EST Gender Identity Male 09/10/2024 6:11 PM EST Sexual Orientation Choose not to disclose 2024 6:11 PM EST Obstetrics History Last Filed Vital Signs Vital Sign Reading Time Taken Comments Blood Pressure 99/56 03/19/2025 4:02 AM EDT Pulse 69 03/19/2025 4:02 AM EDT Temperature 37.2 C (98.9 F) 03/18/2025 6:44 PM EDT Respiratory Rate 18 03/19/2025 4:02 AM EDT Oxygen Saturation 98% 03/19/2025 4:02 AM EDT Inhaled Oxygen Concentration - - Weight 118 kg (260 lb) 03/18/2025 7:10 PM EDT Height 175.3 cm (5' 9 ) 03/18/2025 7:10 PM EDT Body Mass Index 38.4 03/18/2025 7:10 PM EDT Plan of Treatment Upcoming Encounters Date Type Department Care Team (Late st Contact Info) Description 03/22/2025 9:00 AM EDT [facility] [place] [facility] [address] [place] [phone] 03/29/2025 9:00 AM EDT [facility] [place] [facility] [address] [place] [phone] 04/05/2025 9:00 AM EDT [facility] [place] [facility] [address] [place] [phone] 04/12/2025 9:00 AM EDT [facility] [place] [facility] [address] [place] [phone] 04/19/2025 9:00 AM EDT [facility] [place] [facility] [address] [place] [phone] 04/26/2025 9:00 AM EDT [facility] [place] [facility] [address] [place] [phone] 05/03/2025 9:00 AM EDT [facility] [address] [place] [phone] 05/10/2025 9:00 AM EDT [facility] [address] [place] [phone] 05/17/2025 9:00 AM EDT [facility] [address] [place] [phone] 05/24/2025 9:00 AM EDT [facility] [address] [place] [phone] 05/31/2025 9:00 AM EDT [facility] [place] [facility] [address] [place] [phone] 06/07/2025 9:00 AM EDT [facility] [place] [facility] [address] [place] [phone] 06/14/2025 9:00 AM EDT [facility] [place] [facility] [address] [place] [phone] 06/21/2025 9:00 AM EDT [facility] [place] [facility] [address] [place] [phone] 06/28/2025 9:00 AM EDT [facility] [place] [facility] [address] [place] [phone] 07/05/2025 9:00 AM EST [facility] [place] [facility] [address] [place] [phone] 07/12/2025 9:00 AM EST [facility] [place] [facility] [address] [place] [phone] 07/19/2025 9:00 AM EST [facility] [place] [facility] [address] [place] [phone] 07/26/2025 9:00 AM EST [facility] [place] [facility] [address] [place] [phone] 08/02/2025 9:00 AM EST [facility] [place] [facility] [address] [place] [phone] 08/09/2025 9:00 AM EST [facility] [place] [facility] [address] [place] [phone] 08/16/2025 9:00 AM EST [facility] [place] [facility] [address] [place] [phone] 08/23/2025 9:00 AM EST [facility] [place] [facility] [address] [place] [phone] 08/30/2025 9:00 AM EST [facility] [place] [facility] [address] [place] [phone] 09/06/2025 9:00 AM EST [facility] Attend[facility] [place] [facility] [address] [place] [phone] 09/13/2025 9:00 AM EST P[facility] Attend[facility] [place] [facility] [address] [place] [phone] 09/20/2025 9:00 AM EST [facility] [place] [facility] [address] [place] [phone] 09/27/2025 9:00 AM EST [facility] Attend[facility] [place] [facility] [address] [place] [phone] 10/04/2025 9:00 AM EST [facility] Attend[facility] [place] [facility] [address] [place] [phone] 10/11/2025 9:00 AM EST [facility] [place] [facility] [address] [place] [address] 10/18/2025 9:00 AM EST [facility] [place] [facility] [address] [place] [address] 10/25/2025 9:00 AM EST [facility] [place] [facility] [address] [place] [phone] 11/01/2025 9:00 AM EST [facility] [place] [facility] [address] [place] [phone] 11/08/2025 9:00 AM EDT [facility] Att[facility] [address] [place] [phone] 11/15/2025 9:00 AM EDT [facility] [address] [place] [phone] 11/22/2025 9:00 AM EDT [facility] [address] [place] [phone] Health Maintenance Due Date Last Done Comments Hepatitis A Vaccines (1 of 2 - Risk 2-dose series) 1981 Hepatitis B Vaccines (1 of 3 - Risk 3-dose series) 2022 Colorectal Cancer Screening: Colonoscopy 09/27/2023 HIV Screening 09/27/2023 Hepatitis C Screening 09/27/2023 Depression Screening 08/29/2024 Influenza Vaccine (#1) 2025 , 06/15/2024, 10/05/2023, Additional history exists Social Influencers of Health Screening 12/18/2025 12/18/2024 Hypertension/CHF/CAD Annual BMP Blood Test 03/18/2026 03/18/2025, 03/17/2025, 03/13/2025, Additional history exists Cholesterol Screening (Lipid Panel) 08/07/2029 08/07/2024, 10/03/2023 DTaP,Tdap,and Td Vaccines (3 - Td or Tdap) 05/29/2034 05/29/2024, 04/14/2018 Zoster Vaccines Completed 02/09/2021, 12/08/2020 Pneumococcal Vaccine: 50+ Years Completed 10/03/2023, 04/14/2018, 02/26/2011, Additional history exists RSV Immunization Adult Patients Completed 10/27/2023 COVID-19 Vaccine Completed 06/15/2024, 02/2024, 07/13/2022, Additional history exists HIB Vaccines Aged Out [...] Name Priority Date/Time Associated Diagnosis Comments ECG ANNOTATED 03/20/2025 TROPONIN I HIGH SENSITIVITY Timed 03/18/2025 9:57 PM EDT CBC WITH AUTO DIFFERENTIAL STAT 03/18/2025 8:59 PM EDT B-TYPE NATRIURETIC PEPTIDE STAT 03/18/2025 8:59 PM EDT MAGNESIUM STAT 03/18/2025 8:59 PM EDT LIPASE STAT 03/18/2025 8:59 PM EDT COMPREHENSIVE METABOLIC PANEL STAT 03/18/2025 8:59 PM EDT CBC AND DIFFERENTIAL STAT 03/18/2025 8:59 PM EDT TROPONIN I HIGH SENSITIVITY Timed 03/18/2025 8:59 PM EDT ECG 12-LEAD STAT 03/18/2025 8:21 PM EDT US ABDOMEN LIMITED STAT 03/18/2025 7: [address] ABDOMEN PELVIS W CONTRAST STAT 03/17/2025 12:06 PM EDT US ABDOMEN LIMITED STAT 03/17/2025 11 :12 AM EDT CBC WITH AUTO DIFFERENTIAL STAT 03/17/2025 10:20 AM EDT LIPASE STAT 03/17/2025 10:20 AM EDT COMPREHENSIVE METABOLIC PANEL STAT 03/17/2025 10:20 AM EDT CBC AND DIFFERENTIAL STAT 03/17/2025 10:20 AM EDT ECG ANNOTATED 03/15/2025 URINALYSIS WITH REFLEX MICROSCOPIC STAT 03/13/2025 5:54 AM EDT URINALYSIS WITH REFLEX MICROSCOPIC STAT 03/13/2025 5:[address] ABDOMEN PELVIS W CONTRAST STAT 03/13/2025 4:04 AM EDT ETHANOL STAT 03/13/2025 2:42 AM EDT LACTATE, WITH REFLEX STAT 03/13/2025 2:42 AM EDT MAGNESIUM STAT 03/13/2025 2:42 AM EDT LIPASE STAT 03/13/2025 2:42 AM EDT CBC WITH AUTO DIFFERENTIAL STAT 03/13/2025 2:42 AM EDT COMPREHENSIVE METABOLIC PANEL STAT 03/13/2025 2:42 AM EDT CBC AND DIFFERENTIAL STAT 03/13/2025 2:42 AM EDT ECG 12-LEAD STAT 03/13/2025 2:05 AM EDT ECG ANNOTATED 02/16/2025 POCT GLUCOSE BLOOD Routine 02/15/2025 11 :15 AM EDT POCT GLUCOSE BLOOD Routine 02/15/2025 8: 05 AM EDT RESPIRATORY VIRUS PANEL MOLECULAR STUDY Routine 02/13/2025 9:01 AM EDT BASIC METABOLIC PANEL Routine 02/13/2025 5:53 AM EDT COMPLETE BLOOD COUNT Routine 02/13/2025 5:53 AM EDT ECG 12-LEAD STAT 02/12/2025 10:31 PM EDT B-TYPE NATRIURETIC PEPTIDE STAT 02/12/2025 10:19 PM EDT TROPONIN I HIGH SENSITIVITY STAT 02/12/2025 10:18 PM EDT CBC WITH AUTO DIFFERENTIAL STAT 02/12/2025 10:18 PM EDT BASIC METABOLIC PANEL STAT 02/12/2025 10:18 PM EDT CBC AND DIFFERENTIAL STAT 02/12/2025 10:18 PM EDT VENOUS BLOOD GAS STAT 02/12/2025 10:0 9 PM EDT XR CHEST 1 VIEW STAT 02/12/2025 8:23 PM EDT VAS US DUPLEX LOWER EXT VENOUS BILAT STAT 02/01/2025 4:13 PM EDT Generalized edema CBC WITH AUTO DIFFERENTIAL STAT 01/23/2025 8:01 PM EDT LIPASE STAT 01/23/2025 8:01 PM EDT COMPREHENSIVE METABOLIC PANEL STAT 01/23/2025 8:01 PM EDT CBC AND DIFFERENTIAL STAT 01/23/2025 8:01 PM EDT XR RIBS W CHEST 3+ VIEWS LEFT STAT 01/22/2025 12:24 AM EDT XR SHOULDER 2+ VIEWS LEFT STAT 01/22/2025 12:24 AM EDT XR HIP 2-3 VIEWS LEFT STAT 01/22/2025 12:24 AM EDT US ABDOMEN LIMITED STAT 01/21/2025 5: [address] ABDOMEN PELVIS W CONTRAST STAT 01/21/2025 2:09 AM EDT CHAVEZ URINE CULTURE TUBE STAT 01/21/2025 1:39 AM EDT URINALYSIS WITH REFLEX MICROSCOPIC AND CULTURE STAT 01/21/2025 1:39 AM EDT URINALYSIS WITH REFLEX MICROSCOPIC AND CULTURE STAT 01/21/2025 1:39 AM EDT CBC WITH AUTO DIFFERENTIAL STAT 01/20/2025 10:01 PM EDT LIPASE STAT 01/20/2025 10:01 PM EDT COMPREHENSIVE METABOLIC PANEL STAT 01/20/2025 10:01 PM EDT CBC AND DIFFERENTIAL STAT 01/20/2025 10:01 PM EDT ECG ANNOTATED 01/15/2025 TROPONIN I HIGH SENSITIVITY STAT 01/14/2025 5:17 PM EDT US BEDSIDE VASCULAR ACCESS Routine 01/14/2025 4:34 PM EDT CBC WITH AUTO DIFFERENTIAL STAT 01/14/2025 3:36 PM EDT TROPONIN I HIGH SENSITIVITY STAT 01/14/2025 3:36 PM EDT B-TYPE NATRIURETIC PEPTIDE STAT 01/14/2025 3:36 PM EDT BASIC METABOLIC PANEL STAT 01/14/2025 3:36 PM EDT CBC AND DIFFERENTIAL STAT 01/14/2025 3:36 PM EDT XR CHEST 2 VIEWS STAT 01/14/2025 2:45 PM EDT ECG 12-LEAD STAT 01/14/2025 2:24 PM EDT B-TYPE NATRIURETIC PEPTIDE STAT 01/09/2025 1:08 AM EDT CBC WITH AUTO DIFFERENTIAL STAT 01/08/2025 10:36 PM EDT CBC AND DIFFERENTIAL STAT 01/08/2025 10:36 PM EDT XR CHEST 2 VIEWS STAT 01/08/2025 10:1 7 PM EDT HEPATIC FUNCTION PANEL STAT Add-on 01/08/2025 9:57 PM EDT BASIC METABOLIC PANEL STAT 01/08/2025 9:57 PM EDT ECG 12-LEAD STAT 01/08/2025 9:42 PM EDT ECG OUTSIDE 12/20/2024 ECG ANNOTATED 12/20/2024 LIPID PANEL Routine 08/07/2024 from Last 3 Months or Most Recently Relevant to Health Maintenance Results * ECG-Annotated (03/20/2025) Only the most recent of5 resultswithin the time period is included. us Provider Onbase MD ECG ORDERABLES Final Result * Troponin I high sensitivity (03/18/2025 9:57 PM EDT) Only the most recent of5 resultswithin the time period is included. [facility] High Sensitivity Troponin I 6 <=79 ng/L LAB CHEMISTRY METHOD 03/18/2025 10:41 PM EDT [facility] Blood Venous blood specimen / Unknown Venipuncture / Unknown 03/18/2025 9:57 PM EDT 03/18/2025 10:10 PM EDT Narrative [facility] - 03/18/2025 10:41 PM EDT High levels of biotin in samples may falsely decrease hsTroponin values. Use caution when interpreting hsTroponin results in patients taking biotin who exhibit renal impairment (eGFR <60) or in patients taking more than 20 mg/day of biotin. us Dave Jaramillo MD LAB BLOOD ORDERABLES Final Resu lt [facility] [address] [place] [address], * (ABNORMAL) CBC auto differential (03/18/2025 8:59 PM EDT) Only the most recent of8 resultswithin the time period is included. WBC 6.2 4.8 - 10.8 K/mcL LAB HEMETOLOGY METHOD 03/18/2025 10:23 PM EDT [facility] RBC 3.70(L) 4.50 - 5.50 M/mcL LAB HEMETOLOGY METHOD 03/18/2025 10:23 PM EDT [facility] Hemoglobin 11.5(L) 13.5 - 17.5 g/dL LAB HEMETOLOGY METHOD 03/18/2025 10:23 PM EDT [facility] Hematocrit 37.0(L) 42.0 - 54.0 % LAB HEMETOLOGY METHOD 03/18/2025 10:23 PM EDT [facility] MCV 101.1(H) 79.0 - 98.0 FL LAB H[facility]ETOLOGY [facility] MCH 31.4 27.0 - 32.0 pcg LAB HEMETOLOGY METHOD [facility]/18[facility]25 [facility] MCHC 31.1(L) 32.0 - 37.0 g/dL LAB HEMETOLOGY METHOD 03/18/2025 10:23 PM [facility] RDW 17.3(H) 11.0 - 15.0 % LAB HEMETOLOGY METHOD 03/18/2025 10:23 PM [facility] Platelets 214 130 - 400 K/mcL LAB HEMETOLOGY METHOD 03/18/2025 10:23 PM [facility] MPV 11.0 7.0 - 11.0 FL LAB HEMETOLOGY METHOD 03/18/2025 10:23 PM [facility] NRBC 0.0 <1.0 % LAB HEMETOLOGY METHOD 03/18/2025 10:23 PM [facility] NRBC Absolute 0.00 <0.10 K/mcL LAB HEMETOLOGY METHOD 03/18/2025 10:23 PM [facility] Neutrophils Relative 52.6 % LAB HEMETOLOGY METHOD 03/18/2025 10:23 PM [facility] Lymphocytes Relative 31.4 % LAB HEMETOLOGY METHOD 03/18/2025 10:23 PM [facility] Monocytes Relative 13.5 % LAB HEMETOLOGY METHOD 03/18/2025 10:23 PM [facility] Eosinophils Relative 1.6 % LAB HEMETOLOGY METHOD 03/18/2025 10:23 PM [facility] Basophils Relative 0.6 % LAB HEMETOLOGY METHOD 03/18/2025 10:23 PM [facility] Immature Granulocytes Relative 0.3 % LAB HEMETOLOGY METHOD 03/18/2025 10:23 PM [facility] Neutrophils Absolute 3.26 1.50 - 7.00 K/mcL LAB HEMETOLOGY METHOD 03/18/2025 10:23 PM [facility] Lymphocytes Absolute 1.95 1.00 - 5.00 K/mcL LAB HEMETOLOGY METHOD 03/18/2025 10:23 PM EDT [facility] Monocytes Absolute 0.84 0.20 - 1.00 K/mcL LAB HEMETOLOGY METHOD 03/18/2025 10:23 PM EDT [facility] Eosinophils Absolute 0.10 0.00 - 0.50 K/[facility] LAB HEMETOLOGY METHOD 03/18/2025 10:23 PM EDT [facility] Basophils Absolute 0.04 0.00 - 0.20 K/[facility] LAB HEMETOLOGY METHOD 03/18/2025 10:23 PM EDT [facility] Immature Granulocytes Absolute 0.02 0.00 - 0.03 K/[facility] LAB HEMETOLOGY METHOD 03/18/2025 10:23 PM EDT [facility] Blood Venous blood specimen / Unknown Venipuncture / Unknown 03/18/2025 8:59 PM EDT 03/18/2025 10:10 PM EDT Dave Jaramillo MD LAB BLOOD ORDERABLES Final Resu lt [facility] [address] [place] [address], [place] [phone] * B-type natriuretic peptide (03/18/2025 8:59 PM EDT) Only the most recent of4 resultswithin the time period is included. BNP 7 <=100 pcg/mL LAB CHEMISTRY METHOD 03/18/2025 10:56 PM EDT [facility] Blood Venous blood specimen / Unknown Venipuncture / Unknown 03/18/2025 8:59 PM EDT 03/18/2025 10:10 PM EDT Dave Jaramillo MD LAB BLOOD ORDERABLES Final Resu lt [facility] [address] [place] [address], [place] [phone] * Magnesium (03/18/2025 8:59 PM EDT) Only the most recent of2 resultswithin the time period is included. Pathologist [facility] Magnesium 2.1 1.9 - 2.6 mg/dL LAB CHEMISTRY METHOD 03/18/2025 10:49 PM EDT [facility] Blood Venous blood specimen / Unknown Venipuncture / Unknown 03/18/2025 8:59 PM EDT 03/18/2025 10:10 PM EDT us Dave Jaramillo MD LAB BLOOD ORDERABLES Final Resu lt Performing Organization Address [facility]/ZIP Co de Phone Number [facility] [address] [place] [address], [place] [phone] * (ABNORMAL) Lipase (03/18/2025 8:59 PM EDT) Only the most recent of5 resultswithin the time period is included. [facility] Lipase 124(H) 13 - 75 unit/L LAB CHEMISTRY METHOD 03/18/2025 10:51 PM EDT [facility] Blood Venous blood specimen / Unknown Venipuncture / Unknown 03/18/2025 8:59 PM EDT 03/18/2025 10:10 PM EDT us Dave Jaramillo MD LAB BLOOD ORDERABLES Final Resu lt Performing Organization Address City/[facility]/ZIP Co de Phone Number [facility] [address] [place] [address], [place] [phone] * (ABNORMAL) Comprehensive metabolic panel (03/18/2025 8:59 PM EDT) Only the most recent of5 resultswithin the time period is included. Sodium 141 133 - 145 mmol/L LAB CHEMISTRY METHOD 03/18/2025 10:51 PM [facility] Potassium 3.8 3.5 - 5.5 mmol/L LAB CHEMISTRY METHOD 03/18/2025 10:51 PM [facility] Chloride 107 96 - 110 mmol/L LAB CHEMISTRY METHOD 03/18/2025 10:51 PM [facility] CO2 29 21 - 32 mmol/L LAB CHEMISTRY METHOD 03/18/2025 10:51 PM [facility] Anion Gap 5 3 - 11 LAB CHEMISTRY METHOD 03/18/2025 10:51 PM [facility] Glucose 88 70 - 100 mg/dL LAB CHEMISTRY METHOD 03/18/2025 10:51 PM [facility] BUN 13 5 - 25 mg/dL LAB CHEMISTRY METHOD 03/18/2025 10:51 PM [facility] Creatinine 0.64(L) 0.70 - 1.30 mg/dL LAB CHEMISTRY METHOD 03/18/2025 10:51 PM [facility] eGFR 107 >=60 mL/min/1. 73m2 LAB CHEMISTRY METHOD 03/18/2025 10:51 PM [facility] Comment:Calculation based on the Chronic Kidney Disease Epidemiology Collaboration (CKD-EPI) equation refit without adjustment for race. BUN/Creatinine Ratio 20.3 LAB CHEMISTRY METHOD 03/18/2025 10:51 PM [facility] Calcium 8.3(L) 8.5 - 10.5 mg/dL LAB CHEMISTRY METHOD 03/18/2025 10:51 PM [facility] AST (SGOT) 16 10 - 42 unit/L LAB CHEMISTRY METHOD 03/18/2025 10:51 PM [facility] ALT (SGPT) 22 10 - 60 unit/L LAB CHEMISTRY METHOD 03/18/2025 10:51 PM [facility] Alkaline Phosphatase 77 42 - 121 unit/L LAB CHEMISTRY METHOD 03/18/2025 10:51 PM EDT [facility] Total Protein 6.2 6.0 - 8.0 g/dL LAB CHEMISTRY METHOD 03/18/2025 10:51 PM EDT [facility] Albumin 3.6 3.2 - 5.0 g/dL LAB CHEMISTRY METHOD 03/18/2025 10:51 PM EDT [facility] Total Bilirubin 0.6 0.0 - 1.4 mg/dL LAB CHEMISTRY METHOD 03/18/2025 10:51 PM EDT [facility] Blood Venous blood specimen / Unknown Venipuncture / Unknown 03/18/2025 8:59 PM EDT 03/18/2025 10:10 PM EDT Dave Jaramillo MD LAB BLOOD ORDERABLES Final Resu lt [facility] [address] [place] [address], [place] [phone] * ECG 12 lead (03/18/2025 8:21 PM EDT) Only the most recent of5 resultswithin the time period is included. Ventricular Rate ECG 83 BPM GEMUSE Atrial Rate 83 BPM GEMUSE P-R Interval 150 ms GEMUSE QRS Duration 86 ms GEMUSE Q-T Interval 360 ms GEMUSE QTc 423 ms GEMUSE P Wave Empire 69 degrees GEMUSE R Empire 59 degrees GEMUSE T Empire 57 degrees GEMUSE ECG Interpretation Sinus rhythm with Premature atrial complexes Increased R/S ratio in V1, consider early transition or posterior infarct Abnormal ECG When compared with ECG of 13-MAR-2025 02:05, Premature atrial complexes are now Present Confirmed by USMAN ÁLVAREZ ([id number]) on 03/20/2025 3:18:45 PM GEMUSE 03/18/2025 8:21 PM EDT 03/20/2025 3:18 PM EDT Dave Jaramillo MD ECG ORDERABLES Final Result GEMUSE * US Abdomen Limited (03/18/2025 7:51 PM EDT) Only the most recent of3 resultswithin the time period is included. Anatomical Region Laterality Modality Body Ultrasound 03/18/2025 8:22 PM EDT Impressions 03/18/2025 8:22 PM EDT Impression: Cholelithiasis without acute cholecystitis. Gallbladder adenomyomatosis could be considered. Hepatic steatosis. This document has been electronically signed by: Merced French MD on 03/18/2025 20:22:02 Narrative 03/18/2025 8:22 PM EDT INDICATION: Abd pain, unspecified Limited abdominal ultrasound Comparison: CT - CT ABD PEL W CONTRAST - 03/13/25 03:51 EDT US - US ABD LIMITED - 01/21/25 04:39 EDT Findings: The liver is normal in size, measuring 16.9 cm in length. Increased echogenicity without focal lesions. Normal hepatopetal flow is seen within the portal vein. The common bile duct is normal in diameter, measuring 0.5 cm. Cholelithiasis; there is a stone measuring 1.8 cm. There is comet tail artifact. No wall thickening or pericholecystic fluid. Negative sonographic Javier sign. The right kidney is normal in echogenicity and size, measuring 9.2 cm in length. Unremarkable limited evaluation of the pancreas. Procedure Note Merced Guthrie MD - 03/18/2025 INDICATION: Abd pain, unspecified Limited abdominal ultrasound Comparison: CT - CT ABD PEL W CONTRAST - 03/13/25 03:51 EDT US - US ABD LIMITED - 01/21/25 04:39 EDT Findings: The liver is normal in size, measuring 16.9 cm in length. Increased echogenicity without focal lesions. Normal hepatopetal flow is seenwithin the portal vein. The common bile duct is normal in diameter, measuring 0.5 cm. Cholelithiasis; there is a stone measuring 1.8 cm. There is comet tail artifact. No wall thickening or pericholecystic fluid. Negative sonographic Javier sign. The right kidney is normal in echogenicity and size, measuring 9.2 cm in length. Unremarkable limited evaluation of the pancreas. IMPRESSION: Impression: Cholelithiasis without acute cholecystitis. Gallbladder adenomyomatosis could be considered. Hepatic steatosis. This document has been electronically signed by: Merced French MD on 03/18/2025 20:22:02 us Ivy Raymundo [facility] IMG US PROCEDURES Final Result * CT Abdomen Pelvis w Contrast (03/17/2025 12:06 PM EDT) Only the most recent of3 resultswithin the time period is included. Anatomical Region Laterality Modality Body Computed Tomogra phy 03/17/2025 12:4 3 PM EDT Impressions 03/17/2025 12:51 PM EDT There are no CT findings of complications from pancreatitis. There is no biliary dilation. Distended small bowel could be reactive. Cholelithiasis without biliary dilation -------- FINAL REPORT -------- Dictated By: Darrian Cloud Dictated Date: 03/17/2025 12:43 ET Assigned Physician: Darrian Cloud Reviewed and Electronically Signed By: Darrian Cloud Signed Date: 03/17/2025 12:51 ET Workstation ID: [id number] Transcribed By: Self Edit Transcribed Date: 03/17/2025 12:43 ET Narrative 03/17/2025 12:51 PM EDT EXAMINATION: CT ABDOMEN/PELVIS WITH IV CONTRAST CLINICAL INFORMATION: Epigastric pain. History of gallstones, pancreatitis. Nausea and vomiting COMPARISON: Portions of previous 03/13/25 TECHNIQUE: Multidetector CT. Helical examination of the abdomen and pelvis. Imaging performed after the IV administration of contrast. Reformatting in the coronal and sagittal planes. DLP: 1178 mGy-cm Dose optimization was performed including the use of low-dose iterative reconstruction technique with automatic exposure control based on patient size. Type of contrast: ISOVUE 370 Volume of IV contrast: 90 mL Volume of contrast discarded: 0 mL FINDINGS: Digital frame stripper demonstrates gas-filled distended loops of small bowel in the central abdomen. Severe abnormality in region of right hip. LIVER: The right lobe of the liver measures 17.4 cm. Subtle perfusion abnormality or focal fat along the right side of the falciform ligament. Unchanged tiny circumscribed low attenuating lesion in hepatic segment IVb peripherally may represent a cyst. No suspicious focal liver lesion. BILIARY TRACT: There is a rim calcified 1.7 cm gallstone near the neck of the gallbladder. No gallbladder wall thickening mucosal hyperenhancement or pericholecystic fluid. There is no biliary dilation. There is no opaque duct calculus. SPLEEN: Spleen measures 10.5 cm. No focal abnormality. PANCREAS: The pancreas is not enlarged. There is no mass. There is no pancreatic ductal dilation. There is no peripancreatic stranding. There is no peripancreatic collection. ADRENAL GLANDS: Minimal nodularity of the lateral limb of the right adrenal gland possibly a small adenoma. KIDNEYS: No dilation of the intrarenal collecting system. The nephrograms are symmetric. No suspicious renal mass. No opaque renal calculus. URINARY BLADDER: The bladder is distended. No focal abnormality. PELVIC VISCERA: The prostate is not well demonstrated or relatively small. GASTROINTESTINAL TRACT: There is mural stratification of the rectum. The colon is not well distended. There is low attenuation of the submucosa. There is some submucosal low attenuation of the terminal ileum. No definite abscess sinus tract or fistula. There are some fluid and gas-filled mildly distended small bowel loops in the central abdomen. There is a small hiatal hernia. A large amount of fat protrudes through the esophageal hiatus. ABDOMINAL WALL: No significant hernia is appreciated. LYMPHOVASCULAR STRUCTURES AND FLUID: There is no abdominal aortic aneurysm. There is arterial calcification. The portal vein enhances. No definite recanalization of the umbilical vein. No enlarged lymph nodes. No free intraperitoneal fluid. There is no evidence of pneumoperitoneum. VISUALIZED LOWER CHEST: There are a few tiny tree-in-bud opacities in the posteromedial right lower lobe. As described a large amount of fat protrudes through the esophageal hiatus. MUSCULOSKELETAL: No acute or suspicious osseous abnormality. There are severe abnormalities involving both hips. The femoral heads are deformed. There is obliteration of the joint spaces. There is remodeling with coxa magna on the right and severe deformity of the acetabulum both sides. This could reflect secondary degenerative change. There is generalized osteopenia. There is some volume loss of L3. Procedure Note Darrian Cloud MD - 03/17/2025 EXAMINATION: CT ABDOMEN/PELVIS WITH IV CONTRAST CLINICAL INFORMATION: Epigastric pain. History of gallstones, pancreatitis. Nausea andvomiting COMPARISON: Portions of previous 03/13/25 TECHNIQUE: Multidetector CT. Helical examination of the abdomen and pelvis. Imaging performed after the IV administration of contrast. Reformatting in the coronal and sagittal planes. DLP: 1178 mGy-cm Dose optimization was performed including the use of low-dose iterativereconstruction technique with automatic exposure control based on patientsize. Type of contrast: ISOVUE 370 Volume of IV contrast: 90 mL Volume of contrast discarded: 0 mL FINDINGS: Digital frame stripper demonstrates gas-filled distended loops of smallbowel in the central abdomen. Severe abnormality in region of right hip. LIVER: The right lobe of the liver measures 17.4 cm. Subtle perfusionabnormality or focal fat along the right side of the falciform ligament.Unchanged tiny circumscribed low attenuating lesion in hepatic segment IVbperipherally may represent a cyst. No suspicious focal liver lesion. BILIARY TRACT: There is a rim calcified 1.7 cm gallstone near the neck ofthe gallbladder. No gallbladder wall thickening mucosal hyperenhancementor pericholecystic fluid. There is no biliary dilation. There is no opaqueduct calculus. SPLEEN: Spleen measures 10.5 cm. No focal abnormality. PANCREAS: The pancreas is not enlarged. There is no mass. There is nopancreatic ductal dilation. There is no peripancreatic stranding. There isno peripancreatic collection. ADRENAL GLANDS: Minimal nodularity of the lateral limb of the rightadrenal gland possibly a small adenoma. KIDNEYS: No dilation of the intrarenal collecting system. The nephrogramsare symmetric. No suspicious renal mass. No opaque renal calculus. URINARY BLADDER: The bladder is distended. No focal abnormality. PELVIC VISCERA: The prostate is not well demonstrated or relativelysmall. GASTROINTESTINAL TRACT: There is mural stratification of the rectum.The colon is not well distended. There is low attenuation of thesubmucosa. There is some submucosal low attenuation of the terminal ileum.No definite abscess sinus tract or fistula. There are some fluid and gas-filled mildly distended small bowel loops inthe central abdomen. There is a small hiatal hernia. A large amount of fat protrudes throughthe esophageal hiatus. ABDOMINAL WALL: No significant hernia is appreciated. LYMPHOVASCULAR STRUCTURES AND FLUID: There is no abdominal aorticaneurysm. There is arterial calcification. The portal vein enhances. Nodefinite recanalization of the umbilical vein. No enlarged lymph nodes. No free intraperitoneal fluid. There is noevidence of pneumoperitoneum. VISUALIZED LOWER CHEST: There are a few tiny tree-in-bud opacities in theposteromedial right lower lobe. As described a large amount of fatprotrudes through the esophageal hiatus. MUSCULOSKELETAL: No acute or suspicious osseous abnormality. There aresevere abnormalities involving both hips. The femoral heads are deformed.There is obliteration of the joint spaces. There is remodeling with coxamagna on the right and severe deformity of the acetabulum both sides. Thiscould reflect secondary degenerative change. There is generalized osteopenia. There is some volume loss of L3. IMPRESSION: There are no CT findings of complications from pancreatitis. There is nobiliary dilation. Distended small bowel could be reactive. Cholelithiasis without biliary dilation -------- FINAL REPORT -------- Dictated By: Darrian Cloud Dictated Date: 03/17/2025 12:43 ET Assigned Physician: Darrian Cloud Reviewed and Electronically Signed By: Darrian Cloud Signed Date: 03/17/2025 12:51 ET Workstation ID: [id number] Transcribed By: Self Edit Transcribed Date: 03/17/2025 12:43 ET Dave Jaramillo MD [facility] CT PROCEDURES Final Result * (ABNORMAL) Urinalysis with reflex microscopic (03/13/2025 5:54 AM EDT) Specific [place] Urine >1.045(H) 1.003 - 1.030 LAB URINALYSIS - AUTOMATED METHOD 03/13/2025 6:16 AM EDT [facility] pH, Urine 5.5 5.0 - 8.0 pH LAB URINALYSIS - AUTOMATED METHOD 03/13/2025 6:16 AM [facility] Leukocytes, Urine Negative Negative LAB URINALYSIS - AUTOMATED METHOD 03/13/2025 6:16 AM [facility] Nitrite, Urine Negative Negative LAB URINALYSIS - AUTOMATED METHOD 03/13/2025 6:16 AM T [facility] Protein, Urine Trace <=Trace mg/dL LAB URINALYSIS - AUTOMATED METHOD 03/13/2025 6:16 AM [facility] Glucose, Urine Negative Negative mg/dL LAB URINALYSIS - AUTOMATED METHOD 03/13/2025 6:16 AM [facility] Ketones, Urine Trace(A) Negative mg/dL LAB URINALYSIS - AUTOMATED METHOD 03/13/2025 6:16 AM [facility] Urobilinogen , Urine 1.0 0.2 - 1.0 mg/dL LAB URINALYSIS - AUTOMATED METHOD 03/13/2025 6:16 AM [facility] Bilirubin, Urine Negative Negative LAB URINALYSIS - AUTOMATED METHOD 03/13/2025 6:16 AM [facility] Blood, Urine Negative Negative LAB URINALYSIS - AUTOMATED METHOD 03/13/2025 6:16 AM [facility] Urine Urine specimen obtained by clean catch procedure / Unknown Non-blood Collection / Unknown 03/13/2025 5:54 AM EDT 03/13/2025 6:12 AM EDT us Derek Carney MD LAB URINE ORDERABLES Final R esult [facility] [address] [place] [address], [place] [phone] * Lactate, with Reflex (03/13/2025 2:42 AM EDT) LACTIC ACID 1.1 0.4 - 2.0 mmol/L LAB CHEMISTRY METHOD 03/13/2025 3:18 AM T [facility] Blood Venous blood specimen / Unknown Venipuncture / Unknown 03/13/2025 2:42 AM EDT 03/13/2025 2:47 AM EDT Derek Carney MD LAB BLOOD ORDERABLES Final R esult Performing Organization Address City/[facility]/ZIP Co de Phone Number [facility] [address] [place] [address], [place] [phone] * Ethanol (03/13/2025 2:42 AM EDT) [facility] Ethanol Level <3 0 - 10 mg/dL LAB CHEMISTRY METHOD 03/13/2025 3:15 AM EDT [facility] Blood Venous blood specimen / Unknown Venipuncture / Unknown 03/13/2025 2:42 AM EDT 03/13/2025 2:47 AM EDT Derek Carney MD LAB BLOOD ORDERABLES Final R esult Performing Organization Address [facility] Co de Phone Number [facility] [address] [place] [address], [place] [phone] * (ABNORMAL) POCT Glucose, blood (02/15/2025 11:15 AM EDT) Only the most recent of2 resultswithin the time period is included. [facility] Glucose POCT 223(H) 70 - 100 mg/dL 02/15/2025 11:16 AM EDT [facility] Blood Capillary blood specimen / Unknown 02/15/2025 11:15 AM EDT 02/15/2025 11:17 AM EDT Sergo Adams MD LAB POINT OF CARE TE ST DOCKED DEVICE UNSOLICITED RESULTS Final Result Performing Organization Address [facility]/ZIP Co de Phone Number [facility] [address] [place] [address], [place] [phone] * Respiratory virus panel molecular study (02/13/2025 9:01 AM EDT) [facility] Adenovirus Detection by PCR Not Detected Not Detected LAB MICROBIOLOGY METHOD 02/13/2025 10:57 AM EDT [facility] Influenza A PCR Not Detected Not Detected LAB MICROBIOLOGY METHOD 02/13/2025 10:57 AM EDT [facility] Influenza B PCR Not Detected Not Detected LAB MICROBIOLOGY METHOD 02/13/2025 10:57 AM EDT [facility] Coronavirus 229E Not Detected Not Detected LAB MICROBIOLOGY METHOD 02/13/2025 10:57 AM EDT [facility] Coronavirus HKU1 Not Detected Not Detected LAB MICROBIOLOGY METHOD 02/13/2025 10:57 AM EDT [facility] Coronavirus OC43 Not Detected Not Detected LAB MICROBIOLOGY METHOD 02/13/2025 10:57 AM EDT [facility] Coronavirus NL63 Not Detected Not Detected LAB MICROBIOLOGY METHOD 02/13/2025 10:57 AM EDT [facility] Parainfluenza Virus 1 Not Detected Not Detected LAB MICROBIOLOGY METHOD 02/13/2025 10:57 AM EDT [facility] Parainfluenza Virus 2 Not Detected Not Detected LAB MICROBIOLOGY METHOD 02/13/2025 10:57 AM EDT [facility] Parainfluenza Virus 3 Not Detected Not Detected LAB MICROBIOLOGY METHOD 02/13/2025 10:57 AM EDT [facility] Parainfluenza Virus 4 Not Detected Not Detected LAB MICROBIOLOGY METHOD 02/13/2025 10:57 AM EDT [facility] RSV PCR Not Detected Not Detected LAB MICROBIOLOGY METHOD 02/13/2025 10:57 AM EDT [facility] Human Metapneumovirus A and B Not Detected Not Detected LAB MICROBIOLOGY METHOD 02/13/2025 10:57 AM EDT [facility] Rhinovirus/Entero virus Not Detected Not Detected LAB MICROBIOLOGY METHOD 02/13/2025 10:57 AM EDT [facility] Bordetella pertussis Not Detected Not Detected LAB MICROBIOLOGY METHOD 02/13/2025 10:57 AM EDT [facility] Bordetella parapertussis Not Detected Not Detected LAB MICROBIOLOGY METHOD 02/13/2025 10:57 AM EDT [facility] Mycoplasma pneumo by PCR Not Detected Not Detected LAB MICROBIOLOGY METHOD 02/13/2025 10:57 AM EDT [facility] Chlamydia pneumoniae Not Detected Not Detected LAB MICROBIOLOGY METHOD 02/13/2025 10:57 AM EDT [facility] SARS COV-2 Not Detected Not Detected LAB MICROBIOLOGY METHOD 02/13/2025 10:57 AM EDT [facility] Swab Nasopharyngeal structure / Unknown Non-blood Collection / Unknown 02/13/2025 9:01 AM EDT 02/13/2025 9:50 AM EDT [facility] - 02/13/2025 10:57 AM EDT Testing was performed using the [employer] Respiratory Pathogen PCR Assay. All results must [...] that are below the limit of detection. Sergo Adams MD LAB MICROBIOLOGY - GENERAL OR DERABLES Final Result [facility] [address] [place] [address], * (ABNORMAL) Complete blood count (02/13/2025 5:53 AM EDT) WBC 6.6 4.8 - 10.8 K/mcL LAB HEMETOLOGY METHOD 02/13/2025 6:28 AM EDT [facility] RBC 3.80(L) 4.50 - 5.50 M/mcL LAB HEMETOLOGY METHOD 02/13/2025 6:28 AM [facility] Hemoglobin 11.5(L) 13.5 - 17.5 g/dL LAB HEMETOLOGY METHOD 02/13/2025 6:28 AM [facility] Hematocrit 37.6(L) 42.0 - 54.0 % LAB HEMETOLOGY METHOD 02/13/2025 6:28 AM [facility] MCV 99.7(H) 79.0 - 98.0 FL LAB HEMETOLOGY METHOD 02/13/2025 6:28 AM [facility] MCH 30.5 27.0 - 32.0 pcg LAB HEMETOLOGY METHOD 02/13/2025 6:28 AM [facility] MCHC 30.6(L) 32.0 - 37.0 g/dL LAB HEMETOLOGY METHOD 02/13/2025 6:28 AM [facility] RDW 18.6(H) 11.0 - 15.0 % LAB HEMETOLOGY METHOD 02/13/2025 6:28 AM [facility] Platelets 204 130 - 400 K/mcL LAB HEMETOLOGY METHOD 02/13/2025 6:28 AM [facility] MPV 10.5 7.0 - 11.0 FL LAB HEMETOLOGY METHOD 02/13/2025 6:28 AM [facility] NRBC 0.0 <1.0 % LAB HEMETOLOGY METHOD 02/13/2025 6:28 AM [facility] NRBC Absolute 0.00 <0.10 K/mcL LAB HEMETOLOGY METHOD 02/13/2025 6:28 AM [facility] Blood Venous blood specimen / Unknown Venipuncture / Unknown 02/13/2025 5:53 AM EDT 02/13/2025 6:06 AM EDT Sandro Vee MD LAB BLOOD ORDERABLES Rena dejesus Result [facility] [address] [place] [address], * (ABNORMAL) Basic metabolic panel (02/13/2025 5:53 AM EDT) Only the most recent of4 resultswithin the time period is included. Sodium 140 133 - 145 mmol/L LAB CHEMISTRY METHOD 02/13/2025 7:10 AM [facility] Potassium 4.2 3.5 - 5.5 mmol/L LAB CHEMISTRY METHOD 02/13/2025 7:10 AM [facility] Chloride 106 96 - 110 mmol/L LAB CHEMISTRY METHOD 02/13/2025 7:10 AM [facility] CO2 29 21 - 32 mmol/L LAB CHEMISTRY METHOD 02/13/2025 7:10 AM [facility] Anion Gap 5 3 - 11 LAB CHEMISTRY METHOD 02/13/2025 7:10 AM [facility] Glucose 169(H) 70 - 100 mg/dL LAB CHEMISTRY METHOD 02/13/2025 7:10 AM [facility] BUN 16 5 - 25 mg/dL LAB CHEMISTRY METHOD 02/13/2025 7:10 AM [facility] Creatinine 0.68(L) 0.70 - 1.30 mg/dL LAB CHEMISTRY METHOD 02/13/2025 7:10 AM [facility] eGFR 105 >=60 mL/min/1. 73m2 LAB CHEMISTRY METHOD 02/13/2025 7:10 AM [facility] Comment:Calculation based on the Chronic Kidney Disease Epidemiology Collaboration (CKD-EPI) equation refit without adjustment for race. BUN/Creatinine Ratio 23.5 LAB CHEMISTRY METHOD 02/13/2025 7:10 AM [facility] Calcium 8.9 8.5 - 10.5 mg/dL LAB CHEMISTRY METHOD 02/13/2025 7:10 AM EDT [facility] Blood Venous blood specimen / Unknown Venipuncture / Unknown 02/13/2025 5:53 AM EDT 02/13/2025 6:06 AM EDT us Sandro Vee MD LAB BLOOD ORDERABLES Rena l Result Performing Organization Address [facility]/ZIP Co de Phone Number [facility] [address] [place] [address], * (ABNORMAL) Venous blood gas (02/12/2025 10:09 PM EDT) pH, Ed 7.34 7.32 - 7.42 pH 02/12/2025 10:29 PM EDT [facility] pCO2, Ed 62(HH) 41 - 51 mmHg 02/12/2025 10:29 PM EDT [facility] pO2, Ed 29 25 - 40 mmHg 02/12/2025 10:29 PM EDT [facility] HCO3, Venous 28.0(H) 22.0 - 26.0 mmol/L 02/12/2025 10:29 PM EDT [facility] O2 Sat, Ed 37.6 % 02/12/2025 10:29 PM EDT [facility] Base Excess, Ed 5.8(H) -2.0 - 2.0 mmol/L 02/12/2025 10:29 PM EDT [facility] Blood Venous blood specimen / Unknown Venipuncture / Unknown 02/12/2025 10:09 PM EDT 02/12/2025 10:19 PM EDT us Juan Conte MD LAB BLOOD ORDERABLES Final Resu lt Performing Organization Address City/[facility]/ZIP Co de Phone Number [facility] [address] [place] [address], [place] [phone] * XR Chest 1 View (02/12/2025 8:23 PM EDT) Anatomical Region Laterality Modality Body Radiographic Marylin ging 02/13/2025 8:56 AM EDT Impressions 02/13/2025 8:58 AM EDT Impression: Stable radiographic appearance of the chest. No active pulmonary process identified. Telerad CRISTINA ([id number]) -------- FINAL REPORT -------- Dictated By: Mariah Jeffries Dictated Date: 02/13/2025 08:56 ET Assigned Physician: Mariah Jeffries Reviewed and Electronically Signed By: Mariah Jeffries Signed Date: 02/13/2025 08:58 ET Workstation ID: [id number] Transcribed By: Self Edit Transcribed Date: 02/13/2025 08:56 ET Narrative 02/13/2025 8:58 AM EDT History: Chest pain and cough. Comparison: 01/22/25, 03/19/24, thoracic CT 12/18/24 Findings: Portable AP upright chest at 8:20 PM. The cardiac silhouette remains normal in size. Hilar and mediastinal contours are stable. The pulmonary vascularity is within normal limits. A prominent epicardial fat pad is again seen on the right. The lungs are grossly clear. The costophrenic angles are sharp. Procedure Note Mariah Jeffries MD - 02/13/2025 History: Chest pain and cough. Comparison: 01/22/25, 03/19/24, thoracic CT 12/18/24 Findings: Portable AP upright chest at 8:20 PM. The cardiac silhouette remainsnormal in size. Hilar and mediastinal contours are stable. The pulmonaryvascularity is within normal limits. A prominent epicardial fat pad isagain seen on the right. The lungs are grossly clear. The costophrenicangles are sharp. IMPRESSION: Impression: Stable radiographic appearance of the chest. No active pulmonary processidentified. Telerad CRISTINA ([id number]) -------- FINAL REPORT -------- Dictated By: Mariah Jeffries Dictated Date: 02/13/2025 08:56 ET Assigned Physician: Mariah Jeffries Reviewed and Electronically Signed By: Mariah Jeffries Signed Date: 02/13/2025 08:58 ET Workstation ID: [id number] Transcribed By: Self Edit Transcribed Date: 02/13/2025 08:56 ET us Juanelio Conte MD IMG XR PROCEDURES Final Result * Vascular US Duplex Lower Extremity Venous Bilateral (02/01/2025 4:13 PM EDT) Anatomical Region Laterality Modality Vascular, Abdomen Ultrasound 02/01/2025 3:59 PM EDT Impressions 02/01/2025 4:00 PM EDT NO RIGHT OR LEFT LOWER EXTREMITY DEEP VENOUS THROMBOSIS. -------- FINAL REPORT -------- Dictated By: Kb Dsouza Dictated Date: 02/01/2025 15:59 ET Assigned Physician: Kb Dsouza Reviewed and Electronically Signed By: Kb Dsouza Signed Date: 02/01/2025 16:00 ET Workstation ID: [id number] Transcribed By: Self Edit Transcribed Date: 02/01/2025 15:59 ET Narrative 02/01/2025 4:00 PM EDT PROCEDURE: VAS US DUPLEX LOWER EXT VENOUS BILAT INDICATION: pain in extremities TECHNIQUE: 2-D and color Doppler imaging of the lower extremity venous vasculature with compression and augmentation maneuvers. COMPARISON: No priors available. FINDINGS: RIGHT: There is normal flow, compression, and augmentation from the common femoral through the popliteal vein. Visualized calf veins unremarkable. LEFT: There is normal flow, compression, and augmentation from the common femoral through the popliteal vein. Visualized calf veins unremarkable. Procedure Note Kb Dsouza MD - 02/01/2025 PROCEDURE: VAS US DUPLEX LOWER EXT VENOUS BILAT INDICATION: pain in extremities TECHNIQUE: 2-D and color Doppler imaging of the lower extremity venousvasculature with compression and augmentation maneuvers. COMPARISON: No priors available. FINDINGS: RIGHT: There is normal flow, compression, and augmentation from the commonfemoral through the popliteal vein. Visualized calf veins unremarkable. LEFT: There is normal flow, compression, and augmentation from the commonfemoral through the popliteal vein. Visualized calf veins unremarkable. IMPRESSION: NO RIGHT OR LEFT LOWER EXTREMITY DEEP VENOUS THROMBOSIS. -------- FINAL REPORT -------- Dictated By: Kb Dsouza Dictated Date: 02/01/2025 15:59 ET Assigned Physician: Kb Dsouza Reviewed and Electronically Signed By: Kb Dsouza Signed Date: 02/01/2025 16:00 ET Workstation ID: [id number] Transcribed By: Self Edit Transcribed Date: 02/01/2025 15:59 ET us Graciela Eduardo DO CV VASCULAR PROCEDURES Fi nal Result * XR Hip 2-3 Views Left (01/22/2025 12:24 AM EDT) Anatomical Region Laterality Modality Lower Extremities, Hip Left Radiograp hic Imaging 01/22/2025 2:03 AM EDT Impressions 01/22/2025 2:04 AM EDT FINDINGS/IMPRESSION: Severe osteoarthritis of both hips with chronic remodeling of the humeral heads and [id number]-[id number] articulation. Prominent osteophytes. There is no dislocation or displaced fracture evident. -------- FINAL REPORT -------- Dictated By: Kb Dsouza Dictated Date: 01/22/2025 02:03 ET Assigned Physician: Kb Dsouza Reviewed and Electronically Signed By: Kb Dsouza Signed Date: 01/22/2025 02:04 ET Workstation ID: [id number] Transcribed By: Self Edit Transcribed Date: 01/22/2025 02:03 ET Narrative 01/22/2025 2:04 AM EDT XR HIP 2-3 VIEWS LEFT INDICATION: pain slip and fall TECHNIQUE: XR HIP 2-3 VIEWS LEFT COMPARISON: No priors available. Procedure Note Kb Dsouza MD - 01/22/2025 XR HIP 2-3 VIEWS LEFT INDICATION: pain slip and fall TECHNIQUE: XR HIP 2-3 VIEWS LEFT COMPARISON: No priors available. IMPRESSION: FINDINGS/IMPRESSION: Severe osteoarthritis of both hips with chronicremodeling of the humeral heads and [id number]-[id number]-[id number] articulation. Prominentosteophytes. There is no dislocation or displaced fracture evident. -------- FINAL REPORT -------- Dictated By: Kb Dsouza Dictated Date: 01/22/2025 02:03 ET Assigned Physician: Kb Dsouza Reviewed and Electronically Signed By: Kb Dsouza Signed Date: 01/22/2025 02:04 ET Workstation ID: [id number] Transcribed By: Self Edit Transcribed Date: 01/22/2025 02:03 ET us Rubens Short MD IMJeanine XR PROCEDURES Final Result * XR Shoulder 2+ Views Left (01/22/2025 12:24 AM EDT) Anatomical Region Laterality Modality Upper Extremities, Shoulder Left Radi ographic Imaging 01/22/2025 2:05 AM EDT Impressions 01/22/2025 2:05 AM EDT FINDINGS/IMPRESSION: Chronically displaced distal clavicle fracture. No acute fracture or shoulder dislocation. -------- FINAL REPORT -------- Dictated By: Kb Dsouza Dictated Date: 01/22/2025 02:05 ET Assigned Physician: Kb Dsouza Reviewed and Electronically Signed By: Kb Dsouza Signed Date: 01/22/2025 02:05 ET Workstation ID: [id number] Transcribed By: Self Edit Transcribed Date: 01/22/2025 02:05 ET Narrative 01/22/2025 2:05 AM EDT XR SHOULDER 2+ VIEWS LEFT INDICATION: pain slip and fall TECHNIQUE: XR SHOULDER 2+ VIEWS LEFT COMPARISON: No priors available. Procedure Note Kb Dsouza MD - 01/22/2025 XR SHOULDER 2+ VIEWS LEFT INDICATION: pain slip and fall TECHNIQUE: XR SHOULDER 2+ VIEWS LEFT COMPARISON: No priors available. IMPRESSION: FINDINGS/IMPRESSION: Chronically displaced distal clavicle fracture. Noacute fracture or shoulder dislocation. -------- FINAL REPORT -------- Dictated By: Kb Dsouza Dictated Date: 01/22/2025 02:05 ET Assigned Physician: Kb Dsouza Reviewed and Electronically Signed By: Kb Dsouza Signed Date: 01/22/2025 02:05 ET Workstation ID: [id number] Transcribed By: Self Edit Transcribed Date: 01/22/2025 02:05 ET Rubens BANERJEE XR PROCEDURES Final Result * XR Ribs w Chest 3+ Views Left (01/22/2025 12:24 AM EDT) Anatomical Region Laterality Modality Body Left Radiographic Marylin ging 01/22/2025 2:06 AM EDT Impressions 01/22/2025 2:07 AM EDT FINDINGS/IMPRESSION: No displaced rib fractures. Lungs are clear. -------- FINAL REPORT -------- Dictated By: Kb Dsouza Dictated Date: 01/22/2025 02:06 ET Assigned Physician: Kb Dsouza Reviewed and Electronically Signed By: Kb Dsouza Signed Date: 01/22/2025 02:07 ET Workstation ID: [id number] Transcribed By: Self Edit Transcribed Date: 01/22/2025 02:06 ET Narrative 01/22/2025 2:07 AM EDT XR RIBS W CHEST 3+ VIEWS LEFT INDICATION: pain slip and fall TECHNIQUE: XR RIBS W CHEST 3+ VIEWS LEFT COMPARISON: No priors available. Procedure Note Kb Dsouza MD - 01/22/2025 XR RIBS W CHEST 3+ VIEWS LEFT INDICATION: pain slip and fall TECHNIQUE: XR RIBS W CHEST 3+ VIEWS LEFT COMPARISON: No priors available. IMPRESSION: FINDINGS/IMPRESSION: No displaced rib fractures. Lungs are clear. -------- FINAL REPORT -------- Dictated By: Kb Dsouza Dictated Date: 01/22/2025 02:06 ET Assigned Physician: Kb Dsouza Reviewed and Electronically Signed By: Kb Dsouza Signed Date: 01/22/2025 02:07 ET Workstation ID: [id number] Transcribed By: Self Edit Transcribed Date: 01/22/2025 02:06 ET Rubens BANERJEE XR PROCEDURES Final Result * Urinalysis with reflex microscopic and culture (01/21/2025 1:39 AM EDT) Specific [place] Urine 1.022 1.003 - 1.030 LAB URINALYSIS - AUTOMATED METHOD 01/21/2025 2:11 AM [facility] pH, Urine 5.5 5.0 - 8.0 pH LAB URINALYSIS - AUTOMATED METHOD 01/21/2025 2:11 AM [facility] Leukocytes, Urine Negative Negative LAB URINALYSIS - AUTOMATED METHOD 01/21/2025 2:11 AM [facility] Nitrite, Urine Negative Negative LAB URINALYSIS - AUTOMATED METHOD 01/21/2025 2:11 AM [facility] Protein, Urine Negative <=Trace mg/dL LAB URINALYSIS - AUTOMATED METHOD 01/21/2025 2:11 AM [facility] Glucose, Urine Negative Negative mg/dL LAB URINALYSIS - AUTOMATED METHOD 01/21/2025 2:11 AM [facility] Ketones, Urine Negative Negative mg/dL LAB URINALYSIS - AUTOMATED METHOD 01/21/2025 2:11 AM [facility] Urobilinogen, Urine 1.0 0.2 - 1.0 mg/dL LAB URINALYSIS - AUTOMATED METHOD 01/21/2025 2:11 AM [facility] Bilirubin, Urine Negative Negative LAB URINALYSIS - AUTOMATED METHOD 01/21/2025 2:11 AM [facility] Blood, Urine Negative Negative LAB URINALYSIS - AUTOMATED METHOD 01/21/2025 2:11 AM [facility] Urine Urine specimen obtained by clean catch procedure / Unknown Non-blood Collection / Unknown 01/21/2025 1:39 AM EDT 01/21/2025 2:07 AM EDT us George EVANS LAB URINE ORDERABLES Final Resul t [facility] [address] [place] [address], * Chavez urine culture tube (01/21/2025 1:39 AM EDT) Extra Tube Hold for add-ons. 01/21/2025 4:01 AM EDT [facility] Comment:Auto resulted. Urine Urine specimen obtained by clean catch procedure / Unknown Non-blood Collection / Unknown 01/21/2025 1:39 AM EDT 01/21/2025 2:07 AM EDT George EVANS LAB URINE ORDERABLES Final Resul t [facility] [address] [place] [address], [place] [phone] * US ED Bedside Vascular Access (01/14/2025 4:34 PM EDT) Anatomical Region Laterality Modality Ultrasound Narrative 01/14/2025 4:34 PM EDT CRISTINA Preciado 01/15/2025 12:38 PM US ED Bedside Vascular Access Date/Time: 01/14/2025 4:34 PM Performed by: CRISTINA Preciado Authorized by: CRISTINA Preciado Consent: Consent obtained: Verbal Consent given by: Patient Risks discussed: Bleeding, infection and pain Procedure specific details: Emergency Ultrasound Guidance for Peripheral IV All images have been recorded and permanently stored. Encounter: 4:15 PM Pre-Procedure Check Performed on Patient, Procedure, Side, Site: Yes Indication: IV Fluids / RN unable to obtain Catheter length: 1.75in Catheter gauge: 18 gauge Location: Upper Arm Specific Vein if applicable: Left basilic Results / Confirmation: Adequate blood return / Flushes well / Secured Comments: LYLE Hernandez present. us Sergo EVANS US BEDSIDE PROCEDURES Final Result * XR Chest 2 Views (01/14/2025 2:45 PM EDT) Only the most recent of2 resultswithin the time period is included. Anatomical Region Laterality Modality Body Radiographic Marylin ging 01/14/2025 3:00 PM EDT Impressions 01/14/2025 3:01 PM EDT FINDINGS/IMPRESSION: Two views of the chest demonstrating no consolidation or effusion. Stable cardiomediastinal contours. Stable appearance of the bones including a chronically displaced left clavicle fracture. -------- FINAL REPORT -------- Dictated By: Kb Dsouza Dictated Date: 01/14/2025 15:00 ET Assigned Physician: Kb Dsouza Reviewed and Electronically Signed By: Kb Dsouza Signed Date: 01/14/2025 15:01 ET Workstation ID: [id number] Transcribed By: Self Edit Transcribed Date: 01/14/2025 15:00 ET Narrative 01/14/2025 3:01 PM EDT XR CHEST 2 VIEWS INDICATION: dyspnea TECHNIQUE: XR CHEST 2 VIEWS COMPARISON: No priors available. Procedure Note Kb Dsouza MD - 01/14/2025 XR CHEST 2 VIEWS INDICATION: dyspnea TECHNIQUE: XR CHEST 2 VIEWS COMPARISON: No priors available. IMPRESSION: FINDINGS/IMPRESSION: Two views of the chest demonstrating no consolidationor effusion. Stable cardiomediastinal contours. Stable appearance of thebones including a chronically displaced left clavicle fracture. -------- FINAL REPORT -------- Dictated By: Kb Dsouza Dictated Date: 01/14/2025 15:00 ET Assigned Physician: Kb Dsouza Reviewed and Electronically Signed By: Kb Dsouza Signed Date: 01/14/2025 15:01 ET Workstation ID: [id number] Transcribed By: Self Edit Transcribed Date: 01/14/2025 15:00 ET us Sergo EVANS IMG XR PROCEDURES Final Resu lt * (ABNORMAL) Hepatic Function Panel (01/08/2025 9:57 PM EDT) Total Protein 5.9(L) 6.0 - 8.0 g/dL LAB CHEMISTRY METHOD 01/09/2025 1:32 AM EDT [facility] Albumin 3.2 3.2 - 5.0 g/dL LAB CHEMISTRY METHOD 01/09/2025 1:32 AM EDT [facility] Total Bilirubin 0.3 0.0 - 1.4 mg/dL LAB CHEMISTRY METHOD 01/09/2025 1:32 AM EDT [facility] Bilirubin, Direct 0.1 0.0 - 0.3 mg/dL LAB CHEMISTRY METHOD 01/09/2025 1:32 AM EDT [facility] Bilirubin, Indirect 0.2 0.0 - 1.1 mg/dL LAB CHEMISTRY METHOD 01/09/2025 1:32 AM EDT [facility] ALT (SGPT) 32 10 - 60 unit/L LAB CHEMISTRY METHOD 01/09/2025 1:32 AM EDT [facility] AST (SGOT) 11 10 - 42 unit/L LAB CHEMISTRY METHOD 01/09/2025 1:32 AM EDT [facility] Alkaline Phosphatase 90 42 - 121 unit/L LAB CHEMISTRY METHOD 01/09/2025 1:32 AM EDT [facility] Blood Venous blood specimen / Unknown Venipuncture / Unknown 01/08/2025 9:57 PM EDT 01/08/2025 10:03 PM EDT George EVANS LAB BLOOD ORDERABLES Final Resul t [facility] [address] [place] [address], * ECG-Outside (12/20/2024) Provider Onbase ECG ORDERABLES Final Result * (ABNORMAL) Lipid panel (08/07/2024) LDL/HDL Ratio 4 <=5 Triglycerides 238(A) <=150 mg/dL Cholesterol 181 <=200 mg/dL HDL 42 >=40 mg/dL LDL Cholesterol 103(A) <=100 mg/dL Blood Venous blood specimen / Unknown Historical Provider LAB BLOOD ORDERABLES Rena l Result from Last 3 Months or Most Recently Relevant to Health Maintenance Insurance MEDICA[place] - [place] * Guarantor: [facility] Account Type Relation to Patient Date of Phone Billing Address [facility] [address] [place] [address] Advance Directives Documents on File Type Date Recorded Patient President Celebrity Acquistion Expl anation Advance Directives and Living Will 02/14/2025 2:04 PM PROXY Advance Directives and Living Will 02/13/2025 5:28 PM Paras RestoHector Colon Health Care Pro xy Advance Directives and Living Will 09/17/2024 9:37 AM ADV DIR-Healthcare Proxy 11.20.24 Advance Directives and Living Will 09/17/2024 9:37 AM ADV DIR-MOLST 11.20.24 Health Care Decision (hx) 06/11/2018 ADVANCE DIRECTIVE [...] 10/02/2015 ADVANCE DIRECTIVE * Full Code - Default (Latest Code Status on File) Date Activated Date Inactivated Comments 02/13/2025 12:03 AM 02/15/2025 3:05 PM This is ord er is used when code status has not been discussed with the patient, or code status is otherwise unknown/unconfirmed To update the patient's code status, place a code status order. Do not modify or discontinue any currently active code status orders. * Full Code - Confirmed Date Activated Date Inactivated Comments 12/18/2024 2:32 [...] discontinue any currently active code status orders. Healthcare Agents on File Name Relationship Healthcare Agent [facility] p Communication Justin Stubbs First Alternate Health Care Agent Paras Olaf Friend Second Alternate Health Care Agent Care Teams Artificial Limb Fitter Relationship Specialty Start Date End Date Physician, Pcp Unknown PCP - General 03/17/25
--- OUTSIDE RECORDS SUMMARY | 2025-03-21 16:28 | XMS_ITS | Encounter Summary ---
Author Organization [facility] Address [address] [place] [address] Care Team Providers Care Emissions Repair Technician Name Role Phone Name, Gomez HORN Primary Care Provider [phone] Donta Glover RN Unavailable [phone] Anna Ignacio Unavailable Encounter Details Date Type Department Care Team (Latest Contact Info) Description 03/21/2025 Travel Social History Tobacco Use Types Packs/Day Years Used Date Smoking Tobacco: Former Cigarettes Passive Smoke Exposure: Past Alcohol Use Standard Drinks/Week Comments Yes 0 (1 standard drink = 0.6 oz pur e alcohol) social Alcohol Answer Date Recorded Frequency of Alcohol Consumption Not on file 04/05/2024 Average Number of Drinks Not on file 024 Frequency of Binge Drinking Not on file 03/2024 Score 0 04/05/2024 Depression Answer Date Recorded Patient Health Questionnaire-9 Score 15 03/18/2025 Patient Health Questionnaire-9 Score 15 03/18/2025 Last PHQ-9: Questionnaire Data Not on file 0 03/18/2025 Housing Stability Answer Date Recorded What is your housing situation today? I have lian haynes 04/05/[address] you li ve. Do you have problems with any of the following? None of the above 04/05/2024 Food Insecurity Answer Date Recorded Within the past 12 months, y ou worried that your food would run out before you got money to buy more: Sometimes True 2024 Within the past 12 months,th e food you bought just didn't last and you didn't have enough money to get more: Sometimes True 01/02/2025 Transportation Answer Date Recorded In the past 12 months, has l ack of transportation kept you from medical appts, meetings, work or from getting things needed for daily living? Yes, it has kept me from medical appointments or getting medications. 01/02/2025 Utilities Answer Date Recorded In the past 12 months, has t he electric, gas, oil or water company threatened to shut off services in your home? No 04/05/2024 Depression Answer Date Recorded Patient Health Questionnaire-2 Score 3 03/18/2025 Internet Access Answer Date Recorded Internet Access Q1 Yes 01/02/2025 Internet Access Q2 I do not want or need it 02/2025 Sex and Gender Information Value Date Recorded Sex Assigned at Male 06/28/2022 10:17 AM EDT Legal Sex Male 10:17 AM EDT Gender Identity Male 02/06/2024 1:51 PM EDT Sexual Orientation Straight 02/06/2024 1: 51 PM EDT documented as of this encounter Plan of Treatment Upcoming Encounters Date Type Department Care Team (Late st Contact Info) Description 05/01/2025 10:00 AM EDT Office Visit [facility] [address] [place] [address] Name, MD Gomez [address] [place] [address] documented as of this encounter Visit Diagnoses Not on filedocumented in this encounter Additional Health Concerns Assessment Noted Time PHQ-9 Depression Total Score: 15 025 9:56 AM EDT documented as of this encounter Care Teams Emissions Repair Technician Relationship Specialty Start Date End Date NameGomez MD [address] [place] [address] PCP - General Internal Medicine 04/05/24 Donta Glover, LYLE [address] [place] [address] Registered Nurse Family Medicine 01/09/25 Anna Ignacio 01/09/25 Luis E HERRONA 01/05/25 documented as of this encounter
--- OUTSIDE RECORDS SUMMARY | 2025-03-21 16:28 | XMS_ITS | Clinical Summary ---
Author Organization [facility] Address [address] [place] [address] Care Team Providers Care Durability Engineer Name Role Phone EliezerKanuKatrinkiran STANTON Primary Care Provider [phone] Source Comments PLEASE NOTE, if this patient [...] Plan of Treatment Not on file Insurance [employer] Care Teams Durability Engineer Relationship Specialty Start Date End Date Katrin Martins DMD [address] [place] [id number] [facility] - General 11/07/20
[2025-03-21 17:49] LABS: Appearance Urine Clear; Glucose Urine UA Negative (Negative); PH 5.5 (5.0-9.0); Specific Gravity - Urine 1.025 (1.005-1.025)
== END 2025-03-21 16:26 | disposition home or self-care (01) ==
LOC: HO.CHCLNP 16:25
PROVIDERS: Visit Provider Emergency Medicine
DX: K80.20 Calculus of gallbladder without cholecystitis without obstruction (principal)
CPT/HCPCS: 81001

== ENCOUNTER 2025-07-05 11:59 | Outpatient (REF) | payer MEDICAID, SELFPAY ==
--- OUTSIDE RECORDS SUMMARY | 2023-11-01 10:39 | XMS_ITS | Continuity of Care Document ---
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 Cruller Maker Name Role Phone Linda HORN, Ujjwala Unavailable Unavaila ble Allergies, Adverse Reactions, Alerts Substance Reaction Status Criticality OXYCODONE HCL Active No Information acetaminophen Active No Information OXYCODONE HCL Active No Information codeine Tachycardia Active No Information acetaminophen Active No Information Medications Medication Instructions Dosage Effective Dates (start - stop) Status Comments Pepcid 20 mg tablet take 1 tablet by oral route every day 20 MG - Active Will try off PPI Trelegy Ellipta 200 mcg-62.5 mcg-25 mcg powder for inhalation inhale 1 puff by inhalation route every day at the same time each day 1.00 puff - Active Increase from 100 to 200 POLYETH GLYC POW 3350 NF TAKE 1 PACKET BY ORAL ROUTE EVERY DAY MIXED WITH 8 OZ. FLUID - Active Singulair 10 mg tablet take 1 tablet by oral route every day in the evening 10 MG - Active Vitamin D3 25 mcg (1,000 unit) capsule TAKE 1 CAPSULE BY MOUTH EVERY DAY - Active ALBUTEROL INH 8.5GM INHALE 2 PUFFS BY MOUTH INTO THE LUNGS EVERY 4 - 6 HOURS NEEDED - Active CARBOXYMETHY VANESSA 0.5% APPLY 1-2 DROPS TO AFFECTED EYES UP TO 4X PER DAY - Active NICOTINE TD DIS 14MG/24H APPLY 1 PATCH TO SKIN DAILY. REMOVE PATCH AT BEDTIME. - Active ROSUVASTATIN 10MG TAKE 1 TABLET BY ORAL ROUTE EVERY DAY AT BEDTIME - Active Space Chamber with Medium Mask Use with MDI daily - Active albuterol sulfate 2.5 mg/3 mL (0.083 %) solution for nebulization inhale 3 milliliter by nebulization route Q4-6 hours PRN SOB/wheezing as needed - Active 25 vials per order thanks ipratropium 0.5 mg-albuterol 3 mg (2.5 mg base)/3 mL nebulization soln inhale 3 milliliter by nebulization route as needed for dyspnea when at SE - Active Please send t o [facility] Nebulizer Plus Sidestream for home use with nebulizer solutions - Active Advance Directives Directive Yes / No Effective Date File Name No Information Encounters Encounter Description Practice Location Reason(s) For Visit Diagnoses Date Provider [facility] [address], [id number], tel:[phone] [facility] No Information 4 Bhagavatula Ujjwala. [address] [place] [address], [id number], . tel:[phone] [facility] [employer], [id number], [place] tel:[phone] [place] No Information 3 Lionel Parada. [address] [place] [address], [id number], [place]. tel:[phone] [facility], [address] [employer] [address] [place] [address], [id number], tel:[phone] [place] Semi-Annual (chief complaint)BM C Data (chief complaint) Major depressive disorder, recurrent, in remissionNon-adherenc e to medical treatmentMarijuana dependenceAlcohol dependence in remission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Idiopathic hypotensionAortic atherosclerosisPeriph eral vascular diseaseMixed hyperlipidemiaIGT (impaired glucose tolerance)Other osteoporosis without current pathological fractureBody mass index [BMI] 33.0-33.9, adultClass 1 obesity with body mass index (BMI) of 33.0 to 33.9 in adult, unspecified obesity type, unspecified whether serious comorbidity presentTraumatic cataract of right eye, unspecified traumatic cataract typeHistory of hepatitis COsteonecrosis of multiple sitesDyspepsia and disorder of function of stomachEpigastric painPrimary osteoarthritis of both kneesImpaired cognitionSevere persistent asthma, unspecified whether complicatedOSA (obstructive sleep apnea)Encounter for general adult medical examination w/o abnormal findingsPulmonary nodules Jan- 3 Lionel Tal. [address] [place], [place], [id number], [place]. tel:[phone] [facility] [place] [facility] [address] [place] [address], [id number], [place] tel:[phone] [place] OV (chief complaint) Tinea pedis of both feetCallus 3 Lionel Tal. [address] [place] [address], [id number], [place]. tel:[phone] [facility], [address] [place] [address], [id number], [place] tel:[phone] [place] No Information 3 Lionel Tal. [address], [place], [id number], [place]. tel:[phone] [facility] [place] [facility] [address] [place] [address], [id number], [place] tel:[phone] [place] No Information 3 Lionel Tal. [address] [place], [place], [id number], [place]. tel:[phone] [facility] [address] [place] [address], [id number], [place] tel:[phone] [place] No Information 3 Lionel Tal. [address] [place] [address], [id number], [place]. tel:[phone] [facility], [address] [place] [address], [id number], [place] tel:[phone] [place] No Information 3 Lionel Tal. [address] [place], [place], [id number], [place]. tel:[phone] [facility], [address], [place], [place], [id number], [place] tel:[phone] [place] No Information 3 Lionel Tal. [address], [place], [id number], [place]. tel:[phone] [facility] [place] [facility], [place], [place], [id number], [place] tel:[phone] [place] No Information 3 Lionel Tal. [address], [place], [id number], [place]. tel:[phone] [facility] [address] [facility], [place], [place], [id number], [place] tel:[phone] [place] OV (chief complaint) ChillsSevere persistent asthma with acute exacerbationMild tobacco abuse Oct- 3 Lionel Tal. [address] [place], [place], [id number], [place]. tel:[phone] [facility] [address] [facility] [place] [address], [id number], [place] tel:[phone] [place] Absence of teeth, acquiredForeign body in skin of left lesser toeArthritis of right wristPrimary osteoarthritis of both kneesSevere persistent asthma, unspecified whether complicated Oct- 3 Lionel Tal. [address] [place], [place], [id number], [place]. tel:[phone] [facility] [place] [facility] [address] [place] [address], [id number], [place] tel:[phone] [place] Severe persistent asthma, unspecified whether complicated Feb-0 3 Lionel Tal. [address] [place], [place], [id number], [place]. tel:[phone] [facility], [address] [facility], [place], [place], [id number], [place] tel:[phone] [place] OV (chief complaint) Severe persistent asthma with acute exacerbationFood insecurity 3 Lionel Tal. [address] [place], [place], [id number], [place]. tel:[phone] [facility] [address] [facility] [address] [facility], [place], [place], [id number], [place] tel:[phone] [place] No Information 3 Lionel Tal. [address], [place], [id number], [place]. tel:[phone] [facility] [address] [facility] [address], [place], [place], [id number], [place] tel:[phone] [place] Encounter for rehabilitation evaluation 3 Douglas Sahni. [address], [place], [id number], [place]. tel:[phone] [facility] [address] [facility] [address] [facility], [place], [place], [id number], [place] tel:[phone] [place] Encounter for rehabilitation evaluation 2 Douglas Sanhi. [address], [place], [id number], [place]. tel:[phone] [facility], [facility] [place] [facility] [address] [address], [place], [place], [id number], [place] tel:[phone] [place] Encounter for rehabilitation evaluation 2 Chico Marin. [address], [place], [id number], [place]. tel:[phone] [facility], [facility] [place] [facility] [address] [address], [place], [place], [id number], [place] tel:[phone] [place] MIRNA (chief complaint) Marijuana dependenceAlcohol dependence, in remissionOpioid abuse, in remissionAortic atherosclerosisMixed hyperlipidemiaHypogon adism in maleOsteoporosis without current pathological fracture, unspecified osteoporosis typeBody mass index [BMI] 33.0-33.9, adultClass 1 obesity without serious comorbidity with body mass index (BMI) of 33.0 to 33.9 in adult, unspecified obesity typeDry eye syndrome of right eyeCataract of right eye, unspecified cataract typeArthritis of right wristOsteonecrosis of multiple sitesImpaired cognitionSevere persistent asthma, unspecified whether complicatedOSA (obstructive sleep apnea)Non-adherence to medical treatmentMild tobacco abuse in early remissionEncounter for general adult medical examination w/o abnormal findingsXerosis cutis 2 Lionel Tal. [address] [place], [place], [id number], [place]. tel:[phone] [facility], [address], [id number], [place] tel:[phone] [place] Pulmonary nodulesCOP D with asthma 2 Lionel Tal. [address] [place], [place], [id number], [place]. tel:[phone] [facility] [place], [place], [id number], [place] tel:[phone] [place] OV (chief complaint)f/ u with cough and SOB (chief complaint) Marijuana dependenceCOPD with asthmaSOB (shortness of breath)Tobacco abuseNon-adherence to medical treatment 2 Mikel Ramos. [address], [place], [id number], [place]. tel:[phone] [facility], [facility] [address], [id number], [place] tel:[phone] [place] OV (chief complaint) COPD with asthmaTobacco abuse 2 Lionel Tal. [address] [place], [place], [id number], [place]. tel:[phone] [facility], [address], [place], [place], [id number], [place] tel:[phone] [place] Alteration in performance of activities of daily living 0 2 Chico Tania. [address], [place], [id number], [place]. tel:[phone] [facility], [facility] [place] [facility] [address], [place], [place], [id number], [place] tel:[phone] [place] OV (chief complaint) URI, acute May-2 0 2 Lionel Tal. [address] [place], [place], [id number], [place]. tel:[phone] [facility] [address] [facility], [place], [place], [id number], [place] tel:[phone] [place] No Information 2 Ilonel Tal. [address] [place], [place], [id number], [place]. tel:[phone] [facility], [facility] [place] [facility], [place], [place], [id number], [place] tel:[phone] [place] Muscle weakness (generalized) May-0 7 2 Chico Tania. [address], [place], [id number], [place]. tel:[phone] [facility], [facility] [place] [facility], [place], [place], [id number], [place] tel:[phone] [place] Muscle weakness (generalized) May-0 4 2 Chico Tania. [address], [place], [id number], [place]. tel:[phone] [facility], [facility] [place] [facility], [place], [place], [id number], [place] tel:[phone] [place] No Information 2 Lionel Tal. [address] [place], [place], [id number], [place]. tel:[phone] [facility], [address] [facility] [address] [facility], [place], [place], [id number], [place] tel:[phone] [place] Encounter for rehabilitation evaluation 2 Chico Marin. [address], [place], [id number], [place]. tel:[phone] [facility] [address] [facility] [address] [facility], [place], [place], [id number], [place] tel:[phone] [place] OV (chief complaint) Arthritis of right wristCOPD with asthmaPrimary osteoarthritis of both kneesEdema, unspecified type 2 Lionel Tal. [address] [place], [place], [id number], [place]. tel:[phone] [facility], [address] [facility] [address] [facility], [place], [place], [id number], [place] tel:[phone] [place] OV (chief complaint) Lumbar pain on palpationFall from standing, initial encounterDermatitis 2 Lionel Tal. [address] [place], [place], [id number], [place]. tel:[phone] [facility] [address] [facility] [address] [facility], [place], [place], [id number], [place] tel:[phone] [place] No Information 2 Lionel Tal. [address] [place], [place], [id number], [place]. tel:[phone] [facility], [address] [facility] [address] [facility], [place], [place], [id number], [place] tel:[phone] [place] OV (chief complaint) Tobacco abuseMarijuana dependenceIdiopathic hypotensionCOPD with asthmaFood insecurity 2 Lionel Tal. [address] [place], [place], [id number], [place]. tel:[phone] [facility], [facility] [place] [facility], [place], [place], [id number], [place] tel:[phone] [place] FUV (chief complaint) COPD with asthma 2 Lionellalo Raon. [address] [place], [place], [id number], [place]. tel:[phone] [facility], [address], [place], [place], [id number], [place] tel:[phone] [place] Encounter for rehabilitation evaluation 2 Romulo Oneill. [address] [place], [address]. tel:[phone] [facility], [address] [facility], [place], [place], [id number], [place] tel:[phone] [place] Follow Up of AECOPD (chief complaint) COPD with asthma 2 Lionel Tal. [address] [place], [place], [id number], [place]. tel:[phone] [facility] [address] [facility] [address] [facility], [place], [place], [id number], [place] tel:[phone] [place] OV (chief complaint) Acute exacerbation of chronic obstructive pulmonary disease (COPD) 2 Lionel Tal. [address] [place], [place], [id number], [place]. tel:[phone] [facility], [address] [facility] [address] [facility], [place], [place], [id number], [place] tel:[phone] [place] OV (chief complaint) Tinea pedis of both feetEdema, unspecified type 2 Lionel Tal. [address] [place], [place], [id number], [place]. tel:[phone] [facility], [facility] [place] [facility] [address] [address], [place], [place], [id number], [place] tel:[phone] [place] Encounter for nutritional assessmentAbnormal weight gainClass 2 obesity with body mass index (BMI) of 36.0 to 36.9 in adult, unspecified obesity type, unspecified whether serious comorbidity presentBody mass index [BMI] 36.0-36.9, adult 2 Normile Fiona. [address] [place] [address], [id number], [place]. tel:[phone] [facility], [address] [facility] [address] [place] [address], [id number], [place] tel:[phone] [place] MIRNA (chief complaint)ad ditional data (chief complaint) Aortic atherosclerosisMixed hyperlipidemiaClass 2 severe obesity with serious comorbidity and body mass index (BMI) of 36.0 to 36.9 in adult, unspecified obesity typeObesity, Class II, BMI 35-39.9Cataract of right eye, unspecified cataract typeHistory of hepatitis CRecurrent major depressive disorder, in partial remissionMisuse of drugsMarijuana dependenceAlcohol dependence, in remission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Cocaine dependence, in remissionScaphoid non-union advanced collapse of right wristUnspecified fracture of navicular [scaphoid] bone of right wrist, sequelaOsteoporosis without current pathological fracture, unspecified osteoporosis typeOsteonecrosis of multiple sitesImpaired cognitionHistory of vertebral compression fractureOther chronic painCOPD with asthmaExanthemStopped smoking between 1 and 3 months agoEncounter for general adult medical examination w/o abnormal findings 2 Lionel Parada. [address] [place] [address], [id number], [place]. tel:[phone] [facility], [address] [facility] [address] [place] [address], [id number], [place] tel:[phone] [place] OV (chief complaint) History of hepatitis CIdiopathic hypotensionChronic pain of right wristOther chronic painNicotine dependence, cigarettes, with other nicotine-induced disorders 2 Lionel Tal. [address] [place], [place], [id number], [place]. tel:[phone] [facility], [address] [facility] [address] [place] [address], [id number], [place] tel:[phone] [place] Bites (chief complaint) Insect bite of abdominal wall, initial encounterBitten or stung by nonvenomous insect and other nonvenomous arthropods, initial encounterScaphoid non-union advanced collapse of right wristUnspecified fracture of navicular [scaphoid] bone of right wrist, sequela Apr-2 2 Lionel Parada. [address] [place], [place], [id number], [place]. tel:[phone] [facility], [address] [facility] [address] [facility], [place], [place], [id number], [place] tel:[phone] [place] Encounter for rehabilitation evaluation 2 Chico Marin. [address], [place], [id number], [place]. tel:[phone] [facility], [address] [facility] [address], [place], [place], [id number], [place] tel:[phone] [place] Acute pain of right wrist 2 Cysz Krystle. [address], [place], [id number], [place]. tel:[phone] [facility], [address] [facility], [place], [place], [id number], [place] tel:[phone] [place] No Information 2 Farb Augie. [address] [facility], [place], [address], [place]. tel:[phone] [facility], [facility] [place] [facility], [place], [place], [id number], [place] tel:[phone] [place] No Information 2 Cysz Krystle. [address], [place], [id number], [place]. tel:[phone] [facility], [address], [place], [place], [id number], [place] tel:[phone] [place] Encounter for rehabilitation evaluationDifficulty in walking, not elsewhere classifiedOther chronic pain Jul- 1 Kourtney Wilcoxh. [address] [place], [place], [id number]. tel:[phone] [facility], [address] [address], [place], [place], [id number], [place] tel:[phone] [place] Encounter for rehabilitation evaluation 1 Romulo Oneill. [address], [place], [address]. tel:[phone] [facility], 1 [facility], [place], [place], [id number], [place] tel:[phone] [place] MIRNA (chief complaint) Encounter for general adult medical examination w/o abnormal findingsRisk for fallsHyperlipidemia, unspecified hyperlipidemia typeHypogonadism in maleClass 1 obesity with serious comorbidity in adult, unspecified BMI, unspecified obesity typeVitamin D deficiencyVision loss of right eyeEncounter for screening for malignant neoplasm of colonAnemia, unspecified typeHistory of hepatitis CSevere episode of recurrent major depressive disorder, without psychotic featuresMarijuana dependenceFracture of unspecified part of left clavicle, sequelaOsteonecrosis of multiple sitesOsteoarthritis of both knees, unspecified osteoarthritis typeChronic low back pain without sciatica, unspecified back pain lateralityOther chronic painOsteoporosis, unspecified osteoporosis type, unspecified pathological fracture presenceImpaired cognitionHistory of seizureCOPD with asthmaNicotine dependence, cigarettes, with other nicotine-induced disordersWheelchair dependentNon-adherenc e to medical treatmentCocaine dependence, in remission 1 Vanda Thapa. [address], [place], [place], [id number], [place]. tel:[phone] [facility], 1 [facility], [place], [place], [id number], [place] tel:[phone] [place] OV (chief complaint) SOB (shortness of breath)Fracture of unspecified part of left clavicle, sequelaNon-adherence to medical treatmentOther chronic painCOPD with asthmaNicotine dependence, cigarettes, with other nicotine-induced disordersMarijuana dependence 1 Avesukumar Majormargaret. [address] [place], [place], [id number], [place]. tel:[phone] [facility], [address] [facility], [place], [place], [id number], [place] tel:[phone] [place] OV (chief complaint) Risk for fallsCocaine dependence, in remissionBack pain, unspecified back location, unspecified back pain laterality, unspecified chronicity Sep- 1 Os Opal. [address], [place], [place], [id number], [place]. tel:[phone] [facility], [facility] [place] [facility], [place], [place], [id number], [place] tel:[phone] [place] office visit (chief complaint) Encounter for observation for suspected exposure to other biological agents ruled outMarijuana dependenceOSA (obstructive sleep apnea)Non-adherence to medical treatmentNicotine dependence, cigarettes, with other nicotine-induced disordersSOB (shortness of breath)Diarrhea, unspecified typeCOPD with asthma Sep-0 1 Cysz Krystle. [address] [place], [place], [id number], [place]. tel:[phone] [facility], [address] [facility], [place], [place], [id number], [place] tel:[phone] [place] Encounter for observation for suspected exposure to other biological agents ruled out Apr-0 1 Cysz Krystle. [address] [place], [place], [id number], [place]. tel:[phone] [facility], [address] [facility], [place], [place], [id number], [place] tel:[phone] [place] No Information 1 Cysz Krystle. [address] [place], [place], [id number], [place]. tel:[phone] [facility], [address] [facility], [place], [place], [id number], [place] tel:[phone] [place] post ED visit/ optho (chief complaint) Dry eye syndrome of right eyeVision loss of right eyeCataract of right eye, unspecified cataract typeExanthem 1 Cysz Krystle. [address] [place], [place], [id number], [place]. tel:[phone] [facility], [address] [facility] [address] [facility], [place], [place], [id number], [place] tel:[phone] [place] eye problem (chief complaint) Vision loss of right eyeMarijuana dependenceUnable to read or write 1 Cysz Krystle. [address] [place], [place], [id number], [place]. tel:[phone] [facility], 1 [facility], [place], [place], [id number], [place] tel:[phone] [place] No Information 1 Cysz Krystle. [address], [place], [place], [id number], [place]. tel:[phone] [facility], 1 [facility], [place], [place], [id number], [place] tel:[phone] [place] skin concern (chief complaint) Exanthem 1 Cysz Krystle. [address] [place], [place], [id number], [place]. tel:[phone] [facility], [address] [facility] [address], [place], [place], [id number], [place] tel:[phone] [place] Encounter for nutritional assessmentMorbid (severe) obesity due to excess calories 1 Aldo Braun. [address], [place], [address]. tel:[phone] [facility], 1 [facility], [place], [place], [id number], [place] tel:[phone] [place] biannual (chief complaint) Risk for fallsHypogonadism in maleObesity, unspecified classification, unspecified obesity type, unspecified whether serious comorbidity presentVitamin D deficiencyVision loss of right eyeHistory of hepatitis C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Recurrent major depressive disorder, in partial remissionMisuse of drugsMarijuana dependenceAlcohol dependence, in remission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Cocaine dependence, in remissionBilateral hip joint arthritisOsteoarthrit is of both knees, unspecified osteoarthritis typeOsteoporosis, unspecified osteoporosis type, unspecified pathological fracture presenceOsteonecrosis of multiple sitesOther chronic painSevere persistent asthma, unspecified whether complicatedPulmonary emphysema, unspecified emphysema typeSevere obesity with body mass index (BMI) of 35.0 to 35.9 and comorbidityBody mass index [BMI] 35.0-35.9, adultUnable to read or writeNicotine dependence, cigarettes, with other nicotine-induced disordersMixed hyperlipidemiaEncount er for screening for malignant neoplasm of colonNon-adherence to medical treatment 1 Austin Dalton. [address], [place], [id number], [place]. tel:[phone] [facility], [address], [id number], [place] tel:[phone] [place] Chronic concerns (chief complaint) Severe persistent asthma, unspecified whether complicatedPulmonary emphysema, unspecified emphysema type 1 Nancy Anaya. [address], [place], [id number], [place]. tel:[phone] [facility], 1 [facility] [address] [place] [address], [id number], [place] tel:[phone] [place] Encounter for rehabilitation evaluation 1 Romulo Oneill. [address] [facility], [place], [address]. tel:[phone] [facility], 1 [facility] [address] [place] [address], [id number], [place] tel:[phone] [place] Chronic concerns (chief complaint) Severe persistent asthma, unspecified whether complicatedPulmonary emphysema, unspecified emphysema typeNicotine dependence, cigarettes, with other nicotine-induced disorders Apr- 1 Nancy Jaclyn. [address] [place], [place], [id number], [place]. tel:[phone] [facility], [address], [id number], [place] tel:[phone] [place] Chronic concerns (chief complaint) Nicotine dependence, cigarettes, with other nicotine-induced disordersPulmonary emphysema, unspecified emphysema typeSevere persistent asthma, unspecified whether complicated Nov- 1 Nancy Jaclyn. [address] [place], [place], [id number], [place]. tel:[phone] [facility], [address], [id number], [place] tel:[phone] [place] Chronic concerns (chief complaint) Pulmonary emphysema, unspecified emphysema typeSevere persistent asthma, unspecified whether complicatedNicotine dependence, cigarettes, with other nicotine-induced disorders Apr- 1 Nancy Jaclyn. [address] [place], [place], [id number], [place]. tel:[phone] [facility], [address] [place] [address], [id number], [place] tel:[phone] [place] Chronic concerns (chief complaint) Nicotine dependence, cigarettes, with other nicotine-induced disordersSevere persistent asthma, unspecified whether complicatedPulmonary emphysema,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 he does have a cough productive of yellowish sputum, this is not appear to be dramatically different as best I can tell.Spoke of joining new plan/prog in [place]. He was told that would lead to loss of SummitROS:Sleeps well at nightNot having dizziness or lightheadednessVery little vision on the right, decreased vision on the leftHearing seems to be okayDenies oral painDescribes odynophagia at times although cannot really tell me much more beyond that. He specifically cannot tell me if it is related to specific substances, where along the course of his GI tract is. No specific GI complaintsNo urinary painsI asked about his right wrist he said that it was significantly better. I did not explicitly asked regarding hip/low back pain and he did not specifically discuss itMood seems to be fair, very difficult to get him to describe mood/thought contentPost Rx with AF, feet no longer burningExam:Well-developed, chronically debilitated middle-aged gentleman in his power wheelchairVital signs notedNormocephalicThere is a fair amount of opacity in the right eye, left appears to have intact pupil. No scleral icterus, some injection on the rightPanic membranes visualized bilaterallyEdentulous. Oropharynx appears slightly erythematous but otherwise unremarkableNo obvious cervical adenopathy or supraclavicular adenopathyHeart sounds to be regular, distantLungs diffusely diminished. He has very little move wheezing todayAbdomen is protuberant obese, soft, nontender no guardingExtremities are without cyanosis. He does not have much of clubbing. He does not have lower extremity edemaThere may be slight muscular atrophy of lower extremitiesHe has extensive skin changes lower extremities appear to be related to venous disease. There is some degree of varicosity. Feet are adequately perfused. Legs and feet are hairless.He has motor and sensory intact distally in his feetChronic arthritic changes of knees and wrists at the very least. This in addition to his hips obviously where he has AVN.He has very limited motion of the hips. He is able to extend and flex knees and to some extent his ankles.Fine motor is adequate to manipulate his power wheelchair and phone quite skillfully. Facial symmetry appears preserved. Speech is chronically dysarthric. No obvious tremorHis memory is difficult to gauge, seems somewhat impaired although he may simply be inattentiveThere are no hallucinations or obvious delusions. He tends to be distractible.No obvious depressive symptoms. Thought process linearity is difficult to ascertain.Med adherence reviewed-quite indeterminate, fill hx reviewed, list revised OV Patient is seen today for right third toe pain. This is an ongoing issue. Patient reports that he had a foreign body in the past, namely piece of glass. When I saw him subsequently he reported that he had removed the foreign body. Biceps quickly saw him and he had a large callus in the area. I trimmed it back and he was to see podiatry however missed the appointment yesterday. He has been rescheduled and medical records supervisor/bilingual medical assistant let him know precisely when it is.Patient has pain on the tip of the third toe/plantar aspect when he is walking. He does not have pain in the absence of pressure.Exam:Well-developed, gentleman who is chronically debilitated and in power wheelchairNo acute distressChronic venous changes bilaterallyHas plantar fungal dermatitis/tinea pedisFoot adequately perfusedThere is a callus on the lateral/plantar aspect of his right third toe. Using a 15 blade was able to debride it to the point that it was concave. There is no bleeding. It was well tolerated. Somewhat unclear if he is any less tender. OV Patient presents primarily for respiratory symptoms. He reports that he has ongoing cough. He reports in the evening he gets chills. Somewhat less clear if he has sweating. He does not have chills by day. He does not have a thermometer with which to check his temperature when he does have chills.He has resumed smoking. He has discolored sputum and increased cough. He reports that he is using an inhaler although he does not have it with him and regrettably has not brought it despite repeated requests so that we can verify that he is on the correct medication.We clarified date of pulmonary follow-up and follow-up with pulmonary rehab.ROS: Very diffuse and difficultOccasional headachesNo acute vision changeNo dysphasia/odynophagiaNo current chest pain or palpitationsCough/dyspnea as aboveNo acute GI complaintsNo acute urinary complaintsChronic discomfort in legs/feetExam:Vital signs notedWell-developed, chronically debilitated gentleman in no acute distressSclera anictericOropharynx clearNo obvious cervical adenopathyHeart sounds are irregular, somewhat distantLungs coarse, slight wheeze bilaterallyAbdomen protuberant, nontenderExtremities are without clubbing, cyanosis or clear acute ischemic changeHe is at baseline cognitionLargely wheelchair bound although able to stand and really very short distances Acute Visit coughshotnessof breathknweeesright handsmokingw/c beddentOrthoright 3rd toe OV Patient is seen for acute visit for recurrent respiratory symptoms.He reports several days of increasing sputum, cough. He is not short of breath per se. He is using inhalers by his report. He is not feverish. He does not have anorexia. MIRNA Patient seen for a somewhat impromptu biannual as he is unreliable in attendance. He was seen with interpreterPatient has had no hospitalizations, ER visits or significant injuries falls in interval. Functionally he appears relatively unchanged. He is regrettably without Meals on Wheels as he repeatedly was not present for delivery. He says he buys what he can at the store.Patient appears to have a degree of executive dysfunction and often struggles to maintain appointments yet, was able to orchestrate a trip to [place], procured a new dog and seems to be able to manage things that are of importance to him. We do not have a very good window into his existence in the community. He does not have outside help. He has a very poor social network.Interestingly, he offers no acute complaints today. He reports that since he stopped smoking roughly 2 weeks ago he has had increase in his cough which is somewhat productive. He does not feel unwell or short of breath.He reports some occasional gingival bleeding. He has not noted other bleeding.Somewhat oddly, patient denies pain. Patient has been plagued with chronic pain due to bilateral AVN of hips for years.Is taking very few of his medications. He cannot tell me specifically what he is and is not taking. He suggests he is probably taking 2 of the medications that are prescribed. He reports he is using his [id number]:Mind: Very difficult to gauge. There appears to be a degree of cognitive impairment. There is heavy marijuana usage. There is very low literacy.Medications: He takes only a limited number of the medications he is prescribed. He can point them out only by size and color. There are no medications that are particularly offensiveMobility: Able to walk very short distances due to bilateral hip AVN. Largely dependent on power wheelchairMatter most: Being good . Please see advanced directives templateI asked him about healthcare proxy. The gentleman he has listed is apparently no longer in his life due to substance use. He identifies a new person by the name of Jarett, however he does not have his contact information available. OV f/u with cough and SOB SE staff helped with translation for this Lithuanian Speaking ppt. This is this writers first time meeting this ppt. Reports has a consistent cough getting up white sputum since he say one of our providers at the end of May. No fever, chills, rhinorea diarrhea or night sweets or body aches. Reports SOB but no different than baseline. Hx of COPD not on o2 and continues smoking 15 cigarettes a day and marijuana at least 3x a day. Significant discussion in past with pcp about quiting or reducing his smoking due to risk of cancer and worsening respiratory disease if he continues however he does not want to quite. Ppt has been offered nicotine replacement and is not interested. He reported today that he often doesn't take much of his pills except the heartburn one and pain one referring to ppi and nsaid which he takes the later for back pain. Reports the marijuana helps with back pain as well. Also reports saw coin box collector today and they prescribed a med and want to see if maybe for tests but he is not sure. Lungs sounds course throughout with some wheezing which appears to be his baseline per records. He does not look labored and is not using accessory muscles. Also endorses to getting his covid vaccine a few days ago and was tested here a few wks ago for covid and was neg. ROSDenies fevers or chills or night sweets or body achesDenies rhinorhea or sore throatReports SOB with exertion but no different that his baseline, endorsing to not taking his meds at times. Cough with white sputumDenies chest pain, and palpitations denies diarrhea or constipationPENAD, obese in wheel chairLung sounds course throughout with some expiratory wheezing in no respiratory distress Heart rate regular, +S1 and S2Abd soft and non tenderMild pedal edemaPlan:-Discussed with the ppt complications of continuing to smoke with worsening respiratory disease and even with understanding. He is not ready to quite and nicotine replacement was offered which he does not want. Discussed to let us know if he changes his mind-Discussed the importance of being compliant with his medications martha his inhalers to help with his breathing and prevent COPD exacerbations-Discussed this is likely his baseline with advancing COPD and goal to prevent worsening disease-Will see if I can get coin box collector records to see what they prescribed and plans for follow up and imaging. -Will get nebulizer tx here-Reminded pt of his rescue inhaler for SOB OV OV Patient seen for respiratory complaints. He is concerned he might have COVID. Patient seen with formal Lithuanian interpreterPatient with 2 day history of increased cough. It is productive of white sputum. He believes he has minor rhinorrhea. He is not more short of breath than baseline. He does not feel feverish. He does not have arthralgias or myalgias. He does not have headache. He does not have odynophagia/sore throat. He does not have vomiting or diarrhea, potentially nauseous although he is not certain. It is unclear whether he has had sick contacts.Reports ongoing difficulty getting his medications specifically his inhalers. I have reached out to the pharmacy on his behalf and have given him the number (which he tells me he can read) to reach him directly when his running low on medication so as to coordinate delivery or alternatively he takes his power chair to the pharmacy.He continues to smoke marijuana and implication is that he is back to smoking cigarettes as well.Unrelated to the above, he inquires regarding the possibility of Moody crutches. I told him I would inform my rehab colleagues of his request.Reports he has food despite MOW suspension as he was not home to get mealsROS: As aboveExamination:Vital signs are notedBlood pressure without changeWell-developed, chronically debilitated gentleman in his power wheelchairHe is normocephalic. Well groomed todaySclera anicteric, less bloodshot than usualNo obvious nasal dischargeNo pharyngeal findingsNo significant adenopathy palpatedHeart sounds to be regular S1 and S2. Somewhat distantLungs examination reveals somewhat coarse breath sounds. Fair aeration. Minimal expiratory wheezing, actually better than recent times.Abdomen is protuberant, nontenderExtremities without clubbing, stigmata of chronic venous diseaseAwake, alert, attentive, baseline cognitive statusPOC COVID 19 and influenza-negative OV Patient seen [facility] medical records supervisor.My colleagues previously gave patient nebulizer treatment as he was somewhat wheezy.Patient had called previously and indicated that he had stopped taking several of his morning pills as he felt they were causing him adverse effects. He finally came in today after missing appointment several times, he regrettably also missed pulmonary appointment. My colleagues identified the pills in question which include his to diuretics, his bisphosphonate and his antihistamine. I told the patient we can gently stop them however there are potential consequences, particularly with cessation of the diureticsPatient had questions regarding his right wrist. He recalled having seen orthopedics and being told that if they did surgery would have no motion in the wrist. He did not recall having had an injection. I reviewed the note. They offered him fusion. I told him that it was very difficult for me to know whether that would improve things or ameliorate things. He does say he has discomfort. I told him regrettably the decision would have to be his.Patient with right knee pain. He says he fell on his knee when he had trauma many years ago. He has previously been told he had arthritis. He reports that he has previously had injection and he believes it was helpful. There was no specific trauma. He does not feel systemically unwell.I noted occasional areas that look like bug bites. He reports that something continues to bite him. He says that extremity areas did come to his apartment. He spends a great deal of time in the park and it is unclear to me whether these bites are actually from his home or from the par (of note I previously evaluated him for Lyme disease which he did not have at the time).ROS: Somewhat limitedOngoing struggles with food insecurity. RD will kindly remind sales and service advisor to resume mealsWe did not discuss his breathingWe did not discuss GI complaintsTold nursing he was feeling shaky when he was taking the after mentioned pills which he has stoppedWe did discuss his edema and the potential for it to recurExamination:Well-developed, chronically debilitated middle-aged gentleman in his power wheelchair.He is in no acute distressHe is slightly coarse in his breath sounds which is his baselineHe is awake, alert and communicativeAbdomen is protuberantRight wrist with chronic deformity, no acute synovitisHe has trace lower extremity pitting edema bilaterallyThere are small, erythematous lesions to both the right and left leg that are consistent with bites. There is no erythema migrans.Both knees appear to have some degree of effusion. He has reasonable range of motion in the right knee. There is no acute synovitis. His normothermic. There is no erythema.I offered patient knee injection. I made it very clear that there is risk of infection or bleeding. I did explain that either of those would represent a potential emergency. I explained in great detail that should he develop erythema after the procedure or pain or systemic symptoms he is to call us immediately. With that being said, he wished to proceed.Procedure note:Using a inferior medial approach to the left knee identified landmarks. Marking pen was used. The area was cleansed with 3 passes of Betadine prep pads. The area was then infiltrated with approximately 0.7 mL of 1% lidocaine after pullback. After analgesia was achieved the joint was entered with very minimal difficulty using a 25-gauge 1.5 inch needle. After pullback, No resistance was encountered when I injected 1 mL/40 mg of methylprednisolone acetate. Hr Associate is [employer]. Expiration is 06/20. [id number]. Complete hemostasis achieved. Lidocaine cleaned off OV Patient is seen for semiurgent appointment. Patient was to have a CAT scan and then come here however materialized independently after apparently waiting for the van. Thankfully, my colleagues in the office were able to arrange urgent ride so he does not miss his CT of chest.Patient wished to be seen due to reported blisters on his hand. As best I can tell, at the moment there are no blisters. He reports long-standing history of pruritus of both palms. 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 It is bilateral, Palmar. He does not identify any specific precipitants. He says it is worse in warm weather. It is nonproductively bothersome in the winter although he varied that story somewhat. It is quite pruritic.He also notes some lesions to the soles of both feet. He has socks but does not have a sock aid and is unable to put on his socks. I am not aware of any history of treatment for syphilisHe tells us that he fell last night. He was apparently trying to get into his tub. He says the opening is quite narrow and he struggles to get into it. He does not currently have assistance and I asked him if he would accept assistance with showers he said he would. He does not have any RS and he says he would accept that as well.There was no head strike, no loss of consciousness, no prodrome of lightheadedness and he was able to stand up independently, albeit with difficulty. He has pain in his lower back. There is no radicular component to it. He says it hurts to cough.ROS: Limited due to time and his meandering thought processNo headache or head strikeNo acute difficulty with eatingDoes not report any increase in difficulty breathingDoes not report abdominal complaints although I did not explicitly askSuggests he might have been drinking alcohol, timing vis- - vis the fall unclearExam:Vital signs notedSmells very strongly of marijuanaUsual hypotension We did not get standing vital signs given time limitation and baseline low blood pressureHe is normocephalic and atraumaticLungs are diffusely diminished bilaterally. He is not wheezing. There is no increased work of breathingHe has tenderness over the lower lumbar spine in the midline, less so to the left. There is no bruising.Extremities were without cyanosis, clubbing or edemaOn the left greater than right palm there is very mild scale. There are no bullous lesions. There was on the left palm a central area that was slightly violaceous and I am uncertain if that was at one-point bilateral but none currently. The right hand looks nearly identical but perhaps slightly less intense. There is nothing interdigitally or the dorsum of either hand.On the plantar aspect of both feet there is slight desquamation but other areas of thickening. I do not see a distinct exanthem per se. OV Patient seen nara noriega for urgent visit. Primary respiratory complaint. Patient reports he continues to have yellow sputum and perhaps increase symptoms. He regrettably continues to smoke our 1 hour. In addition, he says he did not have patches for a while and therefore begin smoking cigarettes again. He said that only a specific patch works for him. Told him I was not sure where we could locate that but I would give him the prescription in hand and he could go to a different pharmacy as apparently his primary pharmacy does not have that particular brand.He indicates that he is coughing, short of breath. Unclear if febrile or feverish or chilled.He reports that when the air conditioners on he has cramping in his right flank area. He does not have an outside when he is warm.He was significant difficulty hypotensive but not at all symptomatic, interestingly. We discussed the fine balance between his hypotension and keeping him euvolemic. I told him we would try decrease diureticROS:Says he has not had much to eat, funds are running low (did show us a massive speaker that he rents)No acute vision changeNo dysphasiaNo current chest painRight flank pain when ACT is onNo dysuriaPositive cough. Positive sputum.Not having lower extremity swelling currentlyExam:Well-developed, middle-aged gentleman in recumbent power chairNormocephalic and atraumaticSclera anictericMucosal membranes seem decently hydratedHeart sounds to be regular, borderline tachycardicLungs coarse bilaterally. Minimal wheeze.. No increased work of breathingAbdomen is protuberant per routine, slightly tympaniticExtremities are without clubbing, cyanosis or edemaHe is not currently wearing the right wrist brace (as best I can tell had injection).Awake, alert, attentive- FUV Please see karsten riddle notes. In brief, middle-aged gentleman with fairly advanced lung disease who was seen a number of times in the past 2 weeks. Sputum culture grew Moraxella catarrhalis. The patient had a course of azithromycin and prednisone. He appeared to be improving as last visit.He called today to indicate that he continues to have cough, dyspnea despite using inhaler, subjective fevers. He apparently tested for dickson virus at home and it was negative. He comes in for evaluationHistory is as above. He reports still having sputum, unclear if discolored. Coughing, short of breath, subjective fevers. As best I can tell not actually checking his temperature. No significant GI issues, does not specifically mention other complaintsROS: As aboveIndicates he is not smoking cigarettes, continues to smoke marijuana multiple times a dayExam:Well-developed, chronically debilitated gentleman who was in his power wheelchair although he did stand up to have his weight checkedBlood pressure is chronically lowDoes not to me appear to be in acute respiratory distress at allWork of breathing does not seem dramatically increasedHe does have coarse diffuse breath sounds. Slight wheezeHeart sounds to be regularProtuberant abdomenNo significant peripheral edema Follow Up of AECOPD Patient seen today for close follow-up of COPD exacerbation. He was seen on 03/03. He was given nebulizer, penicillin and azithromycin. He indicates that he went to the pharmacy and picked up the medications on 03/04 and took them yesterday and today. I am uncertain precisely how much he used his nebulizer yesterday, he reports he used it once today and he has been given a treatment in clinic now.Globally, he says he feels somewhat better though not dramatically so. He is still bringing up sputum although in comparison to his visit of the other day his cough and sputum production seem diminished. He seems to suggest the breathing is a bit better. His diarrhea has resolved. He does not endorse other specific symptoms.With great yohannes he showed me a picture of his new dog, ostensibly smoking a marijuana jointROS:Ongoing cough slightly diminishedShortness of breath somewhat improvedThe flank pain that he was having bilaterally has resolvedNo GI complaints currentlyNo urinary complaintsExam:Morbidly obese, middle-aged gentleman who is chronically debilitated. He is in his power wheelchair is slightly reclinedThere is less work of breathing and less audible wheezing than last timeVital signs are notedHe is normocephalic and atraumaticRight eye has little vision, sclera minimally injectedMucous membrane seem decently hydratedHeart distant, sounds regularDiffuse coarse breath sounds bilaterally and some expiratory wheeze but quite a bit better than last timeAbdomen protuberant, not overtly tenderExtremities without edemaHe is awake, alert, difficult to comprehend even for wainwright Lithuanian speaker (medical records supervisor)Insight and judgment are suspect OV Patient seen toford noriega due to acute illness. Patient reports that yesterday he developed chills, tactile fever. He had increased cough productive of discolored sputum. He developed diarrhea with multiple loose bowel movements today to the point of having proctalgia.He reports that he did self tests for novel coronavirus at home and it was negative. He used a nebulizer treatment and got little relief. He reports that he has bilateral posterior lateral thoracic pain when breathing.He and his usual fashion asks a somewhat esoteric question, specifically asking which part of the ache is good in which part is bad. I explained that with regard to cholesterol the yolk is the culprit however that moderate consumption and he seems to be reasonable. He indicated that when he has an angry it hurts his legs. I told him to try aloe just the egg white and then just the yolk and see which produces the pain although I cannot understand any specific correlation.ROS:CoughFeeling feverishShort of breathChest pain as he noted, lateral posterior bilateralGI as aforementioned, no vomitingExam:Tachypneic, room air oxygen saturation 91%, temperature 99.1, pulse 100Well-developed, middle-aged gentleman in his reclining power chair. Initially increased work of breathing, did look somewhat better after nebulizerSlight scleral injection on the right.No obvious nasal dischargeHeart difficult to hear, sounds regularLungs diffusely coarse, wheezing throughout. As after mentioned, increased work of breathing that seemed somewhat better after nebulizer treatmentAbdomen protuberant, no guarding or reboundExtremities without clubbing, cyanosis or edemaAwake, alert, attentive OV Patient is seen today as he called yesterday indicating that his feet are swollen and he is unable to walk, that he was unable to tolerate food and that his medications were damaged.Patient is seen with formal medical records supervisor. He is quite vague. He apparently returned from [place] several days ago. He did get the dog.He reports that his feet are itchy. He makes mention the fact that he walked upstairs although does report that his feet are painful per se. He does say that his legs are itching somewhat but far less so than his feet. Unclear if he had any exposure although he was on the beach.With regard to oral intolerance, the patient showed up with a bag of [employer] which he ate very well. He has had no additional vomiting. Details of what transpired are hard to come by. He does not currently have abdominal pain, nausea, vomiting or diarrheaWith regard to his medications, it is extremely unclear what happened, what is in fact missing etc. He says he received some medications that were delivered by the pharmacy last night. I called pharmacy and confirm this. The bulk of his medications are not due for renewal. I spoke to pharmacy services and they will issue an override if medications are replaced.ROS:No chest painNo increase in shortness of breathNo GI complaint is after mentionedNo urinary complaintsExam:Obese, well-developed middle-aged gentleman in his power wheelchair which is reclined for positioningHe is normocephalicHe has a quarter in each ear (not a typo), as he was fearful that would fall out of his pocketMucous membranes decently hydratedThick neckHeart sounds are irregularLungs coarse bilaterally, no increased work of breathing beyond baselineAbdomen protuberant, obese. Still has residual of the bites he sustained before his trip. Most are resolving, at least one is still somewhat induratedRight arm still in lace up splintLegs have 1+ edema bilaterally, fairly symmetric. Hairless. No open lesions. Multiple old healed lesions that are scarredThe feet are not particularly edematous. There is a fine scale to the plantar aspect of his feet and to his interdigital area to a lesser extent.Toenails are elongated and were trimmed without difficulty MIRNA Patient is seen today for biannual with the assistance of formal medical records supervisor. I am seeing him today for my first comprehensive visit with him. I assumed care from my colleague roughly a month ago. I have seen him on 2 occasions recently for problem focused care.Challenges in history are low medical literacy level, presumed substance use, degree of cognitive impairment and lack of ancillary historian.Patient is leaving for [place] on the . He will be there for no longer than a month. He tells me he will likely return in 3 weeks. He understands that he cannot be out of the service area for longer. He is going to get a dog. He has been advised by my social work colleague that this could get him kicked out of his apartment rendering him homeless. He still intends to get the dog.It does not appear the patient has been hospitalized for in the ER in the past 6 months. As best I can tell he has not had functional decline however.With regard to current complaints, he reports that he has a new rash to his abdomen. This is similar to a rash she had several weeks ago. He is not specifically aware of any bites. He reports it is not pruritic. To the best of his knowledge it is not present anywhere else.He also reports some dizziness. Changes were made to his diuretics recently, unclear that these have gone into effect as of yet. It appears he has orthostatic symptoms. Baseline blood pressure is always quite low.Patient has chronic leg and back pain. Generally says it is 8 of 10. I recently changed him to naproxen, unclear if this is any better/worse.On review of systems he does endorse fecal incontinence when he is eating spicy food. Regrettably also endorses constipation with bowel movements only several times per week.Reports little vision in the right eye. He says he would like to see an eye doctor. He makes mention of something in the however, on review of his last ophthalmology note which was several years ago he was noted to have significant cataract.Has pain of the right upper extremity. Does not appear to have seen orthopedics as of yet.Social history:Reports ongoing abstinence from cigarettes, several weeksAlcohol consumption somewhat unclear, reports abstinence -Reports regular marijuana use, reports no other substance use although historically this has not proven accurate, unclear if it changedFunctional history: Patient reports that he is independent with ADLs. He reports that he cooks for himself. He reports that home aide shopsDiscussed quality of life, what would make him wish to go on the event of catastrophic illness. He suggests that high level of debility such as being bedbound, unable to care for himself at all and having consistent pain would be a poor quality of life. He says a friend in [place] is his healthcare proxy. He has no desire to the point of secondary (in spite of the fact that he is going to stay with his brother in [place]). He says that he wishes this and to continue to be his proxy however, in the same breath says that he does not talk to him regularly as he has relapsed with using substances.4Ms:Mind: Difficult to assess given her low educational level, difficulty staying on task. Unclear how much of this is cognition, personality, mental health and substance. He seems to recall certain items fairly well but not othersMedications: None of great concern.Mobility: Advanced hip disease largely confined him to power wheelchair. He plans to use manual wheelchair for his trip. Occasionally uses crutches although he says he misplaced them.Matter most: Difficult to get a coherent answer. Improvement in pain would be appreciatedROS: PLEASE SEE TEMPLATE BELOWExamWell-developed, chronically debilitated, obese gentleman in semi-reclined wheelchairHe is normocephalic and atraumaticThere are opacities of both eyes, right greater than left. Pupil on the right is small, left appeared slightly larger. Both regular and reactive. Sclera anictericTympanic members are visualized bilaterallyEdentulous, some pharyngeal erythemaNo obvious cervical adenopathy or clear thyroid enlargementHeart tones very distant, sound to be regularLungs diffusely coarse, slightly diminished, minimal expiratory wheeze, coarse breath soundsAbdomen protuberant, obese, soft, no obvious guarding or rebound. I do not see a hernia. There is one prominent venous network. Does not appear to have a fluid wave.Extremities are without cyanosis. There is a suggestion of potential clubbing of his fingernails although not very prominentLeg musculature is atrophic. He was fully clad making examination of knees and hips and possibleThere is a small pigmented lesion anterior to the right ear. The left lower lid has a small pigmented lesion and that it does not look particularly alarming. He has multiple slightly indurated, erythematous ovals to his abdomen consistent with insect bitesThere are multiple healed lesions to lower extremities. Lotion rays are hairless.There is a fair amount of callus at the bottom of his feetThere is loss of sensation to both lower extremities right greater than left. He is essentially insensate to the bottom of both feet. He has some sensation in the dorsal left foot and distal leg, seemingly less so on the right. I do not see any open areas. Pulses were actually 2+ bilaterallyHe is awake, alert. He retains some relevant data. He is quite tangential at times but seems coherent overall. Occasionally he will say things that seem to be slightly contradictory. There is degree of disinhibition. Insight and judgment are suspect additional data Data review:[facility] x-ray in 2020 L1-L3 mild chronic compression fracturesSevere chronic bilateral hip AVNSevere atherosclerotic calcification along the abdominal aortaDEXA 2020: OsteoporosisLeft shoulder 2019:Suggestion of calcific tendinitisCT abdomen 2010: Focal abnormality of the liver thought to represent focal fatty infiltration. Femoral changes bilaterally going back to at least 2009.CT chest 2011: Groundglass opacities which were likely acutely infectious, mild intestinal adenopathy, coarse calcified lymph node right anterior mediastinum.Admission in 2016 indicates history of alcohol abuse, reported cirrhosis, necrotic abuse, depression, chronic bilateral AVN of hips, hepatitis C (that was treated). Equivocal seizure disorder and asthma.Pulmonary consult in 2013 reports COPDSaw sleep medicine in 2019, failed to show up time subsequently OV Patient seen wit h formal Lithuanian medical interpreterPatient is seen today for complaint of dizziness however, when asked he reports in general he does not feel particularly dizzy. His history is very disjointed, there is a fair amount of circumlocution.He reports that the dominant issue is that when he stands up his legs are shaky. Precisely how long this has been the case is unclear. The patient spends the bulk of his time in a power wheelchair. He regrettably has severe musculoskeletal limitations. He does not report specifically having new loss of sensation or other sensory changes in his legs but when he stands up he feels shaky. He does not generally fall.Upon further questioning he does report that at times he feels somewhat lightheaded, seemingly when standing. He does not describe vertigo.He reports that he has urinary frequency at times. It is noted that he is on diuretics. Review of the record does not clearly demonstrate wide. I spoke with former primary care provider. She was not sure why specifically he was on Aldactone. I reviewed [facility] in [facility]. I do see an ultrasound looking for ascites but no evidence that he had any. He has not had CT imaging of his abdomen in many years, over a decade. He did have evidence of active hepatitis C replication in 2004 and 2010. His genotype is 1A. Interestingly repeat hepatitis C RNA quantitative was done in March 2020 when he saw GI for screening colonoscopy. It was not detectable. It is unclear to me whether he was treated however strong suggestion would be that he was either treated or spontaneously cleared which I think is less likely.Patient continues to report pain/fullness on the dorsal right radial aspect of his distal forearm. There is a market bony abnormality. There is also a small area on his right lateral cheek, just anterior to his ear that he apparently periodically cuts off and then it returns (small skin lesion).With regard to his bronchodilators, given his very poor medication adherence and cognitive difficulties/difficulty adhering with complicated regimens I opted to simplify his maintenance inhalers to Trelegy. He says that he has it although struggles to identify by name. He was able to identify by color. He continues to use albuterol, not at all clear how often.He plans to go to [place]. He reportedly plans to adopt a dog despite knowing the fact that dogs are prohibited in his housing situation. Social work colleagues have repeatedly discussed this with him and discourage this. He says he will go swimming at his brother's house in [place]. I suggested caution given his poor overall physical functioningReports that in addition to the 800 mg of ibuprofen prescribed he is apparently buying additional medications at the pharmacy. He suggest that this is ibuprofen although says the dose is 500, which is not an available dose to the best of my knowledge. I do not excessively asked regarding purchase of illicit medications, he has historically purchased opioids and other substances off the streetROS: Somewhat meanderingDoes not report headache or acute vision change other has decreased vision and I believe predominantly in the right eyeNo dysphasia-Continues to struggle with weight, would like to lose weightNo current chest painSays his breathing actually feels baseline or betterUrinary frequency as aforementioned, no dysuriaVital signs are noted, relatively hypotensiveWell-developed, middle-aged gentleman who is chronically debilitated, in semi-reclined power wheelchairHe is normocephalicThere is seemingly decreased vision on the rightThere is a small, raised, 2-3 mm lesion to the right preauricular area. It does not appear to be malignant however the exact nature of it is unclear, may be traumatized from repeated manipulation by the patientMucosal membranes decently hydratedNo obvious JVD or obvious cervical adenopathy, neck is thickHeart sounded to be regular, somewhat distantLungs diffusely coarse, no wheeze per se,Abdomen is obese, protuberant, softExtremities are without clubbing, cyanosis. There is no significant pitting edema. There may be a degree of atrophy in the legs. There are healed skin lesions to both lower legs.There is long-standing right radial dorsal protuberance which appears to be primarily bony although there could be a synovial component. It is tender. It is not acutely inflamed.Gait is very impaired, unsteadyHe is awake, alert. He is somewhat disinhibited. He is meandering in his history Bites Patient was seen today with the assistance of formal medical records supervisor.Patient called last Tuesday indicating that he believes he had been bitten by something on Tuesday. He indicated that he was babysitting a dog. He tells me today that to the best of his knowledge the dog was healthy although he does not know any details. When asked how this occurred, he gave a somewhat rambling story about it starting when he moved to a new apartment but then subsequently indicated that he had not yet moved and will be moving in the future.He says he is not sure what bit him. He believes he had several bites. Most prominent was infraumbilically slightly to the left. There were several other across his right abdomen. He sustained no bites elsewhere. There was very mild pruritus. On Tuesday when he called he indicated that he felt feverish and had arthralgias. Consequently, patient was placed on doxycycline. He tells me that he did not arrive till Tuesday and he started then. In spite of this, or perhaps because of it, the area of maximal intensity has improved quite a bit. He does not currently feel systemically unwell.He mentions pain in his left shoulder, right wrist, both hips and both knees. When asked about duration he indicates it is not recent. He again gives a very vague history about being in the room at a jail sometime in the past and using his left shoulder to try to break something and having pain since that time. He then said that he had used the shoulder to try to break a rock however subsequently said that he actually smoked a rock. When we checked range of motion he indicated he does not have pain but that when he sleeps on it at night he does.He made mention of the fact that his right wrist was hurting him. He was in a wrist immobilizer. We removed the immobilizer and he showed me areas of the dorsal wrist that were quite painful and somewhat deformed. He says he believes it was broken. I told him I thought it was reasonable to pursue x-rays but he tells me that he was seen by orthopedics roughly 2 months ago. He says that at that time he had the pain already without change. His hand was significantly swollen I asked if that was normally the case, he said that has been present for some mild but not for months. He indicates that he missed the follow-up appointment as he had difficulty with his power wheelchair. The marketing specialist (who is also case management social worker) reminded him that we are available to transport him.He says he is eating, drinking well. Feels that his breathing is baseline. He is not having acute GI or dysfunction.ROS: As aboveHe is a somewhat scattered historian with diffuse, sometimes contradictory statementsSays left leg is more painful than the right and he has difficulty doing anything requiring significant strength without legExamination:Well-developed, middle-aged gentleman sitting in power wheelchair, somewhat reclinedHe is wearing his usual hatVital signs are noted, chronic borderline blood pressure. Saturations marginalThere are some changes to the eye, all chronic, difficult for me to characterize and not specifically addressed todayMucous membranes seem decently hydratedHeart regular, bit distant, no definitive murmurLungs somewhat diffusely coarse, minimal wheeze, not having significant increased work of breathingAbdomen is protuberant, obese, soft. There is mild erythema extending several centimeters to the right of midline at roughly the level of the umbilicus. Inferior to the umbilicus there is erythema. On palpation there is a roughly 2 x 2 cm area of induration that he says is actually improved and less tender. There is slight calor.Somewhat limited examination of the back did not reveal any bites. I did not see any bites of the forearms. Exposure of the legs was somewhat limited. He has chronic scarring of both legs. That being said I do not see bites.Range of motion of the left shoulder was relatively normal. He was somewhat tender to palpation on the superior aspect of the shoulder. I am not clear if it was at the acromium or the lateral aspect of the clavicle or neither. He did not have significant weakness in the arm.There is what appears to be either swelling or swelling and deformity of the right dorsal wrist. There is swelling from the forearm to the fingers. Grasp is present but perhaps slightly diminished. He is significantly tender to the distal dorsal forearm. MIRNA The participant, Lexx aDng, is seen today in the [facility] for a Biannual. They have been enrolled in [facility] since 08/29/2019. 0 days a week are spent by this ppt at the [facility] site. Ppt is a 61 y.o. individual who lives at home and primarily speaks Lithuanian. Transportation is by [employer]. Patient is unaccompanied for today's visit, air defense artillery officer present for length of visit.The patient has had no hospitalizations. He has had 1 ED visit for eye complaint 03/19/21. Two reported falls in the last six months 02/23/21 where his left leg lost feeling and gave out, each time he was able to get himself up, and and 05/12/21 where he woke up on the floor, feeling spaced out positive cannabis use on that day. Imaging of the thoracic and lumbar spine completed 05/12/2021.Weight at the last visit was 230.2#, today is 233.0# and overall function has remained stable. He does not wear dentures. He does not wear glasses and denies eye pain or vision changes. His hearing is not impaired. Current specific complaints include pain in the hips and knees as well as dizziness upon waking up. He denies hematuria, blood in stool, incontinence, headache, and difficulty swallowing or chewing. He tells me that he has been sleeping well.Diagnoses reviewed.Medications reviewed.Advanced Directives reviewed.HCP is listed as his friend, Paras Babin, with no secondary HCP appointed, which Lexx wishes to remain unchanged. MOLST completed today indicates the participant's wishes for Full code status. 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 ALT 15, AST 9, Alk phos 115. Hemoglobin A1c is 5.8%. Total chol/HDL/LDL/triglycerides 204/34/135/212. TSH 2.74, B12 714, Vit D 26. May consider adding Vitamin D supplement and Statin based on today's labs, will defer to PCP. OV This is a 60 yea r old male with a medical history significant for COPD, asthma, GELY, polysubstance abuse, clavicle fracture, obesity, T2DM, and chronic pain presents to the clinic with a chief complaint of left sided shoulder pain and difficulty breathing. Lithuanian speaking machine set up present for visit. He reports difficulty breathing with shortness of breath, productive cough with yellow sputum, and wheezing has been going on 2-3 weeks with some improvement at this time (productive cough has resolved). He says he has been taking his albuterol rescue inhaler 4x a day but has not been taking blue one could be Spiriva or Asmanex or Ellipta, unable to confirm with pt. Also takes Cetirizine and Monteleukast daily, Mucinex PRN,Tessalon pearls PRN, and Tussin PRN. O2 is 92% on RA with wheezing throughout lung esteban. He denies the continued use of cigarettes, but reports smoking marijuana via blunt with tobacco leaves daily.Additionally reports pain of the left distal clavicle. Previous imaging from 2019 with chronic displaced obliquely oriented fracture of left distal clavicle. MRI with partial tear of supraspinatus with tendinitis, small insertional articular sided tear of superior fibers of subscapularis tendon. There is evidence of minimal glenohumeral osteo-arthritis, adhesive capsulitis, and subacromial subdeltoid bursitis. Pain is described as severe, most tender at the distal aspect of clavicle and spreads down the lateral pectoral muscles. He has tried use of lidocaine 4% patch, voltaren topical, which he says has not helped. Not currently taking tylenol or ibuprofen PRN or using Dynarub. Pt states to bilingual medical assistant, I'll just buy percocets. Continued a conversation about alternative pain management involving alternating tylenol and ibuprofen, dynarub, and using dispensary-obtained cannabis products and encouraging the choice of edibles or tincutres vs. inhaling smoke.Duoneb treatment given in clinic. Prednisone dose 40mg PO given once in clinic and sent to pharmacy for continued taper. COVID-19 rapid test and PCR ordered. Made aware that patient left with transportation prior to receiving Prednisone dose or COVID swabs. Not able to re-examine after breathing treatment unfortunately. Nursing to follow up. OV Comments: Marlena cisneros is a 60 year old male being seen after a fall with questionable seizure. Patient is Lithuanian speaking- utilized certified MA as marketing specialist. Patient is a poor historian and is unable to give concrete details. He reports falling while walking in his home while a door fell on me . He denies hitting his head though he cannot remember the event. He does not have any head pain. He reports falling back hitting his back where he is experiencing some pain. He shows tenderness in lower back upon exam, no abrasions or echymosis. Denied any sort of aura prior to the event. He reports eating and drinking well p[rior to the event. Denies any illicit drug use besides smoking marijuana. He reported having some stressors at home d/t wanting to keep his dog for emotional support. He denies any palpitations or panic like symptoms prior to the event.He does complain of some dizziness in clinic- BP stable (orthos ordered), POC WNL, he reported not eating today- did give sandwich and guillermo marlene- he showed improvement.Did have inspiratpry and expiratory wheezing- admin updraft, still wheezing present- baseline (patient is a chronic smoker) office visit Mr. Alton zheng ts today to the clinic for respiratory concerns. VIOLET Ignacio present for Lithuanian interpreting. He is a fair to poor historian. He called yesterday to the clinic reporting respiratory symptoms, runny nose, congested cough with white sputum x 1 day, chills. He was recommended to continue to use his nebulizer regularly through the day and set up to come to the clinic for follow up. He continues to smoke cigarettes/marijuana. Reports that he doesn't like the nicotine patches that he currently has and likes the brand that are the itchy ones. Also reported diarrhea yesterday and indicated that hadn't eaten any foods. DENIES sick contacts, CP. Does not know if has had fevers. Today he reports he went to [employer] for breakfast prior to coming to the clinic without current GI issues. States that there are some people in his building COVID+ but he has not been around them. States taking his inhalers as ordered. Ran out of his nebulizer solution this morning after his first nebulizer dose today. Reports has been smoking marijuana about 7-8x/per day denies having marijuana this morning prior to clinic visit. Cigarettes about 3-4/day. Binax COVID testing in clinic - NEGATIVE. PCR collected for send out. PLAN:- Azithromycin 500 mg PO daily x 5 days (1st dose at [facility] today)-Prednisone 40 mg PO daily x 7 days (1st dose at [facility] today)- also will add cetirizine for possible allergies- can't find his other nebulizer solution box and was provided with his SE supply today, has nebulizer in the home- refills for mucinex and tessalon. Guiafenesin liquid also ordered. He knows to use one of them at a time, not all at once. Mucinex tabs for when he is out in the community. - encouraged to stay home and isolate as much as possible due to risk of COVID19 exposure - long discussion regarding his marijuana use and tobacco use. Reminded him that continued use can make his respiratory condition worse and may get to the point that he would need to be on O2 permanently. Reminded him that if this particular exacerbation gets worse, may need hospitalization. He continued to play games on his phone while the discharge instructions were being made even after being told to put the phone down. Discussed that he has to play a role in his own health to keep himself in the community. - if he does not improve, would recommend ER. VIOLET Ignacio will call him in the morning to check in before the weekend. - he has been set up to see pulmonary - unclear if he has followed through; also was a No Show to his sleep medicine clinic appt earlier in March. Needs to have his f/u. Time spent: care coordination, clinic visit, charting - 90 minutes post ED visit/ optho Mr. Alton andre resents today to the clinic for post ED evaluation. VIOLET Ignacio is present for Lithuanian interpretation. Ppt is a poor historian. He was seen in the office on 03/17/21 initially for reported L eye burning/pain/tearing/redness x 2-3 days. Then upon arrival to clinic on 03/17/21 reporting loss of vision in R eye x 2 days and no L eye issues.He has a known eye injury to R eye from piece of metal years prior and known decreased vision. However, he reported that the vision that was remaining was much worse. Denied trauma to area. We were able to get him an urgent optho appt that afternoon, but unfortunately he was very rude in the optho practice and was not seen and is not allowed to return there/banned from the practice. Due to missing optho appt and possible concern for loss of vision being related to neurovascular event, optic neuritis, retinal detachment, he was recommended to go to the ED. He did not go on the day recommended since he was worried about what clothes he would wear to the ED. Went on 03/19/21 - he reported to them that he was cutting metal and feels he got something in his eye (unclear if he was referring to the prior injury or has been cutting metal recently). Eye exam negative with what equipment they had in the ED, referred out to optho. No imaging completed. Business office was able to get him into another opthamology provider who was able to see him yesterday and diagnosed with dry eye and cataract. He will f/u with optho in a few weeks. Today ppt reports no new eye concerns. Eyes very injected and he reports that has not been smoking marijuana today. Reports that still not able to see through the R eye. He has some of the eye drops provided by optho provider yesterday and knows how to use.He reports that he has spiders in his apartment and has gone to management to see if they can move him to another unit. Reports lower legs very itchy. States that he has seen black insects in his home and that they are biting him mainly at night. He also spends a lot of time out at the park. PLAN:- he will f/u with optho per instructions; eye drops to be used for maintenance. Will have dilated eye exam next visit for further evaluation.- encouraged to clean his apartment well, does not have a vacuum - encouraged him to have his health aide do a deep cleaning, encouraged him to get his dog a flea bath, hydrocortisone cream providedTime spent - care coordination, clinic visit, charting - 60 minutes eye problem Ppt presents tod for urgent visit for eye problem. He called office late yesterday reporting L eye burning/pain/tearing/redness x 2-3 days. 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 Lithuanian speaking only. 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 CRISTINA Dc also present for visit to assist with optho examination. Today upon arrival ppt indicates that he actually cannot see out of his R eye x 2 days and no complaints with L eye. Reports no eye pain, no recent injury to area, DENIES headache, dizziness/lightheadedness, mouth pain, ear pain. He states that he lost his vision when my eyes started crying. He does have baseline decreased vision per his report out of R eye due to workplace injury and states has a particle (?metal) in his eye. EXAM:Optho - bilateral eyes conjunctiva injected (smokes marijuana daily), sclera nonictericOD - unable to read on the vision chart, pupil 2 mm, reports cannot see in center of eye but able to see with downward gaze to R and turns his head to look at it. Area around his eye slightly firmer to palpation below eye. Arcus senilus. OS - 20/40 vision, arcus senilus, approx. 4 mm pupil sizeAlert and oriented, in no distress sitting on his power chair playing game on his phone. Well groomed. RRR, speaking full sentences, no cough, occasional upper wheezing appreciated - which is his baselinePLAN:- urgent appointment able to be obtained this afternoon with eye provider, Dr Cadena. Ppt will wait at [facility] for his ride to take him to appt. Optho ddx includes optic neuritis, retinal detachment Time spent - care coordination, clinic visit, charting - 60 minutes skin concern Mr. Dang presduy ts today to the clinic as a walk in for skin concerns/rash on his BLE. Ppt rode his electric power chair to the clinic today and VIOLET Ignacio served as air defense artillery officer.Ppt states that noted red blotches on his BLE this morning. States that they were not there last night. Ppt was seen in the clinic by this provider on 02/04/21 for his semiannual and the blotchy areas were not present. Does show us some areas on his abdomen but these appear different than the areas on his legs. Abdominal area appears to be insect/mosquito bites. Reviewed his labs from 02/04/21 with him. Discussed his elevated cholesterol and he would like to meet with nutrition to review some meal options for him. Has been eating more seafood lately with his new girlfriend. He denies that they are itchy. Labs were completed on 02/04/21 showing normal CBC, normal plt count, stable renal and liver function. He has been spending time at a [place] in recent weeks. DENIES fevers. EXAM:alert and oriented, well groomed, sitting up in NAD in his power chair filing his fingernails, wearing his marijuana face mask during COVID19 pandemicsclera nonicteric, conjunctiva slightly injected (uses marijuana regularly)RRR, speaking full sentences, no coughNo BLE edema, wearing shorts - multiple approx. 0.5-1.5 flat reddened macules along bilateral pretibial, nontender, discrete areas, no drainageabdomen - round, obese, 3 distinct areas appearing like bug bites - different than areas on his legs PLAN: - he will continue to watch the areas over the weekend and will call [facility] on Tuesday to report the progress and can be seen in follow up as warranted - will be coming to [facility] on Tuesday next week to meet with nutrition regarding his recent cholesterol labs, working on dietTime spent: clinic visit, care coordination, charting 40 minutes biannual Mr. Dang is a p leasant 60-year-old Lithuanian speaking male who presents to the clinic for biannual visit, enrolled on 08/29/2019. VIOLET Ignacio is present as air defense artillery officer. He is a fair to very poor historian and has some degree of cognitive impairment. He can be easily distractible, often does not adhere to medical recommendations and misses appointments or shows up unannounced. Well known to the care team.ADVANCED DIRECTIVES:HCP dated 08/17/2019 reviewed and no changes - HCP Paras Babin (friend), no secondaryMOLST dated 02/12/2020 - reviewed and no changes, full code, will think about dialysis/nutrition/hydration - didn't want to think about it right now.No hospitalizations/ED visits/SNF stays in last 6 months. Last was in 06/2020 ED visit for GI symptoms thought to be secondary to marijuana use.INTERVAL HISTORY:He has been seen multiple times in the clinic over these last 6 months mainly for respiratory concerns. Discussions have been had that if he continues with his smoking tobacco and marijuana use (from off the street), that he has a limited life expectancy. He is not stable to undergo surgery for his ortho issue due to his respiratory status. He is also currently looking into moving out of his apartment in [place] to a building in [place] where his step-father also lives. Reports that the application is already filled out. There was reportedly an issue with a fellow resident in the building a few weeks ago and he is motivated to move. Medications - continues with bubble packs and is doing well with them. His mental health prescriber has been prescribing his sertraline and adjusting. He reportedly is taking his inhalers but we continue to work on continued education and reinforcement with his inhalers. Behavioral Health - has been following with [facility] weeks. Reports no recent medication changes but we will confirm this once we receive updated medication list. He indicates is continuing to follow with therapist via phone. Question of history of seizures - There has been a question of seizures in the past which has needed to be researched since orthopedics asked for a neurology consult for further evaluation prior to scheduling him for any knee/hip repair/replacement. He had a brief neurology consult over the phone in 04/2020 which was not productive due to language barrier. However he indicated to neurologist that he has not had seizures since stopping cocaine. Neurology was able to find an EEG from 2011 in [facility] which was normal. Vision -does not have glasses, hjs metal particle in his R eye from workplace incident and cannot see out of that eye; appt had been on hold due to COVID pandemic; reports no new eye concerns but now would like eye appt Dental - edentulous, reports lost his teeth due to drug use, able to eat his food but would like to have dentures; saw dental in 03/2020 who recommended dental surgery to remove ceasar prior to fitting for dentures. This is on hold since he would need general surgery and there is a question of seizures in the past and he has a tenuous respiratory status. He has now stopped smoking and indicated we can re-evaluate this in the future.Hearing - states no major issues but decreased hearing overall, does not feel he needs hearing exam at this time; occasional ringing in ears Podiatry - sees Dr. Natarajan periodically, toenails trimmed today by RN in clinic Diet - going to cut back on his Mom's Meals since doesn't like the options. States eating well recently since has new girlfriend and they are eating a lot of fish and shrimp. Maintaining his weight. Reporting having not much appetite periodically. Colonoscopy - had hx anemia which has resolved and saw GI also in 03/2020 who was going to get him organized for colonoscopy since he has not had one previously. However, this has been put on hold due to COVID pandemic and he does not want to undergo and his respiratory status can be unstable. He would try Cologard ETOH - history of heavy use, started age 16 and stopped at age 32, reports alcoholism runs in his family, no current wish to use and reports not using; once in a while will have a beer Hx drug use - hx IVDU, hx use of cocaine, heroin, "many drugs, current use of marijuana for his chronic pain smokes about 5x/day. He has been working on cutting back, also friend has previously noted during appts that other substances have been in the marijuana. He reports that now has a marijuana card but hasn't gone to a dispensary since he wasn't sure they were. States that the marijuana which he is purchasing is from someone selling it after buying at a dispensary. He reports that the people who he purchases from on the street are a good supplier. Previously was also purchasing morphine tablets off of the street. Has been told multiple times that this is not recommended due risk of drugs that may be laced with other substances. He reports has not done this recently. He previously has mentioned that he purchased a medication that he bought off the street and said he got very itchy from it and then questions if he had a seizure like he had when did drugs prior. Has in the past wanted to go to suboxone clinic and then did not follow through. MOCA - 09/03/2019 (points off for identification of animals, serial 7s - refused to do, language, # words, not oriented to month, 0 points for delayed recall); 07/2020 - ; note that he has vision deficit R eye, schooling to 2nd grade; = degree of cognitive impairment; HCP is not invoked and he is able to make his own decisionsTobacco use - reports about 1 month no smoking; feels better, pain is better; Started smoking around age 16, estimate > 40 year pack history.Marijuana - has his marijuana card, purchasing from the dispensary occasionally since doesn't know where to go. Reports has been purchasing from someone who goes to dispensary. Sleep - no concerns; feels rested; + nocturia but states able to get to sleep; possibly had a previous sleep study but this has gotten lost to follow up. He had a sleep medicine telehealth consult set up in September but he was a no show. He does now have a hospital bed which is easier for him to get in/out of, does not need the head raised. Sleeps with fan on near his face. Skin - states can occasionally get rashes or blotches on his skin, does get sun urticaria in the summer; no other current skin concerns Falls - no new falls Pain/Musculoskeletal - has chronic pain issues - bilateral hips R>L, bilateral knees, this clinic is not prescribing him opiates - he has demonstrated multiple times that he has obtained drugs including morphine tablets on the street. Reports had knee injections a few weeks ago which has helped. Feels that pain is improved after stopping cigarette smoking. History of SNAC R wrist sustained s/p fall - states that it doesn't hurt - has the deformity but not painful, able to use that extremity. Has been encouraged to wear brace on R wrist. He does also have on old L clavicle deformity which is secondary injury many years ago. DEXA - history of hypogonadism, He had a bone density test ordered for many months and was completed in July but the care team did not have this information until were able to find on [facility] EMR. 07/2020 DEXA indicating osteoporosis AP spine (T -3.4, Z -2.8), osteopenia L hip (T -1.9, Z -1.5). Activity/exercise -activity limited by his injury; uses power chair for his transportation, has obtained new power chair since coming to . Needs some assistance with putting on clothes since cannot bend his knees when bending over. Needs some assistance with his laundry - uses a stick to pull his laundry out of the machines. Can walk around in his apartment short distances. Immunizations - UTD on COVDI19, tetanus, pneumococcal, seasonal flu vaccine, Shingrix. All conditions in this assessment are chronic unless otherwise stated.PLAN:- GI appt for screening colonoscopy currently on hold due to COVID, no urgent symptoms but he will alert if issues; he would like to do Cologard since has tenuous respiratory status- will see if his respiratory status improves and then can consider reconsult with [facility] regarding surgery on knees/hips- referral for eye exam to be recompleted since things had been on hold due to COVID pandemic- endocrine appt pending - has been ordered months ago but appts had been delayed due to COVID pandemic, DEXA showing osteoporosis - we were just made aware of these test results - continues to follow closely with clinic and care team since has many needs and requires support/guidance to keep his appts and follow medical recommendations Chronic concerns PPT seen today for chronic respiratory concerns. He continues to smoke cigarettes and marijuana daily. He had briefly quit last week, but feels he has too much stress at home to stop both. HE becomes anxious and goes outside to smoke to calm himself. He reports decreasing his MJ use from five bags down to one per day. He also smokes 5-6 cigarettes per day. He attempted to obtain a medical marijuana card again today, but did not have current ID. Mr Dang was able to verbally demonstrate how to use the inhalers correctly and how often they are to be used. He has also started taking aloe vera plant and mixing it with juice. He was educated that aloe vera can be toxic in large amounts. His culture believes it has healing properties, however, it can be dangerous if consumed raw without controlled amount. He was educated to monitor for abdominal pain, diarrhea, and nausea. Denies these symptoms today. Per nursing staff, his lung sounds are significantly improved. No audible wheezing heard via Facetime today. He was advised to use hot water, lemon, and honey for cough if needed. Nursing staff reported he carries a large speaker on his lap, possibly restricting lung expansion.PPT cleared to return to clinic next week. Although he is using the inhalers, he continues to smoke large quantities of cigarettes and marijuana. He may need to be considered for palliative, but will see pulmonology first. Based on their assessment, we will discuss placing him on palliative care in the future.The patient encounter today occurred during the COVID-19 pandemic crisis/federally declared state of public health emergency, and need for social distancing via FaceTime with the patient's verbal consent. I personally spoke to the participant as well as clinic staff:Start Time/ End Time: 1208pm-1219pm EST (11 minutes)] The participant's physical location: [place] [id number] [address] provider physical location: [facility] COVID-19 status: vaccinated Chronic concerns PPT seen today for chronic respiratory concerns, and for duoneb updraft. He continued to smoke cigarettes and marijuana daily until he reportedly stopped earlier this week. He has a nicotine patch on today. He has been coming to the clinic daily this week in an effort to obtain his respiratory medications and be trained on them. He was also receiving daily updrafts for his chronic asthma. Pharmacy (at this point) had only delivered duoneb. Call placed to pharmacy and meds were delivered to [facility] directly while Lexx was in clinic.His lung sounds are significantly worse today compared to previous days. Audible wheezing, RR 22, sats93%, discoloration (blue) lips/keene appearance. Lexx Dang is in noticeable respiratory compromise. He was strongly advised to go to the hospital, and is refusing to go. He states he doesn't want to be admitted for several days, and is afraid he will get COVID. He was educated that he has his COVID vaccine, and may only stay a couple of days. He states "if I , I , it's one less person . He was told in plain and clear terms that if he doesn't go to the hospital, he is likely to have a major respiratory event this weekend and will likely not survive this. He again refused to the hospital. He was asked to convey his understanding of the urgency of this situation. He stated, If I get worse, I will call an ambulance, and If I , bury me. Interventions of staff included frequent reminders and encouragement to go to the hospital. He was given 40mg oral prednisone now. He was given his asthmanex, spriva, breo ellipta in the clinic. Physical therapy and nursing also examined and also stated he should go to the hospital. PPT again refused. After his inhalers were given his primary nurse examined him and reported his lung sound were at baseline. New orders for 50mg prednisone daily x7 days. PPT was also provided with detailed (including pictures) instructions of his inhalers. He was able to demonstrate how to use these inhalers. He was able to voice understanding of the frequency of use of the inhalers. He had a hospital bed delivered to his home; He will be able to elevate his head for improved breathing.RTC Tuesday. I will reach out to nursing to contact him over the weekend for wellness check.The patient encounter today occurred during the COVID-19 pandemic crisis/federally declared state of public health emergency, and need for social distancing via FaceTime with the patient's verbal consent. I personally spoke to the participant as well as clinic staff:Start Time/ End Time: 1243pm-144pm (61 minutes) The participant's physical location: [place] [address] [address] [facility]: vaccinated Chronic concerns PPT seen today for chronic respiratory concern and for duoneb updraft. He continues to smoke cigarettes daily. PPT reported to have started smoking outside of clinic visit yesterday. He reports he is still smoking, but smoked his last cigarette. He is planning to put his nicotine patch on tomorrow. Medications still not arrived from pharmacy. I contacted them, they should have been delivered tomorrow morning. PPT has chronic pain in the leg, encouraged to take tylenol. He is not a surgical candidate at this time. Therapy services working with him and provided a hospital bed. No changes at this time. He is coming to [place] daily for updraft, more education provided on his inhalers. Considering his very poor health literacy and overall mental status, he will need clear/concise directions for inhaler use (as he has multiple). Again, we are waiting on pharmacy to deliver these so we can go over them in detail. Education sheet will be provided when they are all available (pictures must match the inhalers, waiting on the inhalers). Again encouraged to stop smoking. Reminded to keep his pulm appointment.The patient encounter today occurred during the COVID-19 pandemic crisis/federally declared state of public health emergency, and need for social distancing via FaceTime with the patient's verbal consent. I personally spoke to the participant as well as:Start Time/ End Time: 1219-1227pm EST (8 min), 1238-1244pm EST (6min) The participant's physical location: [place] [address] [address] [place] provider physical location: [facility] status: vaccinated Chronic concerns PPT seen today for chronic respiratory concerns and for duoneb updraft. He continues to smoke cigarettes daily, but has stopped marijuana for now. He was encouraged to transition to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 infections. No fevers, chills. He has 2 areas that he is concerned with---left axillary and infraumbilical. These areas have been painful for 2 days. No trauma. walk in - cough, itc hiness on face Mr. Dang presents today as a walk in appt to the clinic for report of shortness of breath and increased wheezing as well as reported spider bite to his L cheek. GWEN Bowman was able to assess him prior to this clinician's arrival and provided him with a duoneb nebulizer treatment reported with some effect. VIOLET Glover is present for Lithuanian interpretation. Mr. Dang is a very fair to poor historian, therefore limited ROS. He does not often follow through on medical recommendations. Mr. Dang indicates that he has now stopped smoking tobacco x 3 days (wearing nicotine patch). Continues to smoke marijuana. Reports that he is now not buying the expensive stuff off the streets since feels that it has additives in it. Now reported purchasing the less expensive marijuana. This provider again reminded him that it is still not recommended to purchase marijuana off of the streets.States that he is having a cough worse than his baseline. Reports + diarrhea yesterday. Reports some occasional yellow sputum. States he is wearing his mask when out in the community. DENIES fevers. Unclear if he has been using his nebulizer/frequency. L eye - reports that he thinks he got bit by a spider in his apartment when he was sleeping last evening. States that the area around his L eye has been itchy, so has been rubbing it. Does not have pain at the area, just feels that it is a bit swollen. PLAN:- COVID swab completed today - [facility] - Continue with his home nebulizers- Congratulated on stopping smoking but encouraged to also avoid marijuana- START prednisone 40 mg daily PO x 5 days - first dose given in clinic today; he is aware of the plan- Will have follow up with nursing in the clinic on Tuesday05/19/2020 for nurse visit- topical hydrocortisone given for eye irritation, encouraged to apply cool compress to the area for the next day or so to see if this improves. walk in office visit - chronic condition mgt Mr. Dang presents with his friend today on a walk in basis. Reports he received a phone call and thought it was from [place], so he stopped by to check with . Ppt did not have a scheduled appt here at , but this provider was able to see him today to review his recent specialist visits. 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 Mr. Dang reports that he hasn't been feeling very well the last day or so - overall achiness. Nonspecific in his symptoms - poor historian. DENIES fevers, change in taste/smell, GI issues, tick bites (has small dog), headaches, recent falls, worsening SOB, increased inhaler use. His friend indicates that Mr. Dang has been out in a limited fashion and been spending less time on the streets. Has been eating fine. His friend states that they did marijuana again last night and Lexx seems that he did not feel as well after that. Lexx continues to purchase marijuana off of the street and not from dispensary. He indicates that he would like to get his marijuana card. He and his friend note that they had marijuana a few months ago that contained K2. Continues to also smoke cigarettes with no wish to cut back. Sleep - He reports that he has had some difficulty sleeping at night in general - feels SOB and has to put the air conditioning on to be able to feel better to sleep. He had thought that had sleep study in the past but we do not have results. GI - We also reviewed that he has recently seen GI. He is agreeable to get colonoscopy. He does not yet have information back on his Hepatitis C. GI office was called by this clinician and GI staff will call him back to notify of colonoscopy date/time and his Hepatitis information. Dental - He also was recently seen by dental on 04/01/2020 for evaluation for dentures and was referred to oral surgeon for tooth extraction. He is edentulous - reported that his teeth had fallen out due to drug use. General dentistry referred him to oral surgery for evaluation of removal of retained roots/teeth. He would like to hold off on this for now, since would like to get his leg/ortho issues fixed before this. Ortho - has seen [facility] for consultation for his hip problems in 01/2020. Ortho had recommended to follow up on successful treatment of his Hepatitis C prior to surgery (hence has seen GI). Ortho had also wanted further evaluation of his reported history of seizures. Neurology appt later this month - reviewed with Mr. Dang today. States that the seizures mostly occurred when he was taking tramadol. Unclear on this seizure history. PAIN - reports that the voltaren gel and lidocaine patches help with his pain. Requesting refill of patches. Assistive Devices - Mr. Dang also notes that he has had some near tipping over events with his new power chair when he is out in the community. Unclear if he is using it correctly. Rehab into see him and discuss and will place him on the list to be evaluated when wheelchair rep is back in office. Ppt uses the powerchair as his mode of transportation. His friend reports that he has been witness to these episodes. Mr. Dang indicates that he has not had any falls out of the chair from tipping backwards. PLAN:- Will obtain COVID testing today. Sample collection difficult due to ppt cooperation. Will await results. [facility] labs. - Rehab will set up time for his wheelchair to be evaluated. Rehab reminded him to use care when going up ramps/uneven surfaces in the community. - GI will call him to review his upcoming colonoscopy and provide a date. It has not yet been set up. He also is awaiting information on his Hepatitis C. - Smoking cessation reviewed. Also reviewed that he should be taking his inhalers as scheduled and bring rescue inhaler with him when he is out on the streets. - Referral for sleep medicine/sleep study placed since he likely has a component of GELY contributing to his nighttime SOB. - 04/25/2020 - referral for neurology for history of seizures, ordered since orthopedics would like completed prior to scheduling any ortho surgery - Unclear of his status of PFT scheduling for [facility], will need COVID testing prior update with [facility] information DEYANIRA RT UPDATE - notes not available when saw ppt for his recent biannual visitPpt saw [facility] on 02/07/2020 - Dr. Meredith for consultation for his hips:MD Meredith was unable to obtain much information from ppt due to him being a poor historian. Xrays completed showing severe bilateral hip osteoarthritis and indicated that he would benefit form hip replacement surgery. However, not currently feasible due to their lack of medical information on him. They also recommended that would likely need eval by neuro for his history of seizures prior to surgery. They also would like more information re: his history of Hepatis C. This provider has placed a neuro referral in anticipation of pre-surgery evaluation - unclear when consults will occur due to COVID pandemic. Will also attempt to obtain records from [facility] to see if he has had neuro consults in past, ID consults in past re: his Hepatitis C.He also saw a PA on 01/30/2020 for his knees. Xrays of bilateral knees showed moderately advanced OA with joint space narrowing, subcondral sclerosis, osteophyte formation. He also received bilateral knee steroid injections on 01/30/2020. Biannual assessment Mr. Dang is a 59-year-old Lithuanian speaking male who presents to the clinic for biannual visit. He is new to the program as of 08/29/2019. 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 He is a fair to very poor historian and has some degree of cognitive impairment. He can be easily distractible. RECENT ED/HOSPITALIZATIONS:10/09/2019 [facility] ED- GI symptoms, notes indicated that may be food toxicity or a gastroenteritis. 10/2019 - admission for non COVID19 URI and was treated with nebulizers, prednisone. INTERVAL HISTORY:He has been seen multiple times in the clinic over these last 6 months, often due to respiratory concerns. Continues to smoke marijuana and cigarettes. He has also had episodes of bringing in opiates which he purchased off the street to the clinic. He does not always follow with provider or health care senior stereo compiler team lead recommendations. He also did move within his building to a handicapped apartment and is doing well there. Medications - continues with bubble packs and is doing well with them. His mental health prescriber is supposed to be prescribing his sertraline and was to follow up with them. Has been bridged by this provider due to COVID pandemic.Behavioral Health - has been going to [facility] weeks but unclear what is happing with the schedule due to the COVID pandemic. He also has seen therapist Gregorio Willams but he reports has not followed up recently with him. Vision -does not have glasses, reports metal particle in his R eye from workplace incident and cannot see out of that eye; still has not had eye exam, no new eye issues Dental - edentulous, reports lost his teeth due to drug use, able to eat his food but would like to have dentures - dental referral has been placedHearing - states no major issues but decreased hearing overall, does not feel he needs hearing exam at this timePodiatry - toenails elongated, toenail care performed by SE RN today, will continue with podiatry when back at [facility] - receiving [employer]als, states likes them, would like some fruit added to the meals; drinking some drinks with aloe in it since he states it has been reported to help with his phlegm. DENIES ETOH use; good appetite; reports able to chew his food even though he is edentulous ETOH - history of heavy use, started age 16 and stopped at age 32, reports alcoholism runs in his family, no current wish to use and reports not usingHx drug use - reports hx IVDU, hx use of cocaine, heroin, many drugs, current use of marijuana for his chronic pain smokes about 5x/day (reports does not purchase at dispensary, buys on the street "from a good supplier ). Wants to know if there is medication to cut down his cravings for marijuana.Also purchases morphine tablets off of the street - has brought into SE to show his team what he has purchased. Has been told multiple times that this is not recommended due risk of drugs that may be laced with other substances. He then elaborates that he purchased a medication that he bought off the street and said he got very itchy from it and then questions if he had a seizure like he had when did drugs prior. States that he is not buying drugs off of the street currently. Has in the past wanted to go to suboxone clinic and then did not follow through. MOCA - 09/03/2019 (points off for identification of animals, serial 7s - refused to do, language, # words, not oriented to month, 0 points for delayed recall); note that he has vision deficit R eye, schooling to 2nd grade; = degree of cognitive impairmentTobacco use - currently about 10 cigarettes/day, started at age 16; no current wish to stopSleep - reported during intake that he had a previous sleep study and was awaiting a machine, so likely + for a sleep apnea but do not have records yet for confirmationSkin - reports no problems; states can occasionally get rashes or blotches on his skin but no current issues, can also get itchy when in the sun Falls - reports 2 recent falls - one fall a few days ago at home when he was outside on the street and reports tripped on the wheel trying to get back into his chair, fell forward and scraped his legs. Also reports that Tuesday he had a fall in the shower - washing his feet and slipped; reports that the railings are too low - fell on his buttocks.Pain - has chronic pain issues - bilateral hips R>L, bilateral knees, this clinic is not prescribing him opiates - he has demonstrated multiple times that he has obtained drugs including morphine tablets on the street. Is able to bear weight on his legs. He had reported previously that he was not able to take some opiates (unclear on his reporting, stating hx seizures from drug use and then was sensitive to opiates (unspecified reactions, altered HR). Marijuana helps him with the pain. Reports APAP does not really work for him. Question of APAP allergy/sensitivity but states he occasionally takes at home - likely allergy identified due to previous reaction to APAP#3 and was likely the opiate component in the medication that he did not tolerate. He does also have L clavicle pain which is secondary to old injury. He had an appt with [facility] last week and reports that he went to the appt - notes not yet received by SE. States that he received injections and he is doing much better. Activity/exercise -activity limited by his injury; uses power chair for his transportation - has missed a van ride to and came to on his power chair, is able to stand from his chair to get into shower, etc; needs some assistance with putting on clothes; states he can do his own laundry; can walk around in his apartment. Rehab team has been working with him on repairs for his power chair. Immunizations - UTD on tetanus and PPSV23; hepatitis B series has been ordered - not yet received; recommend seasonal flu vaccine when available. All conditions in this assessment are chronic unless otherwise stated.PLAN: - Referrals in for eye, dental, GI (for hx anemia) consult but not yet completed, COVID pandemic has caused appts to be rescheduled- DEXA scan has been rescheduled due to COVID pandemic - has not been taking Fosamax, hx hypogonadism- Continue to follow with podiatry when back at - Will start his hepatitis B vaccinations when starting back at - Saw ortho recently - awaiting notes - Reviewed new pulmonary medication with him. RN will see him later this week to make sure the mediation has been delivered and he is using. - Continue with his behavioral health provider. Risk of loss to follow up due to COVID pandemic. Has continued to purchase drugs and medications off of the street. Nurse Assessment Nurse visit- PP T was home with a friend upon arrive, he was standing at a high table working on a puzzle. Respirations, easy and unlabored breathing. VS stable, afebrile at 98.8 temporal. LS rhonchurous mixed with expiratory wheezes at baseline, O2 sat 89/90% at rest and improved with cough and deep breathing to 96% RA, encouraged him to perform effective breathing when feeling sx to improve oxygenation. Reported he had an updraft via neb at 10 am and will do another one at around 2 pm, generally uses it 3 times per day with good effects. He also has a rescue inhaler 4- 6 hrs PRN. PPT denied, cough, sneezing, or runny nose. He continues to smoke but not much. Abdomen round with +[id number], reports regular BMs, denied constipation or diarrhea, appetite WNL. He reports 7/10 pain to the legs but able to ambulate without assistive devices, altered gait due to back injury. Completed Nasalpharyngeal and oralpharyngeal swabs as ordered and dropped off to lab for Flu testing.ADDENDUM: Noted. Sending for flu testing. Ppt had c/o fevers over the last few days. Has been tested for flu in previous weeks x 2- negative. Spends much time out on the streets, purchases drugs and opiates off of the street. Not sending for COVID since afebrile upon visit with RN. Unclear if some of his symptoms may be due to opiate withdrawal since he is not on prescription opiates but does purchase on the streets. Also has chronic lung issues (has not yet been to pulm) and smokes marijuana and cigarettes. Unclear of the additives in his tobacco/marijuana. Will continue to be followed. Krystle Avila PLANTING MATERIAL REMOVER 11/09/2019 OV . Alton duy ts for urgent visit today to the clinic. Was to be evaluated by nursing but this clinician then called to clinic since ppt vomited in the transportation van to . He was brought into the clinic and placed on isolation for r/o influenza. He was last seen in the clinic on 10/23/2019. 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 He is a fair to poor historian at baseline. Reports that he vomited in the van this morning and having chills and shakiness. He did note that he bought more morphine off of the street, but not taking the 30s since I get itchy. Showed this clinician a rx bottle with different pills in it and states that he took some this morning.Was also wheezy - given duoneb with + effect. Has baseline wheezing and continues to smoke marijuana and cigarettes. States he completed the zpack and prednisone as instructed. States did not feel much different after that. Given Zofran x 1 for vomiting and was cleaned up of his vomit. Flu swab collected and sent out for urgent turnaround. Later resting comfortably on clinic stretcher playing games on his phone. Flu swab later back negative. Mr. Dang remained resting in the clinic room for approx. 4 hours and was monitored by this clinician and [facility] staff. He fell asleep soundly. Voiding somewhat concentrated urine in urinal. Did not experience additional vomiting. Drank water and his remaining coffee but did not want food for lunch. Later indicating wanting to go home. Additional duoneb treatment given prior to leaving . He ambulated out of the clinic room to the bathroom with no distress, baseline gait disturbance. He went back into his power chair and left the clinic with mask in place - transported home by S[facility] in [facility].EXAM: Alert and oriented, in [facility], lying in clinic stretcher, pupils not fixed or pinpoint, bloodshot eyesRESP - congested throughout, somewhat improved after duoneb, RRR, speaking full sentences, no SOBOE noted later when ambulating approx. 25 ft to bathroomCV - HR regular, difficult to hear due to adventitious lung soundsGI - abd obese, semifirm, NT, + BS Vitals rechecked prior to leaving clinic - afebrile, BP on soft side (but this is chronic for him)PLAN:- Reminded to not purchase drugs off of the street- Encouraged continued use of nebulizer at home, refrain from tobacco use/marijuana use -Pulm referral has been made, appt pending; has had multiple exacerbations prior to enrollment at and continued issues while at - Will be back at next week and be followed by care team- He will also have his power chair worked on - reports issue with maintaining charge (this power chiar was obtained by him prior to enrollment at ). Appears that he did not present to a repair clinic appt at and then service center technician has been sent out to his home, but did not answer the door. Rehab will continue to work on this with Mr. Dang. Office Visit Mr. Dang report s for sick visit today. VIOLET Glover serving as marketing specialist. He is a fair to poor historian at baseline. He was last seen in the clinic on 10/22/2019 for post hospital visit. He cancelled his SE day yesterday and he reported via phone call feeling poorly/aches. SN home visit completed yesterday afternoon along with flu swab sample collection.Flu swab negative yesterday and ppt presented today for follow up. He indicates that he is feeling well today. States continues with his baseline SOB and cough. Reports cough a bit more productive. Still smoking marijuana and states that his cough can get worse with that. States taking his inhalers as ordered, using nebulizer. States has felt fever but did not have thermometer. RN visit yesterday had T 99.9 after taking PRN APAP. Denies GI symptoms.Also shows this clinician a bottle with one pill in it. States it is morphine 30 mg and that he bought it off the street. States that he purchased it due to pain in his knees and that the marijuana is not really working. (Reviewed on pill identifier online and it is morphine extended release 30 mg.) He will be having an appt with ortho in the future and likely needs surgical intervention.Discussed at length with him that he should not purchase pills off of the street and that the opiate that he purchased is not prescribed to him. He somewhat shrugged at this when discussed during the visit. 10/09/2019 [facility] ED - ER notes were also recently received. Appears mild leukocytosis on labs and was given short course of PRN famotidine and odansetron for his GI symptoms. Indicated that may be food toxicity or a gastroenteritis. PLAN:- Since he continues with this persistent respiratory issue/may be COPD exacerbation (was also treated by PCP in 06/2019 similarly), START prednisone burst 40 mg daily x 5 days. First dose of prednisone given at SE today. -START zpak. 500 mg azithromycin given at SE today. Remaining doses of 250 mg to come from pharmacy. - Reinforced use of his scheduled inhalers/nebulizer - to use as directed. - Do not have full previous records for pulmonary. Will consider pulm referral. - Reminded of dangers of purchasing drugs/narcotics off of the streets.ADDENDUM: Ppt experienced a fall after being dropped off by transportation while going up handicapped ramp to his building. See communication notes. Reported L sided rib and ?shoulder pain, therefore ordered for CXR and L shoulder xrays. Transportation and coordination to be arranged by office. PHV Mr. Dang report s for post ED visit today. VIOLET Glover present for Lithuanian interpretation. Last seen in the clinic on 09/21/19. Newly enrolled at on 08/29/2019. He is a fair historian, low educational level.He did not present for his usual SE days earlier this week and reported that he was in the ED. [facility] had told EMS that he wanted to go to [facility], but they brought him to [facility]. was not notified of his ED visit by [facility]. Mr. Dang does not have paperwork from his ED visit, but is still wearing his hospital ID bracelet. Reports went on 10/09/2019 for GI issues. ate some leftovers and was having significant vomiting, so went to ED. Reported diarrhea also. was given medication for diarrhea and vomiting. States that the diarrhea is getting better, no blood in his stool. Starting to eat. No more vomiting. Has his chronic pain which is not worse. Still smoking marijuana. He also notes that he is moving downstairs to another apartment that is more accessible to him and his power chair. He will be moving over the weekend on the . Happy to be moving into this new apartment. He also mentions that he will be looking into going on vivitrol (?). Does not want to go back to using drugs. States suboxone did not make him feel well. States that he is going to go on Tuesday to clinic to see if he can sign on to their program. Recommended that he give the clinic the information for so that we can coordinate care as needed. PLAN:- will be seen by home care next week for change of environment - Lexx will let care team know if he is able to get into the vivitrol clinic- ED visit notes to be requested from [facility]- Reminded to purchase marijuana from dispensary, not from the street due to potential additives. f/u upper respirator y symptoms Mr. Dang is here today for f/u on his cough/respiratory issues. Was seen in the clinic on 09/19/2019. VIOLET Glover present for Lithuanian interpretation. He is a fair historian and offers vague responses to ROS. Wellness call placed yesterday and he was feeling better. He was ordered to have a CXR, which he had completed this morning at [facility]. CXR was negative for acute issues. States that he did not receive the tessalon or mucinex. Has not had fevers. States that the cough is better. Not sleeping well due to the cough. Still smoking marijuana and gets the cough and phlegm when smokes. Still having some black tinged sputum at times when smoking marijuana. Continues to have his chronic pain. Awaiting ortho appt. Again reminded not to use too much ibuprofen due to risk for kidney damage. PPD #2 read today by RN - negative. Exam:Sitting up in his power wheelchair in [facility], does not appear acutely ill, watching TV and playing games on his phone RRR, LS - better air movement today but still diminished. not SOBCardiac- HR regular, no murmurs VSS, afebrile PLAN:- continue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 he dropped a glass in the remote past. He believes he has a foreign body in the plantar aspect of the right third toe, distal tuft. There is a focal area of tenderness. I cannot tell if it is actually a keratin formation or in fact a foreign body.-Podiatry input Related to Foreign body in skin of left lesser toe The patient is edent lópez. Previously seen by dental and referred to oral maxillofacial surgery for removal of ceasar, ? Retained roots. He has not been seen in several years. Is interested in dentures-Referred to dental-We will recommend dentures Related to Absence of teeth, acquired Discussed with RD. Warren e will attempt to resume mom's meals Related to Food insecurity Patient with acute e xacerbation of his underlying respiratory illness. There has historically been debate as to whether this is asthma alone or whether there is superimposed other illness-Burst steroids as written, first dose given-Azithromycin first dose given, 4 more days-Advised avoidance of marijuana smoke-Advised continue use of his chronic inhaler regimen-Has upcoming PFTs and follow-up with pulmonary medicine Related to Severe persistent asthma with acute exacerbation I asked OT if long h andle sponge for lotion application to LE possible Related to Xerosis cutis -Would benefit from a another COVID booster, specifically bivalent. He will need to access this in the community which in principle should not be problematic.-Received full pneumococcal vaccination series albeit well prior to age 67 (currently 62). Would revaccinate with PPV 20 after age 65 unless guidelines change-Balance of immunizations appear adequate-He has not engaged in [place] guard. We can certainly reordered although I am not sure that he will be able to execute this. I do not think a colonoscopy is a realistic option for him-Is getting CT scan of chest as previous screening one was somewhat abnormal-Given his overall functional status I am not sure that extensive screening such as AAA and prostate cancer make a great deal of sense although certainly could be considered Related to Encounter for general adult medical examination w/o abnormal findings Pleasant gentleman w ith a multitude of social challenges including low health literacy, low literacy in general, strained to no social network, substance use, poverty. There is almost certainly an element of cognitive/executive dysfunction. Given all these he is selectively adherent with medications, unable to keep many appointments. All of these conspire to him receiving less than what might be ideal care.-Continue best efforts at supporting him with calls/reminders/simplification of care processes whenever possibleRegrettably, I does not appear there is any family or friends locally that we may involve Related to Non-adherence to medical treatment I do not have access to a sleep study which reportedly took place in recent years. It was not done at [facility] and must of been done prior to him joining our program. In spite of all this, the probability of him using CPAP is virtually nil.-Ongoing exploration about his willingness to use it. Regrettably my experience has been that his ability to do consistent self-care is relatively poor given the multitude of challenges he faces. Absent that, pursuing repeat study and obtaining a CPAP would be largely futile Related to GELY (obstructive sleep apnea) As previously noted, his moca scores are quite low however I think this reflects something other than pure cognitive debility. He clearly demonstrates poor insight and judgment and appreciable executive dysfunction. Memory per se may or may not be as effective. He has a very tangential/meandering historian by history and by my personal experience.Complicating assessment of his cognition is significant marijuana abuse, very low literacy. Despite all the aforementioned challenges he negotiates daily life reasonably well. Nonetheless, his decisions to negatively impact his health status although that is fairly ubiquitous.-Supportive care to the degree possible.-We spoke of a HCP today, he is to obtain info Related to Impaired cognition Bilateral hip avascu lar necrosis. In the past not felt to be a candidate for replacement on the basis of remote seizure, likely polysubstance abuse as well as his respiratory status. I think the seizure is a nonissue. By his accounting substance abuse is now limited to marijuana. I think the greater issue is medication adherence, extremely poor social support, very low health literacy and his ability to cope if he were to have surgery. I am somewhat unsure if this would improve his quality of life. Given his pulmonary disease I am uncertain if he would do well.-We will need to discuss whether he has any interest in pursuing this. If so, would need significant involvement from perioperative medicine, pulmonary and perhaps other specialties at [facility]-He uses NSAIDS,Which is not particularly advantageous but options remain quite limited Related to Osteonecrosis of multiple sites Was seen by orthoped ics a number of times. Orthopedics told him the sole option they could offer was arthrodesis which he opted against.-Follow-up with orthopedics as needed for symptomatic treatment Related to Arthritis of right wrist Most recent ophthalm ology visit was in May 20. Plan for 1 year follow-up.Does not currently complain of symptoms and to the best my knowledge does not routinely use the eyedrops that he has.-Encourage use of eyedrops Related to Dry eye syndrome of right eye Most recent ophthalm ology visit was in May 20. Plan for 1 year follow-up Related to Cataract of right eye, unspecified cataract type Has some decrease in his weight. Regrettably but not entirely sure if this is due to an element of food insecurity. Despite repeated attempts to provide meals Via [employer] he repeatedly was unable to be present for delivery.-Supportive care-Ongoing monitoring of nutritional status-I am not entirely sure of the magnitude of his snap benefit Related to Class 1 obesity without serious comorbidity with body mass index (BMI) of 33.0 to 33.9 in adult, unspecified obesity type 33.3 Related to Body mass index [BMI] 33.0-33.9, adult Past diagnoses of os teoporosis with apparent treatment with Fosamax. Most recent DEXA was in July 2020 and at that time there was confirmation of diagnosis of osteoporosis. Again, his medication adherence is extremely poor making treatment with oral bisphosphonates challenge even if indicated.-We will discuss with him the possibility of once yearly infusion Related to Osteoporosis without current pathological fracture, unspecified osteoporosis type Seen by endocrine in the past. Also apparently saw urology in the past although that might have been more surrounding the issue of erectile dysfunction. Etiology not entirely clear to me however may be related to medications. Obesity/sleep apnea certainly possible. Other substance use possible.-He has not specifically rates this as an issue.-This may be contributory to his osteoporosis-I am not sure that he is a particularly wonderful candidate for testosterone therapy. I will likely not to specifically address this unless he is desirous of doing so. Related to Hypogonadism in male Lipid panel in January showed total cholesterol of 179, HDL of 36, LDL of 111, non-HDL cholesterol of 143 and triglycerides of 203.-Given overall risk treatment of lipids is indicated. Previous atorvastatin was stopped and rosuvastatin was started although I do not know if that is him with the medications he is not taking-With regard to the triglyceride elevation and this is part of his metabolic syndrome. Regrettably has relatively little control over what he eats given financial constraints. Weight loss is indicated but unclear how to achieve that contextually.-Poor glp 1 candidate Related to Mixed hyperlipidemia Radiographic evidenc e of aortic atherosclerosis. This is not surprising the context of his risk factors.-Control vascular risk factors to the degree possible Related to Aortic atherosclerosis Reports ongoing abst inence from opioid misuse, the very least intravenously. Urine toxicology in April 2021 was negative aside from marijuana. At one point he had been referred to Suboxone clinic, well antedating my involvement in his care. He apparently never followed through with qvdw-Fowjppthegx-G am not clear that there is significant benefit in repeating urine toxicology is on a regular basis unless there is specific concern or plan to change treatment Related to Opioid abuse, in remission By history, appears he had problem drinking from age [age]. At this point he denies any ongoing alcohol misuse and drinks rarely.-Ongoing support and monitoring Related to Alcohol dependence, in remission Patient smokes marij uana daily. I have been very clear with him that this is not to his advantage from a respiratory perspective, cognitive perspective and general longevity perspective. That being said, he has absolutely no intention of stopping. Is a bit unclear whether this is partially to treat pain although he does not endorse that today.-Ongoing education and recommendation to minimize use Related to Marijuana dependence Discussed not always taking his pills knows the risks and is able to make his own decisions and educated on benefits of being compliant Related to Non-adherence to medical treatment Report SOB no differ ent than it has been, chronic with COPD continues to smoke and not consistent with his medications see copd for plan Related to SOB (shortness of breath) Reports has a consis tent cough getting up white sputum since he say one of our providers at the end of May. No fever, chills, diarrhea or night sweets or body aches. Reports SOB but no different than baseline. Hx of COPD not on o2 and continues smoking 15 cigarettes a day and marijuana at least 3x a day. Significant discussion in past with pcp about quiting or reducing his smoking due to risk of cancer and worsening respiratory disease if he continues however he does not want to quite. Ppt has been offered nicotine replacement and is not interested. He reported today that he often doesn't take much of his pills except the heartburn one and pain one referring to ppi and nsaid which he takes the later for back pain. Reports the marijuana helps with back pain as well. Also reports saw coin box collector today and they prescribed a med and want to see if maybe for tests but he is not sure. Lungs sounds course throughout with some wheezing which appears to be his baseline per records. He does not look labored and is not using accessory muscles. Also endorses to getting his covid vaccine a few days ago and was tested here a few wks ago for covid and was neg. Plan:-Discussed with the ppt complications of continuing to smoke with worsening respiratory disease and even with understanding. He is not ready to quite and nicotine replacement was offered which he does not want. Discussed to let us know if he changes his mind-Discussed the importance of being compliant with his medications martha his inhalers to help with his breathing and prevent COPD exacerbations-Discussed this is likely his baseline with advancing COPD and goal to prevent worsening disease-Will see if I can get coin box collector records to see what they prescribed and plans for follow up and imaging. -Will get nebulizer tx here-Reminded pt of his rescue inhaler for SOB Related to COPD with asthma Patient presents wit h increased cough for 2 days, white sputum. Minimal rhinorrhea. Thankfully, his baseline very poorly controlled COPD does not appear to be flaring currently. Influenza a and COVID 19 panel negative-Supportive care-I have reached out to pharmacy for him and given him the number so that he can get his meter dose inhalers, among other medications and avoid exacerbation ideally-WOuld not use antibiotics or steroids now Related to URI, acute Wishes to stop diure tics. Aware of risks. Related to Edema, unspecified type Given right knee inj ection for pain on background of arthritis.-Observation Related to Primary osteoarthritis of both knees Was apparently wheez ing before I saw him. He received an updraft and is significantly better. Missed recent pulmonary appointment-No change in medications for now Related to COPD with asthma Severe radioscaphoid arthritis. Moderate capitolunate arthritis. Dr. Will discussed wrist arthrodesis. I explained that it is very difficult to know how outcome of that surgery would go and whether it would improve his quality of life although would likely improve his pain. I told him that in the event that he wishes to proceed he would have to return to hand surgery. Similarly, if he wanted additional injection he would have to return to them Related to Arthritis of right wrist Patient with pruriti c scaled to both hands. He has disc similar lesions to his feet which I think are more related to the fact that he wears sneakers without socks. There may be a fungal component of the plantar lesions. There is also some degree of callus formation. I do not suspect that the hand lesions or syphilitic at all. I do not see bullous component although certainly it may exist. I think that dyshidrotic eczema is unlikely but not impossible.-Topical steroid for his hands for 2 weeks-I will ask my rehab colleagues to see if he can get a sock aid Related to Dermatitis Patient had a fall l ast night trying to get into his tub. He says the layout is such that he has difficulty getting in. He does not currently have assistance. He has very significant gait instability predominantly due to bilateral AVN. He is chronically hypotensive but he does not give a history of orthostatic symptoms antedating this fall. He often uses marijuana multiple times a day. He spoke of wine although unclear to me if there was any inebriation in association with this fall. He is a very poor historian and quite diffuse.-Evaluation of lumbar spine has had aforementioned-I will ask my rehab colleagues if there is room to assess his bathroom-He says he is willing to accept assistance with showers, I will suggest home care with the caveat being that he has refused homemaker other than one that he had prior-Will suggest ERS Related to Fall from standing, initial encounter Predominantly midlin e pain in the lower back. Slight pain to the left. He has post fall with contusion to the back. I think the probability of vertebral compression fracture is small but not impossible especially given his pain when he coughs.-X-ray of lumbar spine while he is over at [facility] having his CT chest Related to Lumbar pain on palpation Patient has a multip licity of challenges including a low literacy, lack of social network, cognitive impairment and limited ability to manage his funds. 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 All that being said, he did manage to fly to [place] recently and make some poor financial choices however, apparently does have food insecurity.-I have spoken to RD about increasing support we provide-He mentions needing help learning to use certain card although not clear if it is an EBT card Related to Food insecurity Patient with long hi story of COPD, reported asthma overlap. He is on appropriate inhalers. He does use nebulizer at home. He continues to smoke marijuana and has had relapse of his tobacco abuse. He has had exacerbation for several weeks at this point with negative chest x-ray, sputum culture growing H. influenzae. He has had courses of azithromycin and more recently Augmentin.-Repeat azithromycin-not giving steroids at this point-Please see tobacco dependence below-Hoping he will see pulmonary in follow-up Related to COPD with asthma Long-standing histor y of borderline blood pressures. I took him off diuretics due to this however, he had recrudescence lower extremity edema. Now on diuretics again more hypotensive although entirely asymptomatic. Obviously there is a broad differential including adrenal insufficiency, infectious etiology etc. however, this seems to be quite chronic in nature making acute events such as bleeding, myocardial infarction, distributive shock, septic shock and the like far less likely. Furthermore, the patient looks relatively well.-Decrease diuretic dose Related to Idiopathic hypotension Long-standing histor y of smoking tobacco. Quit several months ago.-Given prescription in hand for the nicotine patch, he will purchase it where he would prefer- Related to Tobacco abuse Patient several days into treatment for acute exacerbation of COPD. Work of breathing is improved. Chest exam is improved. Oxygenation is improved. He still has increased sputum and is not quite at baseline yet. His baseline is variably not particularly wonderful either.-Complete course of steroids-Complete azithromycin-Encouraged to use nebulizer 3-4 times a day through the weekend-In general has been encouraged to diminish marijuana use due to smoking however, to his credit he did stop smoking cigarettes Related to COPD with asthma Clearly having acute exacerbation of COPD. Difficult to say if there is LR TI. Sputum is green and increased in quantity. Novel coronavirus point of care testing negative-Given 500 mg of azithromycin orally-Given 40 mg of prednisone in clinic-DuoNeb given in clinicPatient reports that he feels well enough to go home rather than the hospital. I asked that he take azithromycin and prednisone tomorrow (I called the pharmacy and asked that they expedite delivery).-I asked that he take the antidiarrheal today if available to him-I asked that he come back in Tuesday for [id number]-Me knows that should he worsen in the interim he is to call us but likely to require hospitalization Related to Acute exacerbation of chronic obstructive pulmonary disease (COPD) Patient with 1+ payton a to lower extremities bilaterally. The patient had been on Lasix and Aldactone. The precise indication was a bit unclear. The patient does have a history of treated hepatitis C and there has been ambiguity as to whether he has cirrhosis. Given the very significant orthostatic hypotension I took him off the diuretic several weeks ago. It is unclear if that change of her came to fruition as when last I saw him he reported he was still taking the diuretics and it may have taken a while for the change to occur. In any event, he now has mild peripheral edema. Blood pressure is still soft-Resume Lasix 20 and Aldactone 25, the latter is a dose decrease.-Follow labs episodically-As after mentioned in HPI, I have reached out to the pharmacy and asked that they refill all his medications, I told him that override would be arranged by pharmacy services as needed Related to Edema, unspecified type Complains of bilater al lower extremity pruritus. Skin exam consistent with tinea pedis. The patient does not wear socks. He wears the same sneakers. His mobility is such that a cream is unlikely to be successful.-Antifungal powder to feet/shoes-Encouraged to wear socks but this seems unlikely. Rehab Aid tells me that she believes she has sock assist device however, his preference is to not wear socks Related to Tinea pedis of both feet Given the multiplici ty of challenges, limitations it is somewhat difficult to deliver preventative care.-Historically not deemed to be a good candidate for colonoscopy given his respiratory frailty.Cologuard was apparently tried in the past but not completed. If he can develop stable patterns will try this again although, would need to consider what we would do with the results of abnormal given his respiratory status-Would repeat CT chest given smoking history and abnormality seen was a decade ago though the fact that he has not progressed somewhat reassuring-Ultrasound for hepatoma screening given past hep C-Immunizations appear up-to-date Related to Encounter for general adult medical examination w/o abnormal findings Stopped smoking rece ntly, will monitor progress. 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 The patient also historically smoked until quite recently and also smokes marijuana daily. This is superimposed upon a history of asthma, I cannot truly obtain childhood history from him given the tangential nature. He historically had significant difficulty using an keeping track of inhalers. I opted to consolidate him to treligy for ease of use, he reports he is using it. He cannot really tell me how much albuterol he is using.-Continue to support smoking abstinence with nicotine replacement as desired-Encouraged to minimize THC use, in the past colleagues have suggested he take it as inedible which seems unlikely to occur.Globally, his control is fairly poor. He sounds wheezy today however, reports that he feels well. While my interactions with him and limited, I have never heard him sound well and be free of wheezing.-Continue inhalers as aforementioned, 1 puff of trelegy daily and as needed albuterol-Utility of the Singulair somewhat unclear-Has albuterol for home nebulizer listed, unclear to me if he uses consistently Related to COPD with asthma Multiple generators of pain including right wrist and bilateral hip AVN. There may be additional musculoskeletal injuries. Regrettably, his history of polysubstance abuse, poor decision making, marginal social support and many other factors impact his ability to get surgery which would be the definitive treatment for his chronic pain generators, the release of the hip. It would not appear that opioids would be a good choice here. The patient has bought opioids in the streets. Patient reports that he smokes marijuana daily for pain control, veracity of intent is unclear. He is on nonsteroidals which are obviously not a wonderful long-term choice.-No immediate solutions-Unclear to me if Suboxone would be an option Related to Other chronic pain Noted on spinal film s. L1-L3 chronic vertebral fractures. This is an element of his osteoporosis-Please see treatment plan under osteoporosis Related to History of vertebral compression fracture Given consistent use of marijuana, past exposures and very low educational level it is somewhat difficult to ascertain if simple cognitive testing really represents his strengths and weaknesses. Despite very low score on MOCA, he seems to negotiate daily life far more adroitly than one might expect with that degree of impairment. That being said, he certainly does exhibit executive dysfunction, poor insight and judgment. He is a very meandering historian and apparently has been for years (based on review of old notes at [facility]).-Supportive care-Lack of social support/network is definitely problematic if and when he develops progressive physical and cognitive debility Related to Impaired cognition Patient with advance d bilateral AVN of the hips. This seems to date back at least 10 years, if not more. Apparently seen by orthopedics however, significant concerns about his candidacy for hip replacement on the basis of remote seizures (2012 workup noted). There is also significant certain about his respiratory status which I think is appropriate.-Unclear how this will evolve.-In the event that surgery is being considered would need pulmonary involvement, significant perioperative evaluation-The seizure strikes me as being less relevant given remote nature of it and absence of ongoing seizures-Past substance use problematic, however, I do not think it necessarily should preclude him from surgery. Related to Osteonecrosis of multiple sites Osteoporosis in the context of hypogonadism, largely nonweightbearing. Reportedly had taken Fosamax in the past.-I would recommend resumption of this, given once weekly dosing I think it is reasonable for him to take it and remain upright in his wheelchair-Given overall mediocre follow-through I am reluctant to consider testosterone replacement Related to Osteoporosis without current pathological fracture, unspecified osteoporosis type Remain symptomatic i n the right arm. 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 I am not sure if this accounts for the entirety of his symptoms.-Awaits hand surgery appointment with orthopedics Related to Unspecified fracture of navicular [scaphoid] bone of right wrist, sequela Reports ongoing abse nce. As with other substances, I am not sure there is utility in checking for unless there is a specific rationale for doing so-Encourage ongoing abstinence Related to Cocaine dependence, in remission Reports ongoing abst inence. Was apparently going to see Suboxone clinic in the past which actually would make a fair amount of sense given his pain however reportedly did not follow through with that. -We will engage in ongoing exploration of sustained remission and encourage this Related to 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 Reports ongoing abstinence Relat ed to Alcohol dependence, in remission Continues daily use. I did not quantify beyond that. Regrettably unlikely he will purchase from dispensary. This is certainly to his detriment regard to respiratory status and risk for unwanted exposure to other medications if adulterated. No desire to stop at this point Related to Marijuana dependence Hx od poly substance abuse. Unclear what he still uses, save for the THC.Consider periodic Utox however, may only be useful if there is plan for treatment of some sort (surgery, different pain regimen) Related to Misuse of drugs Very hard to get a definitive/conclusive answer. He is not really able to complete expanded PHQ. He is at the moment very excited about the prospect of going to [place] for dog. Unless he is receiving medications from psychiatrist, not currently on medications aside from prazosin. Which is being given a dose of 1 mg nightly-I am somewhat unclear if he is still seeing a therapist/psychiatrist. I will ask my social work colleagues if they know. Very hard to get a definitive/conclusive answer. He is not really able to complete expanded PHQ. He is at the moment very excited about the prospect of going to [place] for dog. Unless he is receiving medications from psychiatrist, not currently on medications aside from prazosin. Which is being given a dose of 1 mg nightly-I am somewhat unclear if he is still seeing a therapist/psychiatrist. I will ask my social work colleagues if they know. Related to Recurrent major depressive disorder, in partial remission Hepatitis C positive in 2004 and 2010 with significant viral load. Hepatitis testing in 2019 showed no detectable hep [facility]. He endorses treatment at [facility]. There is ambiguity as to whether there was cirrhosis in the past.-Repeat hep C viral load-Right upper quadrant ultrasound to screen for hepatoma, secondarily will look for ascites Related to History of hepatitis C Long overdue for oph thalmology follow-up.-We will try to book for him upon his return from [place] however, should he know show it will be very hard to get him seen Related to Cataract of right eye, unspecified cataract type BMI 36.2 Related to Obesi ty, Class II, BMI 35-39.9 Patient reports he h as ongoing weight loss. He has tried to modify his diet to some degree. He has a protuberant abdomen and I am hopeful that the weight gain is not fluid. There is no fluid wave. He had been on diuretics, now off due to persistent hypotension. His mobility is exceptionally limited so short of decreasing calories and specifically decreasing simple carbohydrates his options remain somewhat limited-Encouraged modest weight gain Related to Class 2 severe obesity with serious comorbidity and body mass index (BMI) of 36.0 to 36.9 in adult, unspecified obesity type Lipid panel on 6 s hows LDL of 111, HDL of 36, total cholesterol 139. Triglycerides of 203. He is on atorvastatin 10 mg which arguably is not adequate given established atherosclerotic disease. Complicate matters is the past hepatitis C and at least based upon a note a decade ago suggestion of cirrhosis.-Stop atorvastatin 10, start rosuvastatin 10 mg although likely to need more-Repeat lipids in 3-6 months Related to Mixed hyperlipidemia X-ray of spine in showed severe atherosclerotic calcification along the abdominal aorta. Patient is a longtime smoker, dyslipidemia, obese.-He has reportedly stopped smoking, support this-Reassess lipid control-Ideally weight loss-Given ambiguity regarding liver function, current nonsteroidal use would hold off aspirin Related to Aortic atherosclerosis Reports he stopped c igarettes again. Declined NRT Related to Nicotine dependence, cigarettes, with other nicotine-induced disorders Patient with a histo ry of carpal SNAC. Seen by [facility] in the past. Is a bit unclear to me whether his current presentation relates to it although I suspect it does. His overall poor adherence/inability consistently make appointments makes obtaining specialty care for him rather challenging-Referral back to hand surgery pending from november, will await this. He finds the ibuprofen to work poorly. He is not a candidate for any other interventions in the context of his polysubstance abuse and poor reliability overall-Trial naproxen-Repeatedly cautioned that adding additional nonsteroidals or other agents could be potentially fatal or at the very least detrimental to his health Related to Chronic pain of right wrist Patient with a histo ry of carpal SNAC. Seen by [facility] in the past. Is a bit unclear to me whether his current presentation relates to it although I suspect it does. His overall poor adherence/inability consistently make appointments makes obtaining specialty care for him rather challenging-Referral back to hand surgery pending from november, will await this. He finds the ibuprofen to work poorly. He is not a candidate for any other interventions in the context of his polysubstance abuse and poor reliability overall-Trial naproxen-Repeatedly cautioned that adding additional nonsteroidals or other agents could be potentially fatal or at the very least detrimental to his health Related to Other chronic pain Blood pressure is ch ronically somewhat low. It is extremely difficult to tell if his leg weakness and marginal lightheadedness are a function of this. He is not on antihypertensives per say but is on Lasix/Aldactone. Indication for this is somewhat unclear.-Labs today-Trial off Aldactone/Lasix-Prazosin could play a role, less likely Related to Idiopathic hypotension As documented nearly a year ago, patient clearly has evidence of hepatitis C dating back to 2004 and 2010. More recent testing in 2019 shows no detectable hep C RNA (genotype 1A). He apparently endorsed treatment at [facility] years ago. I suspect this is correct. It is somewhat unclear to me if he ever had cirrhosis. There appears to be ambiguity as to why he is on Aldactone/Lasix. [place]. EF at the time was preserved. I am not certain if there were interval studies at [facility].-Given his blood pressure/absence of a clear history of ascites/edema/clear history of volume overload I am inclined to try him off the Lasix and Aldactone. The major challenge as he is planning to go to [place] in about 3 weeks and I am not anxious to change medications prior to his going. I will see him upon his return and to aim to discontinue the medications that point-We will repeat hep C viral load however given that it is undetectable in 2020 I sincerely doubt that anything has changed Related to History of hepatitis C Patient with pain in right distal forearm, wrist and hand. He was previously seen by orthopedics urgent care, somewhat unclear to me if the syndrome was identical. They made a diagnosis of SNAC. Unclear to me if there is any additional bony pathology. The possibility of gout exists. 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 He was previously seen by orthopedics urgent care, somewhat unclear to me if the syndrome was identical. They made a diagnosis of SNAC. Unclear to me if there is any additional bony pathology. The possibility of gout exists. The possibility of of infectious arthritis seems far less likely.-Hand surgery consult at [facility] Related to Unspecified fracture of navicular [scaphoid] bone of right wrist, sequela Patient with area of induration inferior to the umbilicus and several smaller areas that could represent bites to the right of the umbilicus. Interestingly and perhaps oddly he does not have any bites elsewhere that I could see.The source is entirely unclear. He was apparently babysitting a dog. He alludes to having thrown out his sheets although unclear if there is any relationship. He initially mentions being in a new apartment but then contradicts himself. He makes mention of the fact that there are spiders there.There is some induration, he says it has improved. It is conceivable that there was not a bite and simply has a small abscess although I think this less likely. It is not terribly tender. He says overall he is feeling better, either related to doxycycline or unrelated.-Check for common arthropod borne illness such as Lyme-Complete rsfbkhjzaug-Hqrfby-rd next week Related to Insect bite of abdominal wall, initial encounter See insect bite Related to Bitte n or stung by nonvenomous insect and other nonvenomous arthropods, initial encounter - uses marijuana paris ly - smoking; stating using 7-8x/day - discussed that this is making his respiratory status worse but he does not want to stop-encouraged use of cannabis edibles vs. inhalation from dispensary. Related to Marijuana dependence - unspecified, has t herapist appt with [facility] Q3-4 weeks, mostly on the phone- psychiatry prescribing and adjusting his psychiatric medications- he enjoys spending time with his dog, has new girlfriend and they have been going [place] the [place], happy that his wheelchair is new and allows him to get out in the community. Now with increased stress at home related to the law and cold weather worsening his breathing.-PHQ-9 score of 20; SW is also following him, will refer him to [facility] specialist. Related to Severe episode of recurrent major depressive disorder, without psychotic features - labs showing previ ous exposure but no current infection- when reviewing labs in the clinic with him, he then indicated that he was treated for Hepatitis C in the past at [facility] - states took all the pills - do not have copy of records to verify this; records have been requested still not received; will try to get them again- saw GI on 04/22/2020 and they ordered labs drawn and will determine plan of care based on labs but never heard back from GI- AST 9 on today's labs ALT 15. Related to History of hepatitis C - will do Cologard [place] has not had his colonoscopy yet. Issues with tenuous lung function and ability to undergo anesthesia.-Patient has not completed cologard at time of this appointment, encourage to do so. Related to Encounter for screening for malignant neoplasm of colon No anemia on today's labs. Relat ed to Anemia, unspecified type - seen by optho 03/17 21 for worsening vision R eye; had been seen in clinic prior and reported that it was suddenly worse so clinic got him into urgent appt but ppt did not get seen. - since he didn't get seen as outpt for optho, was encouraged to go to ED . No acute issues in ED noted and then followed up with another eye provider this week. He didn't tell his care team that he had been cutting metal prior to his issue. -vision has been decreased at baseline due to previous workplace injury in R eye Related to Vision loss of right eye - Vitamin D level de ficient on today's labs at 24.- continues on Vitamin D supplementation- 06/2020 - 30, 01/2021 - 29- does not weight bear often - uses his power chair; risk for falls - continue on Vitamin D supplementation, goal level above 30 Related to Vitamin D deficiency - elevated BMI, gain ed 3 lbs since last visit.- mainly power chair dependent, unable to exercise formally due to musculoskeletal issues, avascular necrosis of hip.- he has worked with nutrition on his diet, beneficial to lose weight ; has been gaining weight now that has new girlfriend and he is eating with her Related to Class 1 obesity with serious comorbidity in adult, unspecified BMI, unspecified obesity type Hypogondism and erec tile dysfunction - will start with saw Endocrine 05/13/21, has also seen urology in past reportedly. Labs ordered by Endocrine and recommendation to follow up q 6 weeks.- DEXA scan 07/2020 showing osteoporosis spine; osteopenia L hip. Also has Avascular necrosis of left hip.- per previous PCP notes, testosterone 23 in 01/2019- high falls risk Related to Hypogonadism in male ASCVD risk calculato r with lifetime risk of 39%, 10 year risk of 6.3% of CV event at last [facility], had been considering moderate intensity statin. Currently continues to smoke 1PPD of cigarettes and continues heavy cannabis use via smoking. Labs drawn today reveal Total chol/HDL/LDL/triglycerides 204/34/135/212. -Consider moderate intensity statin addition to med profile.-Optimize diet/exercise. Related to Hyperlipidemia, unspecified hyperlipidemia type Patient with two fal ls in the last 6 months, on 02/23/21 and 05/10/21. During the most recent fall, he was ambulating with no walker. He uses the power chair for distances. He is a vague historian- reports thinking he had a seizure. He is unsure what lead up to the event, no aura reported. Did describe some stressors at home but denies having any panic like symptoms prior to event He did fall on his back, denies hitting his head-had shown no neurological concerns for head injury. Reports back pain. I do not believe this is r/t a seizure-Ordered T&L spine xray completed 05/12/21.-Urine drug screen positive only for cannabis 05/12/21.-Ibuprofen for pain-Education on safety using the wheelchair rather than ambulating Related to Risk for falls - often does not adh ere to medical recommendations; is not able to read/write and has poor educational level- needs significant assistance with helping with medication management, following up with appts with specialists and in the clinic, understanding importance of follow up; simplified his regimen today for medications so that he could follow as best as he could- he often thinks things are funny and doesn't understand the severity of his issues; takes up a significant amount of the care team's time, does not pay attention during visits for provider/nursing instructions- care team to continue to support him in the community Related to Non-adherence to medical treatment - is able to ambulat e short distances within a room; has baseline gait disturbance s/p injuries in the past and current orthopedic issues- cannot flex hips 90 degrees per previous PT note- has new power chair and is doing well and able to maintain level of independence in community Related to Wheelchair dependent - see also SOB ; unc lear at this time if SOB is COPD exacerbation, allergies, or COVID19. 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 -Care team has worked hard to provide him with educational resources on how to take his inhalers correctly. He cannot read and has poor educational level.- will continue to try to work with him. Reminded him that he needs to play a role in his own healthcare decisions. Related to COPD with asthma - unclear on his rep orts of seizure-like actiivty; vague in his report, states when was using drugs but then ?had seizure from prescription opiate or cocaine- 04/2020 brief neurology telehealth visit was not productive but stated to provider that no further seizures after stopping cocaine. Neurology mentioned that they were able to find a VEEG from 2012 which was normal. - reports that scar on R side of his neck/clavicle secondary to injury sustained when he had a seizure. States no seizure like activity since stopping using drugs. Still uses marijuana that he obtains from the street.- discussed that there are risks for buying marijuana from the street and could be laced with other substances, states that his seller is a reputable seller; he has been given an Rx for Narcan Related to History of seizure MoCA completed 08/07 with score of 11/30 with deficits in visuospatial and executive functioning, identification, attention, language, abstraction, delayed recall. Less deficit in orientation. Related to Impaired cognition 05/12/21 Spine xrays (T&L): no acute abnormalities. Mild disc space narrowing in the lower thoracic spine. Advanced degenerative changes in bothhips with joint space narrowing as well as subchondral sclerotic andcystic changes. Severe athersclerotic calcification in th abdominal aorta. Related to Chronic low back pain without sciatica, unspecified back pain laterality 05/12/21 Spine xrays (T&L): no acute abnormalities. Mild disc space narrowing in the lower thoracic spine. Advanced degenerative changes in bothhips with joint space narrowing as well as subchondral sclerotic andcystic changes. Severe athersclerotic calcification in th abdominal aorta. Related to Other chronic pain - per previous PCP r ecords, also dx hypogonadism- mainly wheelchair bound and unable to bear much weight (could be exacerbating osteoporosis due to decreased use); - old DEXA scan not available for review - 07/2020 DEXA indicating osteoporosis AP spine (T -3.4, Z -2.8), osteopenia L hip (T -1.9, Z -1.5). - was prevoiusly on fosamax but reports not taken in years due to difficulty with sitting up after medication-will adjust plan of care based on endocrine referral, continues on Vitamin D supplement Related to Osteoporosis, unspecified osteoporosis type, unspecified pathological fracture presence - previous CXRs show chronic displaced obliquely oriented fracture L distal clavicle- MRI L shoulder without contrast 09/20/18 - partial tear supraspinatus tendinosis, small insertional articular sided tear of superior fibers of subscapularis tendon, minimal glenohumeral osteoarthritis, adhesive capsulitis, mild subacromial subdeltoid bursitis- upper extremity generalized decreased strength, able to lift arms above shoulder- rehab team continues to work with him and see ortho as needed-can provide Dynarub for PRN use.-Encouraged alternating ibuprofen and tylenol, patient asking about cannabis tinctures. Encouraged edible use vs. smoke inhalation. Related to Fracture of unspecified part of left clavicle, sequela - per ortho note 01/28 - xray bilateral knees showing moderate to severe bilateral knee OA. He is mainly limited to ambulation using power chair but can ambulate short distances. - he receives bilateral knee steroid injections periodically- not current surgical candidate due to his tenuous respiratory status but if he improves with his smoking, then can consider surgery. Related to Osteoarthritis of both knees, unspecified osteoarthritis type - [facility] note from 01/28 indicating that xrays of bilateral hips show evidence of chronic avascular necrosis with end stage degenerative changes - recommended to have hip replacement. - will continue to follow with ortho for possible surgery but needed further medical workup due to his report of seizures in past (but appear to be related to drug use); Neurology telehealth was not productive but they did find EEG from 2011 which was negative- he also has a tenuous respiratory status which is holding him back from surgery - using power wheelchair for ambulation and can ambulate short distances on his own Related to Osteonecrosis of multiple sites - uses marijuana paris ly - smoking; stating using 7-8x/day - discussed that this is making his respiratory status worse but he does not want to stop-encouraged use of cannabis edibles vs. inhalation from dispensary. Related to Marijuana dependence - see also SOB ; unc lear at this time if SOB is COPD exacerbation, allergies, or COVID19. 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 -Care team has worked hard to provide him with educational resources on how to take his inhalers correctly. He cannot read and has poor educational level.- will continue to try to work with him. Reminded him that he needs to play a role in his own healthcare decisions.Given Duoneb in clinic. Ordered COVID-19 swabs for rapid and PCR as well as Prednisone dose in house 40mg PO, sent taper to pharmacy. Unfortunately, ppt left with transportation before getting first dose of Prednisone, before getting COVID swabs and before re-assessment of breathing s/p nebulizer treatment. Nursing to follow up on this. Related to COPD with asthma - hx workplace injur y with musculoskeletal injury; hx avascular necrosis- mainly wheelchair bound, able to stand and pivot and ambulate short distances- uses marijuana for pain control, but purchases from the street, not from regulated dispensary; has also purchased morphine from the streets but reports that he is no longer doing this- reports has received BLE injections that have helped; also received in R wrist s/p fall and R wrist is doing well- has used lidocaine patches in the past; unable to take some opiates - ? hx seizures; on APAP and ibuprofen; has recently been using tramadol PRN Related to Other chronic pain - often does not adh ere to medical recommendations; is not able to read/write and has poor educational level- needs significant assistance with helping with medication management, following up with appts with specialists and in the clinic, understanding importance of follow up; simplified his regimen today for medications so that he could follow as best as he could- he often thinks things are funny and doesn't understand the severity of his issues; takes up a significant amount of the care team's time, does not pay attention during visits for provider/nursing instructions- care team to continue to support him in the community Related to Non-adherence to medical treatment - previous CXRs show chronic displaced obliquely oriented fracture L distal clavicle- MRI L shoulder without contrast 09/20/18 - partial tear supraspinatus tendinosis, small insertional articular sided tear of superior fibers of subscapularis tendon, minimal glenohumeral osteoarthritis, adhesive capsulitis, mild subacromial subdeltoid bursitis- upper extremity generalized decreased strength, able to lift arms above shoulder- rehab team continues to work with him and see ortho as needed-can provide Dynarub for PRN use.-Encouraged alternating ibuprofen and tylenol, patient asking about cannabis tinctures. Encouraged edible use vs. smoke inhalation. Related to Fracture of unspecified part of left clavicle, sequela Presents today to [facility] clinic for shortness of breath and wheezing x2-3 weeks. Cough with yellow sputum production has improved. On RA O2 is 92% today.- treating today as possible COPD exacerbation with prednisone, nebulizers, cough medications PRN.- reminded of cutting back on smoking marijuana and cigarettes. Related to SOB (shortness of breath) Patient had come in today after a fall at home 2 days ago (05/10). He was ambulating with no walker. He uses the power chair for distances. He is a vague historian- reports thinking he had a seizure. He is unsure what lead up to the event, no aura reported. Did describe some stressors at home but denies having any panic like symptoms prior to event He did fall on his back, denies hitting his head-had shown no neurological concerns for head injury. Reports back pain. I do not believe this is r/t a seizure-Ordered T&L spine xray-CBC, BMP r/o dehydration or electrolyte xdxjmxer-Vxxftf-Haahs drug screen as he had seizure like activity when using cocaine in the past (EEG was negative in 2011)-ibuprofen for pain-Education on safety using the wheelchair rather than ambulating Related to Back pain, unspecified back location, unspecified back pain laterality, unspecified chronicity Patient had a fall o n 05/10/21 and reported possible seizure like activity. Per past records- seizures had occured when using cocaine. He did report no current usage though he does smoke marijuana. My concerns are if that it could have been laced with cocaine causing this event. He reports smoking prior to this event- he is a chronic marijuana user. -Urine drug screen as he had seizure like activity when using cocaine in the past (EEG was negative in 2011) Related to Cocaine dependence, in remission Patient had come in today after a fall at home 2 days ago (05/10). He was ambulating with no walker. He uses the power chair for distances. He is a vague historian- reports thinking he had a seizure. He is unsure what lead up to the event, no aura reported. Did describe some stressors at home but denies having any panic like symptoms prior to event He did fall on his back, denies hitting his head-had shown no neurological concerns for head injury. Reports back pain. 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 Care team has worked hard to provide him with educational resources on how to take his inhalers correctly. He cannot read and has poor educational level.- will continue to try to work with him. Reminded him that he needs to play a role in his own healthcare decisions. Related to COPD with asthma - treating today as possible COPD exacerbation with antibiotics and prendisone, nebulizers, cough medications- also will add cetirizine for possible allergies - ragweed and goldenrod season- reminded of cutting back on smoking marijuana and cigarettes- COVID19 negative via [facility], PCR test sent out- discussed that if not improved, recommend ED Related to SOB (shortness of breath) - often does not adh ere to medical recommendations; is not able to read/write and has poor educational level- needs significant assistance with helping with medication management, following up with appts with specialists and in the clinic, understanding importance of follow up; simplified his regimen today for medications so that he could follow as best as he could- he often thinks things are funny and doesn't understand the severity of his issues; takes up a significant amount of the care team's time, does not pay attention during visits for provider/nursing instructions- care team to continue to support him in the community Related to Non-adherence to medical treatment - no show to sleep m ed consultation; work on rescheduling this- some of potential GELY contributing to his respiratory difficulties, has a short neck, obesity Related to GELY (obstructive sleep apnea) - uses marijuana paris ly - smoking; stating using 7-8x/day - discussed that this is making his respiratory status worse but he does not want to stop- almost excessive odor of marijuana in the room today Related to Marijuana dependence - COVID negative on in office Binax test- sending also for PCR testing in light of his symptoms- reminded to stay isolated and wear mask Related to Encounter for observation for suspected exposure to other biological agents ruled out - seen by optho 03/17 21 for worsening vision R eye; had been seen in clinic prior and reported that it was suddenly worse so clinic got him into urgent appt but ppt did not get seen. - since he didn't get seen as outpt for optho, was encouraged to go to ED . No acute issues in ED noted and then followed up with another eye provider this week. He didn't tell his care team that he had been cutting metal prior to his issue. - he will see in f/u in 6 wks for dilated eye exam; vision has been decreased at baseline due to previous workplace injury in R eye Related to Vision loss of right eye - seen by optho in who dx with dry eye R eye; will use refresh eye drops PRN, erythromycin PRN- discussed the diagnosis and he indicates understanding - f/u with optho in 6 wks Related to Dry eye syndrome of right eye - BLE mainly pretibi tial areas; reports bugs in his apartment but also spends time out at the park-hydrocortisone cream to be applied PRN- encouraged good cleaning in his apt; he reports has been down to building to see if he can move apartments, encouraged to get his dog a flea bath, reports does not have carpeting in his apt, does not have a vacuum- he will report worsening Related to Exanthem - per optho visit 2020- he will f/u in 6 wks for further examination Related to Cataract of right eye, unspecified cataract type -had baseline decrea sed vision R eye from reported workplace injury and seeing optho in March for routine exam- however today coming in for sudden loss of vision x 2 days R eye, painless, pinpoint pupil and unable to read eye chart- able to get him in with Dr. Cadena this afternoon urgently for evaluation; optho ddx includes optic neuritis, retinal detachment. Also consider CVA, cardiovascular etiology. Related to Vision loss of right eye - has difficulty wit h understanding instructions, not able to read/write to a major extent- SE assists with instructions from providers, care coordination Related to Unable to read or write - uses marijuana daily - smoking Related to Marijuana dependence - often does not adh ere to medical recommendations; is not able to read/write and has poor educational level- needs significant assistance with helping with medication management, following up with appts with specialists and in the clinic, understanding importance of follow up- he often thinks things are funny and doesn't understand the severity of his issues; takes up a significant amount of the care team's time- has been counseled many times on his drug use and purchasing marijuana off of the street; has been given narcan rx for safety- care team to continue to support him in the community Related to Non-adherence to medical treatment - will do [place]olog[place] has not had his colonoscopy yet. Issues with tenuous lung function and ability to undergo anesthesia Related to Encounter for screening for malignant neoplasm of colon - watching his lipid s, has been gaining weight, smoker (recently former)- 01/2021 Tchol 185, LDL 118, Trig 206, HDL 35- 10/2020 Tchol 223, LDL 150, Trig 135, HDL 47- per ASCVD risk calculator, can consider moderate intensity statin, lifetime risk of 39%, current 10 year risk of 6.3% of CV event- borderline- he would like to speak with nutrition on this and see if he can work on diet before adding medication Related to Mixed hyperlipidemia - he reports has sto pped now for about 1 month, > 40 pack years- has been encouraged by care team, pulmonary to cut back/stop smoking since is causing his lung function to be impaired- continue to encourage him to to abstain from cigarettes, still smokes marijuana Related to Nicotine dependence, cigarettes, with other nicotine-induced disorders - unable to read/wri te and has R eye vision loss- went to school up to 2nd grade- MOCA score may be low due to his educational level and vision; 2019 MOCAs 14; has a degree of cognitive impairment- needs significant assistance with retention of information, following through on recommendations and information Related to Unable to read or write - elevated BMI- main ly power chair dependent, unable to exercise formally due to musculoskeletal issues- he has worked with nutrition on his diet, beneficial to lose weight ; has been gaining weight now that has new girlfriend and he is eating with her Related to Severe obesity with body mass index (BMI) of 35.0 to 35.9 and comorbidity - elevated BMI- main ly power chair dependent, unable to exercise formally due to musculoskeletal issues- he has worked with nutrition on his diet, beneficial to lose weight ; has been gaining weight now that has new girlfriend and he is eating with her Related to Body mass index [BMI] 35.0-35.9, adult - unspecified type - has been treated in past for COPD exacerbations with prednisone and empiric azithromycin, following with pulmonary - 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 Care team has worked hard to provide him with educational resources on how to take his inhalers correctly. He cannot read and has poor educational level. Related to Pulmonary emphysema, unspecified emphysema type - this continues to be an issue for him, in recent months providers have had discussion with him that if he continues to smoke that he will not be able to have his surgeries and has a limited life expectancy due to lung function- he had multiple no shows to appointments but was able to have pulm visit on 12/26/20 at [facility] 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 -he was inconsistent with his inhaler use/understanding (does have poor educational level and unable to read)- Pulmonary Rehabiltation referral has been made for chronic disease management (inhaler evaluation and usage, instructed to bring all inhalers to appointment) but he did not show up for this- care team working on rescheduling. - Continue Albuterol HFA 90 mcg 2 puffs inhaled as needed- he has stopped smoking tobacco reportedly for about 1 month and seems to be doing better with his respiratory status- care team will continue to follow Related to Severe persistent asthma, unspecified whether complicated - hx workplace injur y with musculoskeletal injury; hx avascular necrosis- mainly wheelchair bound, able to stand and pivot and ambulate short distances- uses marijuana for pain control, but purchases from the street, not from regulated dispensary; has also purchased morphine from the streets but reports that he is no longer doing this- reports has received BLE injections that have helped; also received in R wrist s/p fall and R wrist is doing well- has used lidocaine patches in the past; unable to take some opiates - ? hx seizures; on APAP and ibuprofen; has recently been using tramadol PRN Related to Other chronic pain - [facility] note from 01/28 indicating that xrays of bilateral hips show evidence of chronic avascular necrosis with end stage degenerative changes - recommended to have hip replacement. - will continue to follow with ortho for possible surgery but needed further medical workup due to his report of seizures in past (but appear to be related to drug use); Neurology telehealth was not productive but they did find EEG from 2011 which was negative- he also has a tenuous respiratory status which is holding him back from surgery - using power wheelchair for ambulation and can ambulate short distances on his own Related to Osteonecrosis of multiple sites - per previous PCP r leon, also dx hypogonadism- mainly wheelchair bound and unable to bear much weight (could be exacerbating osteoporosis due to decreased use); - old DEXA scan not available for review - 07/2020 DEXA indicating osteoporosis AP spine (T -3.4, Z -2.8), osteopenia L hip (T -1.9, Z -1.5). - was prevoiusly on fosamax but reports not taken in years due to difficulty with sitting up after medication-will adjust plan of care based on endocrine referral, continues on Vitamin D supplement Related to Osteoporosis, unspecified osteoporosis type, unspecified pathological fracture presence - per ortho note 01/28 020 - xray bilateral knees showing moderate to severe bilateral knee OA. He is mainly limited to ambulation using power chair but can ambulate short distances. - he receives bilateral knee steroid injections periodically- not current surgical candidate due to his tenuous respiratory status but if he improves with his smoking, then can consider surgery. Related to Osteoarthritis of both knees, unspecified osteoarthritis type - saw [facility] in 01/2020 xrays showing end stage bilateral hip AVN/DJD and recommend hip replacement surgery, but has needed additional medical workup prior to scheduling the surgery - also has tenuous respiratory status which would preclude him right now from surgery- has been set up with neurology but was unable to tell them anything since ortho wanted workup for seizures that seem to have been related to drug use in the past; EEG in past (2011) was normal - has been seeing [facility] for injections, is mainly limited to his power chair but able to ambulate short distances with antalgic gait Related to Bilateral hip joint arthritis - reports has not us ed recently - does not want to go back to using- continues to follow up with behavioral health counselor/psychiatry- he had reported in past that had seizures when using cocaine Related to Cocaine dependence, in remission - hx IVDU including heroin, not currently using- was going to see suboxone clinic but did not follow through- testing in past showing HIV negative, Hepatitis B negative, Hepatitis C positive - hx exposure; reports 'took all the pills' that he was prescribed but we have not received confirmation of this - reports has not been purchasing heroin from the streets Related to 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 He obtains this from the street as dispensary is more expensive but does now have his marijuana card. Instructed to purchase marijuana at dispensary since this substance from the streets can contain unknown substances that could cause .- also reminded that the daily smoking of this does not help his lung function Related to Marijuana dependence - has previously bro ught in drugs to clinic that he had purchased off of the street although not recently; has been given narcan rx to keep on his person and discussed risks of buying marijuana or opiates off the street- he has also been made aware that if he is having orthopedic surgery in the future (not scheduled yet) then he would not be able to do illicit drugs around the surgery time - reports that he has been better about purchasing opiates off of the street, has been buying marijuana off the streets also and reminded to watch for additives in the marijuana Related to Misuse of drugs - unspecified, has t herapist appt with [facility] Q3-4 weeks, mostly on the phone- reports doing well with depression, will have him complete PHQ9 in future - had to leave prior to getting completed; SW is also following him- psychiatry prescribing and adjusting his psychiatric medications- he enjoys spending time with his dog, has new girlfriend and they have been going to a [place] to swim, happy that his wheelchair is new and allows him to get out in the community Related to Recurrent major depressive disorder, in partial remission - has seen urology i n past, known hypogonadism- going to be seeing endocrine too in the future Related to 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 - labs showing previ ous exposure but no current infection- when reviewing labs in the clinic with him, he then indicated that he was treated for Hepatitis C in the past at [facility] - states took all the pills - do not have copy of records to verify this; records have been requested still not received; will try to get them again- saw GI on 04/22/2020 and they ordered labs drawn and will determine plan of care based on labs but never heard back from GI- current LFTs in normal range Related to History of hepatitis C - decreased vision R eye from reported workplace injury (something in his eye)-optho appt was ordered but not yet completed; appts have been pushed back due to COVID pandemic- reports no new vision issues- will try to get him in with optho now that COVID restrictions are lifting Related to Vision loss of right eye - Vitamin D level 24 in 08/2019- was started on Vitamin D supplementation- 06/2020 - 30, 01/2021 - - does not weight bear often - uses his power chair; risk for falls - continue on Vitamin D supplementation, goal level above 30 - has now been spending more time outside now that the weather is warmer Related to Vitamin D deficiency - has been gaining w eight, BMI now up to 35.26, previously BMI 33; previously 34; BMI 03/2019 - 32 at weight of 217 lbs - not able to exercise due to musculoskeletal issues, uses his power chair for transportation- nutrition has worked with him on diet and he has tried to work on this. He has been eating more now that he has a new girlfriend and they are eating take out/she is cooking for him. - updated A1c 5.6% Related to Obesity, unspecified classification, unspecified obesity type, unspecified whether serious comorbidity present - referral to endocr ine has been placed appt not yet obtained; also reports erectile dysfunction - will start with endocrine, has also seen urology in past reportedly - DEXA scan 07/2020 (results not received until now) showing osteoporosis spine; osteopenia L hip. - per previous PCP notes, testosterone 23 in 01/2019- high falls risk Related to Hypogonadism in male - BLE pretiibial are as, reports first noted this morning (they were not present when he was at clinic on 02/04/21); has been spending time outside at a [place]; ddx includes bug bites- platelet count and H&H on 02/04 normal range, LFTs normal range 02/04- not itchy or draining, he will monitor over weekend. Told to call dedicated regional driver over weekend if turns into full body rash, itching, pain. He will call next week to let us know how he feels and we will follow up as necessary Related to Ada - power chair depend ent for distances - able to stand and pivot and can ambulate short distances in his apartmentfall 11/17/20; no injury; no recent falls reported since then - had a fall in 06/2020 where he injured his R wrist- will also look into ERS Related to Risk for falls improved respiratory sounds today. Tuesday, was provided with all of his inhalers, and prednisone. new orders for prenidsone 50mg daily x7 days. education provided at length again today on use of medications. education sheet provided. duoneb given today with good effect.PPT has started smoking again (both MJ and cigarettes). He reports it is needed to combat his stressful living environment.PPT life expectancy <1 year if he continues his current course. He has been told this and is going to attempt to change. He was provided with [facility] and inhaler education until he is confident in providing his medications for himself. he reports he is using his inhalers as ordered. No oxygen use at this time.- keep follow up with pulm Related to Pulmonary emphysema, unspecified emphysema type see pulmonary emphys jimmy PPT provided education on proper use of respiratory meds/inhalers. He has started smoking again. He does not require oxygen at this time. Related to Severe persistent asthma, unspecified whether complicated continues to smoke c igarettes daily. Reports he needs them to get away from his stressful environment. Is willing to wear nicotine patches, wants to finish his current pack before quitting Related to Nicotine dependence, cigarettes, with other nicotine-induced disorders see pulmonary emphys jimmy - new orders placed for [employer], PPT to bring to clinic for education on proper use. PPT continues to smoke cigarettes and marijuana daily. He does not require oxygen at this time. Related to Severe persistent asthma, unspecified whether complicated non compliant with b reathing treatments, inhalers. follows pulmonology, has appointment scheduled for follow up.continues to smoke cigarettes. education provided at length again today on use of medications. All respiratory medications re-ordered and he has started albuterol 4x daily. duoneb given today with good effect. IS 1200mL.PPT life expectancy <1 year if he continues his current course. He has been told this and is going to attempt to change. daily visits at [facility] for [facility] and inhaler education until he is confident in providing his medications for himself. No oxygen use at this time. Related to Pulmonary emphysema, unspecified emphysema type non compliant with b reathing treatments, inhalers. follows pulmonology. last seen for virtual visit. continues to smoke marijuana and cigarettes. education provided at length again today on use of medications. All respiratory medications re-ordered as there is inconsistency in how he has been taking them, some no refilled for several months.PPT life expectancy <1 year if he continues his current course. He has been told this and is going to attempt to change. daily visits at [facility] for du[facility]b and inhaler education until he is confident in providing his medications for himself. No oxygen use at this time. Related to Pulmonary emphysema, unspecified emphysema type see pulmonary emphys jimmy - new orders placed for [employer], PPT to bring to clinic for education on proper use. PPT continues to smoke cigarettes and marijuana daily. He does not require oxygen at this time. Related to Severe persistent asthma, unspecified whether complicated continues to smoke c igarettes daily. Reports he needs them to get away from his stressful environment. Is willing to wear nicotine patches, wants to finish his current pack before quitting Related to Nicotine dependence, cigarettes, with other nicotine-induced disorders wearing nicotine pat ch today, reportedly stopped smoking yesterday Related to Nicotine dependence, cigarettes, with other nicotine-induced disorders advised to go to [facility], status worse today. provided with all of his inhalers, and prednisone. new orders for prenidsone 50mg daily x7 dayseducation provided at length again today on use of medications. education sheet provided. duoneb given today with good effect. IS 1200mL.PPT life expectancy <1 year if he continues his current course. He has been told this and is going to attempt to change. daily visits at [facility] for [facility] and inhaler education until he is confident in providing his medications for himself. No oxygen use at this time. Related to Pulmonary emphysema, unspecified emphysema type see pulmonary emphys jimmy PPT provided education on proper use of respiratory meds/inhalers. Wearing nicotine patch today. He does not require oxygen at this time. Related to Severe persistent asthma, unspecified whether complicated see pulmonary emphys jimmy - new orders placed for [employer], PPT to bring to clinic for education on proper use. PPT continues to smoke cigarettes daily. He does not require oxygen at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 and diarrhea; he refused colonoscopy - Fe studies per prevoius PCP notes indicated mild deficiency- appears under previous PCP, he was to follow with GI but did not keep appts and PCP office had tried to help him reschedule and coordinate, but still did not attend appts- saw GI on 04/22/2020 and will have colonoscopy scheduled Related to Anemia, unspecified type - current marijuana use for pain, reports smokes about 5x/day for pain- purchases off the street and not at dispensary, this was again reviewed with him in the clinic - recommend that he obtain form dispensary - smokes the marijuana; reminded that there is the potential that drugs off the street could be laced with other substances and he indicates that his supplier is good and he is not worried about this from his supplier; His friend states that they had marijuana laced with K2 a few months back - in the past was wondering if he can become less dependent on this recommended that he start discussions with behavioral health Related to Marijuana dependence - recent labs showin g previous exposure but no current infection- when reviewing labs in the clinic with him, he then indicated that he was treated for Hepatitis C in the past at [facility] - states took all the pills - do not have copy of records to verify this; records have been requested- saw GI on 04/22/2020 and they ordered labs drawn and will determine plan of care based on labs; orthopedics also wanted clarification on his Hepatitis C status prior to scheduling hip replacement surgery Related to History of hepatitis C - [facility] and indicated that he needed extractions prior to dentures. He had lost his teeth reportedly 2ndary to drug use.- He would like to hold off on consultation for tooth extraction at this time since would prefer to get his hip surgery first. Reports is able to eat well currently in his state of edentulousness. Related to Absence of teeth, acquired - saw [facility] in 01/2020 xrays showing end stage bilateral hip AVN/DJD and recommend hip replacement surgery, but will need additional medical workup prior to scheduling the surgery Related to Bilateral hip joint arthritis - per ortho note 01/28 - xray bilateral knees showing moderate to severe bilateral knee OA- he received bilateral knee steroid injections in 01/2020- will be having surgical consultation with [facility] in the future - Dr. Hauser Related to Primary osteoarthritis of both knees - [facility] note from 01/28 indicating that xrays of bilateral hips show evidence of chronic avascular necrosis with end stage degenerative changes - recommended to have hip replacement. - will continue to follow with ortho Related to Osteonecrosis of multiple sites - per previous PCP r ecords, also dx hypogonadism- mainly wheelchair bound and unable to bear much weight (could be exacerbating osteoporosis due to decreased use); DEXA scan not available for review - new one has been ordered but rescheduled due to COVID pandemic- was prevoiusly on fosamax but reports not taken in years due to difficulty with sitting up after medication-will adjust plan of care based on updated DEXA findings; aslo placed on vitamin D supplement- reminded of falls risk and recently had 2 falls Related to Other osteoporosis without current pathological fracture - is able to ambulat e short distances within a room; has baseline gait disturbance s/p injuries in the past and current orthopedic issues- cannot flex hips 90 degrees per previous PT note- has been having issues with his power chair and rehab team is working on it with him. Uses his power chair as his transportation Related to Wheelchair dependent - continues to smoke cigarettes, about 10 cigarettes/day- has cut these down but does not want to fully stop, also smoking marijuana regularly- has recently seen pulmonary Related to Nicotine dependence, cigarettes, with other nicotine-induced disorders - states unable to r ead/write- R eye vision loss- went to school up to 2nd grade- M[employer] 09/03/2019 (points off for identification of animals, serial 7s refused to do, language, # words, not oriented to month, 0 points for delayed recall); note that he has vision deficit R eye, schooling to 2nd grade; = degree of cognitive impairment- needs significant assistance with retention of information, difficult to give him instructions for medical issues, often does not follow through Related to Unable to read or write - unclear on his rep orts of seizurelike actiivty; vague in his report, states when was using drugs but then ?had seizure from prescription opiate? Has continued to purchase morphine off of the street and then reporting that had another episode of this activity after taking - states not going to purchase pills off of the street any longer- reports that scar on R side of his neck/clavicle secondary to injury sustained when he had a seizure. States no seizure like activity since stopping using drugs. Still uses marijuana that he obtains from the street.- discussed that there are risks for buying marijuana from the street and could be laced with other substances, states that his seller is a reputable seller Related to History of seizure - hx workplace injur y with musculoskeletal injury; possible hx avascular necrosis- mainly wheelchair bound, able to stand and pivot- uses marijuana for pain control, but purchases from the street, not from regulated dispensary- reports [facility], do not yet have note for review - states that the injetions helped - has used lidocaine patches in the past; unable to take some opiates - ? 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; chronic tobacco and marijuana use- not on O2- PFTs 12/27/18 - mod degree restrictive pulm disorder, severe obstructive airway disorder, significant improvement after bronchodilator therapy consistent with bronchial asthma; FEV1, vital capacity, MVV, [id number] all markedly decreased, total lung capacity moderately reduced, diffusion capacity normal- CXR 11/07/18 showing emphysematous changes in lungs- saw pulmonary on 02/11/2020 - would like updated PFTs (to be rescheduled in future, will need COVID test prior), mometasone 200 mcg was also added to his regimen - RN will follow up with him on this to ensure he has received;, per pulmonary - continue on double dose inhaled corticosteroid, LABA, LAMA, leukotriene inhibitor; has nebulizer at home Related to Pulmonary emphysema, unspecified emphysema type - saw pulmonary on - would like updated PFTs (to be rescheduled in future, will need COVID test prior), mometasone 200 mcg was also added to his regimen - RN will follow up with him on this to ensure he has received;, per pulmonary - continue on double dose inhaled corticosteroid, LABA, LAMA, leukotriene inhibitor (montelukast); has nebulizer at home-has reported to pulmonary that was diagnosed with asthma in [place] when he was 14- 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; chronic tobacco and marijuana use- PFTs 12/27/18 - mod degree restrictive pulm disorder, severe obstructive airway disorder, significant improvement after bronchodilator therapy consistent with bronchial asthma; FEV1, vital capacity, MVV, [id number] all markedly decreased, total lung capacity moderately reduced, diffusion capacity normal- pulm also obtained updated labs, noted that recent CBC did not show eosinophilia, added on IgE level and RAST panel to phenotype his asthma- he will f/u with pulmoedit Related to Persistent asthma without complication, unspecified asthma severity - per PCP notes, has seen ortho but was lost to follow up, R hip worse than L and surgery was recommended previously- he was re-referred to [facility] and reports did go to the appt, note not yet received Related to Osteonecrosis of multiple sites per previous PCP not es- 2017 PT note from PCP office:10/28/15 CRISTINA Lewis at [facility] - bilateral hip pain, difficulty with all weightbearing activities - xray views of bilateral hips from 09/13/15 showing advanced arthritis R hip with femoral head collapse, OA, subchondral sclerosis and cyst formation, degen changes L hip, more findings consistent with possible AVN; impression - arthritis bilateral hips, postraumatic vs AVN; Plan - recommended hip replacement, follow up with Dr. Chinchilla for surgical [id number]/16 - CT abd pelvis with contrast - severe degenerative changes across hips worse on R, stable slight compression deformity of superior L2 and L3 vertebral body endplates, no aggresive bony abnormality- being referred to ortho since has not had recent evaluation and continues with pain issues- he was lost to follow up previously but did see [facility] last week - notes pending and will follow up based on that consultation Related to Bilateral hip joint arthritis - reports has not us ed recently - does not want to go back to using- recommend that he also continue to follow up with behavioral health counselor/psychiatry Related to Cocaine dependence, in remission - reports runs in hi s family- ETOH use was a problem for him- started at age 16 and stopped at age 32, has no desire to drink alcohol Related to Alcohol dependence, in remission - CXRs show chronic displaced obliquely oriented fracture L distal clavicle- MRI L shoulder without contrast 09/20/18 - partial tear supraspinatus tendinosis, small insertional articular sided tear of superior fibers of subscapularis tendon, minimal glenohumeral osteoarthritis, adhesive capsulitis, mild subacromial subdeltoid bursitis- upper extremity generalized decreased strength, able to lift arms above shoulder- rehab team continues to work with him Related to Fracture of unspecified part of left clavicle, sequela - unspecified, sees therapist at [facility] weeks but unclear what the recent schedule has been due to COVID19 pandemic; reports he has not spoken with behavioral health recently- psychiatry was prescribing sertraline - have been unable to complete PHQ9 during visits due to his easy distractiblity, difficulty with comprehension of language even with Lithuanian speaker- he enjoys spending time with his dog, has new girlfriend, happy that his wheelchair will be repaired shortly since feels like that limits him from being out in the community Related to Recurrent major depressive disorder, remission status unspecified - has brought in shayla gs that he had purchased off of the street to the clinic; Previously had shown clinician MSContin 30 mg tablet that he purchased - reminded of importance of not buying drugs off the street; is not currently rx'ed opiates by his care team- have discussed with him previously but continues to purchase drugs off of the street. 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 - recent labs showin g previous exposure but no current infection- when reviewing labs in the clinic with him, he then indicated that he was treated for Hepatits C in the past at [facility] - states took all the pills - do not have copy of records to verify this Related to History of hepatitis C - decreased vision R eye from reported workplace injury (something in his eye)-optho appt was ordered but not yet completed; appts have been pushed back due to COVID pandemic Related to Vision loss of right eye - has had PRN viagra - would like refill- hx hypogonadism Related to 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 - per previous PCP n otes, normocytic - 08/2019 - Hgb 13.9 from previous records indicating 15-15.9- PCP noted anemia may be secondary to profound hypogonadism due to testosterone level of 23- previous PCP note indicates that FOBT was previously pending since was having trouble with stool cards and diarrhea; he refused colonoscopy - Fe studies per prevoius PCP notes indicated mild deficiceny- appears under previous PCP, he was to follow with GI but did not keep appts and PCP office had tried to help him reschedule and coordinate, but still did not attend appts; GI consult was placed by this office but has not yet had - COVID pandemic has delayed consultations Related to Anemia, unspecified type - elevated BMI; now at 34- mainly power chair dependent, unable to exercise formally due to musculoskeletal issues- he has worked with nutrition on his diet, may also be beneficial to lose weight if he is to undergo hip surgery in the future Related to Body mass index (BMI) of 34.0-34.9 in adult - dental referral haque s been placed but not yet completed, has been delayed due to COVID pandemic- edentulous Related to Absence of teeth, acquired - reported in the [facility] that he had seen urology for this but unable to provide information. Per PCP notes testosterone level 23 in 01/2019- will see if he can follow up again with urology; may be delayed due to COVID19 pandemic- DEXA scan ordered and has had to be rescheduled due to the pandemic. Not taking fosamax x years since he reported difficulty sitting up after taking medication due to his hip pain. Related to Hypogonadism in male - most recent BMI 34 ; BMI 03/2019 - 32 at weight of 217 lbs - not able to exercise due to musculoskeletal issues- nutrition has worked with him on diet but unclear if he follows through; drinks full sugar soda, juices but has reviewed with nutrition Related to Class 1 obesity without serious comorbidity with body mass index (BMI) of 34.0 to 34.9 in adult, unspecified obesity type - power chair depend ent for distances - able to stand and pivot and can ambulate short distances in his apartment- reports 2 recent falls - one when tripped over wheel of his chair when getting back into it, one additional fall in the shower bending over - reminded to report falls to the team; falls risk discussed Related to Risk for falls - current marijuana use for pain, reports smokes about 5x/day for pain- purchases off the street and not at dispensary- smokes the marijuana; reminded that there is the potential that drugs off the street could be laced with other substances and he indicates that his supplier is good and he is not worried about this- wondering if he can become less dependent on this - would recommend that he start discussions with behavioral health Related to Marijuana dependence - is able to ambulat e short distances within a room; has baseline gait disturbance s/p injuries in the past and current orthopedic issues- cannot flex hips 90 degrees per previous PT note- has power chair from previous PCP office but has been having difficulties with the chair/?battery maintaining charge? He has been scheduled for repair clinic but reportedly did not present for his scheduled visit. Clinician has also been scheduled to be sent out to the house. Rehab to continue to work on ti. Related to Wheelchair dependent - again brought in d rugs that he had purchased off of the street; Previously had shown clinician MSContin 30 mg tablet that he purchased - reminded of importance of not buying drugs off the street; is not currently rx'ed opiates by his care team- have discussed with him previously but continues to purchase drugs off of the street- may be having ortho surgery in the future, so care team and ortho will need to be mindful of prescription pain medication potential for misuse/selling Related to Misuse of drugs - unspecified type- per PCP notes, COPD exacerbation in 06/2019 - treated with prednisone taper and epiric azithromycin x 5 days; 09/2019 being treated again for presumed COPD exacerbation- 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- chronic tobacco use- not on O2- has nebulizer, breo, proair, singulair, spiriva- PFTs 12/27/18 - mod degree restrictive pulm disorder, severe obstructive airway disorder, significant improvement after bronchodilator therapy consistent with bronchial asthma; FEV1, vital capacity, MVV, [id number] all markedly decreased, total lung capacity moderately reduced, diffusion capacity normal- CXR 11/07/18 showing emphysematous changes in lungs- consider pulmonary consult in the future since do not have any consult notes although he has had PFTs- continues to smoke marijuana, cigarettes Related to Pulmonary emphysema, unspecified emphysema type - continues to smoke cigarettes, about 1/2 PPD- reports trying to cut down, smoking marijuana regularly Related to Nicotine dependence, cigarettes, uncomplicated - unspecified type- 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- chronic tobacco use- not on O2- has nebulizer, breo, proair, singulair, spiriva- per PCP notes, COPD exacerbation in 06/2019 - treated with prednisone taper and epiric azithromycin x 5 days- PFTs 12/27/18 - mod degree restrictive pulm disorder, severe obstructive airway disorder, significant improvement after bronchodilator therapy consistent with bronchial asthma; FEV1, vital capacity, MVV, [id number] all markedly decreased, total lung capacity moderately reduced, diffusion capacity normal- CXR 11/07/18 showing emphysematous changes in lungs- consider pulmonary consult in the future since do not have any consult notes although he has had PFTs- nebulizer received in clinic with moderate effect Related to Pulmonary emphysema, unspecified emphysema type - hx IVDU including heroin- labs drawn for HIV, Hepatitis screening due to hx IVDU- not currently using and reports not wanting to resume using - limited in his pain medication options due to this history; he reports hx seizures from using medication but unclear if was due to street drugs or to prescription opiates (which he has been on in the past for pain) Related to 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 - reports runs in hi s family- ETOH use was a problem for him- started at age 16 and stopped at age 32, has no further urge to drink Related to Alcohol dependence, in remission - Vitamin D level 24 in 08/2019- starting on Vitamin D supplementation- does not weight bear often- will recheck in follow up Related to Vitamin D deficiency - since age 16, curr ently 1/2 PPD- will consider cutting back further, can continue to address in follow up Related to Cigarette nicotine dependence without complication - unspecified type- 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- chronic tobacco use- not on O2- has nebulizer, breo, proair, singulair, spiriva- per PCP notes, COPD exacerbation in 06/2019 - treated with prednisone taper and epiric azithromycin x 5 days- PFTs 12/27/18 - mod degree restrictive pulm disorder, severe obstructive airway disorder, significant improvement after bronchodilator therapy consistent with bronchial asthma; FEV1, vital capacity, MVV, [id number] all markedly decreased, total lung capacity moderately reduced, diffusion capacity normal- CXR 11/07/18 showing emphysematous changes in lungs- consider pulmonary consult in the future since do not have any consult notes although he has had PFTs Related to Pulmonary emphysema, unspecified emphysema type - states unable to r ead/write- R eye vision loss- went to school up to 2nd grade- [facility] 09/03/2019 (points off for identification of animals, serial 7s refused to do, language, # words, not oriented to month, 0 points for delayed recall); note that he has vision deficit R eye, schooling to 2nd grade; = degree of cognitive impairment Related to Unable to read or write - has power chair, a ble to stand and pivot and can walk a bit in his apartment- per PT notes from PCP office cannot flex hips even close to 90 degrees- was given power chair by prior PCP office due to being unable to propel 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 and poor R wrist flex/extension PROM s/p fx, PT also indicated that with his extremely poor hip motion making him sit in a reclined postion would not be able to manually use the wheelchair effectively while reclined and would likely injure his shoulders- able to independently manage his power chair Related to Wheelchair dependent - likely, has short neck, dx obesity- reports recent sleep study but does not yet have device- care team to attempt to obtain sleep study note for further information Related to GELY (obstructive sleep apnea) - per PCP records- m ainly wheelchair bound and unable to bear much weight; DEXA scan not available for review- was on fosamax but then stated had not taken in many years due to difficulty with sitting up after medication- will have updated DEXA and then adjust plan of care based on findings Related to Osteoporosis, unspecified osteoporosis type, unspecified pathological fracture presence - hx workplace injur y with musculoskeletal injury; possible hx avascular necrosis- mainly wheelchair bound, able to stand and pivot- currently on lidocaine patch; unable to take some opiates - ? hx seizures; on APAP and ibuprofen- uses marijuana for pain control, but purchases from the street, not from regulated dispensary- will be referred to ortho for potential surgical intervention Related to Other chronic pain - reports has not us ed recently and does not want to go back to using Related to Cocaine dependence, in remission - CXRs show chronic displaced obliquely oriented fracture L distal clavicle- MRI L shoulder without contrast 09/20/18 - partial tear supraspinatus tendinosis, small insertional articular sided tear of superior fibers of subscapularis tendon, minimal glenohumeral osteoarthritis, adhesive capsulitis, mild subacromial subdeltoid bursitis- upper extremity generalized decreased strength, able to lift arms above shoulder; PT to work with him Related to Fracture of unspecified part of left clavicle, sequela - has PRN viagra but reports has not used in a significant amount of time Related to 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 - elevated BMI- main ly power chair dependent, unable to exercise formally due to musculoskeletal issues- will be working with nutrition since may be able to make some changes in his diet to help with weight loss, also would be beneficial if he is to undergo hip surgery in the future Related to Body mass index (bmi) 32.0-32.9, adult - per PCP notes - 217.6 lbs, 69 /175.26 cm; BMI 32.13- mainly power-chair bound; nutrition to work on his diet with him, drinks full sugar soda, juice- Hgb A1C ordered for screening Related to Class 1 obesity without serious comorbidity with body mass index (BMI) of 33.0 to 33.9 in adult, unspecified obesity type - current marijuana use for pain- purchases off the street and not at dispensary- unable to take other opiate pain medications- smokes the marijuana; reminded that there is the potential that drugs off the street could be laced with other substances and he indicates that his supplier is good and he is not worried about this Related to Marijuana use - power chair depend ent for distances - able to stand and pivot and can ambulate short distances in his apartment Related to Risk for falls per PCP notes- 2016 PT note from PCP office:10/28/15 CRISTINA Lewis at [facility] - bilateral hip pain, difficulty with all weightbearing activities - xray views of bilateral hips from 09/13/15 showing advanced arthritis R hip with femoral head collapse, OA, subchondral sclerosis and cyst formation, degen changes L hip, more findings consistent with possible AVN; impression - arthritis bilateral hips, postraumatic vs AVN; Plan - recommended hip replacement, follow up with Dr. 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 and poor R wrist flex/extension PROM s/p fx, PT also indicated that with his extremely poor hip motion making him sit in a reclined postion would not be able to manually use the wheelchair effectively while reclined and would likely injure his shoulders Related to Dependence on wheelchair - reports clean x 5 years- has used cocaine, heroin, and other drugs- current marijuana use for chronic pain but purchases off the street Related to Other psychoactive substance dependence, in remission - unspecified type- 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- chronic tobacco use- not on O2- has nebulizer, breo, proair, singulair, spiriva- per PCP notes, COPD exacerbation in 06/2019 - treated with prednisone taper and epiric azithromycin x 5 days- PFTs 12/27/18 - mod degree restrictive pulm disorder, severe obstructive airway disorder, significant improvement after bronchodilator therapy consistent with bronchial asthma; FEV1, vital capacity, MVV, [id number] all markedly decreased, total lung capacity moderately reduced, diffusion capacity normal- CXR 11/07/18 showing emphysematous changes in lungs Related to Chronic obstructive pulmonary disease, unspecified - CXRs show chronic displaced obliquely oriented fracture L distal clavicle- MRI L shoulder without contrast 09/20/18 - partial tear supraspinatus tendinosis, small insertional articular sided tear of superior fibers of subscapularis tendon, minimal glenohumeral osteoarthritis, adhesive capsulitis, mild subacromial subdeltoid bursitis Related to Fracture of unspecified part of left clavicle, initial encounter for closed fracture - reports recent sle ep study but does not yet have device Related to Obstructive sleep apnea (adult) (pediatric) - states unable to r ead/write- R eye vision loss- went to school up to 2nd grade Related to Illiteracy and low-level literacy - hx workplace injur y with musculoskeletal injury; hx avascular necrosis- mainly wheelchair bound, able to stand and pivot- currently on lidocaine patch; unable to take some opiates - ? hx seizures; on APAP and ibuprofen- uses marijuana for pain control, but purchases from the street Related to Chronic pain syndrome - since age 16, currently 1/2 PP D Related to Tobacco use - unspecified, sees therapist at [facility] Q3 weeks- also just saw new psychiatrist and will see regularly Related to Other specified depressive episodes - per PCP notes, has seen ortho, potential for surgery, R hip worse than L Related to Osteonecrosis, unspecified - per PCP records- m ainly wheelchair bound and unable to bear much weight; DEXA scan not available for review- on fosamax Related to Other osteoporosis without current pathological fracture - reports runs in hi s family- ETOH use was a problem for him- started at age 16 and stopped at age 32, no further urge to drink Related to Alcohol dependence, in remission Assessments Type Assessment Date No Information Goals Health Concern Goal Type Priority Status Date Lexx is at risk for functional decline related to COPD, chronic pain, osteoarthritis. Lexx will continue living in the community with assistance from [facility] through the next review in 6 months. Patient Goal Complete Lexx has depression related to medical conditions. Lexx will identify coping strategies, and utilize these strategies during increased feelings of depression. Patient Goal Continued Lexx is at risk for injury in the community/sudden related to poor safety awareness and behaviors of buying and using street drugs Lexx will remain safe in the community through next review Patient Goal Continued Lexx is at risk for falls due to recent fall off electric wheel chair, poor safety awareness with wc use Lexx will not experience any falls or fall related injuries for 6 months. Patient Goal Continued Lexx has areas of wheelchair safety awareness Lexx will demonstrate improved awareness regarding his power wheelchair Patient Goal Complete Lexx has chronic pain related to severe pain to bilateral knees, left clavicle, and right hip secondary to OA, history of fall with fractures and spinal injury Pain will not interfere with current level of functioning of minimal assist with activities of daily living through next review Patient Goal Continued Lexx has Potential for complications related to Chronic Obstructive Pulmonary Disease. Lexx will not be hospitalized due to complications of COPD through next review. Patient Goal Continued
--- OUTSIDE RECORDS SUMMARY | 2025-07-05 11:00 | XMS_ITS | Encounter Summary ---
Author Organization [employer] Address [address] [facility] 7t [place] [address] Care Team Providers Care Shop Firer/Fireman Name Role Phone Name, Gomez HORN Primary Care Provider [phone] Reason for Visit * Reason Comments Insect Bite legs Encounter Details Date Type Department Care Team (Late st Contact Info) Description 07/05/2025 11:00 AM EST Office Visit [facility] MEDICINE [address] [place], [place] [phone] Name, MD Gomez [address] [place] [address] Bug bite, initial encounter (Primary Dx); Osteonecrosis of multiple sites (CMS/HCC) (HCC); Chronic obstructive pulmonary disease, unspecified COPD type (CMS/HCC) (HCC); Encounter for vaccination; Encounter for immunization; Screening for tuberculosis; Food insecurity Social History Tobacco Use Types Packs/Day Years [...] Answer Date Recorded Internet Access Q1 Yes 04/09/2025 Internet Access Q2 Not on file 04/09/2025 Sex and Gender Information Value Date Recorded Sex Assigned at Male 06/28/2022 10:17 AM EDT Legal Sex Male 10:17 AM EDT Gender Identity Male 02/06/2024 1:51 PM EDT Sexual Orientation Straight 02/06/2024 1: 51 PM EDT documented as of this encounter Last Filed Vital Signs Vital Sign Reading Time Taken Comments Blood Pressure 84/62 07/05/2025 11:15 AM EST Pulse 104 07/05/2025 11:15 AM EST Temperature 37.1 C (98.7 F) 07/05/2025 11:15 AM EST Respiratory Rate - - Oxygen Saturation 95% 07/05/2025 11:15 AM EST Inhaled Oxygen Concentration - - Weight - - Height - - Body Mass Index - - documented in this encounter Progress Notes * Gomez Bean MD - 07/05/2025 11:00 AM EST Subjective Patient ID: Lexx Dang is a 64 y.o. male who presents for Insect Bite (legs). Patient comes for a sick visit and we discussed multiple issues. The patient has bug bites on the abdomen and legs. The patient usually feels the bites at bedtime. He would like a medication to be used for the pruritus. He does not have any fevers, no chills, no skin redness, induration or discharge to suggest cellulitis or abscess. The patient complains of chronic joint pains related to osteonecrosis of the hips, and generalized DJD. He explains to me that acetaminophen is not helping much for the pain. The patient comes using his oxygen supplementation. He has severe COPD and denies any changes from his baseline shortness of breath. He agreed with flu and COVID vaccination. The patient has significant difficulties ambulating because of his DJD, osteonecrosis and COPD. He comes using today using a wheeled walker with great difficulties. He used to have a electrical wheelchair that broke down. The patient would benefit from having a new wheelchair that I will prescribe today. The patient complains of difficulties obtaining food. He agreed with referral to [facility] today to see if we can help him with the food insecurity. Review of Systems Constitutional: Negative for chills, fatigue and fever. HENT: Negative for sore throat. Respiratory: Positive for shortness of breath. Negative for cough and chest tightness. Cardiovascular: Negative for chest pain, palpitations and leg swelling. Gastrointestinal: Negative for abdominal pain and blood in stool. Musculoskeletal: Positive for arthralgias, back pain and gait problem. Skin: See HPI Objective Vitals: 07/05/25 1115 BP: 84/62 BP Location: Left arm Patient Position: Sitting BP Cuff Size: Adult Pulse: 104 Temp: 98.7 ??F (37.1 ??C) TempSrc: Temporal SpO2: 95% Physical Exam Vitals reviewed: The patient comes wearing his supplemental oxygen. Constitutional: General: He is not in acute distress. Appearance: He is not toxic-appearing. Cardiovascular: Rate and Rhythm: Normal rate and regular rhythm. Pulmonary: Effort: Pulmonary effort is normal. No respiratory distress. Musculoskeletal: Right hip: Tenderness present. Decreased range of motion. Left hip: Tenderness present. Decreased range of motion. Right knee: Decreased range of motion. Tenderness present. Left knee: Decreased range of motion. Tenderness present. Comments: Chronic 2+ lower extremity edema with skin discoloration of venous insufficiency Slow antalgic gait Skin: Comments: Multiple insect bites on the lower abdomen and legs. No skin findings of cellulitis. Assessment/Plan Diagnoses and all orders for this visit: Bug bite, initial encounter Comments: I told the patient I suspect he has bedbugs. I recommended to contact his landlord. I prescribed topical hydrocortisone. Osteonecrosis of multiple sites (CMS/HCC) ([facility]) Comments: Continue using acetaminophen as needed. I prescribed the patient a short course of low-dose Flexeril. Chronic obstructive pulmonary disease, unspecified COPD type (CMS/HCC) ([facility]) Comments: Continue oxygen supplementation as prescribed Continue current inhalers The patient is not smoking cigarettes and is recommended to stop smoking marijuana COVID and flu vaccine today Encounter for vaccination - COVID-19 VACCINE [id number] (Comirnaty) 19 yrs + Encounter for immunization - FLU VACCINE TRIVALENT [id number] (Fluarix) 19 yrs + Screening for tuberculosis Comments: The patient is going to a program during the day mostly to get meals. He requested tuberculosis testing since is a requirement of this program and I agreed. Orders: - T-SPOT??.TB; Future Food insecurity Comments: Referral to [facility] today. Other orders - cyclobenzaprine (Flexeril) 5 MG tablet; Take 1 tablet (5 mg) by mouth if needed each day for muscle spasms for up to 14 days. - hydrocortisone 2.5 % cream; Apply pea sized amount to skin bid for 1 week Future Appointments Date Time Provider Department Center 08/12/2025 1:45 PM Gomez Bean MD MEDICINE [facility] documented in this encounter Plan of Treatment Upcoming Encounters Date Type Department Care Team (Late st Contact Info) Description 08/12/2025 1:45 PM EST Office Visit [facility] MEDICINE [address] [place] [address] Name, MD Gomez [address] [place] [address] Scheduled Orders Name Type Priority Associated Diagnoses Orde r Schedule T-SPOT .TB Lab Routine Screening for tuberculosis Expected: 07/05/2025 (Approximate), Expires: 07/05/2026 documented as of this encounter Visit Diagnoses Diagnosis Bug bite, initial encounter- Primary Osteonecrosis of multiple sites (CMS/HCC) (HCC) Chronic obstructive pulmonary disease, unspecified COPD type (CMS/HCC) ([facility]) Encounter for vaccination Encounter for immunization Screening for tuberculosis Screening examination for pulmonary tuberculosis Food insecurity documented in this encounter Additional Health Concerns Assessment Noted Time PHQ-9 Depression Total Score: 15 07/21/2 025 9:56 AM EDT documented as of this encounter Care Teams Shop Firer/Fireman Relationship Specialty Start Date End Date Name, MD Gomez [address] [place] [address] PCP - General Internal Medicine 04/05/24 documented as of this encounter
[2025-07-05 13:08] LABS: MANUAL DIFF FLAG NO
[2025-07-05 13:29] LABS: Hematocrit 40.8 % (42.0-52.0); Hemoglobin 12.7 g/dl (14.0-18.0); Imm Gran Abs Auto 0.03 X10*3/uL (0.00-0.03); Imm Gran Pct Auto 0.4 % (0.0-0.4); Lymphocytes Absolute Auto 2.0 X10*3/uL (1.2-4.9); Mean Corpuscular HGB Conc 31.1 g/dl (31.0-36.0); Mean Corpuscular Hemoglobin 30.2 pg (27.0-33.0); Mean Corpuscular Volume 96.9 fL (80.0-98.0); NRBC Abs Auto 0.000 X10*3/uL (0.0-0.012); NRBC Pct Auto 0.0 /100WBC (0.0-0.2); Platelet Count 214 X10*3/uL (160-400); Red Blood Count 4.21 X10*6/uL (4.60-5.80); White Blood Count 7.5 X10*3/uL (4.8-10.8)
[2025-07-05 14:11] LABS: Alanine Aminotransferase 17 U/L (0-40); Albumin Level 4.5 g/dL (3.5-5.0); Alkaline Phosphatase 97 U/L (39-117); Anion Gap 11 (12-20); Aspartate Amino Transferase 15 U/L (5-37); Blood Urea Nitrogen 14 mg/dL (9-16); Calcium 9.1 mg/dL (8.4-10.2); Carbon Dioxide 27 mmol/L (22-29); Chloride 107 mmol/L (96-108); Estimated Glomerular Filt Rate > 60; Potassium 4.2 mmol/L (3.3-5.1); Sodium 141 mmol/L (135-145); Total Protein 7.1 g/dL (6.5-8.0)
[2025-07-05 14:21] LABS: Folate 5.3 ng/mL (> or = 4.0); Vitamin B12 252 pg/mL (200-900)
--- OUTSIDE RECORDS SUMMARY | 2025-07-05 14:22 | XMS_ITS | Encounter Summary ---
Author Organization [employer] Address 75 [facility] 7t [place] [address] Care Team Providers Care Pharmaceutical Sales Representative Name Role Phone Name, Gomez HORN Primary Care Provider [phone] Encounter Details Date Type Department Care Team (Latest Contact Info) Description 07/05/2025 Travel Social History Tobacco Use Types Packs/Day [...] Description 08/12/2025 1:45 PM EST Office Visit [facility] MEDICINE [address] [place] [address] Name, MD Gomez [address] [place] [address] documented as of this encounter Visit Diagnoses Not on filedocumented in this encounter Additional Health Concerns Assessment Noted Time PHQ-9 Depression Total Score: 15 025 9:56 AM EDT documented as of this encounter Care Teams Pharmaceutical Sales Representative Relationship Specialty Start Date End Date Name, MD Gomez [address] [place] [address] PCP - General Internal Medicine 04/05/24 documented as of this encounter
--- OUTSIDE RECORDS SUMMARY | 2025-07-05 14:22 | XMS_ITS | Encounter Summary ---
Author Organization [employer] Address [address] [facility] 7t [place] [address] Care Team Providers Care Hand Leather Trimmer Name Role Phone Name, Gomez HORN Primary Care Provider Donta Glover RN Unavailable [phone] Anna Ignacio Unavailable Reason for Visit * Reason Comments Med Change Request Encounter Details Date Type Department Care Team ([facility] st Contact Info) Description 11/16/2024 Refill [facility] MEDICINE [address] [place], [place] [phone] Name, MD Gomez [address] [place], [place] [phone] Severe persistent asthma, unspecified whether complicated Social [...] Description 08/12/2025 1:45 PM EST Office Visit [facility] MEDICINE [address] [place] [address] Name, MD Gomez [address] [place] [address] documented as of this encounter Visit Diagnoses Diagnosis Severe persistent asthma, unspecified whether complicated (HCC) documented in this encounter Additional Health Concerns Assessment Noted Time PHQ-9 Depression Total Score: 0 04/05/20 24 10:41 AM EDT documented as of this encounter Care Teams Hand Leather Trimmer Relationship Specialty Start Date End Date Name, MD Gomez [address] [place] [address] PCP - General Internal Medicine 04/05/24 Donta Glover, LYLE [address] [place] [address] Registered Nurse Family Medicine 01/09/25 06/26/25 Anna Ignacio 01/09/25 06/26/25 Luis E MCNAIR 01/05/25 03/28/25 documented as of this encounter
--- OUTSIDE RECORDS SUMMARY | 2025-07-05 14:22 | XMS_ITS | Encounter Summary ---
Author Organization [employer] Address [address] [facility] 7t [place] [address] Care Team Providers Care Upholstery Bundler Name Role Phone Name, Gomez HORN Primary Care Provider [phone] Reason for Visit * Reason Comments Care Coordination CHW outreach for SDO H food needs-referral completed Encounter Details Date Type Department Care Team (Latest Contact Info) Description 07/05/2025 Patient Outreach [facility] MEDICINE [address] [place], [place] [phone] Name, MD Gomez [address] [place] [address] Care Coordination (CHW outreach for SDOH food needs-referral completed /) Social History Tobacco Use Types Packs/Day Years [...] PM EDT documented as of this encounter Progress Notes * Galo Pérez - 07/05/2025 11:56 AM EST CHW Galo Pérez, placed outbound call to patient for assistance with SDOH as a referral was received by the provider. Patient's name and were confirmed. Patient screened positive for the following SDOH food insecurities. Patient states family in on SNAP program at this time. CHW referral patient to the local list of pantries in the area for help. Also, patient was referred to meals on wheels to get some food delivered. Patient verbalizes understanding, and able to agree with plan to follow up. Patient educated on extended clinic hours on Mondays through Wednesdays, and Walk-In Urgent Care Located in [facility]. Patient provided with after-hours line for [facility], , which offer night time triage service and option to transfer to correspondence review clerk provider if needed. documented in this encounter Plan of Treatment Upcoming Encounters Date Type Department Care Team (Late st Contact Info) Description 08/12/2025 1:45 PM EST Office Visit [facility] MEDICINE [address] [place] [address] Name, MD Gomez [address] [place] [address] documented as of this encounter Visit Diagnoses Not on filedocumented in this encounter Additional Health Concerns Assessment Noted Time PHQ-9 Depression Total Score: 15 025 9:56 AM EDT documented as of this encounter Care Teams Upholstery Bundler Relationship Specialty Start Date End Date Name, [place] [address] PCP - General Internal Medicine 04/05/24 documented as of this encounter
--- OUTSIDE RECORDS SUMMARY | 2025-07-05 14:22 | XMS_ITS | Encounter Summary ---
Author Organization [email or web address] Address 75 [facility] 7t [place] [address] Care Team Providers Care Predator Control Trapper Name Role Phone Name, Gomez HORN Primary Care Provider [phone] Reason for Visit * Reason Onset Date Comments Nurse Triage 07/02/2025 Encounter Details Date Type Department Care Team ([facility] st Contact Info) Description 07/02/2025 Telephone [facility] MEDICINE [address] [place], [place] [phone] Name, MD Gomez [address] [place] [address] Nurse Triage Social History Tobacco Use Types Packs/Day Years [...] encounter Miscellaneous Notes * Telephone Encounter - Rachel Nicholson RN - 07/02/2025 4:02 PM EST Telephone call to pt via BLS [phone]. Pt reports itchy, rash x2 years that he thinks happens at night. Denies specific animal bite, denies knowledge of bedbugs, states he lives alone. Rash is present on stomach, legs, all parts of me. Denies changes in diet, denies new medications or soaps/detergents. Denies fever, open areas, states his skin is red with raised areas. Pinking Machine Operator [facility] needs [facility], scheduled for 07/05/25 sick on site with PCP. Educated on home care: wash the area, keep cool and dry, avoid scratching, try cold packs for itch relief. Gave ER precautions and reasons to call back: fever, sudden weakness, shortness of breath, pt verbalized understanding, no further questions. Protocol Used: Rash or Redness - Localized (Adult) Protocol-Based Disposition: See in Office or Video Visit within 3 Days Video visit offer not recorded Positive Triage Question: * Localized rash present > 7 days * All higher-acuity triage questions were negative Care Advice Discussed: * Avoid the Cause * Wash the Area * Cold Pack for Mild Itching or Mild Pain * Don't Scratch * Reasons To Call Back - Rash spreads or becomes worse - Rash lasts longer than 1 week - You become worse * Telephone Encounter - Tien Lopez - 07/02/2025 2:05 PM EST Symptom: Animal Bite Outcome: Schedule a same-day appointment or talk to a nurse or provider today Reason: Caller denied all higher acuity questions The caller accepted this outcome. Contact pt at [phone] (swedish) documented in this encounter Plan of Treatment Upcoming Encounters Date Type Department Care Team (Late st Contact Info) Description 08/12/2025 1:45 PM EST Office Visit [facility] MEDICINE [address] [place] [address] Name, MD Gomez [address] [place] [address] documented as of this encounter Visit Diagnoses Not on filedocumented in this encounter Additional Health Concerns Assessment Noted Time PHQ-9 Depression Total Score: 15 03/18/ 025 9:56 AM EDT documented as of this encounter Care Teams Predator Control Trapper Relationship Specialty Start Date End Date NameGomez MD [address] [place] [address] PCP - General Internal Medicine 04/05/24 documented as of this encounter
--- OUTSIDE RECORDS SUMMARY | 2025-07-05 14:22 | XMS_ITS | Encounter Summary ---
Author Organization [employer] Address 75 [facility] 7t [place] [address] Care Team Providers Care Labor Delivery Specialist Name Role Phone Name, Gomez HORN Primary Care Provider [phone] Donta Glover RN Unavailable [phone] Anna Ignacio Unavailable Reason for Visit * Reason Onset Date Comments Med Refill 01/17/2025 Encounter Details Date Type Department Care Team ([facility] st Contact Info) Description 01/17/2025 Telephone [facility] MEDICINE [address] [place], [place] [phone] Name, MD Gomez [address] [place] [address] Med Refill Social History Tobacco Use Types Packs/Day Years [...] the past 12 months, has t he [employer], gas, oil or water [employer] threatened to shut off services in your [...] encounter Miscellaneous Notes * Telephone Encounter - Gay Canseco RN - 01/17/2025 3:45 PM EDT PCP has not Rx'd any narcotic for this patient. Pt was no call no show for PCP on 01/14/25 & 01/11/25. Last seen by PCP 06/05/24. See Triage call notes from today * Telephone Encounter - Nani Botello - 01/17/2025 3:41 PM EDT TC from pt requesting medication refill. Medications needing refill : oxyCODONE (Roxicodone) 5 MG immediate release tablet To be sent to: [facility] - [place], [place] - [address] [facility] documented in this encounter Plan of Treatment Upcoming Encounters Date Type Department Care Team (Late st Contact Info) Description 08/12/2025 1:45 PM EST Office Visit [facility] MEDICINE [address] [place] [address] Name, MD Gomez [address] [place] [address] documented as of this encounter Visit Diagnoses Not on filedocumented in this encounter Additional Health Concerns Assessment Noted Time PHQ-9 Depression Total Score: 0 04/05/20 10:41 AM EDT documented as of this encounter Care Teams Labor Delivery Specialist Relationship Specialty Start Date End Date Name, MD Gomez [address] [place] [address] PCP - General Internal Medicine 04/05/24 Donta Glover, LYLE [address] [place] [address] Registered Nurse Family Medicine 01/09/25 06/26/25 Anna Ignacio 01/09/25 06/26/25 Luis E MCNAIR 01/05/25 03/28/25 documented as of this encounter
--- OUTSIDE RECORDS SUMMARY | 2025-07-05 14:22 | XMS_ITS | Encounter Summary ---
Author Organization [employer] Address [address] [facility] 7t [place] [address] Care Team Providers Care Matcher Leather Parts Name Role Phone Name, Gomez HORN Primary Care Provider [phone] Donta Glover RN Unavailable [phone] Anna Ignacio Unavailable Reason for Visit * Reason Comments Med Refill Encounter Details Date Type Department Care Team ([facility] st Contact Info) Description 05/16/2025 Refill [facility] [address] [place], [place] [phone] Duncan Chavez MD [address] [place] [address] Chronic hypoxemic respiratory failure (CMS/HCC); COPD exacerbation (CMS/HCC) Social History Tobacco Use [...] 1:51 PM EDT Sexual Orientation Straight 02/06/2024 1 :51 PM EDT documented as of this encounter Plan of Treatment Upcoming Encounters Date Type Department Care Team (Late st Contact Info) Description 08/12/2025 1:45 PM EST Office Visit [facility] MEDICINE [address] [place] [address] NameGomez MD [address] [place] [address] documented as of this encounter Visit Diagnoses Diagnosis Chronic hypoxemic respiratory failure (CMS/HCC) (HCC) Chronic respiratory failure COPD exacerbation (CMS/HCC) (HCC) Obstructive chronic bronchitis with exacerbation documented in this encounter Additional Health Concerns Assessment Noted Time PHQ-9 Depression Total Score: 15 025 9:56 AM EDT documented as of this encounter Care Teams Matcher Leather Parts Relationship Specialty Start Date End Date NameGomez MD [address] [place] [address] PCP - General Internal Medicine 04/05/24 Donta Glover RN [address] [place] [address] V[place]LET Mccarty [address] Registered Nurse Family Medicine 01/09/25 06/26/25 Anna Ignacio 01/09/25 06/26/25 documented as of this encounter
--- OUTSIDE RECORDS SUMMARY | 2025-07-05 14:22 | XMS_ITS | Encounter Summary ---
Author Organization [employer] Address [address] [facility] 7t [place] [address] Care Team Providers Care Fabrication Department Supervisor Name Role Phone Name, Gomez HORN Primary Care Provider [phone] Donta Glover RN Unavailable [phone] Anna Ignacio Unavailable Reason for Visit * Reason Onset Date Comments Durable Medical Equipment 06/25/2024 Encounter Details Date Type Department Care Team ([facility] st Contact Info) Description 06/25/2024 Telephone [facility] MEDICINE [address] [place], [place] [phone] Name, MD Gomez [address] [place] [address] Durable Medical Equipment Social History Tobacco Use [...] new electric wheel chair. Contact pt at [phone] (latvian) documented in this encounter Plan of Treatment Upcoming Encounters Date Type Department Care Team (Late st Contact Info) Description 08/12/2025 1:45 PM EST Office Visit [facility] MEDICINE [address] [place], [place] [phone] Name, MD Gomez [address] [place] [address] documented as of this encounter Visit Diagnoses Not on filedocumented in this encounter Additional Health Concerns Assessment Noted Time PHQ-9 Depression Total Score: 0 04/05/20 24 10:41 AM EDT documented as of this encounter Care Teams Fabrication Department Supervisor Relationship Specialty Start Date End Date Name, MD Gomez [address] [place] [address] PCP - General Internal Medicine 04/05/24 Donta Glover, LYLE [address] [place] [address] Registered Nurse Family Medicine 01/09/25 06/26/25 Anna Ignacio 01/09/25 06/26/25 Luis E MCNAIR 01/05/25 03/28/25 documented as of this encounter
--- OUTSIDE RECORDS SUMMARY | 2025-07-05 14:23 | XMS_ITS | Clinical Summary ---
Author Organization [employer] Address [address] [place] [address] Care Team Providers Care Health And Safety Consultant Name Role Phone Name, Gomez HORN Primary Care Provider [phone] Allergies Active Allergy Reactions Criticality Noted Date Comments Acetaminophen 08/31/2010 Other Reaction(s): unspecified Codeine 04/08/2017 Other Reaction(s): Altered Heart Rate low blood pressure per patient. Oxycodone 08/31/2010 Other Reaction(s): unspecified Medications * This document contains information received from the source organization and may not represent a complete record from that organization. Spacer/Aero-Hold ing Chambers (OptiChamber Julianna) misc 1 each every 4 (four) hours if needed (asthma). 1 each 5 Active rosuvastatin (Crestor) 10 MG tablet TAKE 1 TABLET BY MOUTH EVERY DAY 90 tablet 1 5 Active acetaminophen (Tylenol) 500 MG tablet TAKE 2 TABLETS BY MOUTH EVERY 6 HOURS NEEDED FOR MODERATE PAIN OR FEVER 50 tablet 5 Active furosemide (Lasix) 40 MG tablet TAKE 1 TABLET BY MOUTH EVERY DAY 90 tablet 5 Active ipratropium-albu terol (Duo-Neb) 0.5-2.5 mg/3 mL nebulizer solution Inhale 3 mL every 6 (six) hours. 5 04/25/20 26 Active tiotropium (Spiriva Respimat) 2.5 MCG/ACT inhalerIndicatio ns:Chronic hypoxemic respiratory failure (CMS/HCC) (HCC) Inhale 2 puffs Once per day. 60 Act 3 5 Active budesonide-formo terol (Symbicort) 80-4.5 MCG/ACT inhaler Inhale 2 puffs in the morning and at bedtime. Rinse mouth with water after use to reduce aftertaste and incidence of candidiasis. Do not swallow. 1 each 11 5 05/01/20 26 Active Protonix 40 MG packetIndication s:Heartburn DISSOLVE 1 PACKET IN WATER DIRECTED AND DRINK BY MOUTH EVERY DAY 30 packet 1 5 Active albuterol (2.5 MG/3ML) 0.083% nebulizer solutionIndicati ons:Severe persistent asthma, unspecified whether complicated ([facility]) INHALE 1 AMPULE USING A NEBULIZER EVERY 6 HOURS NEEDED FOR WHEEZING OR SHORTNESS OF BREATH 90 mL 2 5 Active gabapentin (Neurontin) 800 MG tablet TAKE 1 TABLET BY MOUTH TWICE DAILY IN THE MORNING AND AT BEDTIME NEEDED FOR PAIN OF HIP 60 tablet 5 Active cyclobenzaprine (Flexeril) 5 MG tablet Take 1 tablet (5 mg) by mouth if needed each day for muscle spasms for up to 14 days. 14 tablet 5 07/19/20 25 Active hydrocortisone 2.5 % cream Apply pea sized amount to skin bid for 1 week 20 g 5 Active Active Problems Problem Noted Date Diagnosed Date Numbness 05/28/2025 Assessment & Plan (06/10/2025 1:46 PM EDT): Orders: CBC auto differential; Future Vitamin B12/Folate, Serum Panel; Future Comprehensive Metabolic Panel; Future Referral to Physical Therapy; Future Referral to Orthopaedic Surgery; Future COPD exacerbation ([facility]) 04/10/2025 Assessment & Plan (04/10/2025 3:10 PM EDT): ED precautions where reviewed with patient I will prescribe 5 course of levofloxacine and prednisone Heartburn 04/10/2025 Assessment & Plan (04/10/2025 3:09 PM EDT): I advise patient to avoid NSAIDs, spicy and acid food, I advise to eat at the same time every day, I advise to elevate the head of the bed and take medications as prescribe I will renew his protonix prescription Acute on chronic respiratory failure with hypoxia and hypercapnia 03/06/2025 Alcoholic cirrhosis (CMS/HCC) 09/17/2024 Overview (03/06/2025): Cirrhosis, Liver due to EtOH Avascular necrosis of bones of both hips 025 Overview (03/06/2025): Necrosis, Avascular, Hip Bilaterally Blind right eye 09/17/2024 Chronic respiratory failure with hypoxia (CMS/HC C) 09/17/2024 Cocaine use disorder in remission 09/17/2024 Depression, unspecified 09/17/2024 Edentulous 09/17/2024 Epilepsy (CMS/HCC) 09/17/2024 GERD (gastroesophageal reflux disease) Heroin use 09/17/2024 Osteoarthritis of hips, bilateral 09/17/2024 Assessment & Plan (06/10/2025 1:46 PM EDT): Oxygen dependent 09/17/2024 Dry eye syndrome of right eye 06/05/2024 Vitamin D deficiency 06/05/2024 Visual impairment 06/05/2024 Skin irritation 06/05/2024 Absence of teeth, acquired 06/05/2024 Alcohol dependence in remission (CMS/HCC) 2023 Arthritis of right wrist 06/05/2024 At risk for falls 06/05/2024 Atherosclerosis of aorta 06/05/2024 Backache 06/05/2024 Band-shaped keratopathy 06/05/2024 Cataract of right eye 06/05/2024 Chronic pain of right wrist 06/05/2024 Dyspnea on exertion 06/05/2024 Erectile disorder due to medical condition in ma le patient 06/05/2024 Asteatosis cutis 06/05/2024 History of hepatitis C 06/05/2024 History of seizure 06/05/2024 Hx of fracture of clavicle 06/05/2024 Impaired glucose tolerance 06/05/2024 Marijuana dependence 06/05/2024 Mild tobacco abuse 06/05/2024 Misuse of drugs 06/05/2024 Multiple nodules of lung 06/05/2024 Noncompliance with medication regimen 06/05/2024 Osteoarthritis of knees, bilateral 06/05/2024 Right knee pain 06/05/2024 Severe persistent asthma 06/05/2024 Moderate major depression (CMS/HCC) 06/05/2024 Intravenous drug user 04/05/2024 Male hypogonadism [...] of hip 09/29/2016 Osteonecrosis of multiple sites ([facility]/HCC) 2016 Wheelchair dependent 09/29/2016 Chronic hepatitis C ([facility]/HCC) 01/08/2016 Chronic obstructive pulmonary disease 01/08/2016 Moderate heroin dependence in sustained remissio n ([facility]/HCC) 01/08/2016 Obstructive sleep apnea syndrome 01/08/2016 Osteoporosis 01/08/2016 Resolved Problems Problem Noted Date Diagnosed Date Resolved Date Acute asthma exacerbation 04/05/2024 Uncomplicated asthma 03/22/2023 024 Encounters Date Type Department Care Team Description 07/05/2025 11:00 AM EST Office Visit [facility] [address] [place] [phone] Gomez Bean MD Bug bite, initial encounter (Primary Dx); Osteonecrosis of multiple sites ([facility]/HCC) (HCC); Chronic obstructive pulmonary disease, unspecified COPD type ([facility]) (HCC); Encounter for vaccination; Encounter for immunization; Screening for tuberculosis; Food insecurity 07/05/2025 Patient Outreach [facility] [address] [place] [phone] Gomez Bean MD Care Coordination (CHW outreach for SDOH food needs-referral completed /) 07/05/2025 Travel 07/02/2025 Telephone [facility] [address] [place] [phone] Gomez Bean MD Nurse Triage 06/27/2025 Telephone [facility] [address], [place] [phone] Gomez Bean MD Chart Prep 06/26/2025 Patient Outreach [facility] [address] [place] [address] Gomez Bean MD Care Coordination (C3/CM Outreach) 06/19/[address] [phone] Gomez Bean MD 06/04/[address] [address] Gomez Bean MD [facility] (I informed the patient that an order for a Tspot, was sent to the [facility] lab. The results are being requested by [facility]. He stated that he will call his CARPET LAYER tomorrow, and ask him to take him to the lab.) 06/04/[address] [address] Gomez Bean MD Lab Orders 05/31/[address] [phone] Gomez Bean MD Durable Medical Equipment 05/28/2025 3:30 PM EDT Office Visit [address] [phone] Lexie Mo NP Numbness (Primary Dx); Osteoarthritis of both hips, unspecified osteoarthritis type 05/28/2025 Travel 05/27/[address] [address] Gomez Bean MD Nurse Triage 05/16/2025 Refill [facility] [address] [place] [phone] Duncan Chavez MD Chronic hypoxemic respiratory failure (CMS/HCC); COPD exacerbation (CMS/HCC) 05/13/2025 Patient Outreach [facility] [address] [place] [address] Gomez Bean MD Care Coordination (C3/CM Outreach) 05/07/[address] [address] Gomez Bean MD 05/07/2025 Refill [facility] [address] [place] [phone] Duncan Chavez MD Severe persistent asthma, unspecified whether complicated 05/06/2025 Refill [facility] [address] [place] [phone] Gomez Bean MD 05/03/[address] [address] April Don, [employer] Heartburn 05/01/2025 10:00 AM EDT Office Visit [address] [phone] Gomez Bean MD Chronic obstructive pulmonary disease, unspecified COPD type (CMS/HCC) (Primary Dx); Chronic hypoxemic respiratory failure (CMS/HCC); Oxygen dependent; Avascular necrosis of bones of both hips ([facility]/HCC) 05/01/[address] [address] Gomez Bean MD PT1 (Patient requesting pt1/Home Address verified: Y / N: YES//Provider name or facility name:/1. Gomez Name [address] [place] [address] /2. [facility] [address] [place] [address] /3. Any other appt outside [facility] //Escort needed: Y/N: NO//Do you have a wheelchair: Y/N: walker and oxygen tank //If yes- Manual or Electric: n/a //How often? 5 times a month ); PT1-Submitted 05/01/2025 Travel 04/30/[address] [address] Lina Ludwig MA chart prep 04/30/2025 Patient Outreach [facility] [address] [place] [phone] Gomez Bean MD Transition Of Care (Tcm) (HDF scheduled and SDOH screening completed on 01/02/25) 04/23/2025 Patient Outreach [facility] [address] [place] [address] Gomez Bean MD Pre-visit Planning (SDOH was already completed) 04/10/2025 2:20 PM EDT Office Visit [facility] [address] [place] [phone] Vanessa Farias MD COPD exacerbation ([facility]) (Primary Dx); Heartburn; Body aches 04/10/2025 Travel 04/10/2025 Patient Outreach [facility] [address] [place] [address] Gomez Bean MD Care Coordination (C3/CM Outreach) 04/09/2025 Telephone [facility] [address] [place] [address] Gomez Bean MD Nurse Triage from Last 3 Months Immunizations Immunization Administration Dates Next Due INFLUENZA INJECTABLE QUADRIV ALANT CCIIV4 MDCK Multi-dose vial 07/25/2019 Influenza Injectable Quadriv alant Preservative Free IIV4 MDCK 10/03/2023 Influenza injectable quadriv alent IIV4 with preservative 10/05/2023,05/29/2021,07/13/2017,07/01 Influenza injectable quadriv alent preservative free 06/17/2022 Influenza, IIV3, injectable 06/03/2013, 6,09/13/2005 Influenza, Unspecified 08/17/2024 Influenza, seasonal, injecta ble, preservative free 07/05/2025,06/15/2024,06/11/2018 Novel [id number], all formulations 11/06/2009 Pfizer Covid-19 Vaccine 12+ 07/05/2025, Pneumococcal Conjugate PCV 20 10/03/2023 Pneumococcal Polysaccharide PPSV23 04/14,02/26/2011,05/15/2006,09/13 RSV Adjuvant 10/27/2023 Tdap 05/29/2024,04/14/2018 Zoster, Recombinant 02/09/2021,12/08/2020 Social History Tobacco Use Types Packs/Day Years Used Date Smoking Tobacco: Former Cigarettes Passive Smoke Exposure: Past Tobacco Cessation:Counseling Given: Not Answered Alcohol Use Standard Drinks/Week Comments Yes 0 (1 standard drink = 0.6 oz pur e alcohol) social Alcohol Answer Date Recorded Frequency of Alcohol Consumption Not on file 04/05/2024 Average Number of Drinks Not on file 024 Frequency of Binge Drinking Not on file 0803/2024 Score 0 04/05/2024 Depression Answer Date Recorded [...] F) 07/05/2025 11:15 AM EST Respiratory Rate 25 05/28/2025 3:16 PM EDT Oxygen Saturation 95% 07/05/2025 11:15 AM EST Inhaled Oxygen Concentration - - Weight 106 kg (233 lb) 05/28/2025 3:16 PM EDT Height 175.3 cm (5' 9 ) 05/28/2025 3:16 PM EDT Body Mass Index 34.41 05/28/2025 3:16 PM EDT Plan of Treatment Upcoming Encounters Date Type Department Care Team (Late st Contact Info) Description 08/12/2025 1:45 PM EST Office Visit [facility] [address] [place] [address] Name, MD Gomez [address] [place] [address] Health Maintenance Due Date Last Done Comments CT Colonography 1962 Colonoscopy 1962 Colorectal Cancer Screening 1962 FIT DNA/Cologuard 1962 FIT 1962 FOBT 1962 HIV Screening 1962 Lipid Panel 1962 Sigmoidoscopy 1962 Hepatitis A Vaccines (1 of 2 - Risk 2-dose series) 1981 Hepatitis B Vaccines (1 of 3 - Risk 3-dose series) 2022 Depression Monitoring 09/18/2025 03/18/2025, 025 SDOH Screening 01/02/2026 01/02/2025 Disability Screening 01/16/2026 01/16/2025 Alcohol/Substance Use Screening 03/18/2026 03/18/2025 Tobacco Screening 05/28/2026 05/28/2025 DTaP/Tdap/Td Vaccines (3 - Td or Tdap) 05/29/2034 05/29/2024, 04/14/2018 Zoster Vaccines Completed 02/09/2021, 12/08/2020 Pneumococcal Vaccine: 50+ Years Completed 10/03/2023, 04/14/2018, 02/26/2011, Additional history exists RSV Patients and Patients Aged 60 years or older Completed 10/27/2023 COVID-19 Vaccine Completed 07/05/2025, , 10/05/2023, Additional history exists Influenza Vaccine Completed 07/05/2025, , 06/15/2024, Additional history exists HIB Vaccines Aged Out [...] Procedure Name Priority Date/Time Associated Diagnosis Comments COMPREHENSIVE METABOLIC PANEL Routine 07/05/2025 12:09 PM EST Numbness VITAMIN B12/FOLATE, SERUM PANEL Routine 07/05/2025 12:09 PM EST Numbness CBC WITH AUTO DIFFERENTIAL Routine 07/05/2025 12:09 PM EST Numbness POCT INFLUENZA B (ID NOW RAPID MOLECULAR) Routine 04/10/2025 2:33 PM EDT Body aches POCT RAPID COVID ANTIGEN Routine 04/10/2025 2:31 PM EDT Body aches POCT INFLUENZA A (ID NOW RAPID MOLECULAR) Routine 04/10/2025 2:31 PM EDT Body aches from Last 3 Months Results * Vitamin B12/Folate, Serum Panel (07/05/2025 12:09 PM EST) Vitamin B12 252 200 - 900 pg/mL [facility] Comment:NORMAL 200-900 PG/ML INDETERMINATE 160-199 PG/ML DEFICIENT < 160 PG/ML Folate 5.3 > or = 4.0 ng/mL [facility] Comment:Reference Values:> o r = 4.0 ng/mL< 4.0 ng/mL suggests folate deficiency Methotrexate, aminopterin and folinic acid(leucovorin) are chemotherapeutic agents whose molecularstructures are similar to folate; therefore, the Architectfolate assay cannot be used for patients using these drugs. Blood Venous blood specimen / Unknown 07/05/2025 12:09 PM EST 07/05/2025 1:00 PM EST us Lexie Mo NP LAB BLOOD ORDERABLES Final Resul t [facility] [address] [place] [address] [phone] * (ABNORMAL) CBC auto differential (07/05/2025 12:09 PM EST) White Blood Count 7.5 4.8 - 10.8 X10*3/uL [facility] Red Blood Count 4.21(L) 4.60 - 5.80 X10*6/uL [facility] Hemoglobin 12.7(L) 14.0 - 18.0 g/dl [facility] Hematocrit 40.8(L) 42.0 - 52.0 % [facility] Mean Corpuscular Volume 96.9 80.0 - 98.0 fL [facility] Mean Corpuscular Hemoglobin 30.2 27.0 - 33.0 pg [facility] Mean Corpuscular HGB Conc 31.1 31.0 - 36.0 g/dl [facility] Red Cell Distribution Width 18.3(H) 11.0 - 16.0 % [facility] Platelet Count 214 160 - 400 X10*3/uL [facility] Mean Platelet Volume 11.1 9.4 - 12.4 fL [facility] Neutrophils Percent Auto 59.9 45 - 73 % [facility] Imm Gran Pct Auto 0.4 0.0 - 0.4 % [facility] Lymphocytes Percent Auto 27.1 20 - 40 % [facility] Monocytes Percent Auto 10.1 2 - 11 % [facility] Eosinophils Percent Auto 1.6 0 - 4 % [facility] Basophils Percent Auto 0.9 0 - 2 % [facility] NRBC Pct Auto 0.0 0.0 - 0.2 /100WBC [facility] Neutrophils Absolute Auto 4.5 2.0 - 8.3 x10*3/uL [facility] Imm Gran Abs Auto 0.03 0.00 - 0.03 X10*3/uL [facility] Lymphocytes Absolute Auto 2.0 1.2 - 4.9 X10*3/uL [facility] Monocytes Absolute Auto 0.8 0.1 - 1.2 X10*3/uL [facility] Eosinophils Absolute Auto 0.1 0.0 - 0.4 X10*3/uL [facility] Basophils Absolute Auto 0.1 0.0 - 0.2 X10*3/uL [facility] NRBC Abs Auto 0.000 0.0 - 0.012 X10*3/uL [facility] Blood Venous blood specimen / Unknown 07/05/2025 12:09 PM EST 07/05/2025 1:00 PM EST us Lexie Mo BEATER [employer]OSS LAB BLOOD ORDERABLES Final Resul t [facility] [address] [place], [place] [phone] * (ABNORMAL) Comprehensive Metabolic Panel (07/05/2025 12:09 PM EST) Sodium 141 135 - 145 mmol/L [facility] Potassium 4.2 3.3 - 5.1 mmol/L [facility] Chloride 107 96 - 108 mmol/L [facility] Carbon Dioxide 27 22 - 29 mmol/L [facility] Anion Gap 11(L) 12 - 20 [facility] Urea Nitrogen (BUN) 14 9 - 16 mg/dL [facility] Creatinine, Serum 0.74 0.5 - 1.4 mg/dL [facility] Estimated Glomerular Filt Rate >60 [facility] Comment:Chronic Kidney Disea se: Estimated GFR < 60 mL/min/[id number] Kidney Disease: Estimated GFR < 15 mL/min/1.73m2 Glucose 75 60 - 115 mg/dL [facility] Calcium 9.1 8.4 - 10.2 mg/dL [facility] Bilirubin, Total 0.2 0.0 - 1.0 mg/dL [facility] Aspartate Amino Transferase 15 5 - 37 U/L [facility] Alanine Aminotransferase 17 0 - 40 U/L [facility] Total Protein 7.1 6.5 - 8.0 g/dL [facility] Albumin Level 4.5 3.5 - 5.0 g/dL [facility] Alkaline Phosphatase 97 39 - 117 U/L [facility] Blood Venous blood specimen / Unknown 07/05/2025 12:09 PM EST 07/05/2025 1:00 PM EST us Lexie Mo NP LAB BLOOD ORDERABLES Final Resul t Performing Organization Address [facility] Co de Phone Number [facility] [address] [place] [phone] * POCT Rapid Influenza B RILEY ID NOW (04/10/2025 2:33 PM EDT) Influenza B Negative Negative, Indeterminate [facility] QC Media Lot # [id number] [facility] Lot# Expiration Date [facility] Swab 04/10/2025 2:33 PM EDT us Vanessa Wild MD POINT OF CARE TEST EN TER/EDIT ORDERABLES Final Result Performing Organization Address [facility] Co de Phone Number [facility] [address] [place] [phone] * POCT Rapid Influenza A RILEY ID NOW (04/10/2025 2:31 PM EDT) Influenza A Negative Negative, Indeterminate [facility] QC Media Lot # [id number] [facility] Lot# Expiration Date [facility] Swab 04/10/2025 2:31 PM EDT us Vanessa Wild MD POINT OF CARE TEST EN TER/EDIT ORDERABLES Final Result [facility] [address] [place] [address] [phone] * POCT Rapid Covid-19 BinaxNOW (04/10/2025 2:31 PM EDT) Rapid COVID Ag Negative QC Media Lot # [id number] Lot# Expiration Date [id number] Swab 04/10/2025 2:31 PM EDT us Vanessa Wild MD POINT OF CARE TEST EN TER/EDIT ORDERABLES Final Result from Last [address] [place] [address] C3 Care Teams Health And Safety Consultant Relationship Specialty Start Date End Date Name, MD Gomez [address] [place] [address] PCP - General Internal Medicine 04/05/24
[2025-07-08 15:28] LABS: TS Negative Control Passed; TS Panel A 0; TS Panel B 0; TS Positive Control Passed; TSpotTB Negative (Negative)
== END 2025-07-05 12:00 | disposition home or self-care (01) ==
LOC: HO.HHCL 11:59
PROVIDERS: PCP Internal Medicine Geriatric Medicine; Referring Provider Nurse Practitioner Family; Visit Provider Internal Medicine Geriatric Medicine
DX: Z11.1 Encounter for screening for respiratory tuberculosis (principal); R20.0 Anesthesia of skin
CPT/HCPCS: 36415; 80053; 82607; 82746; 85025; 86481